=== PATIENT | male | born 1935 | race African-American/Black ===

== ENCOUNTER 2016-11-16 05:48 | Emergency (ER) | payer OTHER ==
[~2016-11-16] VITALS: Ht 185.4 cm; Wt 74.8 kg
[2016-11-16] MEDS ORDERED: CIPROFLOXACIN500 M2 ORAL (05:59)
--- NOTE | 2016-11-16 05:59 | Emergency Room Report ---
History of Present Illness General Chief Complaint: General Complaint Source: Patient, EMS Present Illness HPI Is an 81-year-old male with a history of BPH. He has a chronic Dennison in for last 2 months. He had it changed 2 weeks ago because of blockage. He presents with chief complaint of Dennison blockage started around midnight. Very painful. Similar symptom in the past. No fever or chills. no nausea no vomiting. No other injury. Allergies: Coded Allergies: PENICILLINS (Verified Allergy, Unknown, 11/16/16) Patient History Past Medical History: see triage record, old chart reviewed Past Surgical History: other Pertinent Family History: none Social History: Denies: smoking Immunizations: other Reviewed Nursing Documentation: PMH: Agreed, PSxH: Agreed Nursing Documentation-PMH Hx Hypertension: Yes Review of Systems Eye: Denies: blurred vision, eye pain ENT: Denies: ear pain, nose congestion, throat swelling Respiratory: Denies: cough, shortness of breath Cardiovascular: Denies: chest pain, palpitations Gastrointestinal: Denies: abdominal pain, diarrhea, nausea, vomiting Genitourinary: Reports: retention Musculoskeletal: Denies: back pain, joint pain Skin: Denies: rash Neurological: Denies: headache, numbness Endocrine: Denies: increased thirst, increased urine Hematologic/Lymphatic: Denies: easy bruising All Other Systems: negative except mentioned in HPI Physical Exam Vital Signs Date Time Temp Pulse Resp B/P Pulse Ox O2 Delivery O2 Flow Rate FiO2 11/16/16 05:50 97.5 82 16 191/93 97 Room Air vitals with hypertension Sp02 EP Interpretation: reviewed, normal General Appearance: well appearing, no apparent distress, alert Head: normocephalic, atraumatic Eyes: bilateral eye EOMI, bilateral eye PERRL ENT: hearing grossly normal, normal pharynx Neck: full range of motion, supple, no meningismus Respiratory: chest non-tender, lungs clear, normal breath sounds Cardiovascular #1: regular rate, rhythm, no murmur Gastrointestinal: normal bowel sounds, non tender, no mass, no organomegaly, no bruit, non-distended, other - Distended bladder Genitourinary: other - 16 [place]ic Dennison with no urine output Musculoskeletal: back normal, gait/station normal, normal range of motion Neurologic: alert, oriented x3, responsive Psychiatric: mood/affect normal Skin: warm/dry Medical Decision Making Diagnostic Impression: Primary Impression: Acute urinary retention ER Course Present with urinary retention. New Dennison placed with good urine output. Patient felt better. Blood pressure improved. We'll discharge home. Last Vital Signs Date Time Temp Pulse Resp B/P Pulse Ox O2 Delivery O2 Flow Rate FiO2 11/16/16 05:50 97.5 82 16 191/93 97 Room Air Status: improved Disposition: HOME, SELF-CARE Condition: Stable Scripts Ciprofloxacin Hcl* (CIPROFLOXACIN HCL*) 500 Mg Tablet 500 MG ORAL Q12H, #14 TAB 0 Refills Prov: SABINA FAJARDO M.D. 11/16/16 Additional Instructions: Followup with your doctor as scheduled to return for fever or chills or any concern SABINA FAJARDO M.D. Nov 16, 2016 05:59
[2016-11-16 06:32] VITALS: BP 135/80
== END 2016-11-16 06:55 | disposition home or self-care (01) ==
LOC: EDBD 05:48 → EDUNIT# 05:48 → EMR 06:00
DX: T83.091A Other mechanical complication of indwelling urethral catheter, initial encounter (principal); Y84.6 Urinary catheterization as the cause of abnormal reaction of the patient, or of later complication, without mention of misadventure at the time of the procedure; Y92.89 Other specified places as the place of occurrence of the external cause; N40.1 Benign prostatic hyperplasia with lower urinary tract symptoms; R33.8 Other retention of urine; Z88.0 Allergy status to penicillin; I10 Essential (primary) hypertension
CPT/HCPCS: 51702

== ENCOUNTER 2017-05-27 04:40 | Emergency (ER) | payer OTHER ==
[~2017-05-27] VITALS: Ht 188 cm; Wt 79.4 kg
[~2017-05-27 04:40] MED LIST: CIPROFLOXACIN500 M2 ORAL
[2017-05-27 04:45] VITALS: BP 137/87
--- NOTE | 2017-05-27 05:00 | Emergency Room Report ---
History of Present Illness General Chief Complaint: Male Urogenital Problems Source: Patient Present Illness [facility] This is an 82-year-old male with history of BPH and urinary retention. He has a chronic Dennison and orbital year now. He presents with urinary retention since midnight. Painful. Similar symptom in the past. [facility] No nausea no vomiting. Pain is 10 out of 10. Denies any other complaint. Allergies: Coded Allergies: PENICILLINS (Verified Allergy, Unknown, 11/16/16) Patient History Past Medical History: see triage record, old chart reviewed Past Surgical History: other Pertinent Family History: none Social History: Denies: smoking Immunizations: other Reviewed Nursing Documentation: PMH: Agreed, PSxH: Agreed Nursing Documentation-PMH Past Medical History: No History, Except For Hx Hypertension: Yes Review of Systems Eye: Denies: eye pain, blurred vision ENT: Denies: ear pain, nose congestion, throat swelling Respiratory: Denies: cough, shortness of breath Cardiovascular: Denies: chest pain, palpitations Gastrointestinal: Denies: abdominal pain, diarrhea, nausea, vomiting Genitourinary: Reports: retention Musculoskeletal: Denies: back pain, joint pain Skin: Denies: rash Neurological: Denies: headache, numbness Endocrine: Denies: increased thirst, increased urine Hematologic/Lymphatic: Denies: easy bruising All Other Systems: negative except mentioned in HPI Physical Exam Vital Signs Date Time Temp Pulse Resp B/P (MAP) Pulse Ox O2 Delivery O2 Flow Rate FiO2 05/27/17 04:32 97.0 100 18 137/87 98 vital signs unremarkable Sp02 EP Interpretation: reviewed, normal General Appearance: well appearing, no apparent distress, alert Head: normocephalic, atraumatic Eyes: bilateral eye PERRL, bilateral eye EOMI ENT: hearing grossly normal, normal pharynx Neck: full range of motion, supple, no meningismus Respiratory: chest non-tender, lungs clear, normal breath sounds Cardiovascular #1: regular rate, rhythm, no murmur Gastrointestinal: normal bowel sounds, non tender, no mass, no organomegaly, no bruit, non-distended, tenderness - Distended bladder Musculoskeletal: back normal, gait/station normal, normal range of motion Psychiatric: mood/affect normal Skin: warm/dry Procedures Additional Procedure Procedure Narrative Procedure: Dennison insertion Indication: Acute urinary retention Description: Under sterile condition I placed a 20 Sinhala Dennison. There was large amount of clots and debris. About 700 mL urine output came out. Patient felt better. No complication. Medical Decision Making Diagnostic Impression: Primary Impression: Acute urinary retention ER Course Patient with acute urinary retention. Better now. We'll discharge home. Last Vital Signs Date Time Temp Pulse Resp B/P (MAP) Pulse Ox O2 Delivery O2 Flow Rate FiO2 05/27/17 04:32 97.0 100 18 137/87 98 Status: improved Disposition: HOME, SELF-CARE Additional Instructions: [facility] Return for fever chills, or any concern SABINA FAJARDO M.D. May 27, 2017 05:00
[2017-05-27 05:20] VITALS: BP 137/87
== END 2017-05-27 05:20 | disposition home or self-care (01) ==
LOC: EDBD 04:40 → EMR 04:45
DX: N40.1 Benign prostatic hyperplasia with lower urinary tract symptoms (principal); R33.8 Other retention of urine; I10 Essential (primary) hypertension; Z88.0 Allergy status to penicillin
CPT/HCPCS: 51702; 99283

== ENCOUNTER 2017-08-04 03:44 | Emergency (ER) | payer OTHER ==
[~2017-08-04] VITALS: Ht 185.4 cm; Wt 77.1 kg
[2017-08-04 03:49] VITALS: BP 197/68
--- NOTE | 2017-08-04 04:36 | Emergency Room Report ---
History of Present Illness General Chief Complaint: Male Urogenital Problems Source: Patient, EMS Present Illness HPI Patient presents with complaints that he feels his Rossi catheter is clogged Patient has had several visits with similar complaints he has had a long- standing Rossi catheter Over the past 6 months Patient reports that he does have a urologist at the [facility] that he does see closely he reports that he has prostate problems and that is why he has a Rossi catheter He feels increased pressure in the bladder area Denies any fevers or chills denies any vomiting Allergies: Coded Allergies: PENICILLINS (Verified Allergy, Unknown, 11/16/16) Patient History Past Medical History: see triage record Pertinent Family History: none Reviewed Nursing Documentation: PMH: Agreed, PSxH: Agreed Nursing Documentation-PMH Hx Hypertension: Yes Hx Gastrointestinal Problems: Yes - BPH Review of Systems All Other Systems: negative except mentioned in HPI Physical Exam Vital Signs Date Time Temp Pulse Resp B/P (MAP) Pulse Ox O2 Delivery O2 Flow Rate FiO2 08/04/17 03:41 97.8 91 18 197/68 96 Room Air 97.9 Sp02 EP Interpretation: reviewed, normal - Appears mildly disheveled General Appearance: well appearing, no apparent distress Head: normocephalic, atraumatic Eyes: bilateral eye PERRL, bilateral eye EOMI ENT: no angioedema, normal voice Neck: full range of motion, supple Respiratory: lungs clear Cardiovascular #1: no edema Gastrointestinal: non tender, soft Genitourinary: no CVA tenderness, other - Rossi catheter in place approximately 50 mL in the Rossi bag Musculoskeletal: back normal Neurologic: alert, oriented x3 Skin: normal color, no rash Lymphatic: no adenopathy Medical Decision Making Diagnostic Impression: Primary Impression: rossi catheter malfunction ER Course Given the patient's presentation a complaint Rossi catheter was placed We did have 500 cc his urine output and the patient does feel significantly better Patient's encouraged highly to follow up with his urologist next one to 2 days Last Vital Signs Date Time Temp Pulse Resp B/P (MAP) Pulse Ox O2 Delivery O2 Flow Rate FiO2 08/04/17 03:49 97.9 91 18 197/68 96 Room Air 97.9 Status: improved Disposition: HOME, SELF-CARE Condition: Improved Referrals: SATNAM MCDANIEL,REFERRING (PCP) Patient Instructions: Rossi Catheter Care, Adult, [id number] Additional Instructions: [facility] one [facility] 2 days JANA LOVE D.O. Aug 04, 2017 04:36
[2017-08-04 04:45] VITALS: BP 197/68
== END 2017-08-04 04:45 | disposition home or self-care (01) ==
LOC: EDBD 03:44 → EMR 04:09
DX: T83.098A Other mechanical complication of other urinary catheter, initial encounter (principal); Z88.0 Allergy status to penicillin; I10 Essential (primary) hypertension; N40.0 Benign prostatic hyperplasia without lower urinary tract symptoms; Y84.6 Urinary catheterization as the cause of abnormal reaction of the patient, or of later complication, without mention of misadventure at the time of the procedure; Y92.9 Unspecified place or not applicable
CPT/HCPCS: 99282

== ENCOUNTER 2019-08-23 21:01 | Emergency (ER) | payer OTHER ==
[~2019-08-23] VITALS: Ht 185.4 cm; Wt 73.0 kg
[2019-08-23 21:10] VITALS: BP 148/89
--- NOTE | 2019-08-23 21:10 | NUR ---
ED Nurse Note: Pt brought into ED from home by KEYANA ROTHMAN for c/o rossi cath problem. Pt states the balloon in catheter broke and rossi came out. Pt is aaox4, no respiratory or cardiac distress noted. Pt has had a rossi inserted for over a year and regularly visits [facility] for check ups/ rossi changes per pt.
--- NOTE | 2019-08-23 21:10 | NUR ---
ED Nurse Note: Pt also reports penile pain s/p removal of cathether prior to arrival.
--- NOTE | 2019-08-23 21:22 | Emergency Room Report ---
History of Present Illness General Chief Complaint: Male Urogenital Problems Source: Patient, EMS Present Illness HPI Patient has a chronic indwelling Dennison. The balloon popped and the Dennison came out. He denies fever chills. He denies nausea, vomiting or diarrhea. He has a slight amount of dysuria. Denies change in his bowel habits. Was in assisted living and now at home for 1 week. Allergies: Coded Allergies: PENICILLINS (Verified Allergy, Unknown, 11/16/16) COVID-19 Screening Contact w/high risk pt: No Recent Travel to affected area: No Experienced COVID-19 symptoms?: No Patient History Past Medical History: see triage record Social History: Reports: smoking Social History Narrative at home after assisted living Reviewed Nursing Documentation: PMH: Agreed; PSxH: Agreed Nursing Documentation-PMH Hx Hypertension: Yes Hx Gastrointestinal Problems: Yes - BPH Review of Systems Constitutional: Reports: see HPI Cardiovascular: Denies: chest pain Gastrointestinal: Denies: abdominal pain Genitourinary: Reports: see HPI Musculoskeletal: Denies: joint pain Skin: Denies: rash Physical Exam Vital Signs Date Time Temp Pulse Resp B/P (MAP) Pulse Ox O2 Delivery O2 Flow Rate FiO2 08/23/19 21:04 97.9 90 19 148/89 (108) 98 Room Air Sp02 EP Interpretation: reviewed, normal General Appearance: no apparent distress, alert, GCS 15, non-toxic, thin, Chronically Ill Head: normocephalic Eyes: left eye other - Slight proptosis; bilateral eye PERRL, bilateral eye EOMI ENT: moist mucus membranes Neck: full range of motion Respiratory: lungs clear, normal breath sounds Cardiovascular #1: regular rate, rhythm Cardiovascular #2: 2+ radial (L) Gastrointestinal: normal inspection, non tender, soft Genitourinary: no CVA tenderness, other - Uncircumcised without blood at the meatus Musculoskeletal: gait/station normal Neurologic: alert, oriented, motor weakness - Minimal left, other Psychiatric: mood/affect normal Skin: normal color, no rash Medical Decision Making Diagnostic Impression: Primary Impression: Encounter for Dennison catheter replacement Additional Impression: UTI (urinary tract infection) Qualified Codes: T83.511A - Infection and inflammatory reaction due to indwelling urethral catheter, initial encounter; N39.0 - Urinary tract infection , site not specified ER Course Patient presents with Dennison coming out with ruptured balloon. A Dennison will be replaced. Urinalysis is sent. The diagnosis is clinical. Patient does not have any appearance of toxicity or dehydration. TNTC WBCs. Macrobid ordered. Discussed findings with patient. Patient stable for outpatient observation and treatment. Laboratory Tests Test 08/23/19 21:40 Urine Color Pale yellow Urine Appearance Cloudy Urine pH 8 (4.5-8.0) Urine Specific [place] 1.015 (1.005-1.035) Urine Protein 3+ (NEGATIVE) H Urine Glucose (UA) 1+ (NEGATIVE) H Urine Ketones Negative (NEGATIVE) Urine Blood 5+ (NEGATIVE) H Urine Nitrite Negative (NEGATIVE) Urine Bilirubin Negative (NEGATIVE) Urine Urobilinogen Normal MG/DL (0.0-1.0) Urine Leukocyte Esterase 3+ (NEGATIVE) H Urine RBC Tntc /HPF (0 - 0) H Urine WBC Tntc /HPF (0 - 0) H Urine Squamous Epithelial Cells Moderate /LPF (NONE/OCC) H Urine Bacteria Many /HPF (NONE) H Last Vital Signs Date Time Temp Pulse Resp B/P (MAP) Pulse Ox O2 Delivery O2 Flow Rate FiO2 08/24/19 00:10 97.9 78 16 141/99 99 Room Air Status: improved Reevaluation Impression Apparently patient left without his prescription. Disposition: HOME, SELF-CARE Condition: Improved Scripts Nitrofurantoin Monohyd/M-Cryst* (MACROBID 100 MG*) 100 Mg Capsule 100 MG ORAL EVERY 12 HOURS, #14 CAP Prov: Aldair Stark MD 08/23/19 Aldair Stark MD Aug 23, 2019 21:22
--- NOTE | 2019-08-23 21:35 | NUR ---
ED Nurse Note: Previous rossi was pulled out. New rossi inserted at this time and leg bag attached. No complications noted. Urine sample sent to lab.
[2019-08-23 21:53] LABS: APPEARANCE,URINE CLOUDY; BILIRUBIN, URINE NEGATIVE (NEGATIVE); COLOR,URINE PALE YELLOW; GLUCOSE, URINE (UA) 1+ (NEGATIVE); KETONES,URINE NEGATIVE (NEGATIVE); LEUKOCYTE ESTERASE ,URINE 3+ (NEGATIVE); NITRITE,URINE NEGATIVE (NEGATIVE); PH,URINE 8 (4.5-8.0); PROTEIN,URINE 3+ (NEGATIVE); UROBILINOGEN,URINE NORMAL MG/DL (0.0-1.0)
--- NOTE | 2019-08-23 22:30 | NUR ---
ED Nurse Note: Pt is resting comfortably in bed. No complaints or acute distress noted at this time. Will continue to monitor pt.
[2019-08-23] MEDS ORDERED: NITROFURANTOIN100 M2 ORAL (22:36)
[2019-08-24 00:10] VITALS: BP 141/99
--- NOTE | 2019-08-24 00:10 | NUR ---
ER DISCHARGE NOTE: Patient is cleared to be discharged per ERMD, pt is aox4, on room air, with stable vital signs. pt was given dc and prescription instructions, pt was able to verbalize understanding, pt id band removed. pt is able to ambulate with steady gait to taxi. pt took all belongings.
[2019-08-26] MEDS ORDERED: CIPROFLOXACIN500 M2 ORAL (07:50)
== END 2019-08-24 00:10 | disposition home or self-care (01) ==
LOC: EDBD 21:01 → EMR 22:06
DX: T83.511A Infection and inflammatory reaction due to indwelling urethral catheter, initial encounter (principal); X58.XXXA Exposure to other specified factors, initial encounter; Y92.9 Unspecified place or not applicable; Z88.0 Allergy status to penicillin; I10 Essential (primary) hypertension; F17.200 Nicotine dependence, unspecified, uncomplicated
CPT/HCPCS: 51702; 81003; 87086; 87181; 99284

== ENCOUNTER 2019-10-24 01:10 | Emergency (ER) | payer OTHER ==
[~2019-10-24] VITALS: Ht 188 cm; Wt 81.6 kg
[~2019-10-24 01:10] MED LIST changes: +NITROFURANTOIN100 M2 ORAL
--- NOTE | 2019-10-24 01:15 | NUR ---
ED Nurse Note: Pt brought in by [id number] from home c/o pain from hi rossi as well as "its stopped up" pt wears a rossi constantly, no fever, VSS. Pt is A&Ox4.
[2019-10-24 01:17] VITALS: BP 124/55
--- NOTE | 2019-10-24 01:24 | Emergency Room Report ---
History of Present Illness General Chief Complaint: Male Urogenital Problems Source: Patient Present Illness HPI Is an 84-year-old male with a history of BPH and urinary retention. He has a chronic Dennison. He presents with chief complaint of urinary retention. He said his Dennison stopped working around 9 PM. Now is painful and distended. This occur frequently to him. Last Dennison change was 3 weeks ago. No fever chills but no nausea no vomiting. Nothing made it better. Nothing made it worse. 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: No Patient History Past Medical History: see triage record, old chart reviewed, HTN Past Surgical History: other Pertinent Family History: none Social History: Denies: smoking Immunizations: other Reviewed Nursing Documentation: PMH: Agreed; PSxH: Agreed Nursing Documentation-PMH Past Medical History: No History, Except For Hx Hypertension: Yes Hx Gastrointestinal Problems: Yes - BPH Review of Systems Eye: Denies: eye pain, blurred vision ENT: Denies: ear pain, nose congestion, throat swelling Respiratory: Denies: cough, shortness of breath Cardiovascular: Denies: chest pain, palpitations Gastrointestinal: Denies: abdominal pain, diarrhea, nausea, vomiting Genitourinary: Reports: retention Musculoskeletal: Denies: back pain, joint pain Skin: Denies: rash Neurological: Denies: headache, numbness Endocrine: Denies: increased thirst, increased urine Hematologic/Lymphatic: Denies: easy bruising All Other Systems: negative except mentioned in HPI Physical Exam Vital Signs Date Time Temp Pulse Resp B/P (MAP) Pulse Ox O2 Delivery O2 Flow Rate FiO2 10/24/19 01:13 97.3 114 18 124/55 (78) 97 Room Air Vitals with tachycardia Sp02 EP Interpretation: reviewed, normal General Appearance: well appearing, no apparent distress, alert Head: normocephalic, atraumatic Eyes: bilateral eye PERRL, bilateral eye EOMI ENT: hearing grossly normal, normal pharynx Neck: full range of motion, supple, no meningismus Respiratory: chest non-tender, lungs clear, normal breath sounds Cardiovascular #1: regular rate, rhythm, no murmur Gastrointestinal: normal bowel sounds, non tender, no mass, no organomegaly, no bruit, non-distended, other - Distended bladder Musculoskeletal: back normal, normal range of motion, gait/station normal Psychiatric: mood/affect normal Medical Decision Making Diagnostic Impression: Primary Impression: Malfunction of Dennison catheter Qualified Codes: T83.011A - Breakdown (mechanical) of indwelling urethral catheter, initial encounter ER Course Patient presents with urinary retention secondary to clogged Dennison catheter. A new Dennison placed. Will discharge home. Last Vital Signs Date Time Temp Pulse Resp B/P (MAP) Pulse Ox O2 Delivery O2 Flow Rate FiO2 10/24/19 01:17 97.3 79 18 124/55 97 Room Air Status: improved Disposition: HOME, SELF-CARE Condition: Stable Additional Instructions: Follow-up with your urologist as scheduled. Return if symptoms worsen. Darrel Hernández MD October 24, 2019 01:24
--- NOTE | 2019-10-24 01:34 | NUR ---
ED Nurse Note: 20F coude placed without complication, pt tolerated well
--- NOTE | 2019-10-24 02:38 | NUR ---
ER DISCHARGE NOTE: Patient is cleared to be discharged per ERMD, pt is aox4, on room air, with stable vital signs. pt was given dc and prescription instructions, pt was able to verbalize understanding, pt id band removed. pt is able to ambulate with steady gait. pt took all belongings. Patient awaiting taxi pick-up in the waiting room lobby.
== END 2019-10-24 02:39 | disposition home or self-care (01) ==
LOC: EDBD 01:10 → EMR 01:27
DX: T83.011A Breakdown (mechanical) of indwelling urethral catheter, initial encounter (principal); I10 Essential (primary) hypertension; Z88.0 Allergy status to penicillin; X58.XXXA Exposure to other specified factors, initial encounter; Y92.9 Unspecified place or not applicable
CPT/HCPCS: 51702; 99284

== ENCOUNTER 2020-02-15 15:15 | Emergency (ER) | payer OTHER ==
[~2020-02-15] VITALS: Ht 185.4 cm; Wt 69.9 kg
[2020-02-15 15:15] VITALS: BP 142/74
--- NOTE | 2020-02-15 15:27 | Emergency Room Report ---
History of Present Illness General Chief Complaint: Male Urogenital Problems Source: Patient, EMS Present Illness HPI Patient is an 85-year-old male past medical history of indwelling Dennison catheter who presents to the ER stating that his Dennison catheter has not been draining for the second half of the day. He complains of suprapubic pain. He states that this is commonly happened. Patient has been seen here previously numerous times for the same complaint. He denies any fever or chills. He denies any chest pain or shortness of breath. Patient was brought in by EMS from home. Patient denies any bloody or cloudy urine. He denies any nausea or vomiting Allergies: Coded Allergies: PENICILLINS (Verified Allergy, Unknown, 11/16/16) COVID-19 Screening Contact w/high risk pt: No Recent Travel to affected area: No Experienced COVID-19 symptoms?: No COVID-19 Testing performed ULTRASONIC SOLDERER: No Patient History Reviewed Nursing Documentation: PMH: Agreed; PSxH: Agreed Nursing Documentation-PMH Past Medical History: No History, Except For Hx Cardiac Problems: Yes - CVA Hx Hypertension: Yes Hx Gastrointestinal Problems: Yes - BPH Review of Systems All Other Systems: negative except mentioned in HPI Physical Exam Vital Signs Date Time Temp Pulse Resp B/P (MAP) Pulse Ox O2 Delivery O2 Flow Rate FiO2 02/15/20 15:10 99.3 100 18 148/62 (90) 96 Room Air Sp02 EP Interpretation: reviewed, normal General Appearance: GCS 15, moderate distress, other - Poorly groomed Head: normocephalic, atraumatic Eyes: bilateral eye normal inspection, bilateral eye PERRL ENT: hearing grossly normal, normal pharynx, no angioedema, normal voice Neck: full range of motion, supple/symm/no masses Respiratory: chest non-tender, lungs clear, normal breath sounds, speaking full sentences Cardiovascular #1: regular rate, rhythm, no edema Gastrointestinal: other - Suprapubic discomfort and fullness with no guarding or rebound Rectal: deferred Musculoskeletal: other - Dennison catheter in place Neurologic: inventory specialist manager III-XII nml as tested, oriented x3 Psychiatric: no suicidal/homicidal ideation Skin: no rash Lymphatic: no adenopathy Medical Decision Making Diagnostic Impression: Primary Impression: Dennison catheter problem ER Course Dennison catheter replaced without any difficulty. Urine culture sent. Patient has no fever and no symptoms that would lead me to believe that he has a UTI. After discussing risks and benefits of further diagnostics, treatment plans, as well as indications for and risks of admission, the patient is agreeable to being discharged home. I have explained that their evaluation and treatment in the emergency department today is an important step towards them achieving better health but that their evaluation today is not intended to replace further evaluation and treatment by a physician in their local clinic. I have explained that while the current findings suggest no immediate life threatening emergency they will require further evaluation and treatment by a physician of their [facility] in their area. They understand that it will be necessary for them to review the final reports of their ED visit with their clinic physician. We have reviewed indications for return to the Emergency Department. I have explained that additional time may need to pass and/or additional testing as an outpatient may be necessary before a definitive diagnosis can be made. They tell me they are willing to follow up as instructed within the timeframe I recommend. They appear to understand what we discussed. Additionally they understand that if they are unable to be seen by an outpatient physician they are welcome, and in fact should, return to the Emergency Department for a repeat evaluation. The patient is stable at time of discharge. Last Vital Signs Date Time Temp Pulse Resp B/P (MAP) Pulse Ox O2 Delivery O2 Flow Rate FiO2 02/15/20 15:10 99.3 100 18 148/62 (90) 96 Room Air Disposition: HOME, SELF-CARE Condition: Stable Referrals: [facility] Emmy Vazquez [facility] Patient Instructions: Dennison Catheter Care, Adult, [id number] Additional Instructions: The patient was provided with discharge instructions, notified to follow-up with a primary care doctor and or specialist in the next 24-48 hours, and to return to the ED if they have worsening of their symptoms. Please note that this report is being documented using [employer] technology. This can lead to erroneous entry secondary to incorrect interpretation by the Project Manager instrument. Justine Zelaya M.D. Feb 15, 2020 15:27
[2020-02-15] MEDS ORDERED: Lidocaine HCl 2% Jelly 6ml Tube TOPIC ONE (15:45)
[2020-02-15 17:15] VITALS: BP 138/84
[2020-02-15 20:35] VITALS: BP 128/81
== END 2020-02-15 20:35 | disposition home or self-care (01) ==
LOC: EDBD 15:15 → EMR 15:24
DX: T83.098A Other mechanical complication of other urinary catheter, initial encounter (principal); Z88.0 Allergy status to penicillin; I10 Essential (primary) hypertension; Z86.73 Personal history of transient ischemic attack (TIA), and cerebral infarction without residual deficits; X58.XXXA Exposure to other specified factors, initial encounter; Y92.9 Unspecified place or not applicable
CPT/HCPCS: 51702; 87086; 99284

== ENCOUNTER 2020-03-29 17:26 | Inpatient (IN) | payer BC, MEDICARE, OTHER ==
[~2020-03-29] VITALS: Ht 180.3 cm; Wt 73.0 kg
[2020-03-29 17:28] VITALS: BP 142/60
[2020-03-29] MEDS ORDERED: Vancomycin 1 GM in NS 275 ML IVPB ONE (17:30)
[2020-03-29 18:23] LABS: HEMATOCRIT 45.4 % (42.0-52.0); HEMOGLOBIN 14.8 G/DL (14.2-18.0); MEAN CORPUSCULAR VOLUME 99 FL (80-99); PLATELET COUNT 119 K/UL (150-450); RED CELL DISTRIBUTION WIDTH 13.1 % (11.6-14.8)
[2020-03-29 18:25] LABS: INR 1.1 (0.9-1.1)
[2020-03-29 18:26] LABS: CALCIUM 9.2 MG/DL (8.5-10.1); CREATININE 6.3 MG/DL (0.55-1.30); POTASSIUM 5.6 MMOL/L (3.5-5.1)
[2020-03-29 18:42] LABS: ALBUMIN/GLOBULIN RATIO 0.8 (1.0-2.7); BILIRUBIN,TOTAL 0.4 MG/DL (0.2-1.0); PHOSPHORUS 5.2 MG/DL (2.5-4.9)
[2020-03-29 18:51] LABS: APPEARANCE,URINE VERY CLOUDY; BILIRUBIN, URINE NEGATIVE (NEGATIVE); COLOR,URINE AMBER; GLUCOSE, URINE (UA) NEGATIVE (NEGATIVE); KETONES,URINE 1+ (NEGATIVE); LEUKOCYTE ESTERASE ,URINE 3+ (NEGATIVE); NITRITE,URINE NEGATIVE (NEGATIVE); PH,URINE 7 (4.5-8.0); PROTEIN,URINE 4+ (NEGATIVE); UROBILINOGEN,URINE NORMAL MG/DL (0.0-1.0)
--- NOTE | 2020-03-29 19:33 | Diagnostic Imaging Report ---
EXAM: US Abdomen Complete CLINICAL HISTORY: RENAL-A TECHNIQUE: Real-time ultrasound of the abdomen with image documentation. COMPARISON: No previous study. FINDINGS: Liver: The liver measures 14.8 cm. No intrahepatic bile duct dilation. Gallbladder: Gallbladder is unremarkable. No gallstones. Common bile duct: Common bile duct measures 0.65 cm and is mildly prominent. No stones. Pancreas: Unremarkable as visualized. Kidneys: Right kidney measures 12.5 x 5.7 x 5.5 cm with mild hydronephrosis. Patent main portal vein. Left kidney measures 10.5 x 5. 1 x 4.9 centers. Increased echogenicity of the kidneys suggestive of medical renal disease. 0.4 cm probable nonobstructing right renal calculus. Spleen: The spleen is not visualized due to bowel gas. Aorta: Abdominal aorta is normal in caliber. No aneurysm. Inferior vena cava: Unremarkable. IMPRESSION: 1. Limited evaluation due to bowel gas. 2. Increased echogenicity of the kidney suggestive of medical renal disease. 3. Nonobstructing right renal calculus. 4. No gallstones detected. The gallbladder is unremarkable per 5. The common bile duct 6. Measures 0.65 cm and is mildly dilated. 7. Choledocholithiasis cannot be excluded. MRCP study will provide additional information as deemed necessary. 8. Mild hydronephrosis of the right kidney of uncertain etiology. CT imaging of the abdomen and pelvis should be considered. 9. Spleen is not visualized due to body habitus.
[2020-03-29 21:24] VITALS: BP_SYST 131
[2020-03-29 22:00] VITALS: BP 126/57
--- NOTE | 2020-03-29 22:15 | History & Physical ---
History and Physical History & Physicial A& O X 3 On BiPAP Fernando Sierra MD Mar 29, 2020 22:15
[2020-03-29] MEDS ORDERED: Albuterol/Ipratropium 3ml neb HHN PRN (22:30)
[2020-03-30] VITALS: BP 118/64
[2020-03-30] MEDS ORDERED: Cefepime HCl 2 GM in D5W 110 ML IV ONE ×2
[2020-03-30] MEDS ORDERED: Vancomycin 1 GM in D5W 275 ML IV SCH (00:30)
[2020-03-30 04:00] VITALS: BP 118/87
[2020-03-30 04:45] LABS: HEMOGLOBIN 12.8 G/DL (14.2-18.0); MEAN CORPUSCULAR VOLUME 94 FL (80-99); PLATELET COUNT 86 K/UL (150-450); RED BLOOD COUNT 3.95 M/UL (4.70-6.10); RED CELL DISTRIBUTION WIDTH 13.6 % (11.6-14.8); WHITE BLOOD COUNT 20.4 K/UL (4.8-10.8)
[2020-03-30 04:56] LABS: ALANINE AMINOTRANSFERASE 15 U/L (12-78); ALBUMIN 2.4 G/DL (3.4-5.0); ALBUMIN/GLOBULIN RATIO 0.7 (1.0-2.7); ALKALINE PHOSPHATASE 83 U/L (46-116); ASPARTATE AMINO TRANSFERASE 37 U/L (15-37); BILIRUBIN,TOTAL 0.5 MG/DL (0.2-1.0); BLOOD UREA NITROGEN 73 mg/dL (7-18); CALCIUM 8.7 MG/DL (8.5-10.1); CARBON DIOXIDE 24 MMOL/L (21-32); CHLORIDE 101 MMOL/L (98-107); CREATININE 5.1 MG/DL (0.55-1.30); POTASSIUM 5.4 MMOL/L (3.5-5.1); SODIUM 135 MMOL/L (136-145)
[2020-03-30 08:00] VITALS: BP 134/77
[2020-03-30] MEDS: Heparin 5000 units/ml inj SUBQ SCH ×2 (08:57→20:12)
--- NOTE | 2020-03-30 10:07 | Diagnostic Imaging Report ---
EXAM: ULTRASOUND US Renal Comp CLINICAL HISTORY: Abdominal pain. COMPARISON: None TECHNIQUE: Ultrasound examination of the kidneys includes grayscale images, and color and spectral doppler analysis. FINDINGS: The right kidney measures 11.7 x 5.6 x 5.9 cm and the left kidney measures 10.2 x 5.8 x 4.7 cm. Cortical thickness and echogenicity are within normal limits. On the right side, there is mild right hydronephrosis noted. . Urinary bladder appears fairly distended. There is a layering calcified gallstone along with some debris. A Cuevas catheter is also noted in the bladder. IMPRESSION: MILD RIGHT HYDRONEPHROSIS. THERE IS A CUEVAS CATHETER IN THE BLADDER BUT THE BLADDER STILL APPEARS FAIRLY DISTENDED. PLEASE CHECK FUNCTION OF CATHETER. LAYERING STONE AND SOME DEBRIS NOTED IN THE URINARY BLADDER. PATIENT'S NURSE, FROYLAN WAS INFORMED OF THE FINDINGS REGARDING THE DISTENDED URINARY BLADDER WITH CUEVAS IN PLACE TO CHECK FOR FUNCTION OF CUEVAS.
--- NOTE | 2020-03-30 11:10 | Consultation ---
History of Present Illness General Date patient seen: Mar 30, 2020 Chief Complaint: Generalized Weakness Present Illness HPI 85 year old male with hx of recent CVA, 2 month ago, with chronic urinary catheter, presented to ER by paramedics with CC of weakness, fatigue, dyspnea. Pt was hypoxemic in ER and was put on BIPAP. He was found to be in renal failure. He got a dose of Lasix in ER and transferred to [facility]. He was weaned off bipap this morning. He is currently on face mask with 6 liters of oxygen. His blood cultures came back positive for GNR. Pt is admitted to [facility] for further management. Allergies: Coded Allergies: PENICILLINS (Verified Allergy, Unknown, 11/16/16) Medication History Unable to Obtain Active Prescriptions or Reported Meds Patient History Healthcare decision maker Resuscitation status Advanced Directive on File Past Medical/Surgical History Past Medical/Surgical History: (1) COPD (chronic obstructive pulmonary disease) (2) History of CVA (cerebrovascular accident) Review of Systems Constitutional: Reports: no symptoms Eye: Reports: no symptoms ENT: Reports: no symptoms All Other Systems: negative except mentioned in HPI Physical Exam General Appearance: cachetic, thin Lines, tubes and drains: peripheral HEENT: normocephalic, atraumatic Neck: non-tender, normal alignment, supple Respiratory/Chest: chest wall non-tender, lungs clear, normal breath sounds Breasts: no masses Cardiovascular/Chest: normal peripheral pulses, normal rate Abdomen: normal bowel sounds, non tender, soft Genitourinary/Rectal: normal genital exam Extremities: normal range of motion, normal inspection, no calf tenderness Skin Exam: normal pigmentation Last 24 Hour Vital Signs Date Time Temp Pulse Resp B/P (MAP) Pulse Ox O2 Delivery O2 Flow Rate FiO2 03/30/20 10:20 102 98 03/30/20 09:00 30 03/30/20 08:50 99 32 100 30 03/30/20 08:00 Bi-pap 03/30/20 08:00 50 03/30/20 08:00 97.0 105 21 134/77 (96) 100 03/30/20 08:00 99 03/30/20 07:00 101 25 100 50 03/30/20 05:12 95 24 100 70 03/30/20 04:00 97.9 99 24 118/87 (97) 100 03/30/20 04:00 100 03/30/20 04:00 Bi-pap 03/30/20 03:31 101 03/30/20 02:57 92 25 100 80 03/30/20 01:09 104 38 100 100 03/30/20 00:00 98.1 102 26 118/64 (82) 100 03/30/20 00:00 Bi-pap 03/30/20 00:00 100 03/29/20 23:56 106 03/29/20 23:04 102 03/29/20 22:34 101 30 98 Bi-Pap 100 03/29/20 22:31 101 30 98 Bi-Pap 100 100 03/29/20 22:12 Bi-Pap 03/29/20 22:00 100 03/29/20 22:00 98.2 92 26 126/57 (80) 100 03/29/20 22:00 Bi-pap 03/29/20 21:40 103 34 6.0 100 03/29/20 21:38 97.5 96 26 131/60 100 Mechanical Ventilator 2.0 100 03/29/20 21:24 97.5 96 26 131/ 100 Mechanical Ventilator 100 03/29/20 17:28 98.0 108 38 142/60 98 Nasal Cannula 2.0 03/29/20 17:28 108 38 Nasal Cannula 2.0 03/29/20 17:24 98.1 108 38 142/60 (87) 98 Nasal Cannula 2.0 Intake and Output 03/29/20 03/30/20 19:00 07:00 Intake Total 220 ml Output Total 1900 ml Balance -1680 ml Intake IV Total 220 ml Output Urine Total 1900 ml Laboratory Tests Test 03/29/20 17:37 03/29/20 17:45 03/29/20 18:35 03/29/20 19:50 Arterial Blood pH Pending Arterial Blood Partial Pressure CO2 Pending Arterial Blood Partial Pressure O2 Pending Arterial Blood HCO3 Pending Arterial Blood Oxygen Saturation Pending Arterial Blood Base Excess Pending Ramakrishna Test Pending White Blood Count 18.0 K/UL (4.8-10.8) H Red Blood Count 4.60 M/UL (4.70-6.10) L Hemoglobin 14.8 G/DL (14.2-18.0) Hematocrit 45.4 % (42.0-52.0) Mean Corpuscular Volume 99 FL (80-99) Mean Corpuscular Hemoglobin 32.2 PG (27.0-31.0) H Mean Corpuscular Hemoglobin Concent 32.7 G/DL (32.0-36.0) Red Cell Distribution Width 13.1 % (11.6-14.8) Platelet Count 119 K/UL (150-450) L Mean Platelet Volume 8.1 FL (6.5-10.1) Neutrophils (%) (Auto) % (45.0-75.0) Lymphocytes (%) (Auto) % (20.0-45.0) Monocytes (%) (Auto) % (1.0-10.0) Eosinophils (%) (Auto) % (0.0-3.0) Basophils (%) (Auto) % (0.0-2.0) Differential Total Cells Counted 100 Neutrophils % (Manual) 71 % (45-75) Lymphocytes % (Manual) 6 % (20-45) L Monocytes % (Manual) 4 % (1-10) Eosinophils % (Manual) 0 % (0-3) Basophils % (Manual) 0 % (0-2) Metamyelocytes % 1 % (0-0) H Myelocytes % 1 % (0-0) H Band Neutrophils 17 % (0-8) H Platelet Estimate Decreased L Platelet Morphology Normal Anisocytosis 1+ Macrocytosis 1+ Prothrombin Time 11.6 SEC (9.30-11.50) H Prothromb Time International Ratio 1.1 (0.9-1.1) Activated Partial Thromboplast Time 36 SEC (23-33) H D-Dimer 12.42 mg/L FEU (0.00-0.49) H Sodium Level 134 MMOL/L (136-145) L Potassium Level 5.6 MMOL/L (3.5-5.1) H Chloride Level 99 MMOL/L (98-107) Carbon Dioxide Level 25 MMOL/L (21-32) Anion Gap 10 mmol/L (5-15) Blood Urea Nitrogen 65 mg/dL (7-18) H Creatinine 6.3 MG/DL (0.55-1.30) H Estimat Glomerular Filtration Rate 10.3 mL/min (>60) Glucose Level 161 MG/DL (74-106) H Lactic Acid Level 2.90 mmol/L (0.4-2.0) H 1.90 mmol/L (0.66-2.22) Uric Acid 4.8 MG/DL (2.6-7.2) Calcium Level 9.2 MG/DL (8.5-10.1) Phosphorus Level 5.2 MG/DL (2.5-4.9) H Magnesium Level 1.8 MG/DL (1.8-2.4) Ferritin 240 NG/ML (8-388) Total Bilirubin 0.4 MG/DL (0.2-1.0) Aspartate Amino Transf (AST/SGOT) 42 U/L (15-37) H Alanine Aminotransferase (ALT/SGPT) 15 U/L (12-78) Alkaline Phosphatase 90 U/L (46-116) Lactate Dehydrogenase 301 U/L (81-234) H Total Creatine Kinase 343 U/L (26-308) H Creatine Kinase MB 5.0 NG/ML (0.0-3.6) H Creatine Kinase MB Relative Index 1.4 Troponin I 0.047 ng/mL (0.000-0.056) C-Reactive Protein, Quantitative 50.4 mg/dL (0.00-0.90) H Pro-B-Type Natriuretic Peptide 62296 pg/mL (0-125) H Total Protein 6.9 G/DL (6.4-8.2) Albumin 3.0 G/DL (3.4-5.0) L Globulin 3.9 g/dL Albumin/Globulin Ratio 0.8 (1.0-2.7) L Lipase 92 U/L (73-393) Urine Color Janet Urine Appearance Very cloudy Urine pH 7 (4.5-8.0) Urine Specific Pe Ell 1.015 (1.005-1.035) Urine Protein 4+ (NEGATIVE) H Urine Glucose (UA) Negative (NEGATIVE) Urine Ketones 1+ (NEGATIVE) H Urine Blood 5+ (NEGATIVE) H Urine Nitrite Negative (NEGATIVE) Urine Bilirubin Negative (NEGATIVE) Urine Ictotest Negative (NEGATIVE) Urine Urobilinogen Normal MG/DL (0.0-1.0) Urine Leukocyte Esterase 3+ (NEGATIVE) H Urine RBC Tntc /HPF (0 - 0) H Urine WBC 60-80 /HPF (0 - 0) H Urine Squamous Epithelial Cells Moderate /LPF (NONE/OCC) H Urine Bacteria Many /HPF (NONE) H Urine Eosinophils None seen (NONE SEEN) Urine Osmolality 308 mOsm/kg (429-449) L Urine Random Creatinine Pending Urine Random Microalbumin Pending Urine Random Sodium 93 mmol/L (20-110) Urine Microalbumin/Creatinine Ratio Pending Test 03/29/20 20:23 03/30/20 03:50 Arterial Blood pH 7.394 (7.350-7.450) Arterial Blood Partial Pressure CO2 37.7 mmHg (35.0-45.0) Arterial Blood Partial Pressure O2 73.2 mmHg (75.0-100.0) L Arterial Blood HCO3 22.5 mmol/L (22.0-26.0) Arterial Blood Oxygen Saturation 94.0 % (95-100) L Arterial Blood Base Excess -2 (-2-2) Ramakrishna Test Positive White Blood Count 20.4 K/UL (4.8-10.8) H Red Blood Count 3.95 M/UL (4.70-6.10) L Hemoglobin 12.8 G/DL (14.2-18.0) L Hematocrit 37.0 % (42.0-52.0) L Mean Corpuscular Volume 94 FL (80-99) Mean Corpuscular Hemoglobin 32.5 PG (27.0-31.0) H Mean Corpuscular Hemoglobin Concent 34.7 G/DL (32.0-36.0) Red Cell Distribution Width 13.6 % (11.6-14.8) Platelet Count 86 K/UL (150-450) L Mean Platelet Volume 8.2 FL (6.5-10.1) Neutrophils (%) (Auto) % (45.0-75.0) Lymphocytes (%) (Auto) % (20.0-45.0) Monocytes (%) (Auto) % (1.0-10.0) Eosinophils (%) (Auto) % (0.0-3.0) Basophils (%) (Auto) % (0.0-2.0) Differential Total Cells Counted 100 Neutrophils % (Manual) 84 % (45-75) H Lymphocytes % (Manual) 3 % (20-45) L Monocytes % (Manual) 1 % (1-10) Eosinophils % (Manual) 0 % (0-3) Basophils % (Manual) 0 % (0-2) Metamyelocytes % 1 % (0-0) H Band Neutrophils 11 % (0-8) H Platelet Estimate Decreased L Platelet Morphology Normal Red Blood Cell Morphology Normal Sodium Level 135 MMOL/L (136-145) L Potassium Level 5.4 MMOL/L (3.5-5.1) H Chloride Level 101 MMOL/L (98-107) Carbon Dioxide Level 24 MMOL/L (21-32) Blood Urea Nitrogen 73 mg/dL (7-18) H Creatinine 5.1 MG/DL (0.55-1.30) H Estimat Glomerular Filtration Rate 13.1 mL/min (>60) Glucose Level 136 MG/DL (74-106) H Calcium Level 8.7 MG/DL (8.5-10.1) Total Bilirubin 0.5 MG/DL (0.2-1.0) Aspartate Amino Transf (AST/SGOT) 37 U/L (15-37) Alanine Aminotransferase (ALT/SGPT) 15 U/L (12-78) Alkaline Phosphatase 83 U/L (46-116) Total Protein 6.0 G/DL (6.4-8.2) L Albumin 2.4 G/DL (3.4-5.0) L Globulin 3.6 g/dL Albumin/Globulin Ratio 0.7 (1.0-2.7) L Microbiology Date/Time Source Procedure Growth Status 03/29/20 18:35 Nasal Nares - Final Complete 03/29/20 18:35 Nasal Nares - Final Complete 03/29/20 18:00 Nasopharynx SARS-CoV-2 RdRp Gene Assay - Final Complete 03/29/20 17:45 Blood Blood Culture - Preliminary Resulted 03/29/20 17:45 Blood Blood Culture - Preliminary Resulted Height (Feet): 5 Height (Inches): 11.00 Weight (Pounds): 151 Medications Current Medications Medications (Trade) Dose Ordered Sig/Ja Route PRN Reason Start Time Stop Time Status Last Admin Dose Admin Acetaminophen (Tylenol) 650 mg Q4H PRN ORAL fever 03/29/20 22:30 04/28/20 22:29 Albuterol/ Ipratropium (Albuterol/ Ipratropium) 3 ml EVERY 4 HOURS PRN HHN Shortness of Breath 03/29/20 22:30 04/03/20 22:29 Cefepime HCl 1 gm/ Dextrose 55 ml @ 110 mls/hr Q24H IVPB 03/31/20 00:00 04/07/20 00:00 Heparin Sodium (Porcine) (Heparin 5000 units/ml) 5,000 units EVERY 12 HOURS SUBQ 03/30/20 09:00 05/14/20 08:59 03/30/20 08:57 Ondansetron HCl (Zofran) 4 mg Q6H PRN IVP Nausea & Vomiting 03/29/20 22:30 04/28/20 22:29 Polyethylene Glycol (Miralax) 17 gm DAILYPRN PRN ORAL Constipation 03/29/20 22:30 04/28/20 22:29 Sodium Chloride 1,000 ml @ 150 mls/hr Q6H40M IV 03/30/20 11:00 04/29/20 10:59 UNV Temazepam (Restoril) 15 mg HSPRN PRN ORAL Insomnia 03/29/20 22:30 04/05/20 22:29 Vancomycin HCl (Vanco pharmacy to dose) 1 ea DAILY PRN MISC Per rx protocol 03/30/20 06:15 04/29/20 06:14 Assessment/Plan Problem List: (1) Gram-negative bacteremia ICD Codes: R78.81 - Bacteremia SNOMED: 443821383633 (2) Acute on chronic respiratory failure ICD Codes: J96.20 - Acute and chronic respiratory failure, unspecified whether with hypoxia or hypercapnia SNOMED: 36422742 (3) Hyperkalemia ICD Codes: E87.5 - Hyperkalemia SNOMED: 58236825 (4) COPD (chronic obstructive pulmonary disease) ICD Codes: J44.9 - Chronic obstructive pulmonary disease, unspecified SNOMED: 98732034 (5) Episode of generalized weakness ICD Codes: R53.1 - Weakness SNOMED: 09459370 (6) History of CVA (cerebrovascular accident) ICD Codes: Z86.73 - Personal history of transient ischemic attack (TIA), and cerebral infarction without residual deficits SNOMED: 575150211 Assessment/Plan: iv fluids iv abx check electrolytes swallow study b/o of recent CVA continue Dennison catheter, with frequent flushes. renal US echo since pt was very hypoxemic on presentation with any remarkable finding on CXR, will get V/Q scan to rule out PE. Elisabet Mendez MD Mar 30, 2020 11:10
--- NOTE | 2020-03-30 11:13 | Consultation ---
Consult Note Consult Note Asked to evaluate the patient at her request of Dr. Sierra for renal failure Patient seen and examined. Discussed with MARCELLO Concepcion. Patient is an 85-year-old male past medical history of indwelling Dennison catheter who presents to the ER stating that his Dennison catheter has not been draining for the second half of the day. He complains of suprapubic pain. He states that this is commonly happened. Patient has been seen here previously numerous times for the same complaint. He denies any fever or chills. He denies any chest pain or shortness of breath. Patient was brought in by EMS from home. Patient denies any bloody or cloudy urine. He denies any nausea or vomiting Allergies: PENICILLINS (Verified Allergy, Unknown, 11/16/16) COVID-19 Screening Contact w/high risk pt: No Recent Travel to affected area: No Experienced COVID-19 symptoms?: No COVID-19 Testing performed HEALTH SERVICE WORKER: No Past Medical History: No History, Except For Hx Cardiac Problems: Yes - CVA Hx Hypertension: Yes Hx Gastrointestinal Problems: Yes - BPH PHYSICAL EXAMINATION: VITAL SIGNS: On admission, temperature was 98.1, pulse of 108, respirations 38, blood pressure 142/60. GENERAL: The patient is awake, responsive, on the BiPAP, very cachectic and chronically ill-appearing. HEAD AND NECK: Pupils are equal and reactive to light. Extraocular movements intact. BiPAP mask is on. NECK: Supple. No JVD. LUNGS: Good air entry. No wheezing or rales. Decreased air entry at bases. HEART: S1, S2. Regular rhythm. No murmur or gallops. ABDOMEN: Soft, nondistended, nontender. Positive bowel sounds. EXTREMITY: No cyanosis, clubbing, or edema. NEUROLOGIC: nail puller II through XII grossly intact. The patient is moving all the extremities spontaneously. Gait was not assessed due to the patient's status. GENITOURINARY: The patient has a Dennison catheter. LABORATORY DATA: On admission from the emergency department, WBC of 18, hemoglobin of 14, hematocrit of 45, platelets are 119. Sodium 134, potassium 5.6, chloride 99, bicarbonate 25, BUN 65, creatinine 6.3, GFR is 10.3, glucose is 161, phosphorus is 5.2, calcium is 9.2, magnesium is 1.8. Lactic dehydrogenase is 301. Total CK is 343. First troponin 0.047. ProBNP of 10,637. Lipase is 92. PT of 11, INR of 1.1, PTT of 39. D-dimer is 12.42. Urinalysis is laurie color, +4 protein, +5 blood, +3 leukocytes, tainted rbc, and 60-80 wbc's, moderate bacteria. Urine eosinophils not seen. ABG, pH of 7.39, pCO2 of 37, pO2 of 73, saturating 94%. The patient's abdominal x-ray, limited evaluation due to the bowel gas, increased echogenicity of the kidneys suggestive of medical renal disease, nonobstructive right renal calculi. No gallstones detected. Gallbladder is unremarkable. The common bile duct measures 0.65. Choledocholithiasis cannot be excluded. Mild hydronephrosis of the right kidney. The spleen is not visualized due to the bowel habit. The patient had a V/Q scan, low probability. Duplex of the lower extremity, no evidence of acute DVT or right or left lower extremity. . Assessment/Plan Renal failure, most likely acute on chronic Right hydronephrosis Urinary outlet obstruction despite a Dennison catheter since the bladder still distended on ultrasound Respiratory distress, patient on nonrebreather mask. No chest x-ray available. CHF versus pneumonia. Sepsis, UTI Sugg: Change diet to renal Kayexalate Kidney ultrasound 2D echocardiogram Monitor renal parameters Antibiotics Avoid nephrotoxic's Mich Morgan MD Mar 30, 2020 11:13
[2020-03-30] MEDS ORDERED: Sodium Polystyrene Sulfonate 15gm Powder ORAL ONE (11:15)
[2020-03-30] MEDS ORDERED: Sodium Polystyrene Sulfonate 15gm Powder ORAL SCH ×2 (11:30→16:15)
[2020-03-30 12:00] VITALS: BP 129/63
--- NOTE | 2020-03-30 13:53 | Consultation ---
History of Present Illness General Date patient seen: Mar 30, 2020 Chief Complaint: Generalized Weakness Present Illness HPI 85 y/o M with hx of recent CVA (2 months ago), BPH w/ chronic rossi presented to ED on 03/29/20 with suprapubic pain, weakness, fatigue, dyspnea. Upon admission, was found to have BENNETT, R hydronephrosis, hypoxic and placed on Bipap. He is now bacteremic with GNR. Denied f/c, CP, SOB, hematuria, n/v Allergies: Coded Allergies: PENICILLINS (Verified Allergy, Unknown, 11/16/16) Medication History Unable to Obtain Active Prescriptions or Reported Meds Patient History Healthcare decision maker Resuscitation status Advanced Directive on File Patient History Narrative Pmhx: as above Shx: reviewed Fhx: non contributory Review of Systems All Other Systems: negative except mentioned in HPI Physical Exam Physical Exam Narrative General Appearance: cachetic, thin HEENT: normocephalic, atraumatic Neck: non-tender, normal alignment, supple Respiratory/Chest: chest wall non-tender, lungs clear, normal breath sounds Cardiovascular/Chest: normal peripheral pulses, normal rate Abdomen: normal bowel sounds, non tender, soft Extremities: normal range of motion, normal inspection, no calf tenderness Skin Exam: normal pigmentation Last 24 Hour Vital Signs Date Time Temp Pulse Resp B/P (MAP) Pulse Ox O2 Delivery O2 Flow Rate FiO2 03/30/20 12:00 Bi-pap 03/30/20 10:20 102 98 03/30/20 09:00 30 03/30/20 08:50 99 32 100 30 03/30/20 08:00 Bi-pap 03/30/20 08:00 50 03/30/20 08:00 97.0 105 21 134/77 (96) 100 03/30/20 08:00 99 03/30/20 07:00 101 25 100 50 03/30/20 05:12 95 24 100 70 03/30/20 04:00 97.9 99 24 118/87 (97) 100 03/30/20 04:00 100 03/30/20 04:00 Bi-pap 03/30/20 03:31 101 03/30/20 02:57 92 25 100 80 03/30/20 01:09 104 38 100 100 03/30/20 00:00 98.1 102 26 118/64 (82) 100 03/30/20 00:00 Bi-pap 03/30/20 00:00 100 03/29/20 23:56 106 03/29/20 23:04 102 03/29/20 22:34 101 30 98 Bi-Pap 100 03/29/20 22:31 101 30 98 Bi-Pap 100 100 03/29/20 22:12 Bi-Pap 03/29/20 22:00 100 03/29/20 22:00 98.2 92 26 126/57 (80) 100 03/29/20 22:00 Bi-pap 03/29/20 21:40 103 34 6.0 100 03/29/20 21:38 97.5 96 26 131/60 100 Mechanical Ventilator 2.0 100 03/29/20 21:24 97.5 96 26 131/ 100 Mechanical Ventilator 100 03/29/20 17:28 98.0 108 38 142/60 98 Nasal Cannula 2.0 03/29/20 17:28 108 38 Nasal Cannula 2.0 03/29/20 17:24 98.1 108 38 142/60 (87) 98 Nasal Cannula 2.0 Intake and Output 03/29/20 03/30/20 19:00 07:00 Intake Total 220 ml Output Total 1900 ml Balance -1680 ml Intake IV Total 220 ml Output Urine Total 1900 ml Laboratory Tests Test 03/29/20 17:37 03/29/20 17:45 03/29/20 18:35 03/29/20 19:50 Arterial Blood pH Pending Arterial Blood Partial Pressure CO2 Pending Arterial Blood Partial Pressure O2 Pending Arterial Blood HCO3 Pending Arterial Blood Oxygen Saturation Pending Arterial Blood Base Excess Pending Ramakrishna Test Pending White Blood Count 18.0 K/UL (4.8-10.8) H Red Blood Count 4.60 M/UL (4.70-6.10) L Hemoglobin 14.8 G/DL (14.2-18.0) Hematocrit 45.4 % (42.0-52.0) Mean Corpuscular Volume 99 FL (80-99) Mean Corpuscular Hemoglobin 32.2 PG (27.0-31.0) H Mean Corpuscular Hemoglobin Concent 32.7 G/DL (32.0-36.0) Red Cell Distribution Width 13.1 % (11.6-14.8) Platelet Count 119 K/UL (150-450) L Mean Platelet Volume 8.1 FL (6.5-10.1) Neutrophils (%) (Auto) % (45.0-75.0) Lymphocytes (%) (Auto) % (20.0-45.0) Monocytes (%) (Auto) % (1.0-10.0) Eosinophils (%) (Auto) % (0.0-3.0) Basophils (%) (Auto) % (0.0-2.0) Differential Total Cells Counted 100 Neutrophils % (Manual) 71 % (45-75) Lymphocytes % (Manual) 6 % (20-45) L Monocytes % (Manual) 4 % (1-10) Eosinophils % (Manual) 0 % (0-3) Basophils % (Manual) 0 % (0-2) Metamyelocytes % 1 % (0-0) H Myelocytes % 1 % (0-0) H Band Neutrophils 17 % (0-8) H Platelet Estimate Decreased L Platelet Morphology Normal Anisocytosis 1+ Macrocytosis 1+ Prothrombin Time 11.6 SEC (9.30-11.50) H Prothromb Time International Ratio 1.1 (0.9-1.1) Activated Partial Thromboplast Time 36 SEC (23-33) H D-Dimer 12.42 mg/L FEU (0.00-0.49) H Sodium Level 134 MMOL/L (136-145) L Potassium Level 5.6 MMOL/L (3.5-5.1) H Chloride Level 99 MMOL/L (98-107) Carbon Dioxide Level 25 MMOL/L (21-32) Anion Gap 10 mmol/L (5-15) Blood Urea Nitrogen 65 mg/dL (7-18) H Creatinine 6.3 MG/DL (0.55-1.30) H Estimat Glomerular Filtration Rate 10.3 mL/min (>60) Glucose Level 161 MG/DL (74-106) H Lactic Acid Level 2.90 mmol/L (0.4-2.0) H 1.90 mmol/L (0.66-2.22) Uric Acid 4.8 MG/DL (2.6-7.2) Calcium Level 9.2 MG/DL (8.5-10.1) Phosphorus Level 5.2 MG/DL (2.5-4.9) H Magnesium Level 1.8 MG/DL (1.8-2.4) Ferritin 240 NG/ML (8-388) Total Bilirubin 0.4 MG/DL (0.2-1.0) Aspartate Amino Transf (AST/SGOT) 42 U/L (15-37) H Alanine Aminotransferase (ALT/SGPT) 15 U/L (12-78) Alkaline Phosphatase 90 U/L (46-116) Lactate Dehydrogenase 301 U/L (81-234) H Total Creatine Kinase 343 U/L (26-308) H Creatine Kinase MB 5.0 NG/ML (0.0-3.6) H Creatine Kinase MB Relative Index 1.4 Troponin I 0.047 ng/mL (0.000-0.056) C-Reactive Protein, Quantitative 50.4 mg/dL (0.00-0.90) H Pro-B-Type Natriuretic Peptide 28334 pg/mL (0-125) H Total Protein 6.9 G/DL (6.4-8.2) Albumin 3.0 G/DL (3.4-5.0) L Globulin 3.9 g/dL Albumin/Globulin Ratio 0.8 (1.0-2.7) L Lipase 92 U/L (73-393) Urine Color Janet Urine Appearance Very cloudy Urine pH 7 (4.5-8.0) Urine Specific [place] 1.015 (1.005-1.035) Urine Protein 4+ (NEGATIVE) H Urine Glucose (UA) Negative (NEGATIVE) Urine Ketones 1+ (NEGATIVE) H Urine Blood 5+ (NEGATIVE) H Urine Nitrite Negative (NEGATIVE) Urine Bilirubin Negative (NEGATIVE) Urine Ictotest Negative (NEGATIVE) Urine Urobilinogen Normal MG/DL (0.0-1.0) Urine Leukocyte Esterase 3+ (NEGATIVE) H Urine RBC Tntc /HPF (0 - 0) H Urine WBC 60-80 /HPF (0 - 0) H Urine Squamous Epithelial Cells Moderate /LPF (NONE/OCC) H Urine Bacteria Many /HPF (NONE) H Urine Eosinophils None seen (NONE SEEN) Urine Osmolality 308 mOsm/kg (429-449) L Urine Random Creatinine Pending Urine Random Microalbumin Pending Urine Random Sodium 93 mmol/L (20-110) Urine Microalbumin/Creatinine Ratio Pending Test 03/29/20 20:23 03/30/20 03:50 Arterial Blood pH 7.394 (7.350-7.450) Arterial Blood Partial Pressure CO2 37.7 mmHg (35.0-45.0) Arterial Blood Partial Pressure O2 73.2 mmHg (75.0-100.0) L Arterial Blood HCO3 22.5 mmol/L (22.0-26.0) Arterial Blood Oxygen Saturation 94.0 % (95-100) L Arterial Blood Base Excess -2 (-2-2) Ramakrishna Test Positive White Blood Count 20.4 K/UL (4.8-10.8) H Red Blood Count 3.95 M/UL (4.70-6.10) L Hemoglobin 12.8 G/DL (14.2-18.0) L Hematocrit 37.0 % (42.0-52.0) L Mean Corpuscular Volume 94 FL (80-99) Mean Corpuscular Hemoglobin 32.5 PG (27.0-31.0) H Mean Corpuscular Hemoglobin Concent 34.7 G/DL (32.0-36.0) Red Cell Distribution Width 13.6 % (11.6-14.8) Platelet Count 86 K/UL (150-450) L Mean Platelet Volume 8.2 FL (6.5-10.1) Neutrophils (%) (Auto) % (45.0-75.0) Lymphocytes (%) (Auto) % (20.0-45.0) Monocytes (%) (Auto) % (1.0-10.0) Eosinophils (%) (Auto) % (0.0-3.0) Basophils (%) (Auto) % (0.0-2.0) Differential Total Cells Counted 100 Neutrophils % (Manual) 84 % (45-75) H Lymphocytes % (Manual) 3 % (20-45) L Monocytes % (Manual) 1 % (1-10) Eosinophils % (Manual) 0 % (0-3) Basophils % (Manual) 0 % (0-2) Metamyelocytes % 1 % (0-0) H Band Neutrophils 11 % (0-8) H Platelet Estimate Decreased L Platelet Morphology Normal Red Blood Cell Morphology Normal Sodium Level 135 MMOL/L (136-145) L Potassium Level 5.4 MMOL/L (3.5-5.1) H Chloride Level 101 MMOL/L (98-107) Carbon Dioxide Level 24 MMOL/L (21-32) Blood Urea Nitrogen 73 mg/dL (7-18) H Creatinine 5.1 MG/DL (0.55-1.30) H Estimat Glomerular Filtration Rate 13.1 mL/min (>60) Glucose Level 136 MG/DL (74-106) H Calcium Level 8.7 MG/DL (8.5-10.1) Total Bilirubin 0.5 MG/DL (0.2-1.0) Aspartate Amino Transf (AST/SGOT) 37 U/L (15-37) Alanine Aminotransferase (ALT/SGPT) 15 U/L (12-78) Alkaline Phosphatase 83 U/L (46-116) Total Protein 6.0 G/DL (6.4-8.2) L Albumin 2.4 G/DL (3.4-5.0) L Globulin 3.6 g/dL Albumin/Globulin Ratio 0.7 (1.0-2.7) L Microbiology Date/Time Source Procedure Growth Status 03/30/20 11:20 Nasopharynx SARS-CoV-2 RdRp Gene Assay - Final Complete 03/29/20 18:35 Nasal Nares - Final Complete 03/29/20 18:35 Nasal Nares - Final Complete 03/29/20 18:00 Nasopharynx SARS-CoV-2 RdRp Gene Assay - Final Complete 03/29/20 17:45 Blood Blood Culture - Preliminary Resulted 03/29/20 17:45 Blood Blood Culture - Preliminary Resulted Height (Feet): 5 Height (Inches): 11.00 Weight (Pounds): 151 Medications Current Medications Medications (Trade) Dose Ordered Sig/Ja Route PRN Reason Start Time Stop Time Status Last Admin Dose Admin Acetaminophen (Tylenol) 650 mg Q4H PRN ORAL fever 03/29/20 22:30 04/28/20 22:29 Albuterol/ Ipratropium (Albuterol/ Ipratropium) 3 ml EVERY 4 HOURS PRN HHN Shortness of Breath 03/29/20 22:30 04/03/20 22:29 Cefepime HCl 1 gm/ Dextrose 55 ml @ 110 mls/hr Q24H IVPB 03/31/20 00:00 04/07/20 00:00 Heparin Sodium (Porcine) (Heparin 5000 units/ml) 5,000 units EVERY 12 HOURS SUBQ 03/30/20 09:00 05/14/20 08:59 03/30/20 08:57 Ondansetron HCl (Zofran) 4 mg Q6H PRN IVP Nausea & Vomiting 03/29/20 22:30 04/28/20 22:29 Polyethylene Glycol (Miralax) 17 gm DAILYPRN PRN ORAL Constipation 03/29/20 22:30 04/28/20 22:29 Sodium Chloride 1,000 ml @ 150 mls/hr Q6H40M IV 03/30/20 11:30 04/29/20 11:29 03/30/20 11:50 Tamsulosin HCl (Flomax) 0.4 mg BEDTIME ORAL 03/30/20 21:00 04/29/20 20:59 Temazepam (Restoril) 15 mg HSPRN PRN ORAL Insomnia 03/29/20 22:30 04/05/20 22:29 Vancomycin HCl ([facility] pharmacy to dose) 1 ea DAILY PRN MISC Per rx protocol 03/30/20 06:15 04/29/20 06:14 Assessment/Plan Assessment/Plan: Abx: IV Vancomycin 03/29- Cefepime 03/30- Levaquin x 1 03/29 Assessment: Sepsis UTI c/w Gram neg bacteremia -03/30 Renal US: MILD RIGHT HYDRONEPHROSIS. THERE IS A ROSSI CATHETER IN THE BLADDER BUT THE BLADDER STILL APPEARS FAIRLY DISTENDED. PLEASE CHECK FUNCTION OF CATHETER. LAYERING STONE AND SOME DEBRIS NOTED IN THE URINARY BLADDER. -03/29 u/a wbc 60-80, nit neg, leuk +3; ucx p Bcx 4/4 GNR ABd US: Limited evaluation due to bowel gas. Increased echogenicity of the kidney suggestive of medical renal disease. Nonobstructing right renal calculus. No gallstones detected. The gallbladder is unremarkable. The common bile duct Measures 0.65 cm and is mildly dilated. Choledocholithiasis cannot be excluded. MRCP study will provide additional information as deemed necessary. Mild hydronephrosis of the right kidney of uncertain etiology. CT imaging of the abdomen and pelvis should be considered. Spleen is not visualized due to body habitus. Afebrile Leukocytosis, worsening Thrombocytopenia, worsening Acute hypoxic resp failure- on bipap R/o probable PNA -03/30 CXR: Nonspecific interstitial opacities are seen throughout both lungs bilaterally, probably unchanged allowing for differences in exposure technique and degree of rotation. -VQ scan: Findings are low probability for pulmonary embolus - rapid COVID neg x2 -influenza sc eng -CXR p BENNETT, improving- likely underlying CKD recent CVA (2 months ago) BPH w/ chronic rossi Plan: -Continue empiric Cefepime #1 and IV Vancomycin #2 -f/u cx -Monitor CBC/CMP, temperatures -f/u CXR Thank you for this consultation. Will continue to follow along with you. Discussed with MARCELLO. Karen Whiteside M.D. Mar 30, 2020 13:53
[2020-03-30 16:00] VITALS: BP 141/79
[2020-03-30 16:00] LABS: BLOOD UREA NITROGEN 80 mg/dL (7-18); CALCIUM 9.2 MG/DL (8.5-10.1); CARBON DIOXIDE 24 MMOL/L (21-32); CHLORIDE 103 MMOL/L (98-107); CREATININE 4.3 MG/DL (0.55-1.30); POTASSIUM 5.1 MMOL/L (3.5-5.1); SODIUM 138 MMOL/L (136-145)
--- NOTE | 2020-03-30 16:09 | Diagnostic Imaging Report ---
Indication: Cough Technique: One view of the chest Comparison: 03/29/2020 Findings: Nonspecific interstitial opacities are seen throughout both lungs bilaterally, probably unchanged allowing for differences in exposure technique and degree of rotation. Marked elevation left hemidiaphragm persists. There may be a small right pleural effusion. Impression: Unchanged, over one day, findings as above.
--- NOTE | 2020-03-30 16:15 | Diagnostic Imaging Report ---
Indications: Shortness of breath, elevated d-dimer Technique: IV administration 5 mCi 99m technetium macroaggregated albumin. Images obtained over the lungs in multiple projections. Previously, patient inhaled 40 mCi aerosolized 99M technetium DTPA. Images obtained over the lungs in multiple projections Comparison: Reference made to chest radiograph taken one hour prior Findings: Suboptimal quality aerosol images. Perfusion is somewhat heterogeneous, but no definite segmental or subsegmental perfusion defects or evidence of aerosol perfusion mismatch Impression: Findings are low probability for pulmonary embolus
[2020-03-30] MEDS ORDERED: ACETAMINOPHEN325 M1 ORAL (17:41)
[2020-03-30] MEDS ORDERED: ALFUZOSIN HCL10 MG PO (17:41)
[2020-03-30] MEDS ORDERED: ZETIA10 MG ORAL (17:41)
[2020-03-30] MEDS ORDERED: ASPIRIN81 MG ORAL (17:41)
[2020-03-30] MEDS ORDERED: LD2JL30 TOPIC (17:41)
[2020-03-30] MEDS ORDERED: MAGNESIUM OXID400 M1 ORAL (17:41)
[2020-03-30] MEDS ORDERED: ATORVASTATIN CA40 MG ORAL (17:41)
--- NOTE | 2020-03-30 17:44 | Diagnostic Imaging Report ---
History: DVT Exam: US VENOUS BILATERAL LOWER EXTREMITIES Comparison: FINDINGS/IMPRESSION: No evidence of DVT within the right or left lower extremity.
[2020-03-30] MEDS ORDERED: RIBOFLAVIN100 MG PO (17:45)
[2020-03-30] MEDS ORDERED: MIRTAZAPINE15 M3 ORAL (17:45)
--- NOTE | 2020-03-30 18:49 | Internal Med Progress Note ---
Subjective Physician Name Fernando Sierra Attending Physician Fernando Sierra MD Current Medications Medications (Trade) Dose Ordered Sig/Ja Route PRN Reason Start Time Stop Time Status Last Admin Dose Admin Acetaminophen (Tylenol) 650 mg Q4H PRN ORAL fever 03/29/20 22:30 04/28/20 22:29 Albuterol/ Ipratropium (Albuterol/ Ipratropium) 3 ml EVERY 4 HOURS PRN HHN Shortness of Breath 03/29/20 22:30 04/03/20 22:29 Cefepime HCl 1 gm/ Dextrose 55 ml @ 110 mls/hr Q24H IVPB 03/31/20 00:00 04/07/20 00:00 Heparin Sodium (Porcine) (Heparin 5000 units/ml) 5,000 units EVERY 12 HOURS SUBQ 03/30/20 09:00 05/14/20 08:59 03/30/20 08:57 Ondansetron HCl (Zofran) 4 mg Q6H PRN IVP Nausea & Vomiting 03/29/20 22:30 04/28/20 22:29 Polyethylene Glycol (Miralax) 17 gm DAILYPRN PRN ORAL Constipation 03/29/20 22:30 04/28/20 22:29 Sodium Chloride 1,000 ml @ 150 mls/hr Q6H40M IV 03/30/20 11:30 04/29/20 11:29 03/30/20 17:18 Tamsulosin HCl (Flomax) 0.4 mg BEDTIME ORAL 03/30/20 21:00 04/29/20 20:59 Temazepam (Restoril) 15 mg HSPRN PRN ORAL Insomnia 03/29/20 22:30 04/05/20 22:29 Vancomycin HCl ([facility] pharmacy to dose) 1 ea DAILY PRN MISC Per rx protocol 03/30/20 06:15 04/29/20 06:14 Allergies: Coded Allergies: PENICILLINS (Verified Allergy, Unknown, 11/16/16) Subjective awake, alert, responsive, Off BiPAP, On Venti mask , WBC: 20.4, potassium: 5.1, renal function is improving. Objective Last Vital Signs Date Time Temp Pulse Resp B/P (MAP) Pulse Ox O2 Delivery O2 Flow Rate FiO2 03/30/20 16:00 98.1 102 25 141/79 (99) 99 03/30/20 16:00 Bi-pap 03/30/20 16:00 2.0 28 Laboratory Tests Test 03/29/20 19:50 03/29/20 20:23 03/30/20 03:50 03/30/20 15:35 Lactic Acid Level 1.90 mmol/L (0.66-2.22) Arterial Blood pH 7.394 (7.350-7.450) Arterial Blood Partial Pressure CO2 37.7 mmHg (35.0-45.0) Arterial Blood Partial Pressure O2 73.2 mmHg (75.0-100.0) L Arterial Blood HCO3 22.5 mmol/L (22.0-26.0) Arterial Blood Oxygen Saturation 94.0 % (95-100) L Arterial Blood Base Excess -2 (-2-2) Ramakrishna Test Positive White Blood Count 20.4 K/UL (4.8-10.8) H Red Blood Count 3.95 M/UL (4.70-6.10) L Hemoglobin 12.8 G/DL (14.2-18.0) L Hematocrit 37.0 % (42.0-52.0) L Mean Corpuscular Volume 94 FL (80-99) Mean Corpuscular Hemoglobin 32.5 PG (27.0-31.0) H Mean Corpuscular Hemoglobin Concent 34.7 G/DL (32.0-36.0) Red Cell Distribution Width 13.6 % (11.6-14.8) Platelet Count 86 K/UL (150-450) L Mean Platelet Volume 8.2 FL (6.5-10.1) Neutrophils (%) (Auto) % (45.0-75.0) Lymphocytes (%) (Auto) % (20.0-45.0) Monocytes (%) (Auto) % (1.0-10.0) Eosinophils (%) (Auto) % (0.0-3.0) Basophils (%) (Auto) % (0.0-2.0) Differential Total Cells Counted 100 Neutrophils % (Manual) 84 % (45-75) H Lymphocytes % (Manual) 3 % (20-45) L Monocytes % (Manual) 1 % (1-10) Eosinophils % (Manual) 0 % (0-3) Basophils % (Manual) 0 % (0-2) Metamyelocytes % 1 % (0-0) H Band Neutrophils 11 % (0-8) H Platelet Estimate Decreased L Platelet Morphology Normal Red Blood Cell Morphology Normal Sodium Level 135 MMOL/L (136-145) L 138 MMOL/L (136-145) Potassium Level 5.4 MMOL/L (3.5-5.1) H 5.1 MMOL/L (3.5-5.1) Chloride Level 101 MMOL/L (98-107) 103 MMOL/L (98-107) Carbon Dioxide Level 24 MMOL/L (21-32) 24 MMOL/L (21-32) Blood Urea Nitrogen 73 mg/dL (7-18) H 80 mg/dL (7-18) H Creatinine 5.1 MG/DL (0.55-1.30) H 4.3 MG/DL (0.55-1.30) H Estimat Glomerular Filtration Rate 13.1 mL/min (>60) 15.9 mL/min (>60) Glucose Level 136 MG/DL (74-106) H 96 MG/DL (74-106) Calcium Level 8.7 MG/DL (8.5-10.1) 9.2 MG/DL (8.5-10.1) Total Bilirubin 0.5 MG/DL (0.2-1.0) Aspartate Amino Transf (AST/SGOT) 37 U/L (15-37) Alanine Aminotransferase (ALT/SGPT) 15 U/L (12-78) Alkaline Phosphatase 83 U/L (46-116) Total Protein 6.0 G/DL (6.4-8.2) L Albumin 2.4 G/DL (3.4-5.0) L Globulin 3.6 g/dL Albumin/Globulin Ratio 0.7 (1.0-2.7) L Microbiology Date/Time Source Procedure Growth Status 03/30/20 11:20 Nasopharynx SARS-CoV-2 RdRp Gene Assay - Final Complete 03/29/20 18:35 Nasal Nares - Final Complete 03/29/20 18:35 Nasal Nares - Final Complete 03/29/20 18:00 Nasopharynx SARS-CoV-2 RdRp Gene Assay - Final Complete 03/29/20 17:45 Blood Blood Culture - Preliminary Resulted 03/29/20 17:45 Blood Blood Culture - Preliminary Resulted Intake and Output 03/29/20 03/30/20 19:00 07:00 Intake Total 220 ml Output Total 1900 ml Balance -1680 ml Intake IV Total 220 ml Output Urine Total 1900 ml Objective General: No acute distress, awake and alert, chronic ill appearing. HEENT: NCAT, sclera anicteric, PERRL, EOMI.on Vent mask. Neck: Supple, no significant jugular venous distention, Lungs: Fair inspiratory effort, decreased air at the bases, no Wheeze or Rales. Heart: Regular rate and rhythm, normal S1/S2, no murmurs/gallops Abdomen: soft, nontender, nondistended. Normoactive bowel sounds. : Dennison cath. Extremities: No Cyanosis , clubbing or edema. Neuro: A&O x 3, Able to move all extremities Skin: warm, no rash, dry skin. Assessment/Plan Assessment/Plan acute kidney injury and chronic renal insufficiency Acute hypoxemic respiratory failure Gram-negative sergei bacteremia Hyperkalemia Sepsis due to the urinary tract infection COPD CVA Severe protein calorie malnutrition. Plan: Antibiotics: Vancomycin and cefepime IV DVT prophylaxis: Heparin subcu CODE STATUS: Full code. Follow-up with nephrology, pulmonary, infection disease recommendations Follow up with the laboratory as well as cultures in the morning. Fernando Sierra MD Mar 30, 2020 18:49
[2020-03-30 19:43] VITALS: BP 131/75
[2020-03-30] MEDS: Tamsulosin 0.4mg cap ORAL SCH (20:10)
--- NOTE | 2020-03-30 21:45 | History and Physical Report ---
DATE OF ADMISSION: 03/29/2020 CHIEF COMPLAINT: Shortness of breath and weakness. HISTORY OF PRESENT ILLNESS: This is an 85-year-old gentleman with past medical history significant for CVA recently diagnosed 2 months ago with chronic urinary retention, with indwelling Dennison catheter, who presented to the emergency department complaining about weakness fatigue, shortness of breath. The patient was noted to be hypoxemic in the emergency department and subsequently was started on BiPAP and was found to be in acute renal failure, and the patient got a dose of Lasix in the ER and shortly after initial evaluation in the emergency department, the patient was admitted to [facility] with sepsis secondary to urinary tract infection as well as acute hypoxemic respiratory failure. PAST MEDICAL HISTORY/PAST SURGICAL HISTORY: As above, history of CVA 2 months ago, urinary retention, with chronic Dennison catheter. The patient has a history of COPD. MEDICATIONS AT HOME: Please refer to medication reconciliation. ALLERGIES: Penicillin. SOCIAL HISTORY: No smoking, alcohol, or drugs at this time. FAMILY HISTORY: Noncontributory. REVIEW OF SYSTEMS: Very limited secondary to the patient's status. The patient is already on BiPAP. He is a poor historian. Most of the history is taken from the ER chart, however, no nausea vomiting. No diarrhea was reported. No fall or head trauma. PHYSICAL EXAMINATION: VITAL SIGNS: On admission, temperature was 98.1, pulse of 108, respirations 38, blood pressure 142/60. GENERAL: The patient is awake, responsive, on the BiPAP, very cachectic and chronically ill-appearing. HEAD AND NECK: Pupils are equal and reactive to light. Extraocular movements intact. BiPAP mask is on. NECK: Supple. No JVD. LUNGS: Good air entry. No wheezing or rales. Decreased air entry at bases. HEART: S1, S2. Regular rhythm. No murmur or gallops. ABDOMEN: Soft, nondistended, nontender. Positive bowel sounds. EXTREMITY: No cyanosis, clubbing, or edema. NEUROLOGIC: kaiawhina II through XII grossly intact. The patient is moving all the extremities spontaneously. Gait was not assessed due to the patient's status. GENITOURINARY: The patient has a Dennison catheter. LABORATORY DATA: On admission from the emergency department, WBC of 18, hemoglobin of 14, hematocrit of 45, platelets are 119. Sodium 134, potassium 5.6, chloride 99, bicarbonate 25, BUN 65, creatinine 6.3, GFR is 10.3, glucose is 161, phosphorus is 5.2, calcium is 9.2, magnesium is 1.8. Lactic dehydrogenase is 301. Total CK is 343. First troponin 0.047. ProBNP of 10,637. Lipase is 92. PT of 11, INR of 1.1, PTT of 39. D-dimer is 12.42. Urinalysis is laurie color, +4 protein, +5 blood, +3 leukocytes, tainted rbc, and 60-80 wbc's, moderate bacteria. Urine eosinophils not seen. ABG, pH of 7.39, pCO2 of 37, pO2 of 73, saturating 94%. The patient's abdominal x-ray, limited evaluation due to the bowel gas, increased echogenicity of the kidneys suggestive of medical renal disease, nonobstructive right renal calculi. No gallstones detected. Gallbladder is unremarkable. The common bile duct measures 0.65. Choledocholithiasis cannot be excluded. Mild hydronephrosis of the right kidney. The spleen is not visualized due to the bowel habit. The patient had a V/Q scan, low probability. Duplex of the lower extremity, no evidence of acute DVT or right or left lower extremity. ASSESSMENT: 1. Sepsis secondary to urinary tract infection. 2. Acute hypoxemic respiratory failure. 3. Thrombocytopenia. 4. Hyperkalemia. 5. Acute kidney injury on chronic renal insufficiency. 6. Possible bacteremia. 7. COPD. 8. Prior history of CVA. 9. Chronic indwelling Dennison catheter. 10. Mild hydronephrosis. 11. Dehydration. PLAN: Admit the patient to step-down. We will follow up with the laboratory. Follow up with Dr. Mendez, Pulmonary Critical Care, Dr. Whiteside from Infectious Disease, and Dr. Morgan from Nephrology. Monitor cultures. Start the patient on broad-spectrum antibiotics with vancomycin and cefepime. DVT prophylaxis is heparin subcu. Code status is full code. Fernando Sierra M.D. DR: APARNA JOB#: [id number] CC:
--- NOTE | 2020-03-30 21:52 | Diagnostic Imaging Report ---
. Indication: Shortness of breath Technique: One view of the chest Comparison: none Findings: Left hemidiaphragm is elevated. Mild interstitial prominence is seen in the right lung. The heart size is normal. Impression: Nonspecific right lung interstitial prominence. No definite acute process
[2020-03-30] MEDS: Cefepime 1gm in D5W 55ml IVPB SCH (23:20)
[2020-03-31] VITALS: BP 131/71
[2020-03-31 04:00] VITALS: BP 144/78
[2020-03-31] MEDS ORDERED: NS Irrig 1000ml ONE (06:58)
[2020-03-31] MEDS ORDERED: NS 275ml ONE (06:58)
[2020-03-31] MEDS ORDERED: Tubing IV Secondary IV ONE (06:58)
[2020-03-31 07:32] LABS: HEMATOCRIT 35.8 % (42.0-52.0); HEMOGLOBIN 11.8 G/DL (14.2-18.0); MEAN CORPUSCULAR VOLUME 97 FL (80-99); PLATELET COUNT 98 K/UL (150-450); RED BLOOD COUNT 3.67 M/UL (4.70-6.10); RED CELL DISTRIBUTION WIDTH 13.3 % (11.6-14.8); WHITE BLOOD COUNT 18.4 K/UL (4.8-10.8)
[2020-03-31 08:00] VITALS: BP 114/72
[2020-03-31 08:00] LABS: ALBUMIN 1.9 G/DL (3.4-5.0); ALBUMIN/GLOBULIN RATIO 0.5 (1.0-2.7); BILIRUBIN,TOTAL 0.6 MG/DL (0.2-1.0); CALCIUM 7.8 MG/DL (8.5-10.1); POTASSIUM 3.1 MMOL/L (3.5-5.1)
[2020-03-31 08:15] LABS: IRON 7 ug/dL (50-175); TOTAL IRON BINDING CAPACITY 52 ug/dL (250-450)
[2020-03-31 08:17] LABS: % IRON SATURATION 13 % (15-50)
[2020-03-31 08:21] LABS: PHOSPHORUS 3.9 MG/DL (2.5-4.9)
[2020-03-31] MEDS: Heparin 5000 units/ml inj SUBQ SCH ×2 (08:41→21:00)
--- NOTE | 2020-03-31 09:03 | Pulmonology Progress Note ---
Subjective ROS Limited/Unobtainable: Yes Constitutional: Reports: no symptoms HEENT: Repors: no symptoms Allergies: Coded Allergies: PENICILLINS (Verified Allergy, Unknown, 11/16/16) Objective Last 24 Hour Vital Signs Date Time Temp Pulse Resp B/P (MAP) Pulse Ox O2 Delivery O2 Flow Rate FiO2 03/31/20 08:00 91 03/31/20 04:00 2.0 03/31/20 04:00 98.1 95 24 144/78 (100) 99 03/31/20 04:00 Nasal Cannula 2.0 03/31/20 03:45 97 03/31/20 00:00 2.0 03/31/20 00:00 Nasal Cannula 2.0 03/31/20 00:00 99 03/31/20 00:00 97.9 92 24 131/71 (91) 98 03/30/20 20:00 2.0 03/30/20 20:00 Nasal Cannula 2.0 03/30/20 19:43 98.0 101 24 131/75 (93) 98 03/30/20 19:36 96 03/30/20 16:00 98.1 102 25 141/79 (99) 99 03/30/20 16:00 Bi-pap 03/30/20 16:00 106 03/30/20 16:00 2.0 28 03/30/20 12:00 98.7 103 25 129/63 (85) 95 03/30/20 12:00 Bi-pap 03/30/20 11:34 106 03/30/20 10:20 102 98 Intake and Output 03/30/20 03/31/20 19:00 07:00 Intake Total 950 ml 1724 ml Output Total 1400 ml 1900 ml Balance -450 ml -176 ml Intake Oral 500 ml IV Total 450 ml 1724 ml Output Urine Total 1400 ml 1900 ml # Bowel Movements 3 General Appearance: cachetic HEENT: normocephalic, atraumatic Respiratory: chest wall non-tender, lungs clear Cardiovascular: normal peripheral pulses, normal rate Abdomen: normal bowel sounds, soft, non tender Genitourinary: normal external genitalia Extremities: no cyanosis Neurologic: seconds inspector II-XII grossly normal Microbiology Date/Time Source Procedure Growth Status 03/30/20 15:35 Blood Blood Culture - Preliminary Resulted 03/30/20 15:20 Blood Blood Culture - Preliminary Resulted 03/30/20 11:20 Nasopharynx SARS-CoV-2 RdRp Gene Assay - Final Complete 03/30/20 00:00 Indwelling Cath Urine Culture - Preliminary Gram Negative Jacobo Resulted 03/29/20 18:35 Nasal Nares - Final Complete 03/29/20 18:35 Nasal Nares - Final Complete 03/29/20 18:00 Nasopharynx SARS-CoV-2 RdRp Gene Assay - Final Complete 03/29/20 17:45 Blood Blood Culture - Preliminary Gram Negative Jacobo Resulted 03/29/20 17:45 Blood Blood Culture - Preliminary Gram Negative Jacobo Resulted Laboratory Tests 03/30/20 15:35: Sodium Level 138, Potassium Level 5.1, Chloride Level 103, Carbon Dioxide Level 24, Blood Urea Nitrogen 80H, Creatinine 4.3H, Estimat Glomerular Filtration Rate 15.9, Glucose Level 96, Calcium Level 9.2 03/31/20 07:00: Sodium Level 141, Potassium Level 3.1L, Chloride Level 106, Carbon Dioxide Level 25, Blood Urea Nitrogen 70H, Creatinine 3.0H, Estimat Glomerular Filtration Rate 24.1, Glucose Level 104, Calcium Level 7.8L, White Blood Count 18.4H, Red Blood Count 3.67L, Hemoglobin 11.8L, Hematocrit 35.8L, Mean Corpuscular Volume 97, Mean Corpuscular Hemoglobin 32.2H, Mean Corpuscular Hemoglobin Concent 33.0, Red Cell Distribution Width 13.3, Platelet Count 98L, Mean Platelet Volume 11.7H, Neutrophils (%) (Auto) , Lymphocytes (%) (Auto) , Monocytes (%) (Auto) , Eosinophils (%) (Auto) , Basophils (%) (Auto) , Differential Total Cells Counted 100, Neutrophils % (Manual) 90H, Lymphocytes % (Manual) 5L, Monocytes % (Manual) 1, Eosinophils % (Manual) 0, Basophils % (Manual) 0, Band Neutrophils 4, Platelet Estimate DecreasedL, Platelet Morphology Normal, Macrocytosis 1+, Erythrocyte Sedimentation Rate 101H, Anion Gap 10, Hemoglobin A1c 6.4H, Uric Acid 7.3H, Phosphorus Level 3.9, Magnesium Level 1.9, Iron Level 7L, Total Iron Binding Capacity 52L, Percent Iron Saturation 13L, Unsaturated Iron Binding 45L, Ferritin 256, Total Bilirubin 0.6, Gamma Glutamyl Transpeptidase 16, Aspartate Amino Transf (AST/SGOT) 45H, Alanine Aminotransferase (ALT/SGPT) 31, Alkaline Phosphatase 103, Lactate Dehydrogenase 236H, C-Reactive Protein, Quantitative 36.6H, Pro-B-Type Natriuretic Peptide 1312H, Total Protein 5.6L, Albumin 1.9L, Globulin 3.7, Albumin/Globulin Ratio 0.5L, Vitamin B12 Level 964, Folate 8.4L, Thyroid Stimulating Hormone (TSH) 1.060, Random Vancomycin Level 5.3 Current Medications Medications (Trade) Dose Ordered Sig/Ja Route PRN Reason Start Time Stop Time Status Last Admin Dose Admin Acetaminophen (Tylenol) 650 mg Q4H PRN ORAL fever 03/29/20 22:30 04/28/20 22:29 Albuterol/ Ipratropium (Albuterol/ Ipratropium) 3 ml EVERY 4 HOURS PRN HHN Shortness of Breath 03/29/20 22:30 04/03/20 22:29 Cefepime HCl 1 gm/ Dextrose 55 ml @ 110 mls/hr Q24H IVPB 03/31/20 00:00 04/07/20 00:00 03/30/20 23:20 Folic Acid (Folate) 3 mg DAILY ORAL 03/31/20 09:00 04/30/20 08:59 Heparin Sodium (Porcine) (Heparin 5000 units/ml) 5,000 units EVERY 12 HOURS SUBQ 03/30/20 09:00 05/14/20 08:59 03/30/20 20:12 Ondansetron HCl (Zofran) 4 mg Q6H PRN IVP Nausea & Vomiting 03/29/20 22:30 04/28/20 22:29 Polyethylene Glycol (Miralax) 17 gm DAILYPRN PRN ORAL Constipation 03/29/20 22:30 04/28/20 22:29 Potassium Chloride (K-Dur) 40 meq ONCE ORAL 03/31/20 09:00 03/31/20 10:00 Sodium Chloride 1,000 ml @ 150 mls/hr Q6H40M IV 03/30/20 11:30 04/29/20 11:29 03/31/20 05:49 Tamsulosin HCl (Flomax) 0.4 mg BEDTIME ORAL 03/30/20 21:00 04/29/20 20:59 03/30/20 20:10 Temazepam (Restoril) 15 mg HSPRN PRN ORAL Insomnia 03/29/20 22:30 04/05/20 22:29 Vancomycin HCl 250 ml @ 166.667 mls/hr ONCE ONCE IVPB 03/31/20 09:30 03/31/20 10:59 Vancomycin HCl (Vanco pharmacy to dose) 1 ea DAILY PRN MISC Per rx protocol 03/30/20 06:15 04/29/20 06:14 Assessment/Plan Problems: (1) Gram-negative bacteremia (2) Acute on chronic respiratory failure (3) Hyperkalemia (4) COPD (chronic obstructive pulmonary disease) (5) Episode of generalized weakness (6) History of CVA (cerebrovascular accident) Assessment/Plan BC are positive for GNB iv fluids iv abx, On cefepime and vancomycin check electrolytes swallow study b/o of recent CVA continue Dennison catheter, with frequent flushes. renal US reviewed, EF 55% echo Elisabet Mendez MD Mar 31, 2020 09:03
[2020-03-31] MEDS ORDERED: Vancomycin 1.25gm/250ml Premix IVPB ONE (09:30)
--- NOTE | 2020-03-31 09:32 | Infectious Diseases Prog Note ---
Assessment/Plan Abx: IV Vancomycin 03/29- Cefepime 03/30- Levaquin x 1 03/29 Assessment: Sepsis UTI c/w Gram neg bacteremia -03/30 Renal US: MILD RIGHT HYDRONEPHROSIS. THERE IS A ROSSI CATHETER IN THE BLADDER BUT THE BLADDER STILL APPEARS FAIRLY DISTENDED. PLEASE CHECK FUNCTION OF CATHETER. LAYERING STONE AND SOME DEBRIS NOTED IN THE URINARY BLADDER. -03/29 u/a wbc 60-80, nit neg, leuk +3; ucx p Bcx 4/4 GNR ABd US: Limited evaluation due to bowel gas. Increased echogenicity of the kidney suggestive of medical renal disease. Nonobstructing right renal calculus. No gallstones detected. The gallbladder is unremarkable. The common bile duct Measures 0.65 cm and is mildly dilated. Choledocholithiasis cannot be excluded. MRCP study will provide additional information as deemed necessary. Mild hydronephrosis of the right kidney of uncertain etiology. CT imaging of the abdomen and pelvis should be considered. Spleen is not visualized due to body habitus. Afebrile Leukocytosis, worsening Thrombocytopenia, worsening Acute hypoxic resp failure- on bipap R/o probable PNA -03/30 CXR: Nonspecific interstitial opacities are seen throughout both lungs bilaterally, probably unchanged allowing for differences in exposure technique and degree of rotation. -VQ scan: Findings are low probability for pulmonary embolus - rapid COVID neg x2 -influenza sc eng -CXR p BENNETT, improving- likely underlying CKD recent CVA (2 months ago) BPH w/ chronic rossi Plan: -Continue empiric Cefepime #2 and IV Vancomycin #3 - pending Cx -f/u cx -Monitor CBC/CMP, temperatures -f/u CXR Thank you for this consultation. Will continue to follow along with you. Discussed with RN. Subjective Allergies: Coded Allergies: PENICILLINS (Verified Allergy, Unknown, 11/16/16) Afebrile Satting well on 3L NC Blood and Urine Cx growing GNR WBCs decreased today Objective Last 24 Hour Vital Signs Date Time Temp Pulse Resp B/P (MAP) Pulse Ox O2 Delivery O2 Flow Rate FiO2 03/31/20 09:07 98 Nasal Cannula 3.0 32 03/31/20 08:00 96.4 83 17 114/72 (86) 99 03/31/20 08:00 91 03/31/20 08:00 2.0 03/31/20 04:00 2.0 03/31/20 04:00 98.1 95 24 144/78 (100) 99 03/31/20 04:00 Nasal Cannula 2.0 03/31/20 03:45 97 03/31/20 00:00 2.0 03/31/20 00:00 Nasal Cannula 2.0 03/31/20 00:00 99 03/31/20 00:00 97.9 92 24 131/71 (91) 98 03/30/20 20:00 2.0 03/30/20 20:00 Nasal Cannula 2.0 03/30/20 19:43 98.0 101 24 131/75 (93) 98 03/30/20 19:36 96 03/30/20 16:00 98.1 102 25 141/79 (99) 99 03/30/20 16:00 Bi-pap 03/30/20 16:00 106 03/30/20 16:00 2.0 28 03/30/20 12:00 98.7 103 25 129/63 (85) 95 03/30/20 12:00 Bi-pap 03/30/20 11:34 106 03/30/20 10:20 102 98 Height (Feet): 5 Height (Inches): 11.00 Weight (Pounds): 151 General Appearance: cachetic, thin Male HEENT: NCAT, MMM, EOMI Respiratory/Chest: CTAB, No W Cardiovascular/Chest: RRR, S1, S2 Abdomen: normal bowel sounds, non tender, soft Microbiology Date/Time Source Procedure Growth Status 03/30/20 15:35 Blood Blood Culture - Preliminary Resulted 03/30/20 15:20 Blood Blood Culture - Preliminary Resulted 03/30/20 11:20 Nasopharynx SARS-CoV-2 RdRp Gene Assay - Final Complete 03/30/20 00:00 Indwelling Cath Urine Culture - Preliminary Gram Negative Jacobo Resulted 03/29/20 18:35 Nasal Nares - Final Complete 03/29/20 18:35 Nasal Nares - Final Complete 03/29/20 18:00 Nasopharynx SARS-CoV-2 RdRp Gene Assay - Final Complete 03/29/20 17:45 Blood Blood Culture - Preliminary Gram Negative Jacobo Resulted 03/29/20 17:45 Blood Blood Culture - Preliminary Gram Negative Jacobo Resulted Laboratory Tests Test 03/30/20 15:35 03/31/20 07:00 Sodium Level 138 MMOL/L (136-145) 141 MMOL/L (136-145) Potassium Level 5.1 MMOL/L (3.5-5.1) 3.1 MMOL/L (3.5-5.1) L Chloride Level 103 MMOL/L (98-107) 106 MMOL/L (98-107) Carbon Dioxide Level 24 MMOL/L (21-32) 25 MMOL/L (21-32) Blood Urea Nitrogen 80 mg/dL (7-18) H 70 mg/dL (7-18) H Creatinine 4.3 MG/DL (0.55-1.30) H 3.0 MG/DL (0.55-1.30) H Estimat Glomerular Filtration Rate 15.9 mL/min (>60) 24.1 mL/min (>60) Glucose Level 96 MG/DL (74-106) 104 MG/DL (74-106) Calcium Level 9.2 MG/DL (8.5-10.1) 7.8 MG/DL (8.5-10.1) L White Blood Count 18.4 K/UL (4.8-10.8) H Red Blood Count 3.67 M/UL (4.70-6.10) L Hemoglobin 11.8 G/DL (14.2-18.0) L Hematocrit 35.8 % (42.0-52.0) L Mean Corpuscular Volume 97 FL (80-99) Mean Corpuscular Hemoglobin 32.2 PG (27.0-31.0) H Mean Corpuscular Hemoglobin Concent 33.0 G/DL (32.0-36.0) Red Cell Distribution Width 13.3 % (11.6-14.8) Platelet Count 98 K/UL (150-450) L Mean Platelet Volume 11.7 FL (6.5-10.1) H Neutrophils (%) (Auto) % (45.0-75.0) Lymphocytes (%) (Auto) % (20.0-45.0) Monocytes (%) (Auto) % (1.0-10.0) Eosinophils (%) (Auto) % (0.0-3.0) Basophils (%) (Auto) % (0.0-2.0) Differential Total Cells Counted 100 Neutrophils % (Manual) 90 % (45-75) H Lymphocytes % (Manual) 5 % (20-45) L Monocytes % (Manual) 1 % (1-10) Eosinophils % (Manual) 0 % (0-3) Basophils % (Manual) 0 % (0-2) Band Neutrophils 4 % (0-8) Platelet Estimate Decreased L Platelet Morphology Normal Macrocytosis 1+ Erythrocyte Sedimentation Rate 101 MM/HR (0-20) H Anion Gap 10 mmol/L (5-15) Hemoglobin A1c 6.4 % (4.3-6.0) H Uric Acid 7.3 MG/DL (2.6-7.2) H Phosphorus Level 3.9 MG/DL (2.5-4.9) Magnesium Level 1.9 MG/DL (1.8-2.4) Iron Level 7 ug/dL (50-175) L Total Iron Binding Capacity 52 ug/dL (250-450) L Percent Iron Saturation 13 % (15-50) L Unsaturated Iron Binding 45 ug/dL (112-346) L Ferritin 256 NG/ML (8-388) Total Bilirubin 0.6 MG/DL (0.2-1.0) Gamma Glutamyl Transpeptidase 16 U/L (5-85) Aspartate Amino Transf (AST/SGOT) 45 U/L (15-37) H Alanine Aminotransferase (ALT/SGPT) 31 U/L (12-78) Alkaline Phosphatase 103 U/L (46-116) Lactate Dehydrogenase 236 U/L (81-234) H C-Reactive Protein, Quantitative 36.6 mg/dL (0.00-0.90) H Pro-B-Type Natriuretic Peptide 1312 pg/mL (0-125) H Total Protein 5.6 G/DL (6.4-8.2) L Albumin 1.9 G/DL (3.4-5.0) L Globulin 3.7 g/dL Albumin/Globulin Ratio 0.5 (1.0-2.7) L Vitamin B12 Level 964 PG/ML (193-986) Folate 8.4 NG/ML (8.6-58.9) L Thyroid Stimulating Hormone (TSH) 1.060 uiU/mL (0.358-3.740) Random Vancomycin Level 5.3 ug/mL Current Medications Medications (Trade) Dose Ordered Sig/Aj Route PRN Reason Start Time Stop Time Status Last Admin Dose Admin Acetaminophen (Tylenol) 650 mg Q4H PRN ORAL fever 03/29/20 22:30 04/28/20 22:29 Albuterol/ Ipratropium (Albuterol/ Ipratropium) 3 ml EVERY 4 HOURS PRN HHN Shortness of Breath 03/29/20 22:30 04/03/20 22:29 Cefepime HCl 1 gm/ Dextrose 55 ml @ 110 mls/hr Q24H IVPB 03/31/20 00:00 04/07/20 00:00 03/30/20 23:20 Folic Acid (Folate) 3 mg DAILY ORAL 03/31/20 09:00 04/30/20 08:59 Heparin Sodium (Porcine) (Heparin 5000 units/ml) 5,000 units EVERY 12 HOURS SUBQ 03/30/20 09:00 05/14/20 08:59 03/30/20 20:12 Iron Sucrose 200 mg/Sodium Chloride 120 ml @ 240 mls/hr ONCE ONCE IVPB 03/31/20 11:00 03/31/20 11:29 Ondansetron HCl (Zofran) 4 mg Q6H PRN IVP Nausea & Vomiting 03/29/20 22:30 04/28/20 22:29 Polyethylene Glycol (Miralax) 17 gm DAILYPRN PRN ORAL Constipation 03/29/20 22:30 04/28/20 22:29 Potassium Chloride (K-Dur) 40 meq ONCE ORAL 03/31/20 09:00 03/31/20 10:00 Sodium Chloride 1,000 ml @ 150 mls/hr Q6H40M IV 03/30/20 11:30 04/29/20 11:29 03/31/20 05:49 Tamsulosin HCl (Flomax) 0.4 mg BEDTIME ORAL 03/30/20 21:00 04/29/20 20:59 03/30/20 20:10 Temazepam (Restoril) 15 mg HSPRN PRN ORAL Insomnia 03/29/20 22:30 04/05/20 22:29 Vancomycin HCl 250 ml @ 166.667 mls/hr ONCE ONCE IVPB 03/31/20 09:30 03/31/20 10:59 Vancomycin HCl (Vanco pharmacy to dose) 1 ea DAILY PRN MISC Per rx protocol 03/30/20 06:15 04/29/20 06:14 Aldair Levy MD Mar 31, 2020 09:32
[2020-03-31] MEDS ORDERED: Iron Sucrose 200 MG in NS 110 ML IVPB ONE (11:00)
[2020-03-31 12:00] VITALS: BP 162/79
[2020-03-31 16:00] VITALS: BP 161/78
--- NOTE | 2020-03-31 16:18 | Diagnostic Imaging Report ---
EXAM: XR Chest, 1 View CLINICAL HISTORY: DYSPNEA TECHNIQUE: Frontal view of the chest. COMPARISON: Chest radiograph on 03/30/2020 FINDINGS: Hardware: None. Lungs/pleura: Bibasilar opacities may represent atelectasis. Prominent lung markings may represent chronic interstitial lung changes versus pulmonary vasculature congestion. Infectious/inflammatory process is not excluded. No pleural effusion or pneumothorax. Stable elevation of the left hemidiaphragm. Heart/mediastinum: Normal. No cardiomegaly. Soft tissues: Unremarkable. Bones: No acute fracture. Upper abdomen: Normal. IMPRESSION: Bibasilar opacities may represent atelectasis. Prominent lung markings may represent chronic interstitial lung changes versus pulmonary vasculature congestion. Infectious/inflammatory process is not excluded.
--- NOTE | 2020-03-31 16:51 | Internal Med Progress Note ---
Subjective Date of Service: Mar 31, 2020 Physician Name David Jonas Attending Physician Fernando Sierra MD Current Medications Medications (Trade) Dose Ordered Sig/Ja Route PRN Reason Start Time Stop Time Status Last Admin Dose Admin Acetaminophen (Tylenol) 650 mg Q4H PRN ORAL fever 03/29/20 22:30 04/28/20 22:29 Albuterol/ Ipratropium (Albuterol/ Ipratropium) 3 ml EVERY 4 HOURS PRN HHN Shortness of Breath 03/29/20 22:30 04/03/20 22:29 Cefepime HCl 1 gm/ Dextrose 55 ml @ 110 mls/hr Q24H IVPB 03/31/20 00:00 04/07/20 00:00 03/30/20 23:20 Folic Acid (Folate) 3 mg DAILY ORAL 03/31/20 09:00 04/30/20 08:59 03/31/20 09:56 Heparin Sodium (Porcine) (Heparin 5000 units/ml) 5,000 units EVERY 12 HOURS SUBQ 03/30/20 09:00 05/14/20 08:59 03/30/20 20:12 Ondansetron HCl (Zofran) 4 mg Q6H PRN IVP Nausea & Vomiting 03/29/20 22:30 04/28/20 22:29 Polyethylene Glycol (Miralax) 17 gm DAILYPRN PRN ORAL Constipation 03/29/20 22:30 04/28/20 22:29 Sodium Chloride 1,000 ml @ 150 mls/hr Q6H40M IV 03/30/20 11:30 04/29/20 11:29 03/31/20 14:17 Tamsulosin HCl (Flomax) 0.4 mg BEDTIME ORAL 03/30/20 21:00 04/29/20 20:59 03/30/20 20:10 Temazepam (Restoril) 15 mg HSPRN PRN ORAL Insomnia 03/29/20 22:30 04/05/20 22:29 Vancomycin HCl (Vanco pharmacy to dose) 1 ea DAILY PRN MISC Per rx protocol 03/30/20 06:15 04/29/20 06:14 Allergies: Coded Allergies: PENICILLINS (Verified Allergy, Unknown, 11/16/16) ROS Limited/Unobtainable: Yes Subjective 85 YO M admitted with respiratory failure. Now UTI with renal failure and sepsis. Cover for Int Med-Dr Sierra. Step down unit Objective Last Vital Signs Date Time Temp Pulse Resp B/P (MAP) Pulse Ox O2 Delivery O2 Flow Rate FiO2 03/31/20 12:00 2.0 03/31/20 12:00 Nasal Cannula 03/31/20 12:00 97.7 90 18 162/79 (106) 100 03/31/20 09:07 32 Laboratory Tests Test 03/31/20 07:00 White Blood Count 18.4 K/UL (4.8-10.8) H Red Blood Count 3.67 M/UL (4.70-6.10) L Hemoglobin 11.8 G/DL (14.2-18.0) L Hematocrit 35.8 % (42.0-52.0) L Mean Corpuscular Volume 97 FL (80-99) Mean Corpuscular Hemoglobin 32.2 PG (27.0-31.0) H Mean Corpuscular Hemoglobin Concent 33.0 G/DL (32.0-36.0) Red Cell Distribution Width 13.3 % (11.6-14.8) Platelet Count 98 K/UL (150-450) L Mean Platelet Volume 11.7 FL (6.5-10.1) H Neutrophils (%) (Auto) % (45.0-75.0) Lymphocytes (%) (Auto) % (20.0-45.0) Monocytes (%) (Auto) % (1.0-10.0) Eosinophils (%) (Auto) % (0.0-3.0) Basophils (%) (Auto) % (0.0-2.0) Differential Total Cells Counted 100 Neutrophils % (Manual) 90 % (45-75) H Lymphocytes % (Manual) 5 % (20-45) L Monocytes % (Manual) 1 % (1-10) Eosinophils % (Manual) 0 % (0-3) Basophils % (Manual) 0 % (0-2) Band Neutrophils 4 % (0-8) Platelet Estimate Decreased L Platelet Morphology Normal Macrocytosis 1+ Erythrocyte Sedimentation Rate 101 MM/HR (0-20) H Sodium Level 141 MMOL/L (136-145) Potassium Level 3.1 MMOL/L (3.5-5.1) L Chloride Level 106 MMOL/L (98-107) Carbon Dioxide Level 25 MMOL/L (21-32) Anion Gap 10 mmol/L (5-15) Blood Urea Nitrogen 70 mg/dL (7-18) H Creatinine 3.0 MG/DL (0.55-1.30) H Estimat Glomerular Filtration Rate 24.1 mL/min (>60) Glucose Level 104 MG/DL (74-106) Hemoglobin A1c 6.4 % (4.3-6.0) H Uric Acid 7.3 MG/DL (2.6-7.2) H Calcium Level 7.8 MG/DL (8.5-10.1) L Phosphorus Level 3.9 MG/DL (2.5-4.9) Magnesium Level 1.9 MG/DL (1.8-2.4) Iron Level 7 ug/dL (50-175) L Total Iron Binding Capacity 52 ug/dL (250-450) L Percent Iron Saturation 13 % (15-50) L Unsaturated Iron Binding 45 ug/dL (112-346) L Ferritin 256 NG/ML (8-388) Total Bilirubin 0.6 MG/DL (0.2-1.0) Gamma Glutamyl Transpeptidase 16 U/L (5-85) Aspartate Amino Transf (AST/SGOT) 45 U/L (15-37) H Alanine Aminotransferase (ALT/SGPT) 31 U/L (12-78) Alkaline Phosphatase 103 U/L (46-116) Lactate Dehydrogenase 236 U/L (81-234) H C-Reactive Protein, Quantitative 36.6 mg/dL (0.00-0.90) H Pro-B-Type Natriuretic Peptide 1312 pg/mL (0-125) H Total Protein 5.6 G/DL (6.4-8.2) L Albumin 1.9 G/DL (3.4-5.0) L Globulin 3.7 g/dL Albumin/Globulin Ratio 0.5 (1.0-2.7) L Vitamin B12 Level 964 PG/ML (193-986) Folate 8.4 NG/ML (8.6-58.9) L Thyroid Stimulating Hormone (TSH) 1.060 uiU/mL (0.358-3.740) Random Vancomycin Level 5.3 ug/mL Microbiology Date/Time Source Procedure Growth Status 03/30/20 15:35 Blood Blood Culture - Preliminary Resulted 03/30/20 15:20 Blood Blood Culture - Preliminary Resulted 03/30/20 11:20 Nasopharynx SARS-CoV-2 RdRp Gene Assay - Final Complete 03/30/20 00:00 Indwelling Cath Urine Culture - Preliminary Gram Negative Jacobo Resulted 03/29/20 18:35 Nasal Nares - Final Complete 03/29/20 18:35 Nasal Nares - Final Complete 03/29/20 18:00 Nasopharynx SARS-CoV-2 RdRp Gene Assay - Final Complete 03/29/20 17:45 Blood Blood Culture - Preliminary Gram Negative Jacobo Resulted 03/29/20 17:45 Blood Blood Culture - Preliminary Gram Negative Jacobo Resulted Intake and Output 03/30/20 03/31/20 19:00 07:00 Intake Total 950 ml 1724 ml Output Total 1400 ml 1900 ml Balance -450 ml -176 ml Intake Oral 500 ml IV Total 450 ml 1724 ml Output Urine Total 1400 ml 1900 ml # Bowel Movements 3 Objective Objective General: No acute distress, awake and alert, chronic ill appearing. HEENT: NCAT, sclera anicteric, PERRL, EOMI.on Vent mask. Neck: Supple, no significant jugular venous distention, Lungs: Fair inspiratory effort, decreased air at the bases, no Wheeze or Rales. Heart: Regular rate and rhythm, normal S1/S2, no murmurs/gallops Abdomen: soft, nontender, nondistended. Normoactive bowel sounds. : Dennison cath. Extremities: No Cyanosis , clubbing or edema. Neuro: A&O x 3, Able to move all extremities Skin: warm, no rash, dry skin. Assessment/Plan Assessment/Plan Assessment/Plan Assessment/Plan Assessment/Plan UTI=gram neg jacobo Sepsis=gram neg jacobo acute kidney injury and chronic renal insufficiency Acute hypoxemic respiratory failure Gram-negative jacobo bacteremia Hyperkalemia Sepsis due to the urinary tract infection COPD CVA Severe protein calorie malnutrition. Plan: Antibiotics: Vancomycin and cefepime IV DVT prophylaxis: Heparin subcu CODE STATUS: Full code. Follow-up with nephrology, pulmonary, infection disease recommendations ID=Dr Levy Pulmonary=David Wills MD Mar 31, 2020 16:51
--- NOTE | 2020-03-31 18:01 | Consultation ---
Consult Note Consult Note Cardiology for Dr. Clay Full consult dictated #[id number] Skylar Archer MD Mar 31, 2020 18:01
[2020-03-31] MEDS ORDERED: MIRTAZAPINE30 MG ORAL (18:28)
[2020-03-31] MEDS ORDERED: ATORVASTATIN CA80 MG ORAL (18:28)
--- NOTE | 2020-03-31 19:00 | Consultation ---
DATE OF CONSULTATION: 03/31/2020 CARDIOLOGY CONSULTATION CONSULTING PHYSICIAN: Skylar Archer MD. This consult is being done as a coverage for Dr. Clay. REASON FOR CONSULT: Shortness of breath and chest pain. HISTORY OF PRESENT ILLNESS: The patient is an 85-year-old man with a recent CVA with residual left-sided weakness, urinary retention with chronic indwelling Dennison, and chronic obstructive pulmonary disease. He presented to the emergency room on 03/29/2020 with shortness of breath and weakness. He has been diagnosed with urosepsis with urine culture and two blood cultures positive for gram-negative rods. He is being treated as per Infectious Disease for urosepsis. Cardiology evaluation was requested for evaluation and treatment of his shortness of breath. He is a fair historian. He reports intermittent episodes of substernal chest discomfort which has no specific precipitant and no alleviating factors. He denies orthopnea or peripheral edema. He has no history of myocardial infarction and troponin level on admission was mildly elevated. MEDICATIONS: Currently folic acid 3 mg daily, cefepime 1 g IV q.24 hours, Flomax 0.4 mg nightly, subcutaneous heparin 5000 units q.12 hours, vancomycin per pharmacy, Zofran as needed, Restoril as needed, albuterol and ipratropium inhaler every four hours as needed. ALLERGIES: Penicillin. PAST MEDICAL HISTORY: As noted above, history of chronic obstructive pulmonary disease, recent CVA, and urinary retention. SOCIAL HISTORY: No current tobacco, alcohol, or drug use. PHYSICAL EXAMINATION: VITAL SIGNS: Blood pressure is 162/79, pulse 90 and regular, respirations 18, and afebrile. Oxygen saturation 99% to 100% on two liters nasal cannula oxygen. HEENT: Normocephalic and atraumatic. Pupils are equal, round, and reactive to light. Sclerae are anicteric. Oral mucosa is moist. NECK: Supple. There is no jugular venous distention. Carotid pulses are 2+ without bruits. LUNGS: Few crackles at the right base. Good air movement. HEART: Regular, S1, S2 with no murmur or S3. ABDOMEN: Soft with mild suprapubic tenderness with no guarding or rebound. EXTREMITIES: No cyanosis, clubbing, or edema. NEUROLOGIC: A 4/5 motor of the left upper and lower extremity versus right. LABORATORY AND DIAGNOSTIC DATA: Chest x-ray shows chronic interstitial changes and compressive changes at the right base, possible atelectasis versus small effusion. Troponin 0.047. Sodium 135, potassium 5.4, chloride 101, BUN 73, creatinine 5.1, glucose 136. Hemoglobin 11.8, white blood count 18,400, platelets 98,000. EKG shows sinus tachycardia at 100 beats per minute, voltage criteria for left ventricular hypertrophy, and T-wave inversion in leads 1 and L, consistent with repolarization change. Echo was reportedly a technically difficult study, but showed an EF of 55%. No left ventricular hypertrophy and mitral velocities consistent with diastolic dysfunction. PA pressure was estimated at , mild diastolic dysfunction. Right ventricular systolic pressure of 32 mmHg. ASSESSMENT AND RECOMMENDATIONS: The patient is an 85-year-old man with chronic medical issues as outlined above, who was admitted with urinary tract infection/urosepsis. He has dyspnea, which does not appear to be due to congestive heart failure. It may be due to sepsis versus chronic obstructive pulmonary disease. He is noted to have an elevated BNP, however, this may be due to renal insufficiency, as his creatinine is currently 5.1. I would favor intravenous hydration as he appears with prerenal azotemia. Baseline renal function is not known. We would continue antibiotics and supportive care as per primary team for his infection. With regard to his reports of chest pain, we would defer evaluation pending resolution of his urinary infection. Skylar Archer M.D. DR: TARUN JOB#: [id number] CC:
--- NOTE | 2020-03-31 19:43 | Nephrology Progress Note ---
Assessment/Plan Problem List: (1) BENNETT (acute kidney injury) (2) Renal failure (ARF), acute on chronic (3) Dennison catheter problem (4) Acute on chronic respiratory failure (5) Hyperkalemia Assessment Renal failure, most likely acute on chronic Right hydronephrosis Urinary outlet obstruction despite a Dennison catheter since the bladder still distended on ultrasound Respiratory distress, patient on nonrebreather mask. No chest x-ray available. CHF versus pneumonia. Sepsis, UTI Plan Change diet to renal Kayexalate as needed Potassium and magnesium and phosphorus supplement as needed Kidney ultrasound MILD RIGHT HYDRONEPHROSIS. 2D echocardiogram ejection fraction 55% Monitor renal parameters Antibiotics Avoid nephrotoxic's Subjective ROS Limited/Unobtainable: No Constitutional: Reports: malaise Objective Objective Last 24 Hour Vital Signs Date Time Temp Pulse Resp B/P (MAP) Pulse Ox O2 Delivery O2 Flow Rate FiO2 03/31/20 16:00 97.7 91 21 161/78 (105) 97 03/31/20 16:00 2.0 03/31/20 16:00 Nasal Cannula 2.0 03/31/20 15:27 94 03/31/20 12:00 2.0 03/31/20 12:00 Nasal Cannula 2.0 03/31/20 12:00 97.7 90 18 162/79 (106) 100 03/31/20 11:56 89 03/31/20 09:07 98 Nasal Cannula 3.0 32 03/31/20 08:00 96.4 83 17 114/72 (86) 99 03/31/20 08:00 91 03/31/20 08:00 2.0 03/31/20 08:00 Nasal Cannula 2.0 03/31/20 04:00 2.0 03/31/20 04:00 98.1 95 24 144/78 (100) 99 03/31/20 04:00 Nasal Cannula 2.0 03/31/20 03:45 97 03/31/20 00:00 2.0 03/31/20 00:00 Nasal Cannula 2.0 03/31/20 00:00 99 03/31/20 00:00 97.9 92 24 131/71 (91) 98 03/30/20 20:00 2.0 03/30/20 20:00 Nasal Cannula 2.0 03/30/20 19:43 98.0 101 24 131/75 (93) 98 Intake and Output 03/30/20 03/31/20 19:00 07:00 Intake Total 950 ml 1724 ml Output Total 1400 ml 1900 ml Balance -450 ml -176 ml Intake Oral 500 ml IV Total 450 ml 1724 ml Output Urine Total 1400 ml 1900 ml # Bowel Movements 3 Current Medications Medications (Trade) Dose Ordered Sig/Ja Route PRN Reason Start Time Stop Time Status Last Admin Dose Admin Acetaminophen (Tylenol) 650 mg Q4H PRN ORAL fever 03/29/20 22:30 04/28/20 22:29 Albuterol/ Ipratropium (Albuterol/ Ipratropium) 3 ml EVERY 4 HOURS PRN HHN Shortness of Breath 03/29/20 22:30 04/03/20 22:29 Cefepime HCl 1 gm/ Dextrose 55 ml @ 110 mls/hr Q24H IVPB 03/31/20 00:00 04/07/20 00:00 03/30/20 23:20 Folic Acid (Folate) 3 mg DAILY ORAL 03/31/20 09:00 04/30/20 08:59 03/31/20 09:56 Heparin Sodium (Porcine) (Heparin 5000 units/ml) 5,000 units EVERY 12 HOURS SUBQ 03/30/20 09:00 05/14/20 08:59 03/30/20 20:12 Ondansetron HCl (Zofran) 4 mg Q6H PRN IVP Nausea & Vomiting 03/29/20 22:30 04/28/20 22:29 Polyethylene Glycol (Miralax) 17 gm DAILYPRN PRN ORAL Constipation 03/29/20 22:30 04/28/20 22:29 Sodium Chloride 1,000 ml @ 150 mls/hr Q6H40M IV 03/30/20 11:30 04/29/20 11:29 03/31/20 14:17 Tamsulosin HCl (Flomax) 0.4 mg BEDTIME ORAL 03/30/20 21:00 04/29/20 20:59 03/30/20 20:10 Temazepam (Restoril) 15 mg HSPRN PRN ORAL Insomnia 03/29/20 22:30 04/05/20 22:29 Vancomycin HCl (Vanco pharmacy to dose) 1 ea DAILY PRN MISC Per rx protocol 03/30/20 06:15 04/29/20 06:14 Laboratory Tests 03/31/20 07:00: White Blood Count 18.4H, Red Blood Count 3.67L, Hemoglobin 11.8L, Hematocrit 35.8L, Mean Corpuscular Volume 97, Mean Corpuscular Hemoglobin 32.2H, Mean Corpuscular Hemoglobin Concent 33.0, Red Cell Distribution Width 13.3, Platelet Count 98L, Mean Platelet Volume 11.7H, Neutrophils (%) (Auto) , Lymphocytes (%) (Auto) , Monocytes (%) (Auto) , Eosinophils (%) (Auto) , Basophils (%) (Auto) , Differential Total Cells Counted 100, Neutrophils % (Manual) 90H, Lymphocytes % (Manual) 5L, Monocytes % (Manual) 1, Eosinophils % (Manual) 0, Basophils % (Manual) 0, Band Neutrophils 4, Platelet Estimate DecreasedL, Platelet Morphology Normal, Macrocytosis 1+, Erythrocyte Sedimentation Rate 101H, Sodium Level 141, Potassium Level 3.1L, Chloride Level 106, Carbon Dioxide Level 25, Anion Gap 10, Blood Urea Nitrogen 70H, Creatinine 3.0H, Estimat Glomerular Filtration Rate 24.1, Glucose Level 104, Hemoglobin A1c 6.4H, Uric Acid 7.3H, Calcium Level 7.8L, Phosphorus Level 3.9, Magnesium Level 1.9, Iron Level 7L, Total Iron Binding Capacity 52L, Percent Iron Saturation 13L, Unsaturated Iron Binding 45L, Ferritin 256, Total Bilirubin 0.6, Gamma Glutamyl Transpeptidase 16, Aspartate Amino Transf (AST/SGOT) 45H, Alanine Aminotransferase (ALT/SGPT) 31, Alkaline Phosphatase 103, Lactate Dehydrogenase 236H, C-Reactive Protein, Quantitative 36.6H, Pro-B-Type Natriuretic Peptide 1312H, Total Protein 5.6L, Albumin 1.9L, Globulin 3.7, Albumin/Globulin Ratio 0.5L, Vitamin B12 Level 964, Folate 8.4L, Thyroid Stimulating Hormone (TSH) 1.060, Random Vancomycin Level 5.3 Height (Feet): 5 Height (Inches): 11.00 Weight (Pounds): 151 General Appearance: no apparent distress Mich Morgan MD Mar 31, 2020 19:43
[2020-03-31 20:00] VITALS: BP 167/81
[2020-03-31] MEDS: Tamsulosin 0.4mg cap ORAL SCH (21:12)
[2020-04-01] VITALS: BP 172/91
[2020-04-01] MEDS: Cefepime 1gm in D5W 55ml IVPB SCH ×2 (00:21→23:02)
[2020-04-01] MEDS: Miralax 17gm pkt ORAL PRN (00:58)
[2020-04-01 03:29] VITALS: BP 174/90
[2020-04-01 06:01] LABS: HEMATOCRIT 34.4 % (42.0-52.0); HEMOGLOBIN 11.2 G/DL (14.2-18.0); MEAN CORPUSCULAR VOLUME 98 FL (80-99); PLATELET COUNT 95 K/UL (150-450); RED BLOOD COUNT 3.52 M/UL (4.70-6.10); RED CELL DISTRIBUTION WIDTH 13.6 % (11.6-14.8); WHITE BLOOD COUNT 11.2 K/UL (4.8-10.8)
[2020-04-01 06:55] LABS: ALBUMIN 1.8 G/DL (3.4-5.0); ALBUMIN/GLOBULIN RATIO 0.4 (1.0-2.7); BILIRUBIN,TOTAL 0.7 MG/DL (0.2-1.0); CALCIUM 7.6 MG/DL (8.5-10.1); PHOSPHORUS 2.4 MG/DL (2.5-4.9); POTASSIUM 3.1 MMOL/L (3.5-5.1)
[2020-04-01 08:00] VITALS: BP 159/74
[2020-04-01] MEDS: Heparin 5000 units/ml inj SUBQ SCH ×2 (08:26→20:25)
--- NOTE | 2020-04-01 09:45 | Pulmonology Progress Note ---
Subjective ROS Limited/Unobtainable: No Constitutional: Reports: no symptoms HEENT: Repors: no symptoms Allergies: Coded Allergies: PENICILLINS (Verified Allergy, Unknown, 11/16/16) Objective Last 24 Hour Vital Signs Date Time Temp Pulse Resp B/P (MAP) Pulse Ox O2 Delivery O2 Flow Rate FiO2 04/01/20 08:26 83 159/74 04/01/20 07:10 100 Nasal Cannula 3.0 32 04/01/20 04:00 2.0 04/01/20 04:00 Nasal Cannula 2.0 04/01/20 03:34 91 04/01/20 03:29 98.1 88 18 174/90 (118) 96 04/01/20 00:00 Nasal Cannula 2.0 04/01/20 00:00 2.0 04/01/20 00:00 97.9 93 20 172/91 (118) 96 03/31/20 23:40 88 03/31/20 20:00 95 Nasal Cannula 3.0 32 03/31/20 20:00 91 20 95 Nasal Cannula 3.0 32 03/31/20 20:00 97.8 91 18 167/81 (109) 96 03/31/20 20:00 Nasal Cannula 2.0 03/31/20 20:00 2.0 03/31/20 19:30 94 03/31/20 16:00 97.7 91 21 161/78 (105) 97 03/31/20 16:00 2.0 03/31/20 16:00 Nasal Cannula 2.0 03/31/20 15:27 94 03/31/20 12:00 2.0 03/31/20 12:00 Nasal Cannula 2.0 03/31/20 12:00 97.7 90 18 162/79 (106) 100 03/31/20 11:56 89 Intake and Output 03/31/20 04/01/20 19:00 07:00 Intake Total 1520 ml 2580 ml Output Total 1100 ml 1200 ml Balance 420 ml 1380 ml Intake Oral 620 ml 590 ml IV Total 900 ml 1990 ml Output Urine Total 1100 ml 1200 ml # Bowel Movements 2 2 General Appearance: cachetic HEENT: normocephalic, atraumatic Respiratory: chest wall non-tender, lungs clear Cardiovascular: normal peripheral pulses, normal rate Abdomen: normal bowel sounds, soft, non tender Genitourinary: normal external genitalia Extremities: no cyanosis 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 hand II-XII grossly normal Microbiology Date/Time Source Procedure Growth Status 03/30/20 15:35 Blood Blood Culture - Preliminary Gram Negative Jacobo Resulted 03/30/20 15:20 Blood Blood Culture - Preliminary Gram Negative Jacobo Resulted 03/30/20 11:20 Nasopharynx SARS-CoV-2 RdRp Gene Assay - Final Complete 03/30/20 00:00 Indwelling Cath Urine Culture - Final Enterobacter Cloacae Complex Complete 03/29/20 18:35 Nasal Nares - Final Complete 03/29/20 18:35 Nasal Nares - Final Complete 03/29/20 18:00 Nasopharynx SARS-CoV-2 RdRp Gene Assay - Final Complete 03/29/20 17:45 Blood Blood Culture - Final Enterobacter Cloacae Complex Complete 03/29/20 17:45 Blood Blood Culture - Final Enterobacter Cloacae Complex Complete Laboratory Tests 04/01/20 05:00: White Blood Count 11.2H, Red Blood Count 3.52L, Hemoglobin 11.2L, Hematocrit 34.4L, Mean Corpuscular Volume 98, Mean Corpuscular Hemoglobin 31.9H, Mean Corpuscular Hemoglobin Concent 32.6, Red Cell Distribution Width 13.6, Platelet Count 95L, Mean Platelet Volume 7.9, Neutrophils (%) (Auto) , Lymphocytes (%) (Auto) , Monocytes (%) (Auto) , Eosinophils (%) (Auto) , Basophils (%) (Auto) , Neutrophils % (Manual) [Pending], Lymphocytes % (Manual) [Pending], Platelet Estimate [Pending], Platelet Morphology [Pending], Erythrocyte Sedimentation Rate 105H, Sodium Level 148H, Potassium Level 3.1L, Chloride Level 114H, Carbon Dioxide Level 23, Anion Gap 11, Blood Urea Nitrogen 48H, Creatinine 2.0H, Estimat Glomerular Filtration Rate 38.5, Glucose Level 141H, Calcium Level 7.6L, Phosphorus Level 2.4L, Magnesium Level 1.8, Total Bilirubin 0.7, Aspartate Amino Transf (AST/SGOT) 51H, Alanine Aminotransferase (ALT/SGPT) 57, Alkaline Phosphatase 102, C-Reactive Protein, Quantitative 26.3H, Total Protein 5.9L, Albumin 1.8L, Globulin 4.1, Albumin/Globulin Ratio 0.4L Current Medications Medications (Trade) Dose Ordered Sig/Ja Route PRN Reason Start Time Stop Time Status Last Admin Dose Admin Acetaminophen (Tylenol) 650 mg Q4H PRN ORAL fever 03/29/20 22:30 04/28/20 22:29 04/01/20 05:48 Albuterol/ Ipratropium (Albuterol/ Ipratropium) 3 ml EVERY 4 HOURS PRN HHN Shortness of Breath 03/29/20 22:30 04/03/20 22:29 Amlodipine Besylate (Norvasc) 5 mg BID@0900,2100 ORAL 04/01/20 09:00 05/01/20 08:59 04/01/20 08:26 Cefepime HCl 1 gm/ Dextrose 55 ml @ 110 mls/hr Q24H IVPB 03/31/20 00:00 04/07/20 00:00 04/01/20 00:21 Clonidine HCl (Catapres Tab) 0.1 mg Q2H PRN ORAL For High Blood Pressure 04/01/20 06:45 06/30/20 06:44 Folic Acid (Folate) 3 mg DAILY ORAL 03/31/20 09:00 04/30/20 08:59 04/01/20 08:24 Heparin Sodium (Porcine) (Heparin 5000 units/ml) 5,000 units EVERY 12 HOURS SUBQ 03/30/20 09:00 05/14/20 08:59 03/30/20 20:12 Ondansetron HCl (Zofran) 4 mg Q6H PRN IVP Nausea & Vomiting 03/29/20 22:30 04/28/20 22:29 Polyethylene Glycol (Miralax) 17 gm DAILYPRN PRN ORAL Constipation 03/29/20 22:30 04/28/20 22:29 04/01/20 00:58 Potassium Phosphate 250 ml @ 62.5 mls/hr Q4H IVPB 04/01/20 10:00 04/01/20 17:59 Sodium Chloride 1,000 ml @ 75 mls/hr [id number] IV 04/01/20 09:00 05/01/20 08:59 Tamsulosin HCl (Flomax) 0.4 mg BEDTIME ORAL 03/30/20 21:00 04/29/20 20:59 03/31/20 21:12 Temazepam (Restoril) 15 mg HSPRN PRN ORAL Insomnia 03/29/20 22:30 04/05/20 22:29 Vancomycin HCl (Vanco pharmacy to dose) 1 ea DAILY PRN MISC Per rx protocol 03/30/20 06:15 04/29/20 06:14 Assessment/Plan Problems: (1) Gram-negative bacteremia (2) Acute on chronic respiratory failure (3) Hyperkalemia (4) COPD (chronic obstructive pulmonary disease) (5) Episode of generalized weakness (6) History of CVA (cerebrovascular accident) Assessment/Plan BC are positive for GNB, Enterobacter iv fluids iv abx, On cefepime and vancomycin check electrolytes, Phos supplement swallow study b/o of recent CVA: 1. Pureed diet and thin liquid 2. Advance to soft solid diet as tolerate continue Dennison catheter, with frequent flushes. renal US reviewed, EF 55% cardio consult appreciated Elisabet Mendez MD Apr 01, 2020 09:45
[2020-04-01] MEDS: Potassium Phosphate 15mm/250ml 250 ML IVPB SCH ×2 (10:48→14:50)
[2020-04-01 12:00] VITALS: BP 118/67
--- NOTE | 2020-04-01 12:42 | Nephrology Progress Note ---
Assessment/Plan Problem List: (1) BENNETT (acute kidney injury) (2) Renal failure (ARF), acute on chronic (3) Dennison catheter problem (4) Acute on chronic respiratory failure (5) Hyperkalemia Assessment Renal failure, most likely acute on chronic Right hydronephrosis Urinary outlet obstruction despite a Dennison catheter since the bladder still distended on ultrasound Respiratory distress, patient on nonrebreather mask. No chest x-ray available. CHF versus pneumonia. Sepsis, UTI Plan April 01: Renal parameters improving. Abnormal electrolytes addressed. Con tinue to monitor renal parameters. Continue per consultants. Previously: Change diet to renal Kayexalate as needed Potassium and magnesium and phosphorus supplement as needed Kidney ultrasound MILD RIGHT HYDRONEPHROSIS. 2D echocardiogram ejection fraction 55% Monitor renal parameters Antibiotics Avoid nephrotoxic's Subjective ROS Limited/Unobtainable: No Constitutional: Reports: malaise, weakness Objective Objective Last 24 Hour Vital Signs Date Time Temp Pulse Resp B/P (MAP) Pulse Ox O2 Delivery O2 Flow Rate FiO2 04/01/20 08:26 83 159/74 04/01/20 07:10 100 Nasal Cannula 3.0 32 04/01/20 04:00 2.0 04/01/20 04:00 Nasal Cannula 2.0 04/01/20 03:34 91 04/01/20 03:29 98.1 88 18 174/90 (118) 96 04/01/20 00:00 Nasal Cannula 2.0 04/01/20 00:00 2.0 04/01/20 00:00 97.9 93 20 172/91 (118) 96 03/31/20 23:40 88 03/31/20 20:00 95 Nasal Cannula 3.0 32 03/31/20 20:00 91 20 95 Nasal Cannula 3.0 32 03/31/20 20:00 97.8 91 18 167/81 (109) 96 03/31/20 20:00 Nasal Cannula 2.0 03/31/20 20:00 2.0 03/31/20 19:30 94 03/31/20 16:00 97.7 91 21 161/78 (105) 97 03/31/20 16:00 2.0 03/31/20 16:00 Nasal Cannula 2.0 03/31/20 15:27 94 Intake and Output 03/31/20 04/01/20 19:00 07:00 Intake Total 1520 ml 2580 ml Output Total 1100 ml 1200 ml Balance 420 ml 1380 ml Intake Oral 620 ml 590 ml IV Total 900 ml 1990 ml Output Urine Total 1100 ml 1200 ml # Bowel Movements 2 2 Current Medications Medications (Trade) Dose Ordered Sig/Ja Route PRN Reason Start Time Stop Time Status Last Admin Dose Admin Acetaminophen (Tylenol) 650 mg Q4H PRN ORAL fever 03/29/20 22:30 04/28/20 22:29 04/01/20 05:48 Albuterol/ Ipratropium (Albuterol/ Ipratropium) 3 ml EVERY 4 HOURS PRN HHN Shortness of Breath 03/29/20 22:30 04/03/20 22:29 Amlodipine Besylate (Norvasc) 5 mg BID@0900,2100 ORAL 04/01/20 09:00 05/01/20 08:59 04/01/20 08:26 Cefepime HCl 1 gm/ Dextrose 55 ml @ 110 mls/hr Q24H IVPB 03/31/20 00:00 04/07/20 00:00 04/01/20 00:21 Clonidine HCl (Catapres Tab) 0.1 mg Q2H PRN ORAL For High Blood Pressure 04/01/20 06:45 06/30/20 06:44 Folic Acid (Folate) 3 mg DAILY ORAL 03/31/20 09:00 04/30/20 08:59 04/01/20 08:24 Heparin Sodium (Porcine) (Heparin 5000 units/ml) 5,000 units EVERY 12 HOURS SUBQ 03/30/20 09:00 05/14/20 08:59 03/30/20 20:12 Ondansetron HCl (Zofran) 4 mg Q6H PRN IVP Nausea & Vomiting 03/29/20 22:30 04/28/20 22:29 Polyethylene Glycol (Miralax) 17 gm DAILYPRN PRN ORAL Constipation 03/29/20 22:30 04/28/20 22:29 04/01/20 00:58 Potassium Phosphate 250 ml @ 62.5 mls/hr Q4H IVPB 04/01/20 10:00 04/01/20 17:59 04/01/20 10:48 Sodium Chloride 1,000 ml @ 75 mls/hr [id number] IV 04/01/20 09:00 05/01/20 08:59 04/01/20 10:48 Tamsulosin HCl (Flomax) 0.4 mg BEDTIME ORAL 03/30/20 21:00 04/29/20 20:59 03/31/20 21:12 Temazepam (Restoril) 15 mg HSPRN PRN ORAL Insomnia 03/29/20 22:30 04/05/20 22:29 Vancomycin HCl (Vanco pharmacy to dose) 1 ea DAILY PRN MISC Per rx protocol 03/30/20 06:15 04/29/20 06:14 Laboratory Tests 04/01/20 05:00: White Blood Count 11.2H, Red Blood Count 3.52L, Hemoglobin 11.2L, Hematocrit 34.4L, Mean Corpuscular Volume 98, Mean Corpuscular Hemoglobin 31.9H, Mean Corpuscular Hemoglobin Concent 32.6, Red Cell Distribution Width 13.6, Platelet Count 95L, Mean Platelet Volume 7.9, Neutrophils (%) (Auto) , Lymphocytes (%) (Auto) , Monocytes (%) (Auto) , Eosinophils (%) (Auto) , Basophils (%) (Auto) , Differential Total Cells Counted 100, Neutrophils % (Manual) 81H, Lymphocytes % (Manual) 8L, Monocytes % (Manual) 6, Eosinophils % (Manual) 1, Basophils % (Manual) 0, Band Neutrophils 4, Platelet Estimate DecreasedL, Platelet Morphology Normal, Macrocytosis 1+, Erythrocyte Sedimentation Rate 105H, Sodium Level 148H, Potassium Level 3.1L, Chloride Level 114H, Carbon Dioxide Level 23, Anion Gap 11, Blood Urea Nitrogen 48H, Creatinine 2.0H, Estimat Glomerular Filtration Rate 38.5, Glucose Level 141H, Calcium Level 7.6L, Phosphorus Level 2.4L, Magnesium Level 1.8, Total Bilirubin 0.7, Aspartate Amino Transf (AST/SGOT) 51H, Alanine Aminotransferase (ALT/SGPT) 57, Alkaline Phosphatase 102, C-Reactive Protein, Quantitative 26.3H, Total Protein 5.9L, Albumin 1.8L, Globulin 4.1, Albumin/Globulin Ratio 0.4L Height (Feet): 5 Height (Inches): 11.00 Weight (Pounds): 151 General Appearance: no apparent distress Cardiovascular: tachycardia Respiratory/Chest: decreased breath sounds Abdomen: distended Fouladian,Mich MD Apr 01, 2020 12:42
--- NOTE | 2020-04-01 14:37 | Internal Med Progress Note ---
Subjective Date of Service: Apr 01, 2020 Physician Name David Jonas Attending Physician Fernando Sierra MD Current Medications Medications (Trade) Dose Ordered Sig/Ja Route PRN Reason Start Time Stop Time Status Last Admin Dose Admin Acetaminophen (Tylenol) 650 mg Q4H PRN ORAL fever 03/29/20 22:30 04/28/20 22:29 04/01/20 05:48 Albuterol/ Ipratropium (Albuterol/ Ipratropium) 3 ml EVERY 4 HOURS PRN HHN Shortness of Breath 03/29/20 22:30 04/03/20 22:29 Amlodipine Besylate (Norvasc) 5 mg BID@0900,2100 ORAL 04/01/20 09:00 05/01/20 08:59 04/01/20 08:26 Cefepime HCl 1 gm/ Dextrose 55 ml @ 110 mls/hr Q24H IVPB 03/31/20 00:00 04/07/20 00:00 04/01/20 00:21 Clonidine HCl (Catapres Tab) 0.1 mg Q2H PRN ORAL For High Blood Pressure 04/01/20 06:45 06/30/20 06:44 Folic Acid (Folate) 3 mg DAILY ORAL 03/31/20 09:00 04/30/20 08:59 04/01/20 08:24 Heparin Sodium (Porcine) (Heparin 5000 units/ml) 5,000 units EVERY 12 HOURS SUBQ 03/30/20 09:00 05/14/20 08:59 03/30/20 20:12 Ondansetron HCl (Zofran) 4 mg Q6H PRN IVP Nausea & Vomiting 03/29/20 22:30 04/28/20 22:29 Polyethylene Glycol (Miralax) 17 gm DAILYPRN PRN ORAL Constipation 03/29/20 22:30 04/28/20 22:29 04/01/20 00:58 Potassium Phosphate 250 ml @ 62.5 mls/hr Q4H IVPB 04/01/20 10:00 04/01/20 17:59 04/01/20 10:48 Sodium Chloride 1,000 ml @ 75 mls/hr [id number] IV 04/01/20 09:00 05/01/20 08:59 04/01/20 10:48 Tamsulosin HCl (Flomax) 0.4 mg BEDTIME ORAL 03/30/20 21:00 04/29/20 20:59 03/31/20 21:12 Temazepam (Restoril) 15 mg HSPRN PRN ORAL Insomnia 03/29/20 22:30 04/05/20 22:29 Vancomycin HCl (Vanco pharmacy to dose) 1 ea DAILY PRN MISC Per rx protocol 03/30/20 06:15 04/29/20 06:14 Allergies: Coded Allergies: PENICILLINS (Verified Allergy, Unknown, 11/16/16) ROS Limited/Unobtainable: No Constitutional: Reports: no symptoms HEENT: Reports: no symptoms Cardiovascular: Reports: no symptoms Respiratory: Reports: no symptoms Gastrointestinal/Abdominal: Reports: no symptoms Genitourinary: Reports: no symptoms Neurologic/Psychiatric: Reports: no symptoms Subjective 85 YO M admitted with respiratory failure. Now UTI with renal failure and sepsis. Cover for Int Med-Dr Sierra. Step down unit Objective Last Vital Signs Date Time Temp Pulse Resp B/P (MAP) Pulse Ox O2 Delivery O2 Flow Rate FiO2 04/01/20 12:00 2.0 04/01/20 12:00 98.1 83 20 118/67 (84) 94 04/01/20 08:00 Nasal Cannula 04/01/20 07:10 32 Laboratory Tests Test 04/01/20 05:00 White Blood Count 11.2 K/UL (4.8-10.8) H Red Blood Count 3.52 M/UL (4.70-6.10) L Hemoglobin 11.2 G/DL (14.2-18.0) L Hematocrit 34.4 % (42.0-52.0) L Mean Corpuscular Volume 98 FL (80-99) Mean Corpuscular Hemoglobin 31.9 PG (27.0-31.0) H Mean Corpuscular Hemoglobin Concent 32.6 G/DL (32.0-36.0) Red Cell Distribution Width 13.6 % (11.6-14.8) Platelet Count 95 K/UL (150-450) L Mean Platelet Volume 7.9 FL (6.5-10.1) Neutrophils (%) (Auto) % (45.0-75.0) Lymphocytes (%) (Auto) % (20.0-45.0) Monocytes (%) (Auto) % (1.0-10.0) Eosinophils (%) (Auto) % (0.0-3.0) Basophils (%) (Auto) % (0.0-2.0) Differential Total Cells Counted 100 Neutrophils % (Manual) 81 % (45-75) H Lymphocytes % (Manual) 8 % (20-45) L Monocytes % (Manual) 6 % (1-10) Eosinophils % (Manual) 1 % (0-3) Basophils % (Manual) 0 % (0-2) Band Neutrophils 4 % (0-8) Platelet Estimate Decreased L Platelet Morphology Normal Macrocytosis 1+ Erythrocyte Sedimentation Rate 105 MM/HR (0-20) H Sodium Level 148 MMOL/L (136-145) H Potassium Level 3.1 MMOL/L (3.5-5.1) L Chloride Level 114 MMOL/L (98-107) H Carbon Dioxide Level 23 MMOL/L (21-32) Anion Gap 11 mmol/L (5-15) Blood Urea Nitrogen 48 mg/dL (7-18) H Creatinine 2.0 MG/DL (0.55-1.30) H Estimat Glomerular Filtration Rate 38.5 mL/min (>60) Glucose Level 141 MG/DL (74-106) H Calcium Level 7.6 MG/DL (8.5-10.1) L Phosphorus Level 2.4 MG/DL (2.5-4.9) L Magnesium Level 1.8 MG/DL (1.8-2.4) Total Bilirubin 0.7 MG/DL (0.2-1.0) Aspartate Amino Transf (AST/SGOT) 51 U/L (15-37) H Alanine Aminotransferase (ALT/SGPT) 57 U/L (12-78) Alkaline Phosphatase 102 U/L (46-116) C-Reactive Protein, Quantitative 26.3 mg/dL (0.00-0.90) H Total Protein 5.9 G/DL (6.4-8.2) L Albumin 1.8 G/DL (3.4-5.0) L Globulin 4.1 g/dL Albumin/Globulin Ratio 0.4 (1.0-2.7) L Microbiology Date/Time Source Procedure Growth Status 03/30/20 15:35 Blood Blood Culture - Preliminary Gram Negative Jacobo Resulted 03/30/20 15:20 Blood Blood Culture - Preliminary Gram Negative Jacobo Resulted 03/30/20 11:20 Nasopharynx SARS-CoV-2 RdRp Gene Assay - Final Complete 03/30/20 00:00 Indwelling Cath Urine Culture - Final Enterobacter Cloacae Complex Complete 03/29/20 18:35 Nasal Nares - Final Complete 03/29/20 18:35 Nasal Nares - Final Complete 03/29/20 18:00 Nasopharynx SARS-CoV-2 RdRp Gene Assay - Final Complete 03/29/20 17:45 Blood Blood Culture - Final Enterobacter Cloacae Complex Complete 03/29/20 17:45 Blood Blood Culture - Final Enterobacter Cloacae Complex Complete Intake and Output 03/31/20 04/01/20 19:00 07:00 Intake Total 1520 ml 2580 ml Output Total 1100 ml 1200 ml Balance 420 ml 1380 ml Intake Oral 620 ml 590 ml IV Total 900 ml 1990 ml Output Urine Total 1100 ml 1200 ml # Bowel Movements 2 2 Objective Objective General: No acute distress, awake and alert, chronic ill appearing. HEENT: NCAT, sclera anicteric, PERRL, EOMI.on Vent mask. Neck: Supple, no significant jugular venous distention, Lungs: Fair inspiratory effort, decreased air at the bases, no Wheeze or Rales. Heart: Regular rate and rhythm, normal S1/S2, no murmurs/gallops Abdomen: soft, nontender, nondistended. Normoactive bowel sounds. : Dennison cath. Extremities: No Cyanosis , clubbing or edema. Neuro: A&O x 3, Able to move all extremities Skin: warm, no rash, dry skin. Assessment/Plan Assessment/Plan Assessment/Plan Assessment/Plan Assessment/Plan UTI=gram neg jacobo Sepsis=gram neg jacobo acute kidney injury and chronic renal insufficiency Acute hypoxemic respiratory failure Gram-negative jacobo bacteremia Hyperkalemia Sepsis due to the urinary tract infection COPD CVA Severe protein calorie malnutrition. Plan: Antibiotics: Vancomycin and cefepime IV DVT prophylaxis: Heparin subcu CODE STATUS: Full code. nephrology=Dr Morgan ID=Dr Levy Pulmonary=David Wills MD Apr 01, 2020 14:37
[2020-04-01 16:00] VITALS: BP 102/66
--- NOTE | 2020-04-01 18:03 | Cardiology Progress Note ---
Assessment/Plan Status: stable, progressing Status Narrative UTI/ urosepsis +enterobacter on urine cx. Bld cx w/ gm neg jacobo (2/)- id and sens pending. Lactic acidosis on adm Hypokalemia - ? due to intracellular shifts Dyspnea - resolved. ? due to sepsis ? copd BENNETT - likely due to volume depletion hx of CVA Assessment/Plan Continue iv hydration w/ close monitoring of lytes, renal function, i/os Supplement k repeat labs in am continue iv antibiotics for enterobacter uti w/ bacteremia per ID Subjective ROS Limited/Unobtainable: No Subjective Cardiology for Dr. Clay Pt c/o lower abd pain. No chest pain or dyspnea Objective Last 24 Hour Vital Signs Date Time Temp Pulse Resp B/P (MAP) Pulse Ox O2 Delivery O2 Flow Rate FiO2 04/01/20 16:00 Nasal Cannula 2.0 04/01/20 16:00 98.1 87 21 102/66 (78) 99 04/01/20 16:00 2.0 04/01/20 15:20 86 04/01/20 12:00 2.0 04/01/20 12:00 98.1 83 20 118/67 (84) 94 04/01/20 12:00 Nasal Cannula 2.0 04/01/20 11:36 83 04/01/20 08:30 2.0 04/01/20 08:26 83 159/74 04/01/20 08:00 97.5 83 18 159/74 (102) 100 04/01/20 08:00 Nasal Cannula 2.0 04/01/20 07:40 82 04/01/20 07:10 100 Nasal Cannula 3.0 32 04/01/20 04:00 2.0 04/01/20 04:00 Nasal Cannula 2.0 04/01/20 03:34 91 04/01/20 03:29 98.1 88 18 174/90 (118) 96 04/01/20 00:00 Nasal Cannula 2.0 04/01/20 00:00 2.0 04/01/20 00:00 97.9 93 20 172/91 (118) 96 03/31/20 23:40 88 03/31/20 20:00 95 Nasal Cannula 3.0 32 03/31/20 20:00 91 20 95 Nasal Cannula 3.0 32 03/31/20 20:00 97.8 91 18 167/81 (109) 96 03/31/20 20:00 Nasal Cannula 2.0 03/31/20 20:00 2.0 03/31/20 19:30 94 General Appearance: WD/WN, alert, mild distress EENT: PERRL/EOMI Neck: supple, no JVD Rhythm: NSR Cardiovascular: normal rate, regular rhythm Respiratory/Chest: lungs clear, other - clear anteriorly Abdomen: soft, no mass, other - suprapubic tenderness Extremities: non-tender, no swelling Intake and Output 03/31/20 04/01/20 19:00 07:00 Intake Total 1520 ml 2580 ml Output Total 1100 ml 1200 ml Balance 420 ml 1380 ml Intake Oral 620 ml 590 ml IV Total 900 ml 1990 ml Output Urine Total 1100 ml 1200 ml # Bowel Movements 2 2 Laboratory Tests Test 04/01/20 05:00 White Blood Count 11.2 K/UL (4.8-10.8) H Red Blood Count 3.52 M/UL (4.70-6.10) L Hemoglobin 11.2 G/DL (14.2-18.0) L Hematocrit 34.4 % (42.0-52.0) L Mean Corpuscular Volume 98 FL (80-99) Mean Corpuscular Hemoglobin 31.9 PG (27.0-31.0) H Mean Corpuscular Hemoglobin Concent 32.6 G/DL (32.0-36.0) Red Cell Distribution Width 13.6 % (11.6-14.8) Platelet Count 95 K/UL (150-450) L Mean Platelet Volume 7.9 FL (6.5-10.1) Neutrophils (%) (Auto) % (45.0-75.0) Lymphocytes (%) (Auto) % (20.0-45.0) Monocytes (%) (Auto) % (1.0-10.0) Eosinophils (%) (Auto) % (0.0-3.0) Basophils (%) (Auto) % (0.0-2.0) Differential Total Cells Counted 100 Neutrophils % (Manual) 81 % (45-75) H Lymphocytes % (Manual) 8 % (20-45) L Monocytes % (Manual) 6 % (1-10) Eosinophils % (Manual) 1 % (0-3) Basophils % (Manual) 0 % (0-2) Band Neutrophils 4 % (0-8) Platelet Estimate Decreased L Platelet Morphology Normal Macrocytosis 1+ Erythrocyte Sedimentation Rate 105 MM/HR (0-20) H Sodium Level 148 MMOL/L (136-145) H Potassium Level 3.1 MMOL/L (3.5-5.1) L Chloride Level 114 MMOL/L (98-107) H Carbon Dioxide Level 23 MMOL/L (21-32) Anion Gap 11 mmol/L (5-15) Blood Urea Nitrogen 48 mg/dL (7-18) H Creatinine 2.0 MG/DL (0.55-1.30) H Estimat Glomerular Filtration Rate 38.5 mL/min (>60) Glucose Level 141 MG/DL (74-106) H Calcium Level 7.6 MG/DL (8.5-10.1) L Phosphorus Level 2.4 MG/DL (2.5-4.9) L Magnesium Level 1.8 MG/DL (1.8-2.4) Total Bilirubin 0.7 MG/DL (0.2-1.0) Aspartate Amino Transf (AST/SGOT) 51 U/L (15-37) H Alanine Aminotransferase (ALT/SGPT) 57 U/L (12-78) Alkaline Phosphatase 102 U/L (46-116) C-Reactive Protein, Quantitative 26.3 mg/dL (0.00-0.90) H Total Protein 5.9 G/DL (6.4-8.2) L Albumin 1.8 G/DL (3.4-5.0) L Globulin 4.1 g/dL Albumin/Globulin Ratio 0.4 (1.0-2.7) L Microbiology Date/Time Source Procedure Growth Status 03/30/20 15:35 Blood Blood Culture - Preliminary Gram Negative Jacobo Resulted 03/30/20 15:20 Blood Blood Culture - Preliminary Gram Negative Jacobo Resulted 03/30/20 11:20 Nasopharynx SARS-CoV-2 RdRp Gene Assay - Final Complete 03/30/20 00:00 Indwelling Cath Urine Culture - Final Enterobacter Cloacae Complex Complete 03/29/20 18:35 Nasal Nares - Final Complete 03/29/20 18:35 Nasal Nares - Final Complete 03/29/20 18:00 Nasopharynx SARS-CoV-2 RdRp Gene Assay - Final Complete Skylar Archer MD Apr 01, 2020 18:03
[2020-04-01 20:00] VITALS: BP 165/71
[2020-04-01] MEDS: Tamsulosin 0.4mg cap ORAL SCH (20:24)
[2020-04-02] VITALS (7 sets, daily range): BP systolic 139–181; BP diastolic 70–94
[2020-04-02 06:22] LABS: BASOPHILS % (AUTO) 0.9 % (0.0-2.0); EOSINOPHILS % (AUTO) 1.5 % (0.0-3.0); HEMATOCRIT 36.3 % (42.0-52.0); HEMOGLOBIN 11.6 G/DL (14.2-18.0); MEAN CORPUSCULAR VOLUME 100 FL (80-99); MONOCYTES % (AUTO) 9.1 % (1.0-10.0); NEUTROPHILS % (AUTO) 77.5 % (45.0-75.0); PLATELET COUNT 112 K/UL (150-450); RED BLOOD COUNT 3.64 M/UL (4.70-6.10); RED CELL DISTRIBUTION WIDTH 13.5 % (11.6-14.8); WHITE BLOOD COUNT 8.6 K/UL (4.8-10.8)
[2020-04-02 06:59] LABS: ALBUMIN 1.9 G/DL (3.4-5.0); ALBUMIN/GLOBULIN RATIO 0.4 (1.0-2.7); BILIRUBIN,TOTAL 0.7 MG/DL (0.2-1.0); CALCIUM 7.7 MG/DL (8.5-10.1); CREATININE 1.9 MG/DL (0.55-1.30); PHOSPHORUS 2.6 MG/DL (2.5-4.9); POTASSIUM 3.2 MMOL/L (3.5-5.1)
[2020-04-02] MEDS: Heparin 5000 units/ml inj SUBQ SCH ×2 (08:05→21:00)
[2020-04-02] MEDS ORDERED: Tubing IV Secondary IV ONE ×3 (09:00→17:37)
--- NOTE | 2020-04-02 10:48 | Pulmonology Progress Note ---
Subjective ROS Limited/Unobtainable: No Constitutional: Reports: no symptoms HEENT: Repors: no symptoms Allergies: Coded Allergies: PENICILLINS (Verified Allergy, Unknown, 11/16/16) Objective Last 24 Hour Vital Signs Date Time Temp Pulse Resp B/P (MAP) Pulse Ox O2 Delivery O2 Flow Rate FiO2 04/02/20 10:08 181/80 04/02/20 10:02 88 181/80 (113) 04/02/20 10:02 93 181/81 (114) 04/02/20 08:12 83 166/94 04/02/20 08:00 Nasal Cannula 2.0 04/02/20 08:00 2.0 04/02/20 08:00 98.1 83 18 166/94 (118) 94 04/02/20 08:00 88 04/02/20 04:45 98.2 04/02/20 04:44 98.2 04/02/20 04:00 Nasal Cannula 2.0 04/02/20 04:00 99.1 91 16 162/77 (105) 100 04/02/20 04:00 2.0 04/02/20 03:55 99 04/02/20 00:42 99.5 04/02/20 00:00 100.0 98 18 168/70 (102) 97 04/02/20 00:00 Nasal Cannula 2.0 04/01/20 23:56 88 04/01/20 20:25 94 165/71 04/01/20 20:00 85 04/01/20 20:00 Nasal Cannula 2.0 04/01/20 20:00 2.0 04/01/20 20:00 98.2 90 20 165/71 (102) 97 04/01/20 18:55 95 Nasal Cannula 2.0 28 04/01/20 18:55 84 20 95 Nasal Cannula 2.0 28 04/01/20 16:00 Nasal Cannula 2.0 04/01/20 16:00 98.1 87 21 102/66 (78) 99 04/01/20 16:00 2.0 04/01/20 15:20 86 04/01/20 12:00 2.0 04/01/20 12:00 98.1 83 20 118/67 (84) 94 04/01/20 12:00 Nasal Cannula 2.0 04/01/20 11:36 83 Intake and Output 04/01/20 04/02/20 19:00 07:00 Intake Total 1237.5 ml 372.5 ml Output Total 2100 ml 1000 ml Balance -862.5 ml -627.5 ml Intake Oral 800 ml 200 ml IV Total 437.5 ml 172.5 ml Output Urine Total 2100 ml 1000 ml # Bowel Movements 3 General Appearance: cachetic HEENT: normocephalic, atraumatic Respiratory: chest wall non-tender, lungs clear Cardiovascular: normal peripheral pulses, normal rate Abdomen: normal bowel sounds, soft, non tender Genitourinary: normal external genitalia Extremities: no cyanosis 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 Microbiology Date/Time Source Procedure Growth Status 03/30/20 15:35 Blood Blood Culture - Preliminary Gram Negative Jacobo Resulted 03/30/20 15:20 Blood Blood Culture - Preliminary Gram Negative Jacobo Resulted 03/30/20 11:20 Nasopharynx SARS-CoV-2 RdRp Gene Assay - Final Complete Laboratory Tests 04/02/20 04:48: White Blood Count 8.6, Red Blood Count 3.64L, Hemoglobin 11.6L, Hematocrit 36.3L , Mean Corpuscular Volume 100H, Mean Corpuscular Hemoglobin 31.9H, Mean Corpuscular Hemoglobin Concent 32.0, Red Cell Distribution Width 13.5, Platelet Count 112L, Mean Platelet Volume 9.0, Neutrophils (%) (Auto) 77.5H, Lymphocytes (%) (Auto) 11.0L, Monocytes (%) (Auto) 9.1, Eosinophils (%) (Auto) 1.5, Basophils (%) (Auto) 0.9, Erythrocyte Sedimentation Rate 104H, Sodium Level 150H , Potassium Level 3.2L, Chloride Level 113H, Carbon Dioxide Level 28, Anion Gap 9, Blood Urea Nitrogen 34H, Creatinine 1.9H, Estimat Glomerular Filtration Rate 40.8, Glucose Level 199H, Calcium Level 7.7L, Phosphorus Level 2.6, Magnesium Level 1.6L, Total Bilirubin 0.7, Aspartate Amino Transf (AST/SGOT) 26, Alanine Aminotransferase (ALT/SGPT) 45, Alkaline Phosphatase 91, C-Reactive Protein, Quantitative 18.4H, Total Protein 6.2L, Albumin 1.9L, Globulin 4.3, Albumin/Globulin Ratio 0.4L Current Medications Medications (Trade) Dose Ordered Sig/Ja Route PRN Reason Start Time Stop Time Status Last Admin Dose Admin Acetaminophen (Tylenol) 650 mg Q4H PRN ORAL fever 03/29/20 22:30 04/28/20 22:29 04/02/20 04:15 Albuterol/ Ipratropium (Albuterol/ Ipratropium) 3 ml EVERY 4 HOURS PRN HHN Shortness of Breath 03/29/20 22:30 04/10/20 22:29 Amlodipine Besylate (Norvasc) 5 mg BID@0900,2100 ORAL 04/01/20 09:00 05/01/20 08:59 04/02/20 08:12 Cefepime HCl 2 gm/ Sodium Chloride 110 ml @ 220 mls/hr Q24H IV 04/03/20 00:00 04/10/20 00:00 Clonidine HCl (Catapres Tab) 0.1 mg Q2H PRN ORAL For High Blood Pressure 04/01/20 06:45 06/30/20 06:44 04/02/20 10:08 Dextrose (Dextrose 50%) 25 ml Q30M PRN IV Hypoglycemia 04/02/20 10:45 07/01/20 10:44 UNV Dextrose (Dextrose 50%) 50 ml Q30M PRN IV Hypoglycemia 04/02/20 10:45 07/01/20 10:44 UNV Folic Acid (Folate) 3 mg DAILY ORAL 03/31/20 09:00 04/30/20 08:59 04/02/20 08:12 Heparin Sodium (Porcine) (Heparin 5000 units/ml) 5,000 units EVERY 12 HOURS SUBQ 03/30/20 09:00 05/14/20 08:59 03/30/20 20:12 Insulin Aspart (NovoLOG) BEFORE MEALS AND HS SUBQ 04/02/20 11:30 07/01/20 11:29 UNV Mirtazapine (Remeron) 15 mg BEDTIME ORAL 04/02/20 21:00 07/01/20 20:59 UNV Ondansetron HCl (Zofran) 4 mg Q6H PRN IVP Nausea & Vomiting 03/29/20 22:30 04/28/20 22:29 Polyethylene Glycol (Miralax) 17 gm DAILYPRN PRN ORAL Constipation 03/29/20 22:30 04/28/20 22:29 04/01/20 00:58 Tamsulosin HCl (Flomax) 0.4 mg BEDTIME ORAL 03/30/20 21:00 04/29/20 20:59 04/01/20 20:24 Temazepam (Restoril) 15 mg HSPRN PRN ORAL Insomnia 03/29/20 22:30 04/05/20 22:29 Vancomycin HCl (Vanco pharmacy to dose) 1 ea DAILY PRN MISC Per rx protocol 03/30/20 06:15 04/29/20 06:14 Vancomycin HCl 750 mg/Sodium Chloride 275 ml @ 183.333 mls/hr Q24H IVPB 04/02/20 12:00 04/07/20 11:59 Assessment/Plan Problems: (1) Gram-negative bacteremia (2) Acute on chronic respiratory failure (3) Hyperkalemia (4) COPD (chronic obstructive pulmonary disease) (5) Episode of generalized weakness (6) History of CVA (cerebrovascular accident) Assessment/Plan low grade fever yesterday change diet to diabetic, because of persistent increase in Blood sugar and borderline increase in A1c BC are positive for GNB, Enterobacter iv fluids iv abx, On cefepime and vancomycin check electrolytes, Phos supplement swallow study b/o of recent CVA: 1. Pureed diet and thin liquid 2. Advance to soft solid diet as tolerate continue Dennison catheter, with frequent flushes. renal US reviewed, EF 55% cardio consult appreciated Elisabet Mendez MD Apr 02, 2020 10:48
[2020-04-02] MEDS: NovoLOG Insulin Flexpen SUBQ SCH ×3 (11:30→21:00)
[2020-04-02] MEDS ORDERED: Vancomycin 750mg/NS 275ml IVPB SCH ×2 (12:00)
--- NOTE | 2020-04-02 13:48 | Infectious Diseases Prog Note ---
Assessment/Plan Assessment: Sepsis UTI c/w Gram neg bacteremia -03/30 Renal US: MILD RIGHT HYDRONEPHROSIS. THERE IS A ROSSI CATHETER IN THE BLADDER BUT THE BLADDER STILL APPEARS FAIRLY DISTENDED. PLEASE CHECK FUNCTION OF CATHETER. LAYERING STONE AND SOME DEBRIS NOTED IN THE URINARY BLADDER. -Bcx 3/4 GNR -03/29 u/a wbc 60-80, nit neg, leuk +3; ucx >100k E. cloacae complex (R ancef, bactrim; I macrobid; otherwise S) Bcx 4/4 E. cloacae complex (R ancef, bactrim; otherwise S) ABd US: Limited evaluation due to bowel gas. Increased echogenicity of the kidney suggestive of medical renal disease. Nonobstructing right renal calculus. No gallstones detected. The gallbladder is unremarkable. The common bile duct Measures 0.65 cm and is mildly dilated. Choledocholithiasis cannot be excluded. MRCP study will provide additional information as deemed necessary. Mild hydronephrosis of the right kidney of uncertain etiology. CT imaging of the abdomen and pelvis should be considered. Spleen is not visualized due to body habitus. Low grade fever Leukocytosis, worsened- now resolved Thrombocytopenia, improving Acute hypoxic resp failure- sp bipap> 2l NC Pulmonary edema probable PNA -03/31 CXR: Bibasilar opacities may represent atelectasis. Prominent lung markings may represent chronic interstitial lung changes versus pulmonary vasculature congestion. Infectious/inflammatory process is not excluded. -03/30 CXR: Nonspecific interstitial opacities are seen throughout both lungs bilaterally, probably unchanged allowing for differences in exposure technique and degree of rotation. -VQ scan: Findings are low probability for pulmonary embolus - rapid COVID neg x2 -influenza sc eng BENNETT, improving- likely underlying CKD recent CVA (2 months ago) BPH w/ chronic rossi Plan: -Continue empiric Cefepime # / for UTI and bacteremia -empiric IV Vancomycin #/ -03/29 SP Levaquin x1 -f/u cx -Monitor CBC/CMP, temperatures -Bcx x2 Thank you for this consultation. Will continue to follow along with you. Discussed with RN. Subjective Allergies: Coded Allergies: PENICILLINS (Verified Allergy, Unknown, 11/16/16) Tm 100 leukocytosis resolved Cr improving remains bacteremic Objective Last 24 Hour Vital Signs Date Time Temp Pulse Resp B/P (MAP) Pulse Ox O2 Delivery O2 Flow Rate FiO2 04/02/20 12:00 Nasal Cannula 2.0 04/02/20 12:00 98.1 87 16 139/74 (95) 97 04/02/20 12:00 85 04/02/20 12:00 2.0 04/02/20 10:08 181/80 04/02/20 10:02 88 181/80 (113) 04/02/20 10:02 93 181/81 (114) 04/02/20 08:12 83 166/94 04/02/20 08:00 Nasal Cannula 2.0 04/02/20 08:00 2.0 04/02/20 08:00 98.1 83 18 166/94 (118) 94 04/02/20 08:00 88 04/02/20 04:45 98.2 04/02/20 04:44 98.2 04/02/20 04:00 Nasal Cannula 2.0 04/02/20 04:00 99.1 91 16 162/77 (105) 100 04/02/20 04:00 2.0 04/02/20 03:55 99 04/02/20 00:42 99.5 04/02/20 00:00 100.0 98 18 168/70 (102) 97 04/02/20 00:00 Nasal Cannula 2.0 04/01/20 23:56 88 04/01/20 20:25 94 165/71 04/01/20 20:00 85 04/01/20 20:00 Nasal Cannula 2.0 04/01/20 20:00 2.0 04/01/20 20:00 98.2 90 20 165/71 (102) 97 04/01/20 18:55 95 Nasal Cannula 2.0 28 04/01/20 18:55 84 20 95 Nasal Cannula 2.0 28 04/01/20 16:00 Nasal Cannula 2.0 04/01/20 16:00 98.1 87 21 102/66 (78) 99 04/01/20 16:00 2.0 04/01/20 15:20 86 Height (Feet): 5 Height (Inches): 11.00 Weight (Pounds): 151 General Appearance: cachetic, thin Male HEENT: NCAT, MMM, EOMI Respiratory/Chest: CTAB, No W Cardiovascular/Chest: RRR, S1, S2 Abdomen: normal bowel sounds, non tender, soft Microbiology Date/Time Source Procedure Growth Status 03/30/20 15:35 Blood Blood Culture - Preliminary Gram Negative Jacobo Resulted 03/30/20 15:20 Blood Blood Culture - Preliminary Gram Negative Jacobo Resulted Laboratory Tests Test 04/02/20 04:48 04/02/20 11:42 White Blood Count 8.6 K/UL (4.8-10.8) Red Blood Count 3.64 M/UL (4.70-6.10) L Hemoglobin 11.6 G/DL (14.2-18.0) L Hematocrit 36.3 % (42.0-52.0) L Mean Corpuscular Volume 100 FL (80-99) H Mean Corpuscular Hemoglobin 31.9 PG (27.0-31.0) H Mean Corpuscular Hemoglobin Concent 32.0 G/DL (32.0-36.0) Red Cell Distribution Width 13.5 % (11.6-14.8) Platelet Count 112 K/UL (150-450) L Mean Platelet Volume 9.0 FL (6.5-10.1) Neutrophils (%) (Auto) 77.5 % (45.0-75.0) H Lymphocytes (%) (Auto) 11.0 % (20.0-45.0) L Monocytes (%) (Auto) 9.1 % (1.0-10.0) Eosinophils (%) (Auto) 1.5 % (0.0-3.0) Basophils (%) (Auto) 0.9 % (0.0-2.0) Erythrocyte Sedimentation Rate 104 MM/HR (0-20) H Sodium Level 150 MMOL/L (136-145) H Potassium Level 3.2 MMOL/L (3.5-5.1) L Chloride Level 113 MMOL/L (98-107) H Carbon Dioxide Level 28 MMOL/L (21-32) Anion Gap 9 mmol/L (5-15) Blood Urea Nitrogen 34 mg/dL (7-18) H Creatinine 1.9 MG/DL (0.55-1.30) H Estimat Glomerular Filtration Rate 40.8 mL/min (>60) Glucose Level 199 MG/DL (74-106) H Calcium Level 7.7 MG/DL (8.5-10.1) L Phosphorus Level 2.6 MG/DL (2.5-4.9) Magnesium Level 1.6 MG/DL (1.8-2.4) L Total Bilirubin 0.7 MG/DL (0.2-1.0) Aspartate Amino Transf (AST/SGOT) 26 U/L (15-37) Alanine Aminotransferase (ALT/SGPT) 45 U/L (12-78) Alkaline Phosphatase 91 U/L (46-116) C-Reactive Protein, Quantitative 18.4 mg/dL (0.00-0.90) H Total Protein 6.2 G/DL (6.4-8.2) L Albumin 1.9 G/DL (3.4-5.0) L Globulin 4.3 g/dL Albumin/Globulin Ratio 0.4 (1.0-2.7) L POC Whole Blood Glucose 154 MG/DL (74-106) H Current Medications Medications (Trade) Dose Ordered Sig/Ja Route PRN Reason Start Time Stop Time Status Last Admin Dose Admin Acetaminophen (Tylenol) 650 mg Q4H PRN ORAL fever 03/29/20 22:30 04/28/20 22:29 04/02/20 04:15 Albuterol/ Ipratropium (Albuterol/ Ipratropium) 3 ml EVERY 4 HOURS PRN HHN Shortness of Breath 03/29/20 22:30 04/10/20 22:29 Amlodipine Besylate (Norvasc) 5 mg BID@0900,2100 ORAL 04/01/20 09:00 05/01/20 08:59 04/02/20 08:12 Cefepime HCl 2 gm/ Sodium Chloride 110 ml @ 220 mls/hr Q24H IV 04/03/20 00:00 04/10/20 00:00 Clonidine HCl (Catapres Tab) 0.1 mg Q2H PRN ORAL For High Blood Pressure 04/01/20 06:45 06/30/20 06:44 04/02/20 10:08 Dextrose (Dextrose 50%) 25 ml Q30M PRN IV Hypoglycemia 04/02/20 10:45 07/01/20 10:44 Dextrose (Dextrose 50%) 50 ml Q30M PRN IV Hypoglycemia 04/02/20 10:45 07/01/20 10:44 Folic Acid (Folate) 3 mg DAILY ORAL 03/31/20 09:00 04/30/20 08:59 04/02/20 08:12 Heparin Sodium (Porcine) (Heparin 5000 units/ml) 5,000 units EVERY 12 HOURS SUBQ 03/30/20 09:00 05/14/20 08:59 03/30/20 20:12 Hydralazine HCl (Apresoline) 50 mg Q8HR ORAL 04/02/20 14:00 07/01/20 13:59 Insulin Aspart (NovoLOG) BEFORE MEALS AND HS SUBQ 04/02/20 11:30 07/01/20 11:29 Mirtazapine (Remeron) 15 mg BEDTIME ORAL 04/02/20 21:00 07/01/20 20:59 Ondansetron HCl (Zofran) 4 mg Q6H PRN IVP Nausea & Vomiting 03/29/20 22:30 04/28/20 22:29 Polyethylene Glycol (Miralax) 17 gm DAILYPRN PRN ORAL Constipation 03/29/20 22:30 04/28/20 22:29 04/01/20 00:58 Tamsulosin HCl (Flomax) 0.4 mg BEDTIME ORAL 03/30/20 21:00 04/29/20 20:59 04/01/20 20:24 Temazepam (Restoril) 15 mg HSPRN PRN ORAL Insomnia 03/29/20 22:30 04/05/20 22:29 Vancomycin HCl (Vanco pharmacy to dose) 1 ea DAILY PRN MISC Per rx protocol 03/30/20 06:15 04/29/20 06:14 Vancomycin HCl 750 mg/Sodium Chloride 275 ml @ 183.333 mls/hr Q24H IVPB 04/02/20 12:00 04/07/20 11:59 04/02/20 12:42 Karen Whiteside M.D. Apr 02, 2020 13:48
[2020-04-02] MEDS: HydrALAZINE 50mg tab ORAL SCH ×2 (13:50→21:42)
--- NOTE | 2020-04-02 14:20 | Nephrology Progress Note ---
Assessment/Plan Problem List: (1) BENNETT (acute kidney injury) (2) Renal failure (ARF), acute on chronic (3) Dennison catheter problem (4) Acute on chronic respiratory failure (5) Hyperkalemia Assessment Renal failure, most likely acute on chronic Right hydronephrosis Urinary outlet obstruction despite a Dennison catheter since the bladder still distended on ultrasound Respiratory distress, patient on nonrebreather mask. No chest x-ray available. CHF versus pneumonia. Sepsis, UTI Plan April 02: Renal parameters continue to improve. Creatinine down to 1.9 from 6.3 on admission. Abnormal electrolytes at rest. Continue per consultants. April 01: Renal parameters improving. Abnormal electrolytes addressed. Continue to monitor renal parameters. Continue per consultants. Previously: Change diet to renal Kayexalate as needed Potassium and magnesium and phosphorus supplement as needed Kidney ultrasound MILD RIGHT HYDRONEPHROSIS. 2D echocardiogram ejection fraction 55% Monitor renal parameters Antibiotics Avoid nephrotoxic's Subjective ROS Limited/Unobtainable: No Constitutional: Reports: malaise, weakness Objective Objective Last 24 Hour Vital Signs Date Time Temp Pulse Resp B/P (MAP) Pulse Ox O2 Delivery O2 Flow Rate FiO2 04/02/20 13:50 156/67 04/02/20 12:00 Nasal Cannula 2.0 04/02/20 12:00 98.1 87 16 139/74 (95) 97 04/02/20 12:00 85 04/02/20 12:00 2.0 04/02/20 10:08 181/80 04/02/20 10:02 88 181/80 (113) 04/02/20 10:02 93 181/81 (114) 04/02/20 08:12 83 166/94 04/02/20 08:00 Nasal Cannula 2.0 04/02/20 08:00 2.0 04/02/20 08:00 98.1 83 18 166/94 (118) 94 04/02/20 08:00 88 04/02/20 04:45 98.2 04/02/20 04:44 98.2 04/02/20 04:00 Nasal Cannula 2.0 04/02/20 04:00 99.1 91 16 162/77 (105) 100 04/02/20 04:00 2.0 04/02/20 03:55 99 04/02/20 00:42 99.5 04/02/20 00:00 100.0 98 18 168/70 (102) 97 04/02/20 00:00 Nasal Cannula 2.0 04/01/20 23:56 88 04/01/20 20:25 94 165/71 04/01/20 20:00 85 04/01/20 20:00 Nasal Cannula 2.0 04/01/20 20:00 2.0 04/01/20 20:00 98.2 90 20 165/71 (102) 97 04/01/20 18:55 95 Nasal Cannula 2.0 28 04/01/20 18:55 84 20 95 Nasal Cannula 2.0 28 04/01/20 16:00 Nasal Cannula 2.0 04/01/20 16:00 98.1 87 21 102/66 (78) 99 04/01/20 16:00 2.0 04/01/20 15:20 86 Intake and Output 04/01/20 04/02/20 19:00 07:00 Intake Total 1237.5 ml 372.5 ml Output Total 2100 ml 1000 ml Balance -862.5 ml -627.5 ml Intake Oral 800 ml 200 ml IV Total 437.5 ml 172.5 ml Output Urine Total 2100 ml 1000 ml # Bowel Movements 3 Current Medications Medications (Trade) Dose Ordered Sig/Ja Route PRN Reason Start Time Stop Time Status Last Admin Dose Admin Acetaminophen (Tylenol) 650 mg Q4H PRN ORAL fever 03/29/20 22:30 04/28/20 22:29 04/02/20 04:15 Albuterol/ Ipratropium (Albuterol/ Ipratropium) 3 ml EVERY 4 HOURS PRN HHN Shortness of Breath 03/29/20 22:30 04/10/20 22:29 Amlodipine Besylate (Norvasc) 5 mg BID@0900,2100 ORAL 04/01/20 09:00 05/01/20 08:59 04/02/20 08:12 Cefepime HCl 2 gm/ Sodium Chloride 110 ml @ 220 mls/hr Q24H IV 04/03/20 00:00 04/10/20 00:00 Clonidine HCl (Catapres Tab) 0.1 mg Q2H PRN ORAL For High Blood Pressure 04/01/20 06:45 06/30/20 06:44 04/02/20 10:08 Dextrose (Dextrose 50%) 25 ml Q30M PRN IV Hypoglycemia 04/02/20 10:45 07/01/20 10:44 Dextrose (Dextrose 50%) 50 ml Q30M PRN IV Hypoglycemia 04/02/20 10:45 07/01/20 10:44 Folic Acid (Folate) 3 mg DAILY ORAL 03/31/20 09:00 04/30/20 08:59 04/02/20 08:12 Heparin Sodium (Porcine) (Heparin 5000 units/ml) 5,000 units EVERY 12 HOURS SUBQ 03/30/20 09:00 05/14/20 08:59 03/30/20 20:12 Hydralazine HCl (Apresoline) 50 mg Q8HR ORAL 04/02/20 14:00 07/01/20 13:59 04/02/20 13:50 Insulin Aspart (NovoLOG) BEFORE MEALS AND HS SUBQ 04/02/20 11:30 07/01/20 11:29 Mirtazapine (Remeron) 15 mg BEDTIME ORAL 04/02/20 21:00 07/01/20 20:59 Ondansetron HCl (Zofran) 4 mg Q6H PRN IVP Nausea & Vomiting 03/29/20 22:30 04/28/20 22:29 Polyethylene Glycol (Miralax) 17 gm DAILYPRN PRN ORAL Constipation 03/29/20 22:30 04/28/20 22:29 04/01/20 00:58 Tamsulosin HCl (Flomax) 0.4 mg BEDTIME ORAL 03/30/20 21:00 04/29/20 20:59 04/01/20 20:24 Temazepam (Restoril) 15 mg HSPRN PRN ORAL Insomnia 03/29/20 22:30 04/05/20 22:29 Laboratory Tests 04/02/20 04:48: White Blood Count 8.6, Red Blood Count 3.64L, Hemoglobin 11.6L, Hematocrit 36.3L , Mean Corpuscular Volume 100H, Mean Corpuscular Hemoglobin 31.9H, Mean Corpuscular Hemoglobin Concent 32.0, Red Cell Distribution Width 13.5, Platelet Count 112L, Mean Platelet Volume 9.0, Neutrophils (%) (Auto) 77.5H, Lymphocytes (%) (Auto) 11.0L, Monocytes (%) (Auto) 9.1, Eosinophils (%) (Auto) 1.5, Basophils (%) (Auto) 0.9, Erythrocyte Sedimentation Rate 104H, Sodium Level 150H , Potassium Level 3.2L, Chloride Level 113H, Carbon Dioxide Level 28, Anion Gap 9, Blood Urea Nitrogen 34H, Creatinine 1.9H, Estimat Glomerular Filtration Rate 40.8, Glucose Level 199H, Calcium Level 7.7L, Phosphorus Level 2.6, Magnesium Level 1.6L, Total Bilirubin 0.7, Aspartate Amino Transf (AST/SGOT) 26, Alanine Aminotransferase (ALT/SGPT) 45, Alkaline Phosphatase 91, C-Reactive Protein, Quantitative 18.4H, Total Protein 6.2L, Albumin 1.9L, Globulin 4.3, Albumin/Globulin Ratio 0.4L 04/02/20 11:42: POC Whole Blood Glucose 154H Height (Feet): 5 Height (Inches): 11.00 Weight (Pounds): 151 Mich Morgan MD Apr 02, 2020 14:20
[2020-04-02] MEDS ORDERED: 1/2 NS 1000ml IV ONE (17:35)
[2020-04-02] MEDS ORDERED: NS 275ml ONE (17:37)
--- NOTE | 2020-04-02 18:58 | Internal Med Progress Note ---
Subjective Date of Service: Apr 02, 2020 Physician Name David Jonas Attending Physician Fernando Sierra MD Current Medications Medications (Trade) Dose Ordered Sig/Ja Route PRN Reason Start Time Stop Time Status Last Admin Dose Admin Acetaminophen (Tylenol) 650 mg Q4H PRN ORAL fever 03/29/20 22:30 04/28/20 22:29 04/02/20 04:15 Albuterol/ Ipratropium (Albuterol/ Ipratropium) 3 ml EVERY 4 HOURS PRN HHN Shortness of Breath 03/29/20 22:30 04/10/20 22:29 Amlodipine Besylate (Norvasc) 5 mg BID@0900,2100 ORAL 04/01/20 09:00 05/01/20 08:59 04/02/20 08:12 Cefepime HCl 2 gm/ Sodium Chloride 110 ml @ 220 mls/hr Q24H IV 04/03/20 00:00 04/10/20 00:00 Clonidine HCl (Catapres Tab) 0.1 mg Q2H PRN ORAL For High Blood Pressure 04/01/20 06:45 06/30/20 06:44 04/02/20 10:08 Dextrose (Dextrose 50%) 25 ml Q30M PRN IV Hypoglycemia 04/02/20 10:45 07/01/20 10:44 Dextrose (Dextrose 50%) 50 ml Q30M PRN IV Hypoglycemia 04/02/20 10:45 07/01/20 10:44 Folic Acid (Folate) 3 mg DAILY ORAL 03/31/20 09:00 04/30/20 08:59 04/02/20 08:12 Heparin Sodium (Porcine) (Heparin 5000 units/ml) 5,000 units EVERY 12 HOURS SUBQ 03/30/20 09:00 05/14/20 08:59 03/30/20 20:12 Hydralazine HCl (Apresoline) 50 mg Q8HR ORAL 04/02/20 14:00 07/01/20 13:59 04/02/20 13:50 Insulin Aspart (NovoLOG) BEFORE MEALS AND HS SUBQ 04/02/20 11:30 07/01/20 11:29 Mirtazapine (Remeron) 15 mg BEDTIME ORAL 04/02/20 21:00 07/01/20 20:59 Ondansetron HCl (Zofran) 4 mg Q6H PRN IVP Nausea & Vomiting 03/29/20 22:30 04/28/20 22:29 Polyethylene Glycol (Miralax) 17 gm DAILYPRN PRN ORAL Constipation 03/29/20 22:30 04/28/20 22:29 04/01/20 00:58 Tamsulosin HCl (Flomax) 0.4 mg BEDTIME ORAL 03/30/20 21:00 04/29/20 20:59 04/01/20 20:24 Temazepam (Restoril) 15 mg HSPRN PRN ORAL Insomnia 03/29/20 22:30 04/05/20 22:29 Allergies: Coded Allergies: PENICILLINS (Verified Allergy, Unknown, 11/16/16) ROS Limited/Unobtainable: Yes Subjective 85 YO M admitted with respiratory failure. Now UTI with renal failure and sepsis. Cover for Int Med-Dr Sierra. Step down unit Objective Last Vital Signs Date Time Temp Pulse Resp B/P (MAP) Pulse Ox O2 Delivery O2 Flow Rate FiO2 04/02/20 16:00 85 04/02/20 16:00 Nasal Cannula 2.0 04/02/20 15:14 97.9 16 158/70 (99) 98 04/01/20 18:55 28 Laboratory Tests Test 04/02/20 04:48 04/02/20 11:42 04/02/20 16:11 White Blood Count 8.6 K/UL (4.8-10.8) Red Blood Count 3.64 M/UL (4.70-6.10) L Hemoglobin 11.6 G/DL (14.2-18.0) L Hematocrit 36.3 % (42.0-52.0) L Mean Corpuscular Volume 100 FL (80-99) H Mean Corpuscular Hemoglobin 31.9 PG (27.0-31.0) H Mean Corpuscular Hemoglobin Concent 32.0 G/DL (32.0-36.0) Red Cell Distribution Width 13.5 % (11.6-14.8) Platelet Count 112 K/UL (150-450) L Mean Platelet Volume 9.0 FL (6.5-10.1) Neutrophils (%) (Auto) 77.5 % (45.0-75.0) H Lymphocytes (%) (Auto) 11.0 % (20.0-45.0) L Monocytes (%) (Auto) 9.1 % (1.0-10.0) Eosinophils (%) (Auto) 1.5 % (0.0-3.0) Basophils (%) (Auto) 0.9 % (0.0-2.0) Erythrocyte Sedimentation Rate 104 MM/HR (0-20) H Sodium Level 150 MMOL/L (136-145) H Potassium Level 3.2 MMOL/L (3.5-5.1) L Chloride Level 113 MMOL/L (98-107) H Carbon Dioxide Level 28 MMOL/L (21-32) Anion Gap 9 mmol/L (5-15) Blood Urea Nitrogen 34 mg/dL (7-18) H Creatinine 1.9 MG/DL (0.55-1.30) H Estimat Glomerular Filtration Rate 40.8 mL/min (>60) Glucose Level 199 MG/DL (74-106) H Calcium Level 7.7 MG/DL (8.5-10.1) L Phosphorus Level 2.6 MG/DL (2.5-4.9) Magnesium Level 1.6 MG/DL (1.8-2.4) L Total Bilirubin 0.7 MG/DL (0.2-1.0) Aspartate Amino Transf (AST/SGOT) 26 U/L (15-37) Alanine Aminotransferase (ALT/SGPT) 45 U/L (12-78) Alkaline Phosphatase 91 U/L (46-116) C-Reactive Protein, Quantitative 18.4 mg/dL (0.00-0.90) H Total Protein 6.2 G/DL (6.4-8.2) L Albumin 1.9 G/DL (3.4-5.0) L Globulin 4.3 g/dL Albumin/Globulin Ratio 0.4 (1.0-2.7) L POC Whole Blood Glucose 154 MG/DL (74-106) H 188 MG/DL (74-106) H Intake and Output 04/01/20 04/02/20 19:00 07:00 Intake Total 1237.5 ml 372.5 ml Output Total 2100 ml 1000 ml Balance -862.5 ml -627.5 ml Intake Oral 800 ml 200 ml IV Total 437.5 ml 172.5 ml Output Urine Total 2100 ml 1000 ml # Bowel Movements 3 Objective Objective General: No acute distress, awake and alert, chronic ill appearing. HEENT: NCAT, sclera anicteric, PERRL, EOMI.on Vent mask. Neck: Supple, no significant jugular venous distention, Lungs: Fair inspiratory effort, decreased air at the bases, no Wheeze or Rales. Heart: Regular rate and rhythm, normal S1/S2, no murmurs/gallops Abdomen: soft, nontender, nondistended. Normoactive bowel sounds. : Dennison cath. Extremities: No Cyanosis , clubbing or edema. Neuro: A&O x 3, Able to move all extremities Skin: warm, no rash, dry skin. Assessment/Plan Assessment/Plan Assessment/Plan Assessment/Plan Assessment/Plan UTI=Enterobacter cloacae Sepsis=Enterobacter cloacae acute kidney injury and chronic renal insufficiency Acute hypoxemic respiratory failure Gram-negative sergei bacteremia Hyperkalemia Sepsis due to the urinary tract infection COPD CVA Severe protein calorie malnutrition. Plan: Antibiotics: Vancomycin and cefepime IV DVT prophylaxis: Heparin subcu CODE STATUS: Full code. nephrology=Dr Morgan ID=Dr Levy Pulmonary=David Wills MD Apr 02, 2020 18:58
--- NOTE | 2020-04-02 20:02 | Cardiology Progress Note ---
Assessment/Plan Assessment/Plan UTI/ urosepsis bacteremia Hypokalemia - hypernatremia Dyspnea - resolved. BENNETT - hx of CVA sig improvement of cr with hydration need more free water sat 98% on 2 liter now bp on the higher side will increase amlodipine, is on hydralazine as well await echo to review continue abx venous duplex neg v/q low probability Subjective Cardiovascular: Denies: chest pain, lightheadedness, palpitations Respiratory: Denies: shortness of breath Gastrointestinal/Abdominal: Denies: abdominal pain Genitourinary: Denies: burning Objective Last 24 Hour Vital Signs Date Time Temp Pulse Resp B/P (MAP) Pulse Ox O2 Delivery O2 Flow Rate FiO2 04/02/20 16:00 85 04/02/20 16:00 Nasal Cannula 2.0 04/02/20 16:00 2.0 04/02/20 15:14 97.9 84 16 158/70 (99) 98 04/02/20 13:50 156/67 04/02/20 12:00 Nasal Cannula 2.0 04/02/20 12:00 98.1 87 16 139/74 (95) 97 04/02/20 12:00 85 04/02/20 12:00 2.0 04/02/20 10:08 181/80 04/02/20 10:02 88 181/80 (113) 04/02/20 10:02 93 181/81 (114) 04/02/20 08:12 83 166/94 04/02/20 08:00 Nasal Cannula 2.0 04/02/20 08:00 2.0 04/02/20 08:00 98.1 83 18 166/94 (118) 94 04/02/20 08:00 88 04/02/20 04:45 98.2 04/02/20 04:44 98.2 04/02/20 04:00 Nasal Cannula 2.0 04/02/20 04:00 99.1 91 16 162/77 (105) 100 04/02/20 04:00 2.0 04/02/20 03:55 99 04/02/20 00:42 99.5 04/02/20 00:00 100.0 98 18 168/70 (102) 97 04/02/20 00:00 Nasal Cannula 2.0 04/01/20 23:56 88 04/01/20 20:25 94 165/71 04/01/20 20:00 85 04/01/20 20:00 Nasal Cannula 2.0 04/01/20 20:00 2.0 04/01/20 20:00 98.2 90 20 165/ (102) 97 General Appearance: no apparent distress, alert Neck: supple Cardiovascular: normal rate Respiratory/Chest: lungs clear Abdomen: normal bowel sounds, non tender, soft Extremities: no swelling Intake and Output 04/01/20 04/02/20 19:00 07:00 Intake Total 1237.5 ml 372.5 ml Output Total 2100 ml 1000 ml Balance -862.5 ml -627.5 ml Intake Oral 800 ml 200 ml IV Total 437.5 ml 172.5 ml Output Urine Total 2100 ml 1000 ml # Bowel Movements 3 Laboratory Tests Test 04/02/20 04:48 04/02/20 11:42 04/02/20 16:11 White Blood Count 8.6 K/UL (4.8-10.8) Red Blood Count 3.64 M/UL (4.70-6.10) L Hemoglobin 11.6 G/DL (14.2-18.0) L Hematocrit 36.3 % (42.0-52.0) L Mean Corpuscular Volume 100 FL (80-99) H Mean Corpuscular Hemoglobin 31.9 PG (27.0-31.0) H Mean Corpuscular Hemoglobin Concent 32.0 G/DL (32.0-36.0) Red Cell Distribution Width 13.5 % (11.6-14.8) Platelet Count 112 K/UL (150-450) L Mean Platelet Volume 9.0 FL (6.5-10.1) Neutrophils (%) (Auto) 77.5 % (45.0-75.0) H Lymphocytes (%) (Auto) 11.0 % (20.0-45.0) L Monocytes (%) (Auto) 9.1 % (1.0-10.0) Eosinophils (%) (Auto) 1.5 % (0.0-3.0) Basophils (%) (Auto) 0.9 % (0.0-2.0) Erythrocyte Sedimentation Rate 104 MM/HR (0-20) H Sodium Level 150 MMOL/L (136-145) H Potassium Level 3.2 MMOL/L (3.5-5.1) L Chloride Level 113 MMOL/L (98-107) H Carbon Dioxide Level 28 MMOL/L (21-32) Anion Gap 9 mmol/L (5-15) Blood Urea Nitrogen 34 mg/dL (7-18) H Creatinine 1.9 MG/DL (0.55-1.30) H Estimat Glomerular Filtration Rate 40.8 mL/min (>60) Glucose Level 199 MG/DL (74-106) H Calcium Level 7.7 MG/DL (8.5-10.1) L Phosphorus Level 2.6 MG/DL (2.5-4.9) Magnesium Level 1.6 MG/DL (1.8-2.4) L Total Bilirubin 0.7 MG/DL (0.2-1.0) Aspartate Amino Transf (AST/SGOT) 26 U/L (15-37) Alanine Aminotransferase (ALT/SGPT) 45 U/L (12-78) Alkaline Phosphatase 91 U/L (46-116) C-Reactive Protein, Quantitative 18.4 mg/dL (0.00-0.90) H Total Protein 6.2 G/DL (6.4-8.2) L Albumin 1.9 G/DL (3.4-5.0) L Globulin 4.3 g/dL Albumin/Globulin Ratio 0.4 (1.0-2.7) L POC Whole Blood Glucose 154 MG/DL (74-106) H 188 MG/DL (74-106) H Tiago Clay MD Apr 02, 2020 20:02
[2020-04-02] MEDS: Tamsulosin 0.4mg cap ORAL SCH (21:41)
[2020-04-02] MEDS: Cefepime HCl 2 GM in NS 110 ML IV SCH (23:30)
[2020-04-03] VITALS: BP 145/65
[2020-04-03 04:00] VITALS: BP 145/69
[2020-04-03] MEDS: HydrALAZINE 50mg tab ORAL SCH ×3 (05:25→22:04)
[2020-04-03 05:38] LABS: BASOPHILS % (AUTO) 0.7 % (0.0-2.0); EOSINOPHILS % (AUTO) 1.4 % (0.0-3.0); HEMATOCRIT 39.2 % (42.0-52.0); HEMOGLOBIN 12.3 G/DL (14.2-18.0); LYMPHOCYTES % (AUTO) 14.7 % (20.0-45.0); MEAN CORPUSCULAR VOLUME 102 FL (80-99); MONOCYTES % (AUTO) 8.7 % (1.0-10.0); NEUTROPHILS % (AUTO) 74.4 % (45.0-75.0); PLATELET COUNT 142 K/UL (150-450); RED BLOOD COUNT 3.86 M/UL (4.70-6.10); RED CELL DISTRIBUTION WIDTH 13.9 % (11.6-14.8); WHITE BLOOD COUNT 10.8 K/UL (4.8-10.8)
[2020-04-03] MEDS: NovoLOG Insulin Flexpen SUBQ SCH ×4 (05:39→20:17)
[2020-04-03 06:04] LABS: ALBUMIN/GLOBULIN RATIO 0.4 (1.0-2.7); BILIRUBIN,TOTAL 0.6 MG/DL (0.2-1.0); CREATININE 1.5 MG/DL (0.55-1.30); PHOSPHORUS 2.3 MG/DL (2.5-4.9); POTASSIUM 3.4 MMOL/L (3.5-5.1)
[2020-04-03 08:00] VITALS: BP 150/74
[2020-04-03] MEDS: Heparin 5000 units/ml inj SUBQ SCH ×2 (08:28→20:16)
[2020-04-03] MEDS: Potassium Phosphate 15mm/250ml 250 ML IVPB SCH ×2 (09:46→14:23)
--- NOTE | 2020-04-03 11:03 | Pulmonology Progress Note ---
Subjective ROS Limited/Unobtainable: Yes Constitutional: Reports: no symptoms HEENT: Repors: no symptoms Allergies: Coded Allergies: PENICILLINS (Verified Allergy, Unknown, 11/16/16) Objective Last 24 Hour Vital Signs Date Time Temp Pulse Resp B/P (MAP) Pulse Ox O2 Delivery O2 Flow Rate FiO2 04/03/20 08:27 85 162/82 04/03/20 08:00 2.0 04/03/20 08:00 98.0 82 20 150/74 (99) 96 04/03/20 08:00 Nasal Cannula 2.0 04/03/20 07:16 87 04/03/20 05:25 162/82 04/03/20 04:00 97.9 79 20 145/69 (94) 96 04/03/20 04:00 Nasal Cannula 2.0 04/03/20 04:00 85 04/03/20 04:00 2.0 04/03/20 00:00 98.1 85 22 145/65 (91) 95 04/03/20 00:00 92 04/03/20 00:00 2.0 04/03/20 00:00 Nasal Cannula 2.0 04/02/20 21:42 181/90 04/02/20 21:42 84 181/90 04/02/20 20:00 Nasal Cannula 2.0 04/02/20 20:00 2.0 04/02/20 20:00 97.9 88 16 152/81 (104) 97 04/02/20 20:00 92 04/02/20 20:00 94 Nasal Cannula 2.0 28 04/02/20 16:00 85 04/02/20 16:00 Nasal Cannula 2.0 04/02/20 16:00 2.0 04/02/20 15:14 97.9 84 16 158/70 (99) 98 04/02/20 13:50 156/67 04/02/20 12:00 Nasal Cannula 2.0 04/02/20 12:00 98.1 87 16 139/74 (95) 97 04/02/20 12:00 85 04/02/20 12:00 2.0 Intake and Output 04/02/20 04/03/20 19:00 07:00 Intake Total 480 ml 110 ml Output Total 2000 ml 1450 ml Balance -1520 ml -1340 ml Intake Oral 480 ml IV Total 110 ml Output Urine Total 2000 ml 1450 ml General Appearance: cachetic HEENT: normocephalic, atraumatic Respiratory: chest wall non-tender, lungs clear Cardiovascular: normal peripheral pulses, normal rate Abdomen: normal bowel sounds, soft, non tender Genitourinary: normal external genitalia Extremities: no cyanosis Neurologic: salvage engineer II-XII grossly normal Laboratory Tests 04/02/20 11:42: POC Whole Blood Glucose 154H 04/02/20 16:11: POC Whole Blood Glucose 188H 04/02/20 21:46: POC Whole Blood Glucose 163H 04/03/20 04:53: White Blood Count 10.8, Red Blood Count 3.86L, Hemoglobin 12.3L, Hematocrit 39.2L, Mean Corpuscular Volume 102H, Mean Corpuscular Hemoglobin 31.8H, Mean Corpuscular Hemoglobin Concent 31.2L, Red Cell Distribution Width 13.9, Platelet Count 142L, Mean Platelet Volume 9.7, Neutrophils (%) (Auto) 74.4, Lymphocytes (%) (Auto) 14.7L, Monocytes (%) (Auto) 8.7, Eosinophils (%) (Auto) 1.4, Basophils (%) (Auto) 0.7, Erythrocyte Sedimentation Rate 104H, Sodium Level 151H , Potassium Level 3.4L, Chloride Level 114H, Carbon Dioxide Level 30, Anion Gap 7, Blood Urea Nitrogen 25H, Creatinine 1.5H, Estimat Glomerular Filtration Rate 53.7, Glucose Level 163H, Calcium Level 8.0L, Phosphorus Level 2.3L, Magnesium Level 2.2, Total Bilirubin 0.6, Aspartate Amino Transf (AST/SGOT) 19, Alanine Aminotransferase (ALT/SGPT) 33, Alkaline Phosphatase 89, C-Reactive Protein, Quantitative 18.3H, Total Protein 6.6, Albumin 2.0L, Globulin 4.6, Albumin/Globulin Ratio 0.4L 04/03/20 05:22: POC Whole Blood Glucose 152H Current Medications Medications (Trade) Dose Ordered Sig/Ja Route PRN Reason Start Time Stop Time Status Last Admin Dose Admin Acetaminophen (Tylenol) 650 mg Q4H PRN ORAL fever 03/29/20 22:30 04/28/20 22:29 04/02/20 04:15 Albuterol/ Ipratropium (Albuterol/ Ipratropium) 3 ml EVERY 4 HOURS PRN HHN Shortness of Breath 03/29/20 22:30 04/10/20 22:29 Amlodipine Besylate (Norvasc) 5 mg BID@0900,2100 ORAL 04/01/20 09:00 05/01/20 08:59 04/03/20 08:27 Cefepime HCl 2 gm/ Sodium Chloride 110 ml @ 220 mls/hr Q24H IV 04/03/20 00:00 04/10/20 00:00 04/02/20 23:30 Clonidine HCl (Catapres Tab) 0.1 mg Q2H PRN ORAL For High Blood Pressure 04/01/20 06:45 06/30/20 06:44 04/02/20 10:08 Dextrose (Dextrose 50%) 25 ml Q30M PRN IV Hypoglycemia 04/02/20 10:45 07/01/20 10:44 Dextrose (Dextrose 50%) 50 ml Q30M PRN IV Hypoglycemia 04/02/20 10:45 07/01/20 10:44 Folic Acid (Folate) 3 mg DAILY ORAL 03/31/20 09:00 04/30/20 08:59 04/03/20 08:26 Heparin Sodium (Porcine) (Heparin 5000 units/ml) 5,000 units EVERY 12 HOURS SUBQ 03/30/20 09:00 05/14/20 08:59 03/30/20 20:12 Hydralazine HCl (Apresoline) 50 mg Q8HR ORAL 04/02/20 14:00 07/01/20 13:59 04/03/20 05:25 Insulin Aspart (NovoLOG) BEFORE MEALS AND HS SUBQ 04/02/20 11:30 07/01/20 11:29 Mirtazapine (Remeron) 15 mg BEDTIME ORAL 04/02/20 21:00 07/01/20 20:59 04/02/20 21:42 Ondansetron HCl (Zofran) 4 mg Q6H PRN IVP Nausea & Vomiting 03/29/20 22:30 04/28/20 22:29 Polyethylene Glycol (Miralax) 17 gm DAILYPRN PRN ORAL Constipation 03/29/20 22:30 04/28/20 22:29 04/01/20 00:58 Potassium Phosphate 250 ml @ 62.5 mls/hr Q4H IVPB 04/03/20 10:00 04/03/20 17:59 04/03/20 09:46 Tamsulosin HCl (Flomax) 0.4 mg BEDTIME ORAL 03/30/20 21:00 04/29/20 20:59 04/02/20 21:41 Temazepam (Restoril) 15 mg HSPRN PRN ORAL Insomnia 03/29/20 22:30 04/05/20 22:29 Assessment/Plan Problems: (1) Gram-negative bacteremia (2) Acute on chronic respiratory failure (3) Hyperkalemia (4) COPD (chronic obstructive pulmonary disease) (5) Episode of generalized weakness (6) History of CVA (cerebrovascular accident) (7) Uncontrolled hypertension Assessment/Plan BP better after adding Hydralazine, no more clonodine prn given yesterday low grade fever yesterday change diet to diabetic, because of persistent increase in Blood sugar and bor derline increase in A1c BC are positive for GNB, Enterobacter iv fluids iv abx, On cefepime and vancomycin check electrolytes, Phos supplement swallow study b/o of recent CVA: 1. Pureed diet and thin liquid 2. Advance to soft solid diet as tolerate continue Dennison catheter, with frequent flushes. renal US reviewed, EF 55% cardio consult appreciated Elisabet Mendez MD Apr 03, 2020 11:03
[2020-04-03 12:00] VITALS: BP 162/80
--- NOTE | 2020-04-03 12:09 | Infectious Diseases Prog Note ---
Assessment/Plan Assessment: Sepsis UTI c/w Gram neg bacteremia -04/02 bcx p -03/30 Renal US: MILD RIGHT HYDRONEPHROSIS. THERE IS A ROSSI CATHETER IN THE BLADDER BUT THE BLADDER STILL APPEARS FAIRLY DISTENDED. PLEASE CHECK FUNCTION OF CATHETER. LAYERING STONE AND SOME DEBRIS NOTED IN THE URINARY BLADDER. -Bcx 3/ E. cloacae complex -03/29 u/a wbc 60-80, nit neg, leuk +3; ucx >100k E. cloacae complex (R ancef, bactrim; I macrobid; otherwise S) Bcx 09/02 E. cloacae complex (R ancef, bactrim; otherwise S) ABd US: Limited evaluation due to bowel gas. Increased echogenicity of the kidney suggestive of medical renal disease. Nonobstructing right renal calculus. No gallstones detected. The gallbladder is unremarkable. The common bile duct Measures 0.65 cm and is mildly dilated. Choledocholithiasis cannot be excluded. MRCP study will provide additional information as deemed necessary. Mild hydronephrosis of the right kidney of uncertain etiology. CT imaging of the abdomen and pelvis should be considered. Spleen is not visualized due to body habitus. Low grade fever; improving Leukocytosis, worsened- now resolved Thrombocytopenia, improving Acute hypoxic resp failure- sp bipap> 2l NC Pulmonary edema probable PNA -03/31 CXR: Bibasilar opacities may represent atelectasis. Prominent lung markings may represent chronic interstitial lung changes versus pulmonary vas culature congestion. Infectious/inflammatory process is not excluded. -03/30 CXR: Nonspecific interstitial opacities are seen throughout both lungs bilaterally, probably unchanged allowing for differences in exposure technique and degree of rotation. 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 Will continue to follow along with you. Discussed with RN. Subjective Allergies: Coded Allergies: PENICILLINS (Verified Allergy, Unknown, 11/16/16) afebrile in 36hrs no leukocytosis Cr improving repeat Bcx p Objective Last 24 Hour Vital Signs Date Time Temp Pulse Resp B/P (MAP) Pulse Ox O2 Delivery O2 Flow Rate FiO2 04/03/20 08:27 85 162/82 04/03/20 08:00 2.0 04/03/20 08:00 98.0 82 20 150/74 (99) 96 04/03/20 08:00 Nasal Cannula 2.0 04/03/20 07:16 87 04/03/20 05:25 162/82 04/03/20 04:00 97.9 79 20 145/69 (94) 96 04/03/20 04:00 Nasal Cannula 2.0 04/03/20 04:00 85 04/03/20 04:00 2.0 04/03/20 00:00 98.1 85 22 145/65 (91) 95 04/03/20 00:00 92 04/03/20 00:00 2.0 04/03/20 00:00 Nasal Cannula 2.0 04/02/20 21:42 181/90 04/02/20 21:42 84 181/90 04/02/20 20:00 Nasal Cannula 2.0 04/02/20 20:00 2.0 04/02/20 20:00 97.9 88 16 152/81 (104) 97 04/02/20 20:00 92 04/02/20 20:00 94 Nasal Cannula 2.0 28 04/02/20 16:00 85 04/02/20 16:00 Nasal Cannula 2.0 04/02/20 16:00 2.0 04/02/20 15:14 97.9 84 16 158/70 (99) 98 04/02/20 13:50 156/67 04/02/20 12:00 Nasal Cannula 2.0 04/02/20 12:00 98.1 87 16 139/74 (95) 97 04/02/20 12:00 85 04/02/20 12:00 2.0 Height (Feet): 5 Height (Inches): 11.00 Weight (Pounds): 151 General Appearance: cachetic, thin Male HEENT: NCAT, MMM, EOMI Respiratory/Chest: CTAB, No W Cardiovascular/Chest: RRR, S1, S2 Abdomen: normal bowel sounds, non tender, soft Laboratory Tests Test 04/02/20 16:11 04/02/20 21:46 04/03/20 04:53 04/03/20 05:22 POC Whole Blood Glucose 188 MG/DL (74-106) H 163 MG/DL (74-106) H 152 MG/DL (74-106) H White Blood Count 10.8 K/UL (4.8-10.8) Red Blood Count 3.86 M/UL (4.70-6.10) L Hemoglobin 12.3 G/DL (14.2-18.0) L Hematocrit 39.2 % (42.0-52.0) L Mean Corpuscular Volume 102 FL (80-99) H Mean Corpuscular Hemoglobin 31.8 PG (27.0-31.0) H Mean Corpuscular Hemoglobin Concent 31.2 G/DL (32.0-36.0) L Red Cell Distribution Width 13.9 % (11.6-14.8) Platelet Count 142 K/UL (150-450) L Mean Platelet Volume 9.7 FL (6.5-10.1) Neutrophils (%) (Auto) 74.4 % (45.0-75.0) Lymphocytes (%) (Auto) 14.7 % (20.0-45.0) L Monocytes (%) (Auto) 8.7 % (1.0-10.0) Eosinophils (%) (Auto) 1.4 % (0.0-3.0) Basophils (%) (Auto) 0.7 % (0.0-2.0) Erythrocyte Sedimentation Rate 104 MM/HR (0-20) H Sodium Level 151 MMOL/L (136-145) H Potassium Level 3.4 MMOL/L (3.5-5.1) L Chloride Level 114 MMOL/L (98-107) H Carbon Dioxide Level 30 MMOL/L (21-32) Anion Gap 7 mmol/L (5-15) Blood Urea Nitrogen 25 mg/dL (7-18) H Creatinine 1.5 MG/DL (0.55-1.30) H Estimat Glomerular Filtration Rate 53.7 mL/min (>60) Glucose Level 163 MG/DL (74-106) H Calcium Level 8.0 MG/DL (8.5-10.1) L Phosphorus Level 2.3 MG/DL (2.5-4.9) L Magnesium Level 2.2 MG/DL (1.8-2.4) Total Bilirubin 0.6 MG/DL (0.2-1.0) Aspartate Amino Transf (AST/SGOT) 19 U/L (15-37) Alanine Aminotransferase (ALT/SGPT) 33 U/L (12-78) Alkaline Phosphatase 89 U/L (46-116) C-Reactive Protein, Quantitative 18.3 mg/dL (0.00-0.90) H Total Protein 6.6 G/DL (6.4-8.2) Albumin 2.0 G/DL (3.4-5.0) L Globulin 4.6 g/dL Albumin/Globulin Ratio 0.4 (1.0-2.7) L Current Medications Medications (Trade) Dose Ordered Sig/Ja Route PRN Reason Start Time Stop Time Status Last Admin Dose Admin Acetaminophen (Tylenol) 650 mg Q4H PRN ORAL fever 03/29/20 22:30 04/28/20 22:29 04/02/20 04:15 Albuterol/ Ipratropium (Albuterol/ Ipratropium) 3 ml EVERY 4 HOURS PRN HHN Shortness of Breath 03/29/20 22:30 04/10/20 22:29 Amlodipine Besylate (Norvasc) 5 mg BID@0900,2100 ORAL 04/01/20 09:00 05/01/20 08:59 04/03/20 08:27 Cefepime HCl 2 gm/ Sodium Chloride 110 ml @ 220 mls/hr Q24H IV 04/03/20 00:00 04/10/20 00:00 04/02/20 23:30 Clonidine HCl (Catapres Tab) 0.1 mg Q2H PRN ORAL For High Blood Pressure 04/01/20 06:45 06/30/20 06:44 04/02/20 10:08 Dextrose (Dextrose 50%) 25 ml Q30M PRN IV Hypoglycemia 04/02/20 10:45 07/01/20 10:44 Dextrose (Dextrose 50%) 50 ml Q30M PRN IV Hypoglycemia 04/02/20 10:45 07/01/20 10:44 Folic Acid (Folate) 3 mg DAILY ORAL 03/31/20 09:00 04/30/20 08:59 04/03/20 08:26 Heparin Sodium (Porcine) (Heparin 5000 units/ml) 5,000 units EVERY 12 HOURS SUBQ 03/30/20 09:00 05/14/20 08:59 03/30/20 20:12 Hydralazine HCl (Apresoline) 50 mg Q8HR ORAL 04/02/20 14:00 07/01/20 13:59 04/03/20 05:25 Insulin Aspart (NovoLOG) BEFORE MEALS AND HS SUBQ 04/02/20 11:30 07/01/20 11:29 Mirtazapine (Remeron) 15 mg BEDTIME ORAL 04/02/20 21:00 07/01/20 20:59 04/02/20 21:42 Ondansetron HCl (Zofran) 4 mg Q6H PRN IVP Nausea & Vomiting 03/29/20 22:30 04/28/20 22:29 Polyethylene Glycol (Miralax) 17 gm DAILYPRN PRN ORAL Constipation 03/29/20 22:30 04/28/20 22:29 04/01/20 00:58 Potassium Phosphate 250 ml @ 62.5 mls/hr Q4H IVPB 04/03/20 10:00 04/03/20 17:59 04/03/20 09:46 Tamsulosin HCl (Flomax) 0.4 mg BEDTIME ORAL 03/30/20 21:00 04/29/20 20:59 04/02/20 21:41 Temazepam (Restoril) 15 mg HSPRN PRN ORAL Insomnia 03/29/20 22:30 04/05/20 22:29 Karen Whiteside M.D. Apr 03, 2020 12:09
--- NOTE | 2020-04-03 14:01 | Nephrology Progress Note ---
Assessment/Plan Problem List: (1) BENNETT (acute kidney injury) (2) Renal failure (ARF), acute on chronic (3) Dennison catheter problem (4) Acute on chronic respiratory failure (5) Hyperkalemia Assessment Renal failure, most likely acute on chronic Right hydronephrosis Urinary outlet obstruction despite a Dennison catheter since the bladder still distended on ultrasound Respiratory distress, patient on nonrebreather mask. No chest x-ray available. CHF versus pneumonia. Sepsis, UTI Plan April 03: Serum creatinine continues to decline. Abnormal electrolytes addre ssed. Continue per consultants. April 02: Renal parameters continue to improve. Creatinine down to 1.9 from 6.3 on admission. Abnormal electrolytes at rest. Continue per consultants. April 01: Renal parameters improving. Abnormal electrolytes addressed. Continue to monitor renal parameters. Continue per consultants. Previously: Change diet to renal Kayexalate as needed Potassium and magnesium and phosphorus supplement as needed Kidney ultrasound MILD RIGHT HYDRONEPHROSIS. 2D echocardiogram ejection fraction 55% Monitor renal parameters Antibiotics Avoid nephrotoxic's Subjective ROS Limited/Unobtainable: No Constitutional: Reports: malaise Objective Objective Last 24 Hour Vital Signs Date Time Temp Pulse Resp B/P (MAP) Pulse Ox O2 Delivery O2 Flow Rate FiO2 04/03/20 12:00 86 04/03/20 12:00 Nasal Cannula 2.0 04/03/20 12:00 2.0 04/03/20 08:36 96 Nasal Cannula 2.0 28 04/03/20 08:27 85 162/82 04/03/20 08:00 2.0 04/03/20 08:00 98.0 82 20 150/74 (99) 96 04/03/20 08:00 Nasal Cannula 2.0 04/03/20 07:16 87 04/03/20 05:25 162/82 04/03/20 04:00 97.9 79 20 145/69 (94) 96 04/03/20 04:00 Nasal Cannula 2.0 04/03/20 04:00 85 04/03/20 04:00 2.0 04/03/20 00:00 98.1 85 22 145/65 (91) 95 04/03/20 00:00 92 04/03/20 00:00 2.0 04/03/20 00:00 Nasal Cannula 2.0 04/02/20 21:42 181/90 04/02/20 21:42 84 181/90 04/02/20 20:00 Nasal Cannula 2.0 04/02/20 20:00 2.0 04/02/20 20:00 97.9 88 16 152/81 (104) 97 04/02/20 20:00 92 04/02/20 20:00 94 Nasal Cannula 2.0 28 04/02/20 16:00 85 04/02/20 16:00 Nasal Cannula 2.0 04/02/20 16:00 2.0 04/02/20 15:14 97.9 84 16 158/70 (99) 98 Intake and Output 04/02/20 04/03/20 19:00 07:00 Intake Total 480 ml 110 ml Output Total 2000 ml 1450 ml Balance -1520 ml -1340 ml Intake Oral 480 ml IV Total 110 ml Output Urine Total 2000 ml 1450 ml Current Medications Medications (Trade) Dose Ordered Sig/Ja Route PRN Reason Start Time Stop Time Status Last Admin Dose Admin Acetaminophen (Tylenol) 650 mg Q4H PRN ORAL fever 03/29/20 22:30 04/28/20 22:29 04/02/20 04:15 Albuterol/ Ipratropium (Albuterol/ Ipratropium) 3 ml EVERY 4 HOURS PRN HHN Shortness of Breath 03/29/20 22:30 04/10/20 22:29 Amlodipine Besylate (Norvasc) 5 mg BID@0900,2100 ORAL 04/01/20 09:00 05/01/20 08:59 04/03/20 08:27 Cefepime HCl 2 gm/ Sodium Chloride 110 ml @ 220 mls/hr Q24H IV 04/03/20 00:00 04/10/20 00:00 04/02/20 23:30 Clonidine HCl (Catapres Tab) 0.1 mg Q2H PRN ORAL For High Blood Pressure 04/01/20 06:45 06/30/20 06:44 04/02/20 10:08 Dextrose (Dextrose 50%) 25 ml Q30M PRN IV Hypoglycemia 04/02/20 10:45 07/01/20 10:44 Dextrose (Dextrose 50%) 50 ml Q30M PRN IV Hypoglycemia 04/02/20 10:45 07/01/20 10:44 Folic Acid (Folate) 3 mg DAILY ORAL 03/31/20 09:00 04/30/20 08:59 04/03/20 08:26 Heparin Sodium (Porcine) (Heparin 5000 units/ml) 5,000 units EVERY 12 HOURS SUBQ 03/30/20 09:00 05/14/20 08:59 03/30/20 20:12 Hydralazine HCl (Apresoline) 50 mg Q8HR ORAL 04/02/20 14:00 07/01/20 13:59 04/03/20 05:25 Insulin Aspart (NovoLOG) BEFORE MEALS AND HS SUBQ 04/02/20 11:30 07/01/20 11:29 Mirtazapine (Remeron) 15 mg BEDTIME ORAL 04/02/20 21:00 07/01/20 20:59 04/02/20 21:42 Ondansetron HCl (Zofran) 4 mg Q6H PRN IVP Nausea & Vomiting 03/29/20 22:30 04/28/20 22:29 Polyethylene Glycol (Miralax) 17 gm DAILYPRN PRN ORAL Constipation 03/29/20 22:30 04/28/20 22:29 04/01/20 00:58 Potassium Phosphate 250 ml @ 62.5 mls/hr Q4H IVPB 04/03/20 10:00 04/03/20 17:59 04/03/20 09:46 Tamsulosin HCl (Flomax) 0.4 mg BEDTIME ORAL 03/30/20 21:00 04/29/20 20:59 04/02/20 21:41 Temazepam (Restoril) 15 mg HSPRN PRN ORAL Insomnia 03/29/20 22:30 04/05/20 22:29 Laboratory Tests 04/02/20 16:11: POC Whole Blood Glucose 188H 04/02/20 21:46: POC Whole Blood Glucose 163H 04/03/20 04:53: White Blood Count 10.8, Red Blood Count 3.86L, Hemoglobin 12.3L, Hematocrit 39.2L, Mean Corpuscular Volume 102H, Mean Corpuscular Hemoglobin 31.8H, Mean Corpuscular Hemoglobin Concent 31.2L, Red Cell Distribution Width 13.9, Platelet Count 142L, Mean Platelet Volume 9.7, Neutrophils (%) (Auto) 74.4, Lymphocytes (%) (Auto) 14.7L, Monocytes (%) (Auto) 8.7, Eosinophils (%) (Auto) 1.4, Basophils (%) (Auto) 0.7, Erythrocyte Sedimentation Rate 104H, Sodium Level 151H , Potassium Level 3.4L, Chloride Level 114H, Carbon Dioxide Level 30, Anion Gap 7, Blood Urea Nitrogen 25H, Creatinine 1.5H, Estimat Glomerular Filtration Rate 53.7, Glucose Level 163H, Calcium Level 8.0L, Phosphorus Level 2.3L, Magnesium Level 2.2, Total Bilirubin 0.6, Aspartate Amino Transf (AST/SGOT) 19, Alanine Aminotransferase (ALT/SGPT) 33, Alkaline Phosphatase 89, C-Reactive Protein, Quantitative 18.3H, Total Protein 6.6, Albumin 2.0L, Globulin 4.6, Albumin/Globulin Ratio 0.4L 04/03/20 05:22: POC Whole Blood Glucose 152H Height (Feet): 5 Height (Inches): 11.00 Weight (Pounds): 151 General Appearance: no apparent distress, lethargic Cardiovascular: normal rate - Heart rate 80s Respiratory/Chest: decreased breath sounds Abdomen: distended Mich Morgan MD Apr 03, 2020 14:01
[2020-04-03 16:00] VITALS: BP 150/77
--- NOTE | 2020-04-03 16:11 | Cardiology Progress Note ---
Assessment/Plan Assessment/Plan UTI/ urosepsis bacteremia Hypokalemia - hypernatremia Dyspnea - resolved. BENNETT - hx of CVA sig improvement of cr with hydration sat 96% on 2 liter now bp on the higher side will increase amlodipine, is on hydralazine as well will consider acei or arb if ok with dr meier tomorrow depending on cr echo reviewed personally normal lv function ivc normal continue abx venous duplex neg v/q low probability got 500 cc d5w today he looks ok but co sob only on questioning cxr bnp in am Subjective Cardiovascular: Denies: chest pain, lightheadedness, palpitations Respiratory: Reports: shortness of breath Gastrointestinal/Abdominal: Denies: abdominal pain Genitourinary: Denies: no symptoms Objective Last 24 Hour Vital Signs Date Time Temp Pulse Resp B/P (MAP) Pulse Ox O2 Delivery O2 Flow Rate FiO2 04/03/20 15:50 99 04/03/20 14:23 162/82 04/03/20 12:00 86 04/03/20 12:00 Nasal Cannula 2.0 04/03/20 12:00 2.0 04/03/20 12:00 98.2 82 20 162/80 (107) 96 04/03/20 08:36 96 Nasal Cannula 2.0 28 04/03/20 08:27 85 162/82 04/03/20 08:00 2.0 04/03/20 08:00 98.0 82 20 150/74 (99) 96 04/03/20 08:00 Nasal Cannula 2.0 04/03/20 07:16 87 04/03/20 05:25 162/82 04/03/20 04:00 97.9 79 20 145/69 (94) 96 04/03/20 04:00 Nasal Cannula 2.0 04/03/20 04:00 85 04/03/20 04:00 2.0 04/03/20 00:00 98.1 85 22 145/65 (91) 95 04/03/20 00:00 92 04/03/20 00:00 2.0 04/03/20 00:00 Nasal Cannula 2.0 04/02/20 21:42 181/90 04/02/20 21:42 84 181/90 04/02/20 20:00 Nasal Cannula 2.0 04/02/20 20:00 2.0 04/02/20 20:00 97.9 88 16 152/81 (104) 97 04/02/20 20:00 92 04/02/20 20:00 94 Nasal Cannula 2.0 28 General Appearance: no apparent distress, alert Neck: supple Cardiovascular: normal rate Respiratory/Chest: lungs clear Abdomen: normal bowel sounds, non tender, soft Extremities: no swelling Intake and Output 04/02/20 04/03/20 19:00 07:00 Intake Total 480 ml 110 ml Output Total 2000 ml 1450 ml Balance -1520 ml -1340 ml Intake Oral 480 ml IV Total 110 ml Output Urine Total 2000 ml 1450 ml Laboratory Tests Test 04/02/20 16:11 04/02/20 21:46 04/03/20 04:53 04/03/20 05:22 POC Whole Blood Glucose 188 MG/DL (74-106) H 163 MG/DL (74-106) H 152 MG/DL (74-106) H White Blood Count 10.8 K/UL (4.8-10.8) Red Blood Count 3.86 M/UL (4.70-6.10) L Hemoglobin 12.3 G/DL (14.2-18.0) L Hematocrit 39.2 % (42.0-52.0) L Mean Corpuscular Volume 102 FL (80-99) H Mean Corpuscular Hemoglobin 31.8 PG (27.0-31.0) H Mean Corpuscular Hemoglobin Concent 31.2 G/DL (32.0-36.0) L Red Cell Distribution Width 13.9 % (11.6-14.8) Platelet Count 142 K/UL (150-450) L Mean Platelet Volume 9.7 FL (6.5-10.1) Neutrophils (%) (Auto) 74.4 % (45.0-75.0) Lymphocytes (%) (Auto) 14.7 % (20.0-45.0) L Monocytes (%) (Auto) 8.7 % (1.0-10.0) Eosinophils (%) (Auto) 1.4 % (0.0-3.0) Basophils (%) (Auto) 0.7 % (0.0-2.0) Erythrocyte Sedimentation Rate 104 MM/HR (0-20) H Sodium Level 151 MMOL/L (136-145) H Potassium Level 3.4 MMOL/L (3.5-5.1) L Chloride Level 114 MMOL/L (98-107) H Carbon Dioxide Level 30 MMOL/L (21-32) Anion Gap 7 mmol/L (5-15) Blood Urea Nitrogen 25 mg/dL (7-18) H Creatinine 1.5 MG/DL (0.55-1.30) H Estimat Glomerular Filtration Rate 53.7 mL/min (>60) Glucose Level 163 MG/DL (74-106) H Calcium Level 8.0 MG/DL (8.5-10.1) L Phosphorus Level 2.3 MG/DL (2.5-4.9) L Magnesium Level 2.2 MG/DL (1.8-2.4) Total Bilirubin 0.6 MG/DL (0.2-1.0) Aspartate Amino Transf (AST/SGOT) 19 U/L (15-37) Alanine Aminotransferase (ALT/SGPT) 33 U/L (12-78) Alkaline Phosphatase 89 U/L (46-116) C-Reactive Protein, Quantitative 18.3 mg/dL (0.00-0.90) H Total Protein 6.6 G/DL (6.4-8.2) Albumin 2.0 G/DL (3.4-5.0) L Globulin 4.6 g/dL Albumin/Globulin Ratio 0.4 (1.0-2.7) L Tiago Clay MD Apr 03, 2020 16:11
[2020-04-03] MEDS: Miralax 17gm pkt ORAL PRN (17:42)
--- NOTE | 2020-04-03 18:03 | Internal Med Progress Note ---
Subjective Date of Service: Apr 03, 2020 Physician Name David Jonas Attending Physician Fernando Sierra MD Current Medications Medications (Trade) Dose Ordered Sig/Ja Route PRN Reason Start Time Stop Time Status Last Admin Dose Admin Acetaminophen (Tylenol) 650 mg Q4H PRN ORAL fever 03/29/20 22:30 04/28/20 22:29 04/02/20 04:15 Albuterol/ Ipratropium (Albuterol/ Ipratropium) 3 ml EVERY 4 HOURS PRN HHN Shortness of Breath 03/29/20 22:30 04/10/20 22:29 Amlodipine Besylate (Norvasc) 5 mg BID@0900,2100 ORAL 04/01/20 09:00 05/01/20 08:59 04/03/20 08:27 Cefepime HCl 2 gm/ Sodium Chloride 110 ml @ 220 mls/hr Q24H IV 04/03/20 00:00 04/10/20 00:00 04/02/20 23:30 Clonidine HCl (Catapres Tab) 0.1 mg Q2H PRN ORAL For High Blood Pressure 04/01/20 06:45 06/30/20 06:44 04/02/20 10:08 Dextrose (Dextrose 50%) 25 ml Q30M PRN IV Hypoglycemia 04/02/20 10:45 07/01/20 10:44 Dextrose (Dextrose 50%) 50 ml Q30M PRN IV Hypoglycemia 04/02/20 10:45 07/01/20 10:44 Folic Acid (Folate) 3 mg DAILY ORAL 03/31/20 09:00 04/30/20 08:59 04/03/20 08:26 Heparin Sodium (Porcine) (Heparin 5000 units/ml) 5,000 units EVERY 12 HOURS SUBQ 03/30/20 09:00 05/14/20 08:59 03/30/20 20:12 Hydralazine HCl (Apresoline) 50 mg Q8HR ORAL 04/02/20 14:00 07/01/20 13:59 04/03/20 14:23 Insulin Aspart (NovoLOG) BEFORE MEALS AND HS SUBQ 04/02/20 11:30 07/01/20 11:29 Mirtazapine (Remeron) 15 mg BEDTIME ORAL 04/02/20 21:00 07/01/20 20:59 04/02/20 21:42 Ondansetron HCl (Zofran) 4 mg Q6H PRN IVP Nausea & Vomiting 03/29/20 22:30 04/28/20 22:29 Polyethylene Glycol (Miralax) 17 gm DAILYPRN PRN ORAL Constipation 03/29/20 22:30 04/28/20 22:29 04/03/20 17:42 Tamsulosin HCl (Flomax) 0.4 mg BEDTIME ORAL 03/30/20 21:00 04/29/20 20:59 04/02/20 21:41 Temazepam (Restoril) 15 mg HSPRN PRN ORAL Insomnia 03/29/20 22:30 04/05/20 22:29 Allergies: Coded Allergies: PENICILLINS (Verified Allergy, Unknown, 11/16/16) ROS Limited/Unobtainable: No Constitutional: Reports: no symptoms HEENT: Reports: no symptoms Cardiovascular: Reports: no symptoms Respiratory: Reports: no symptoms Gastrointestinal/Abdominal: Reports: no symptoms Genitourinary: Reports: no symptoms Neurologic/Psychiatric: Reports: no symptoms Subjective 85 YO M admitted with respiratory failure. Now UTI with renal failure and sepsis. Cover for Int Med-Dr Sierra. Step down unit Objective Last Vital Signs Date Time Temp Pulse Resp B/P (MAP) Pulse Ox O2 Delivery O2 Flow Rate FiO2 04/03/20 16:00 Nasal Cannula 2.0 04/03/20 16:00 98.0 78 20 150/77 (101) 96 04/03/20 08:36 28 Laboratory Tests Test 04/02/20 21:46 04/03/20 04:53 04/03/20 05:22 POC Whole Blood Glucose 163 MG/DL (74-106) H 152 MG/DL (74-106) H White Blood Count 10.8 K/UL (4.8-10.8) Red Blood Count 3.86 M/UL (4.70-6.10) L Hemoglobin 12.3 G/DL (14.2-18.0) L Hematocrit 39.2 % (42.0-52.0) L Mean Corpuscular Volume 102 FL (80-99) H Mean Corpuscular Hemoglobin 31.8 PG (27.0-31.0) H Mean Corpuscular Hemoglobin Concent 31.2 G/DL (32.0-36.0) L Red Cell Distribution Width 13.9 % (11.6-14.8) Platelet Count 142 K/UL (150-450) L Mean Platelet Volume 9.7 FL (6.5-10.1) Neutrophils (%) (Auto) 74.4 % (45.0-75.0) Lymphocytes (%) (Auto) 14.7 % (20.0-45.0) L Monocytes (%) (Auto) 8.7 % (1.0-10.0) Eosinophils (%) (Auto) 1.4 % (0.0-3.0) Basophils (%) (Auto) 0.7 % (0.0-2.0) Erythrocyte Sedimentation Rate 104 MM/HR (0-20) H Sodium Level 151 MMOL/L (136-145) H Potassium Level 3.4 MMOL/L (3.5-5.1) L Chloride Level 114 MMOL/L (98-107) H Carbon Dioxide Level 30 MMOL/L (21-32) Anion Gap 7 mmol/L (5-15) Blood Urea Nitrogen 25 mg/dL (7-18) H Creatinine 1.5 MG/DL (0.55-1.30) H Estimat Glomerular Filtration Rate 53.7 mL/min (>60) Glucose Level 163 MG/DL (74-106) H Calcium Level 8.0 MG/DL (8.5-10.1) L Phosphorus Level 2.3 MG/DL (2.5-4.9) L Magnesium Level 2.2 MG/DL (1.8-2.4) Total Bilirubin 0.6 MG/DL (0.2-1.0) Aspartate Amino Transf (AST/SGOT) 19 U/L (15-37) Alanine Aminotransferase (ALT/SGPT) 33 U/L (12-78) Alkaline Phosphatase 89 U/L (46-116) C-Reactive Protein, Quantitative 18.3 mg/dL (0.00-0.90) H Total Protein 6.6 G/DL (6.4-8.2) Albumin 2.0 G/DL (3.4-5.0) L Globulin 4.6 g/dL Albumin/Globulin Ratio 0.4 (1.0-2.7) L Intake and Output 04/02/20 04/03/20 19:00 07:00 Intake Total 480 ml 110 ml Output Total 2000 ml 1450 ml Balance -1520 ml -1340 ml Intake Oral 480 ml IV Total 110 ml Output Urine Total 2000 ml 1450 ml Objective Objective General: No acute distress, awake and alert, chronic ill appearing. HEENT: NCAT, sclera anicteric, PERRL, EOMI.on Vent mask. Neck: Supple, no significant jugular venous distention, Lungs: Fair inspiratory effort, decreased air at the bases, no Wheeze or Rales. Heart: Regular rate and rhythm, normal S1/S2, no murmurs/gallops Abdomen: soft, nontender, nondistended. Normoactive bowel sounds. : Dennison cath. Extremities: No Cyanosis , clubbing or edema. Neuro: A&O x 3, Able to move all extremities Skin: warm, no rash, dry skin. Assessment/Plan Assessment/Plan Assessment/Plan Assessment/Plan Assessment/Plan UTI=Enterobacter cloacae Sepsis=Enterobacter cloacae acute kidney injury and chronic renal insufficiency Acute hypoxemic respiratory failure Gram-negative sergei bacteremia Hyperkalemia Sepsis due to the urinary tract infection COPD CVA Severe protein calorie malnutrition. Plan: Antibiotics: cefepime; S/P vanco DVT prophylaxis: Heparin subcu CODE STATUS: Full code. nephrology=Dr Morgan ID=Dr Levy Pulmonary=David Wills MD Apr 03, 2020 18:03
[2020-04-03] MEDS ORDERED: NS 275ml ONE (18:29)
[2020-04-03 20:00] VITALS: BP 151/79
[2020-04-03] MEDS: Tamsulosin 0.4mg cap ORAL SCH (20:13)
[2020-04-04] VITALS: BP 140/75
[2020-04-04] MEDS: Cefepime HCl 2 GM in NS 110 ML IV SCH ×2 (00:03→23:29)
[2020-04-04 04:00] VITALS: BP 149/71
--- NOTE | 2020-04-04 04:12 | Cardiology Report ---
APPROVED REPORT EXAM: Two-dimensional and M-mode echocardiogram with Doppler and color Doppler. INDICATION Left ventricular function M-Mode DIMENSIONS IVSd1.0 (0.7-1.1cm)Left Atrium (MM)3.8 (1.6-4.0cm) LVDd4.4 (3.5-5.6cm)Aortic Root3.3 (2.0-3.7cm) PWd1.2 (0.7-1.1cm)Aortic Cusp Exc.1.7 (1.5-2.0cm) IVSs1.4 cmEPSS0.7 (>1.0cm) LVDs3.0 (2.5-4.0cm) PWs1.6 cm <Conclusion> Technically difficult study due to dextro-cardiac acoustical windows. Normal left ventricular chamber size, systolic function to extent visualized. Normal wall motion. Left ventricular ejection fraction estimated to be 55-60 %. No left ventricular hypertrophy. No evidence of pericardial effusion. All other cardiac chamber sizes are within normal limits. Focal aortic valve sclerosis with adequate cusp excursion. Thickened mitral valve leaflets with normal excursion. Mitral annulus and aortic root calcification. Normal pulmonic valve structure Normal tricuspid valve structure. Subcostal view unobtainable. IVC at normal size with physiologic collapse. A color flow and spectral Doppler study was performed and revealed: Mild aortic regurgitation. Trace mitral regurgitation. Mitral diastolic velocities suggest reduced left ventricular relaxation c/w mild LV diastolic dysfunction (Grade I). Trace to mild tricuspid regurgitation. Tricuspid systolic velocities suggests peak right ventricular systolic pressure of 32 mmHg.
--- NOTE | 2020-04-04 04:15 | Cardiology Report ---
APPROVED REPORT EKG Measurement Heart [id number] <Conclusion> Sinus tachycardia T wave abnormality, consider inferolateral ischemia Abnormal ECG
[2020-04-04] MEDS: HydrALAZINE 50mg tab ORAL SCH ×3 (05:13→21:54)
[2020-04-04 05:15] LABS: BASOPHILS % (AUTO) 0.4 % (0.0-2.0); EOSINOPHILS % (AUTO) 2.7 % (0.0-3.0); HEMATOCRIT 35.5 % (42.0-52.0); HEMOGLOBIN 11.1 G/DL (14.2-18.0); LYMPHOCYTES % (AUTO) 17.8 % (20.0-45.0); MEAN CORPUSCULAR VOLUME 101 FL (80-99); MONOCYTES % (AUTO) 7.4 % (1.0-10.0); NEUTROPHILS % (AUTO) 71.7 % (45.0-75.0); PLATELET COUNT 153 K/UL (150-450); RED BLOOD COUNT 3.52 M/UL (4.70-6.10); RED CELL DISTRIBUTION WIDTH 13.4 % (11.6-14.8); WHITE BLOOD COUNT 10.3 K/UL (4.8-10.8)
[2020-04-04 05:47] LABS: ALBUMIN 1.8 G/DL (3.4-5.0); ALBUMIN/GLOBULIN RATIO 0.4 (1.0-2.7); BILIRUBIN,TOTAL 0.6 MG/DL (0.2-1.0); CALCIUM 7.4 MG/DL (8.5-10.1); CREATININE 1.4 MG/DL (0.55-1.30); PHOSPHORUS 3.2 MG/DL (2.5-4.9); POTASSIUM 3.3 MMOL/L (3.5-5.1)
[2020-04-04] MEDS: NovoLOG Insulin Flexpen SUBQ SCH (05:48)
[2020-04-04 08:36] VITALS: BP 138/75
[2020-04-04] MEDS: Heparin 5000 units/ml inj SUBQ SCH ×2 (09:19→20:55)
--- NOTE | 2020-04-04 10:24 | Pulmonology Progress Note ---
Subjective ROS Limited/Unobtainable: Yes Constitutional: Reports: no symptoms HEENT: Repors: no symptoms Allergies: Coded Allergies: PENICILLINS (Verified Allergy, Unknown, 11/16/16) Objective Last 24 Hour Vital Signs Date Time Temp Pulse Resp B/P (MAP) Pulse Ox O2 Delivery O2 Flow Rate FiO2 04/04/20 09:16 95 138/75 04/04/20 08:36 97.9 95 20 138/75 (96) 99 04/04/20 08:00 2.0 04/04/20 08:00 Nasal Cannula 2.0 04/04/20 05:13 141/75 04/04/20 04:00 Nasal Cannula 2.0 04/04/20 04:00 98.2 87 21 149/71 (97) 100 04/04/20 04:00 2.0 04/04/20 03:33 92 04/04/20 00:00 Nasal Cannula 2.0 04/04/20 00:00 2.0 04/04/20 00:00 97.9 87 20 140/75 (96) 99 04/04/20 00:00 98 04/03/20 22:04 146/88 04/03/20 20:14 93 151/79 04/03/20 20:00 2.0 04/03/20 20:00 Nasal Cannula 2.0 04/03/20 20:00 98.1 94 19 151/79 (103) 98 04/03/20 19:28 92 04/03/20 19:15 98 Nasal Cannula 2.0 28 04/03/20 16:00 Nasal Cannula 2.0 04/03/20 16:00 98.0 78 20 150/77 (101) 96 04/03/20 16:00 2.0 04/03/20 15:50 99 04/03/20 14:23 162/82 04/03/20 12:00 86 04/03/20 12:00 Nasal Cannula 2.0 04/03/20 12:00 2.0 04/03/20 12:00 98.2 82 20 162/80 (107) 96 Intake and Output 04/03/20 04/04/20 19:00 07:00 Intake Total 999.25 ml 250 ml Output Total 1500 ml 1300 ml Balance -500.75 ml -1050 ml Intake Oral 500 ml 250 ml IV Total 499.25 ml Output Urine Total 1500 ml 1300 ml General Appearance: cachetic HEENT: normocephalic, atraumatic Respiratory: chest wall non-tender, lungs clear Cardiovascular: normal peripheral pulses, normal rate Abdomen: normal bowel sounds, soft, non tender Genitourinary: normal external genitalia Extremities: no cyanosis 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 normal Laboratory Tests 04/03/20 20:10: POC Whole Blood Glucose 172H 04/04/20 04:00: White Blood Count 10.3, Red Blood Count 3.52L, Hemoglobin 11.1L, Hematocrit 35.5L, Mean Corpuscular Volume 101H, Mean Corpuscular Hemoglobin 31.6H, Mean Corpuscular Hemoglobin Concent 31.4L, Red Cell Distribution Width 13.4, Platelet Count 153, Mean Platelet Volume 8.9, Neutrophils (%) (Auto) 71.7, Lymphocytes (%) (Auto) 17.8L, Monocytes (%) (Auto) 7.4, Eosinophils (%) (Auto) 2.7, Basophils (%) (Auto) 0.4, Erythrocyte Sedimentation Rate 105H, Sodium Level 142, Potassium Level 3.3L, Chloride Level 106, Carbon Dioxide Level 32, Anion Gap 4L, Blood Urea Nitrogen 18, Creatinine 1.4H, Estimat Glomerular Filtration Rate 58.1, Glucose Level 140H, Calcium Level 7.4L, Phosphorus Level 3.2, Magnesium Level 1.5L, Total Bilirubin 0.6, Aspartate Amino Transf (AST/SGOT) 16, Alanine Aminotransferase (ALT/SGPT) 13, Alkaline Phosphatase 79, C-Reactive Protein, Quantitative 14.2H, Pro-B-Type Natriuretic Peptide 1988H, Total Protein 5.8L, Albumin 1.8L, Globulin 4.0, Albumin/Globulin Ratio 0.4L 04/04/20 05:45: POC Whole Blood Glucose 162H Current Medications Medications (Trade) Dose Ordered Sig/Ja Route PRN Reason Start Time Stop Time Status Last Admin Dose Admin Acetaminophen (Tylenol) 650 mg Q4H PRN ORAL fever 03/29/20 22:30 04/28/20 22:29 04/02/20 04:15 Albuterol/ Ipratropium (Albuterol/ Ipratropium) 3 ml EVERY 4 HOURS PRN HHN Shortness of Breath 03/29/20 22:30 04/10/20 22:29 Amlodipine Besylate (Norvasc) 5 mg BID@0900,2100 ORAL 04/01/20 09:00 05/01/20 08:59 04/04/20 09:16 Cefepime HCl 2 gm/ Sodium Chloride 110 ml @ 220 mls/hr Q24H IV 04/03/20 00:00 04/10/20 00:00 04/04/20 00:03 Clonidine HCl (Catapres Tab) 0.1 mg Q2H PRN ORAL For High Blood Pressure 04/01/20 06:45 06/30/20 06:44 04/02/20 10:08 Dextrose (Dextrose 50%) 25 ml Q30M PRN IV Hypoglycemia 04/02/20 10:45 07/01/20 10:44 Dextrose (Dextrose 50%) 50 ml Q30M PRN IV Hypoglycemia 04/02/20 10:45 07/01/20 10:44 Folic Acid (Folate) 3 mg DAILY ORAL 03/31/20 09:00 04/30/20 08:59 04/04/20 09:16 Heparin Sodium (Porcine) (Heparin 5000 units/ml) 5,000 units EVERY 12 HOURS SUBQ 03/30/20 09:00 05/14/20 08:59 04/04/20 09:19 Hydralazine HCl (Apresoline) 50 mg Q8HR ORAL 04/02/20 14:00 07/01/20 13:59 04/04/20 05:13 Magnesium Sulfate 100 ml @ 100 mls/hr Q1H IVPB 04/04/20 10:00 04/04/20 13:59 Mirtazapine (Remeron) 15 mg BEDTIME ORAL 04/02/20 21:00 07/01/20 20:59 04/03/20 20:13 Ondansetron HCl (Zofran) 4 mg Q6H PRN IVP Nausea & Vomiting 03/29/20 22:30 04/28/20 22:29 Polyethylene Glycol (Miralax) 17 gm DAILYPRN PRN ORAL Constipation 03/29/20 22:30 04/28/20 22:29 04/03/20 17:42 Potassium Chloride (K-Dur) 40 meq TWICE A DAY ORAL 04/04/20 18:00 07/03/20 17:59 Tamsulosin HCl (Flomax) 0.4 mg BEDTIME ORAL 03/30/20 21:00 04/29/20 20:59 04/03/20 20:13 Temazepam (Restoril) 15 mg HSPRN PRN ORAL Insomnia 03/29/20 22:30 04/05/20 22:29 Assessment/Plan Problems: (1) Gram-negative bacteremia (2) Acute on chronic respiratory failure (3) Hyperkalemia (4) COPD (chronic obstructive pulmonary disease) (5) Episode of generalized weakness (6) History of CVA (cerebrovascular accident) (7) Uncontrolled hypertension Assessment/Plan BP better after adding Hydralazine, no more clonodine prn given yesterday Afebrile, diabetic diet, because of persistent increase in Blood sugar and borderline increase in A1c BC are positive for GNB, Enterobacter iv fluids iv abx, On cefepime and vancomycin check electrolytes, Phos supplement swallow study b/o of recent CVA: 1. Pureed diet and thin liquid 2. Advance to soft solid diet as tolerate continue Dennison catheter, with frequent flushes. renal US reviewed, EF 55% Elisabet Mendez MD Apr 04, 2020 10:24
--- NOTE | 2020-04-04 10:25 | Diagnostic Imaging Report ---
Indication: Shortness of breath Technique: One view of the chest Comparison: 03/31/2020 Findings: The left hemidiaphragm is elevated. The lungs and pleural spaces are clear. Interim partial clearing of previously demonstrated minimal opacities at the right lung base. The heart size is normal Impression: Improved right basilar atelectasis or patchy infiltrate, over 4 days
--- NOTE | 2020-04-04 11:24 | Internal Med Progress Note ---
Subjective Date of Service: Apr 04, 2020 Physician Name David Jonas Attending Physician Fernando Sierra MD Current Medications Medications (Trade) Dose Ordered Sig/Ja Route PRN Reason Start Time Stop Time Status Last Admin Dose Admin Acetaminophen (Tylenol) 650 mg Q4H PRN ORAL fever 03/29/20 22:30 04/28/20 22:29 04/02/20 04:15 Albuterol/ Ipratropium (Albuterol/ Ipratropium) 3 ml EVERY 4 HOURS PRN HHN Shortness of Breath 03/29/20 22:30 04/10/20 22:29 Amlodipine Besylate (Norvasc) 5 mg BID@0900,2100 ORAL 04/01/20 09:00 05/01/20 08:59 04/04/20 09:16 Cefepime HCl 2 gm/ Sodium Chloride 110 ml @ 220 mls/hr Q24H IV 04/03/20 00:00 04/10/20 00:00 04/04/20 00:03 Clonidine HCl (Catapres Tab) 0.1 mg Q2H PRN ORAL For High Blood Pressure 04/01/20 06:45 06/30/20 06:44 04/02/20 10:08 Dextrose (Dextrose 50%) 25 ml Q30M PRN IV Hypoglycemia 04/02/20 10:45 07/01/20 10:44 Dextrose (Dextrose 50%) 50 ml Q30M PRN IV Hypoglycemia 04/02/20 10:45 07/01/20 10:44 Folic Acid (Folate) 3 mg DAILY ORAL 03/31/20 09:00 04/30/20 08:59 04/04/20 09:16 Heparin Sodium (Porcine) (Heparin 5000 units/ml) 5,000 units EVERY 12 HOURS SUBQ 03/30/20 09:00 05/14/20 08:59 04/04/20 09:19 Hydralazine HCl (Apresoline) 50 mg Q8HR ORAL 04/02/20 14:00 07/01/20 13:59 04/04/20 05:13 Magnesium Sulfate 100 ml @ 100 mls/hr Q1H IVPB 04/04/20 10:00 04/04/20 13:59 04/04/20 10:54 Mirtazapine (Remeron) 15 mg BEDTIME ORAL 04/02/20 21:00 07/01/20 20:59 04/03/20 20:13 Ondansetron HCl (Zofran) 4 mg Q6H PRN IVP Nausea & Vomiting 03/29/20 22:30 04/28/20 22:29 Polyethylene Glycol (Miralax) 17 gm DAILYPRN PRN ORAL Constipation 03/29/20 22:30 04/28/20 22:29 04/03/20 17:42 Potassium Chloride (K-Dur) 40 meq TWICE A DAY ORAL 04/04/20 18:00 07/03/20 17:59 Tamsulosin HCl (Flomax) 0.4 mg BEDTIME ORAL 03/30/20 21:00 04/29/20 20:59 04/03/20 20:13 Temazepam (Restoril) 15 mg HSPRN PRN ORAL Insomnia 03/29/20 22:30 04/05/20 22:29 Allergies: Coded Allergies: PENICILLINS (Verified Allergy, Unknown, 11/16/16) ROS Limited/Unobtainable: No Constitutional: Reports: no symptoms HEENT: Reports: no symptoms Cardiovascular: Reports: no symptoms Respiratory: Reports: no symptoms Gastrointestinal/Abdominal: Reports: no symptoms Genitourinary: Reports: no symptoms Neurologic/Psychiatric: Reports: no symptoms Subjective 85 YO M admitted with respiratory failure. Now UTI with renal failure and sepsis. Cover for Int Cuong-Dr Sierra. Step down unit Objective Last Vital Signs Date Time Temp Pulse Resp B/P (MAP) Pulse Ox O2 Delivery O2 Flow Rate FiO2 04/04/20 09:16 95 138/75 04/04/20 08:36 97.9 20 99 04/04/20 08:00 2.0 04/04/20 08:00 Nasal Cannula 04/03/20 19:15 28 Laboratory Tests Test 04/03/20 20:10 04/04/20 04:00 04/04/20 05:45 POC Whole Blood Glucose 172 MG/DL (74-106) H 162 MG/DL (74-106) H White Blood Count 10.3 K/UL (4.8-10.8) Red Blood Count 3.52 M/UL (4.70-6.10) L Hemoglobin 11.1 G/DL (14.2-18.0) L Hematocrit 35.5 % (42.0-52.0) L Mean Corpuscular Volume 101 FL (80-99) H Mean Corpuscular Hemoglobin 31.6 PG (27.0-31.0) H Mean Corpuscular Hemoglobin Concent 31.4 G/DL (32.0-36.0) L Red Cell Distribution Width 13.4 % (11.6-14.8) Platelet Count 153 K/UL (150-450) Mean Platelet Volume 8.9 FL (6.5-10.1) Neutrophils (%) (Auto) 71.7 % (45.0-75.0) Lymphocytes (%) (Auto) 17.8 % (20.0-45.0) L Monocytes (%) (Auto) 7.4 % (1.0-10.0) Eosinophils (%) (Auto) 2.7 % (0.0-3.0) Basophils (%) (Auto) 0.4 % (0.0-2.0) Erythrocyte Sedimentation Rate 105 MM/HR (0-20) H Sodium Level 142 MMOL/L (136-145) Potassium Level 3.3 MMOL/L (3.5-5.1) L Chloride Level 106 MMOL/L (98-107) Carbon Dioxide Level 32 MMOL/L (21-32) Anion Gap 4 mmol/L (5-15) L Blood Urea Nitrogen 18 mg/dL (7-18) Creatinine 1.4 MG/DL (0.55-1.30) H Estimat Glomerular Filtration Rate 58.1 mL/min (>60) Glucose Level 140 MG/DL (74-106) H Calcium Level 7.4 MG/DL (8.5-10.1) L Phosphorus Level 3.2 MG/DL (2.5-4.9) Magnesium Level 1.5 MG/DL (1.8-2.4) L Total Bilirubin 0.6 MG/DL (0.2-1.0) Aspartate Amino Transf (AST/SGOT) 16 U/L (15-37) Alanine Aminotransferase (ALT/SGPT) 13 U/L (12-78) Alkaline Phosphatase 79 U/L (46-116) C-Reactive Protein, Quantitative 14.2 mg/dL (0.00-0.90) H Pro-B-Type Natriuretic Peptide 1988 pg/mL (0-125) H Total Protein 5.8 G/DL (6.4-8.2) L Albumin 1.8 G/DL (3.4-5.0) L Globulin 4.0 g/dL Albumin/Globulin Ratio 0.4 (1.0-2.7) L Intake and Output 04/03/20 04/04/20 19:00 07:00 Intake Total 999.25 ml 250 ml Output Total 1500 ml 1300 ml Balance -500.75 ml -1050 ml Intake Oral 500 ml 250 ml IV Total 499.25 ml Output Urine Total 1500 ml 1300 ml Objective Objective General: No acute distress, awake and alert, chronic ill appearing. HEENT: NCAT, sclera anicteric, PERRL, EOMI.on Vent mask. Neck: Supple, no significant jugular venous distention, Lungs: Fair inspiratory effort, decreased air at the bases, no Wheeze or Rales. Heart: Regular rate and rhythm, normal S1/S2, no murmurs/gallops Abdomen: soft, nontender, nondistended. Normoactive bowel sounds. : Dennison cath. Extremities: No Cyanosis , clubbing or edema. Neuro: A&O x 3, Able to move all extremities Skin: warm, no rash, dry skin. Assessment/Plan Assessment/Plan Assessment/Plan Assessment/Plan Assessment/Plan UTI=Enterobacter cloacae Sepsis=Enterobacter cloacae acute kidney injury and chronic renal insufficiency Acute hypoxemic respiratory failure Gram-negative sergei bacteremia Hyperkalemia Sepsis due to the urinary tract infection COPD CVA Severe protein calorie malnutrition. Plan: Antibiotics: cefepime; S/P vanco DVT prophylaxis: Heparin subcu CODE STATUS: Full code. nephrology=Dr Morgan ID=Dr Levy Pulmonary=David Wills MD Apr 04, 2020 11:24
--- NOTE | 2020-04-04 11:56 | Infectious Diseases Prog Note ---
Assessment/Plan Assessment: Sepsis UTI c/w Gram neg bacteremia -04/02 bcx p -03/30 Renal US: MILD RIGHT HYDRONEPHROSIS. THERE IS A ROSSI CATHETER IN THE BLADDER BUT THE BLADDER STILL APPEARS FAIRLY DISTENDED. PLEASE CHECK FUNCTION OF CATHETER. LAYERING STONE AND SOME DEBRIS NOTED IN THE URINARY BLADDER. -Bcx 3 E. cloacae complex -03/29 u/a wbc 60-80, nit neg, leuk +3; ucx >100k E. cloacae complex (R ancef, bactrim; I macrobid; otherwise S) Bcx 09/02 E. cloacae complex (R ancef, bactrim; otherwise S) ABd US: Limited evaluation due to bowel gas. Increased echogenicity of the kidney suggestive of medical renal disease. Nonobstructing right renal calculus. No gallstones detected. The gallbladder is unremarkable. The common bile duct Measures 0.65 cm and is mildly dilated. Choledocholithiasis cannot be excluded. MRCP study will provide additional information as deemed necessary. Mild hydronephrosis of the right kidney of uncertain etiology. CT imaging of the abdomen and pelvis should be considered. Spleen is not visualized due to body habitus. Low grade fever; improving Leukocytosis, worsened- now resolved Thrombocytopenia, improving Acute hypoxic resp failure- sp bipap> 2l NC Pulmonary edema probable PNA -04/04 CXR: Improved right basilar atelectasis or patchy infiltrate, over 4 days -03/31 CXR: Bibasilar opacities may represent atelectasis. Prominent lung markings may represent chronic interstitial lung changes versus pulmonary vasculature congestion. Infectious/inflammatory process is not excluded. -03/30 CXR: Nonspecific interstitial opacities are seen throughout both lungs bilaterally, probably unchanged allowing for differences in exposure technique and degree of rotation. -VQ scan: Findings are low probability for pulmonary embolus - rapid COVID neg x2 -influenza sc eng BENNETT, improving- likely underlying CKD recent CVA (2 months ago) BPH w/ chronic rossi Plan: -Continue empiric Cefepime # / for UTI and bacteremia -04/02 SP IV Vancomycin #5 -03/29 SP Levaquin x1 -f/u cx -Monitor CBC/CMP, temperatures -f/u repeat Bcx x2 Thank you for this consultation. Will continue to follow along with you. Discussed with MARCELLO. Subjective Allergies: Coded Allergies: PENICILLINS (Verified Allergy, Unknown, 11/16/16) afebrile >48hrs no leukocytosis Cr improving repeat Bcx p Objective Last 24 Hour Vital Signs Date Time Temp Pulse Resp B/P (MAP) Pulse Ox O2 Delivery O2 Flow Rate FiO2 04/04/20 09:16 95 138/75 04/04/20 08:36 97.9 95 20 138/75 (96) 99 04/04/20 08:00 88 04/04/20 08:00 2.0 04/04/20 08:00 Nasal Cannula 2.0 04/04/20 05:13 141/75 04/04/20 04:00 Nasal Cannula 2.0 04/04/20 04:00 98.2 87 21 149/71 (97) 100 04/04/20 04:00 2.0 04/04/20 03:33 92 04/04/20 00:00 Nasal Cannula 2.0 04/04/20 00:00 2.0 04/04/20 00:00 97.9 87 20 140/75 (96) 99 04/04/20 00:00 98 04/03/20 22:04 146/88 04/03/20 20:14 93 151/79 04/03/20 20:00 2.0 04/03/20 20:00 Nasal Cannula 2.0 04/03/20 20:00 98.1 94 19 151/79 (103) 98 04/03/20 19:28 92 04/03/20 19:15 98 Nasal Cannula 2.0 28 04/03/20 16:00 Nasal Cannula 2.0 04/03/20 16:00 98.0 78 20 150/77 (101) 96 04/03/20 16:00 2.0 04/03/20 15:50 99 04/03/20 14:23 162/82 04/03/20 12:00 86 04/03/20 12:00 Nasal Cannula 2.0 04/03/20 12:00 2.0 04/03/20 12:00 98.2 82 20 162/80 (107) 96 Height (Feet): 5 Height (Inches): 11.00 Weight (Pounds): 151 General Appearance: cachetic, thin Male HEENT: NCAT, MMM, EOMI Respiratory/Chest: CTAB, No W Cardiovascular/Chest: RRR, S1, S2 Abdomen: normal bowel sounds, non tender, soft Laboratory Tests Test 04/03/20 20:10 04/04/20 04:00 04/04/20 05:45 POC Whole Blood Glucose 172 MG/DL (74-106) H 162 MG/DL (74-106) H White Blood Count 10.3 K/UL (4.8-10.8) Red Blood Count 3.52 M/UL (4.70-6.10) L Hemoglobin 11.1 G/DL (14.2-18.0) L Hematocrit 35.5 % (42.0-52.0) L Mean Corpuscular Volume 101 FL (80-99) H Mean Corpuscular Hemoglobin 31.6 PG (27.0-31.0) H Mean Corpuscular Hemoglobin Concent 31.4 G/DL (32.0-36.0) L Red Cell Distribution Width 13.4 % (11.6-14.8) Platelet Count 153 K/UL (150-450) Mean Platelet Volume 8.9 FL (6.5-10.1) Neutrophils (%) (Auto) 71.7 % (45.0-75.0) Lymphocytes (%) (Auto) 17.8 % (20.0-45.0) L Monocytes (%) (Auto) 7.4 % (1.0-10.0) Eosinophils (%) (Auto) 2.7 % (0.0-3.0) Basophils (%) (Auto) 0.4 % (0.0-2.0) Erythrocyte Sedimentation Rate 105 MM/HR (0-20) H Sodium Level 142 MMOL/L (136-145) Potassium Level 3.3 MMOL/L (3.5-5.1) L Chloride Level 106 MMOL/L (98-107) Carbon Dioxide Level 32 MMOL/L (21-32) Anion Gap 4 mmol/L (5-15) L Blood Urea Nitrogen 18 mg/dL (7-18) Creatinine 1.4 MG/DL (0.55-1.30) H Estimat Glomerular Filtration Rate 58.1 mL/min (>60) Glucose Level 140 MG/DL (74-106) H Calcium Level 7.4 MG/DL (8.5-10.1) L Phosphorus Level 3.2 MG/DL (2.5-4.9) Magnesium Level 1.5 MG/DL (1.8-2.4) L Total Bilirubin 0.6 MG/DL (0.2-1.0) Aspartate Amino Transf (AST/SGOT) 16 U/L (15-37) Alanine Aminotransferase (ALT/SGPT) 13 U/L (12-78) Alkaline Phosphatase 79 U/L (46-116) C-Reactive Protein, Quantitative 14.2 mg/dL (0.00-0.90) H Pro-B-Type Natriuretic Peptide 1988 pg/mL (0-125) H Total Protein 5.8 G/DL (6.4-8.2) L Albumin 1.8 G/DL (3.4-5.0) L Globulin 4.0 g/dL Albumin/Globulin Ratio 0.4 (1.0-2.7) L Current Medications Medications (Trade) Dose Ordered Sig/Ja Route PRN Reason Start Time Stop Time Status Last Admin Dose Admin Acetaminophen (Tylenol) 650 mg Q4H PRN ORAL fever 03/29/20 22:30 04/28/20 22:29 04/02/20 04:15 Albuterol/ Ipratropium (Albuterol/ Ipratropium) 3 ml EVERY 4 HOURS PRN HHN Shortness of Breath 03/29/20 22:30 04/10/20 22:29 Amlodipine Besylate (Norvasc) 5 mg BID@0900,2100 ORAL 04/01/20 09:00 05/01/20 08:59 04/04/20 09:16 Cefepime HCl 2 gm/ Sodium Chloride 110 ml @ 220 mls/hr Q24H IV 04/03/20 00:00 04/10/20 00:00 04/04/20 00:03 Clonidine HCl (Catapres Tab) 0.1 mg Q2H PRN ORAL For High Blood Pressure 04/01/20 06:45 06/30/20 06:44 04/02/20 10:08 Dextrose (Dextrose 50%) 25 ml Q30M PRN IV Hypoglycemia 04/02/20 10:45 07/01/20 10:44 Dextrose (Dextrose 50%) 50 ml Q30M PRN IV Hypoglycemia 04/02/20 10:45 07/01/20 10:44 Folic Acid (Folate) 3 mg DAILY ORAL 03/31/20 09:00 04/30/20 08:59 04/04/20 09:16 Heparin Sodium (Porcine) (Heparin 5000 units/ml) 5,000 units EVERY 12 HOURS SUBQ 03/30/20 09:00 05/14/20 08:59 04/04/20 09:19 Hydralazine HCl (Apresoline) 50 mg Q8HR ORAL 04/02/20 14:00 07/01/20 13:59 04/04/20 05:13 Magnesium Sulfate 100 ml @ 100 mls/hr Q1H IVPB 04/04/20 10:00 04/04/20 13:59 04/04/20 11:44 Mirtazapine (Remeron) 15 mg BEDTIME ORAL 04/02/20 21:00 07/01/20 20:59 04/03/20 20:13 Ondansetron HCl (Zofran) 4 mg Q6H PRN IVP Nausea & Vomiting 03/29/20 22:30 04/28/20 22:29 Polyethylene Glycol (Miralax) 17 gm DAILYPRN PRN ORAL Constipation 03/29/20 22:30 04/28/20 22:29 04/03/20 17:42 Potassium Chloride (K-Dur) 40 meq TWICE A DAY ORAL 04/04/20 18:00 07/03/20 17:59 Tamsulosin HCl (Flomax) 0.4 mg BEDTIME ORAL 03/30/20 21:00 04/29/20 20:59 04/03/20 20:13 Temazepam (Restoril) 15 mg HSPRN PRN ORAL Insomnia 03/29/20 22:30 04/05/20 22:29 Karen Whiteside M.D. Apr 04, 2020 11:56
[2020-04-04 12:00] VITALS: BP 144/75
--- NOTE | 2020-04-04 14:31 | Cardiology Progress Note ---
Assessment/Plan Assessment/Plan UTI/ urosepsis bacteremia Hypokalemia - hypernatremia Dyspnea - resolved. BENNETT - hx of CVA sig improvement of cr with hydration sat 98% on 2 liter now bp on the higher side will increase amlodipine, is on hydralazine as well will consider acei or arb if ok with dr meier tomorrow depending on cr echo reviewed personally normal lv function ivc normal continue abx venous duplex neg v/q low probability na improved he looks ok but co sob only on questioning cxr reportedly improved bnp not sig elevated may not need oxygen Subjective Cardiovascular: Denies: chest pain, lightheadedness, palpitations Respiratory: Denies: shortness of breath Gastrointestinal/Abdominal: Reports: constipated; Denies: abdominal pain Genitourinary: Denies: burning Objective Last 24 Hour Vital Signs Date Time Temp Pulse Resp B/P (MAP) Pulse Ox O2 Delivery O2 Flow Rate FiO2 04/04/20 13:07 138/75 04/04/20 12:00 86 04/04/20 12:00 Nasal Cannula 2.0 04/04/20 12:00 98.2 87 22 144/75 (98) 98 04/04/20 09:16 95 138/75 04/04/20 08:36 97.9 95 20 138/75 (96) 99 04/04/20 08:00 88 04/04/20 08:00 2.0 04/04/20 08:00 Nasal Cannula 2.0 04/04/20 05:13 141/75 04/04/20 04:00 Nasal Cannula 2.0 04/04/20 04:00 98.2 87 21 149/71 (97) 100 04/04/20 04:00 2.0 04/04/20 03:33 92 04/04/20 00:00 Nasal Cannula 2.0 04/04/20 00:00 2.0 04/04/20 00:00 97.9 87 20 140/75 (96) 99 04/04/20 00:00 98 04/03/20 22:04 146/88 04/03/20 20:14 93 151/79 04/03/20 20:00 2.0 04/03/20 20:00 Nasal Cannula 2.0 04/03/20 20:00 98.1 94 19 151/79 (103) 98 04/03/20 19:28 92 04/03/20 19:15 98 Nasal Cannula 2.0 28 04/03/20 16:00 Nasal Cannula 2.0 04/03/20 16:00 98.0 78 20 150/77 (101) 96 04/03/20 16:00 2.0 04/03/20 15:50 99 General Appearance: no apparent distress, alert Neck: supple Cardiovascular: normal rate Respiratory/Chest: lungs clear Abdomen: non tender, soft Extremities: no swelling Intake and Output 04/03/20 04/04/20 19:00 07:00 Intake Total 999.25 ml 250 ml Output Total 1500 ml 1300 ml Balance -500.75 ml -1050 ml Intake Oral 500 ml 250 ml IV Total 499.25 ml Output Urine Total 1500 ml 1300 ml Laboratory Tests Test 04/03/20 20:10 04/04/20 04:00 04/04/20 05:45 04/04/20 11:55 POC Whole Blood Glucose 172 MG/DL (74-106) H 162 MG/DL (74-106) H 158 MG/DL (74-106) H White Blood Count 10.3 K/UL (4.8-10.8) Red Blood Count 3.52 M/UL (4.70-6.10) L Hemoglobin 11.1 G/DL (14.2-18.0) L Hematocrit 35.5 % (42.0-52.0) L Mean Corpuscular Volume 101 FL (80-99) H Mean Corpuscular Hemoglobin 31.6 PG (27.0-31.0) H Mean Corpuscular Hemoglobin Concent 31.4 G/DL (32.0-36.0) L Red Cell Distribution Width 13.4 % (11.6-14.8) Platelet Count 153 K/UL (150-450) Mean Platelet Volume 8.9 FL (6.5-10.1) Neutrophils (%) (Auto) 71.7 % (45.0-75.0) Lymphocytes (%) (Auto) 17.8 % (20.0-45.0) L Monocytes (%) (Auto) 7.4 % (1.0-10.0) Eosinophils (%) (Auto) 2.7 % (0.0-3.0) Basophils (%) (Auto) 0.4 % (0.0-2.0) Erythrocyte Sedimentation Rate 105 MM/HR (0-20) H Sodium Level 142 MMOL/L (136-145) Potassium Level 3.3 MMOL/L (3.5-5.1) L Chloride Level 106 MMOL/L (98-107) Carbon Dioxide Level 32 MMOL/L (21-32) Anion Gap 4 mmol/L (5-15) L Blood Urea Nitrogen 18 mg/dL (7-18) Creatinine 1.4 MG/DL (0.55-1.30) H Estimat Glomerular Filtration Rate 58.1 mL/min (>60) Glucose Level 140 MG/DL (74-106) H Calcium Level 7.4 MG/DL (8.5-10.1) L Phosphorus Level 3.2 MG/DL (2.5-4.9) Magnesium Level 1.5 MG/DL (1.8-2.4) L Total Bilirubin 0.6 MG/DL (0.2-1.0) Aspartate Amino Transf (AST/SGOT) 16 U/L (15-37) Alanine Aminotransferase (ALT/SGPT) 13 U/L (12-78) Alkaline Phosphatase 79 U/L (46-116) C-Reactive Protein, Quantitative 14.2 mg/dL (0.00-0.90) H Pro-B-Type Natriuretic Peptide 1988 pg/mL (0-125) H Total Protein 5.8 G/DL (6.4-8.2) L Albumin 1.8 G/DL (3.4-5.0) L Globulin 4.0 g/dL Albumin/Globulin Ratio 0.4 (1.0-2.7) L Tiago Clay MD Apr 04, 2020 14:31
[2020-04-04] MEDS: Miralax 17gm pkt ORAL PRN (14:45)
[2020-04-04 16:00] VITALS: BP 135/60
--- NOTE | 2020-04-04 16:45 | Nephrology Progress Note ---
Assessment/Plan Problem List: (1) BENNETT (acute kidney injury) (2) Renal failure (ARF), acute on chronic (3) Dennison catheter problem (4) Acute on chronic respiratory failure (5) Hyperkalemia Assessment Renal failure, most likely acute on chronic Right hydronephrosis Urinary outlet obstruction despite a Dennison catheter since the bladder still distended on ultrasound Respiratory distress, patient on nonrebreather mask. No chest x-ray available. CHF versus pneumonia. Sepsis, UTI Plan April 04: Serum creatinine at its lowest 1.4. Continue to monitor renal para meters and electrolytes. Low potassium low magnesium and low phosphorus addressed. April 03: Serum creatinine continues to decline. Abnormal electrolytes addressed. Continue per consultants. April 02: Renal parameters continue to improve. Creatinine down to 1.9 from 6.3 on admission. Abnormal electrolytes at rest. Continue per consultants. April 01: Renal parameters improving. Abnormal electrolytes addressed. Continue to monitor renal parameters. Continue per consultants. Previously: Change diet to renal Kayexalate as needed Potassium and magnesium and phosphorus supplement as needed Kidney ultrasound MILD RIGHT HYDRONEPHROSIS. 2D echocardiogram ejection fraction 55% Monitor renal parameters Antibiotics Avoid nephrotoxic's Subjective ROS Limited/Unobtainable: Yes Objective Objective Last 24 Hour Vital Signs Date Time Temp Pulse Resp B/P (MAP) Pulse Ox O2 Delivery O2 Flow Rate FiO2 04/04/20 16:00 Nasal Cannula 2.0 04/04/20 16:00 96.3 89 20 135/60 (85) 95 04/04/20 13:07 138/75 04/04/20 12:00 86 04/04/20 12:00 Nasal Cannula 2.0 04/04/20 12:00 98.2 87 22 144/75 (98) 98 04/04/20 09:16 95 138/75 04/04/20 08:36 97.9 95 20 138/75 (96) 99 04/04/20 08:00 88 04/04/20 08:00 2.0 04/04/20 08:00 Nasal Cannula 2.0 04/04/20 05:13 141/75 04/04/20 04:00 Nasal Cannula 2.0 04/04/20 04:00 98.2 87 21 149/71 (97) 100 04/04/20 04:00 2.0 04/04/20 03:33 92 04/04/20 00:00 Nasal Cannula 2.0 04/04/20 00:00 2.0 04/04/20 00:00 97.9 87 20 140/75 (96) 99 04/04/20 00:00 98 04/03/20 22:04 146/88 04/03/20 20:14 93 151/79 04/03/20 20:00 2.0 04/03/20 20:00 Nasal Cannula 2.0 04/03/20 20:00 98.1 94 19 151/79 (103) 98 04/03/20 19:28 92 04/03/20 19:15 98 Nasal Cannula 2.0 28 Intake and Output 04/03/20 04/04/20 19:00 07:00 Intake Total 999.25 ml 250 ml Output Total 1500 ml 1300 ml Balance -500.75 ml -1050 ml Intake Oral 500 ml 250 ml IV Total 499.25 ml Output Urine Total 1500 ml 1300 ml Current Medications Medications (Trade) Dose Ordered Sig/Ja Route PRN Reason Start Time Stop Time Status Last Admin Dose Admin Acetaminophen (Tylenol) 650 mg Q4H PRN ORAL fever 03/29/20 22:30 04/28/20 22:29 04/02/20 04:15 Albuterol/ Ipratropium (Albuterol/ Ipratropium) 3 ml EVERY 4 HOURS PRN HHN Shortness of Breath 03/29/20 22:30 04/10/20 22:29 Amlodipine Besylate (Norvasc) 5 mg BID@0900,2100 ORAL 04/01/20 09:00 05/01/20 08:59 04/04/20 09:16 Cefepime HCl 2 gm/ Sodium Chloride 110 ml @ 220 mls/hr Q24H IV 04/03/20 00:00 04/10/20 00:00 04/04/20 00:03 Clonidine HCl (Catapres Tab) 0.1 mg Q2H PRN ORAL For High Blood Pressure 04/01/20 06:45 06/30/20 06:44 04/02/20 10:08 Dextrose (Dextrose 50%) 25 ml Q30M PRN IV Hypoglycemia 04/02/20 10:45 07/01/20 10:44 Dextrose (Dextrose 50%) 50 ml Q30M PRN IV Hypoglycemia 11/2/20 10:45 07/01/20 10:44 Folic Acid (Folate) 3 mg DAILY ORAL 03/31/20 09:00 04/30/20 08:59 04/04/20 09:16 Heparin Sodium (Porcine) (Heparin 5000 units/ml) 5,000 units EVERY 12 HOURS SUBQ 03/30/20 09:00 05/14/20 08:59 04/04/20 09:19 Hydralazine HCl (Apresoline) 50 mg Q8HR ORAL 04/02/20 14:00 07/01/20 13:59 04/04/20 13:07 Mirtazapine (Remeron) 15 mg BEDTIME ORAL 04/02/20 21:00 07/01/20 20:59 04/03/20 20:13 Ondansetron HCl (Zofran) 4 mg Q6H PRN IVP Nausea & Vomiting 03/29/20 22:30 04/28/20 22:29 Polyethylene Glycol (Miralax) 17 gm DAILYPRN PRN ORAL Constipation 03/29/20 22:30 04/28/20 22:29 04/04/20 14:45 Potassium Chloride (K-Dur) 40 meq TWICE A DAY ORAL 04/04/20 18:00 07/03/20 17:59 Tamsulosin HCl (Flomax) 0.4 mg BEDTIME ORAL 03/30/20 21:00 04/29/20 20:59 04/03/20 20:13 Temazepam (Restoril) 15 mg HSPRN PRN ORAL Insomnia 03/29/20 22:30 04/05/20 22:29 Laboratory Tests 04/03/20 20:10: POC Whole Blood Glucose 172H 04/04/20 04:00: White Blood Count 10.3, Red Blood Count 3.52L, Hemoglobin 11.1L, Hematocrit 35.5L, Mean Corpuscular Volume 101H, Mean Corpuscular Hemoglobin 31.6H, Mean Corpuscular Hemoglobin Concent 31.4L, Red Cell Distribution Width 13.4, Platelet Count 153, Mean Platelet Volume 8.9, Neutrophils (%) (Auto) 71.7, Lymphocytes (%) (Auto) 17.8L, Monocytes (%) (Auto) 7.4, Eosinophils (%) (Auto) 2.7, Basophils (%) (Auto) 0.4, Erythrocyte Sedimentation Rate 105H, Sodium Level 142, Potassium Level 3.3L, Chloride Level 106, Carbon Dioxide Level 32, Anion Gap 4L, Blood Urea Nitrogen 18, Creatinine 1.4H, Estimat Glomerular Filtration Rate 58.1, Glucose Level 140H, Calcium Level 7.4L, Phosphorus Level 3.2, Magnesium Level 1.5L, Total Bilirubin 0.6, Aspartate Amino Transf (AST/SGOT) 16, Alanine Aminotransferase (ALT/SGPT) 13, Alkaline Phosphatase 79, C-Reactive Protein, Quantitative 14.2H, Pro-B-Type Natriuretic Peptide 1988H, Total Protein 5.8L, Albumin 1.8L, Globulin 4.0, Albumin/Globulin Ratio 0.4L 04/04/20 05:45: POC Whole Blood Glucose 162H 04/04/20 11:55: POC Whole Blood Glucose 158H Height (Feet): 5 Height (Inches): 11.00 Weight (Pounds): 151 General Appearance: no apparent distress, lethargic EENT: other - On nasal cannula Cardiovascular: tachycardia Respiratory/Chest: decreased breath sounds Abdomen: distended Mich Morgan MD Apr 04, 2020 16:45
[2020-04-04 20:00] VITALS: BP 141/63
[2020-04-04] MEDS: Tamsulosin 0.4mg cap ORAL SCH (20:52)
[2020-04-04] MEDS ORDERED: Tubing IV Secondary IV ONE (21:10)
[2020-04-04] MEDS ORDERED: NS 275ml ONE (21:10)
[2020-04-04] MEDS ORDERED: NS Irrig 1000ml ONE (21:10)
[2020-04-05] VITALS: BP 132/74
[2020-04-05 04:00] VITALS: BP 138/64
[2020-04-05 04:37] LABS: BASOPHILS % (AUTO) 0.4 % (0.0-2.0); EOSINOPHILS % (AUTO) 2.8 % (0.0-3.0); HEMATOCRIT 37.1 % (42.0-52.0); HEMOGLOBIN 11.7 G/DL (14.2-18.0); MEAN CORPUSCULAR VOLUME 101 FL (80-99); MONOCYTES % (AUTO) 6.3 % (1.0-10.0); NEUTROPHILS % (AUTO) 68.6 % (45.0-75.0); PLATELET COUNT 209 K/UL (150-450); RED BLOOD COUNT 3.66 M/UL (4.70-6.10); RED CELL DISTRIBUTION WIDTH 13.3 % (11.6-14.8); WHITE BLOOD COUNT 9.4 K/UL (4.8-10.8)
[2020-04-05] MEDS: HydrALAZINE 50mg tab ORAL SCH ×3 (05:31→21:10)
[2020-04-05 05:34] LABS: ALANINE AMINOTRANSFERASE 15 U/L (12-78); ALBUMIN 1.9 G/DL (3.4-5.0); ALBUMIN/GLOBULIN RATIO 0.5 (1.0-2.7); ALKALINE PHOSPHATASE 79 U/L (46-116); ANION GAP 4 mmol/L (5-15); ASPARTATE AMINO TRANSFERASE 17 U/L (15-37); BILIRUBIN,TOTAL 0.5 MG/DL (0.2-1.0); BLOOD UREA NITROGEN 15 mg/dL (7-18); CALCIUM 7.7 MG/DL (8.5-10.1); CARBON DIOXIDE 31 MMOL/L (21-32); CHLORIDE 105 MMOL/L (98-107); CREATININE 1.3 MG/DL (0.55-1.30); PHOSPHORUS 2.6 MG/DL (2.5-4.9); POTASSIUM 3.9 MMOL/L (3.5-5.1); SODIUM 140 MMOL/L (136-145)
--- NOTE | 2020-04-05 07:31 | Emergency Room Report ---
History of Present Illness General Chief Complaint: Generalized Weakness Source: Patient, Family Member, EMS Present Illness HPI Patient is an 85-year-old male brought in by ambulance for increased generalized weakness. Prior history of COPD. Had a chronic indwelling Dennison catheter. Patient was noted to have a low oxygen saturation by EMS and was started on supplemental oxygen. Reports of increased difficulty with breathing. Reports having decreased urine output. Allergies: Coded Allergies: PENICILLINS (Verified Allergy, Unknown, 11/16/16) COVID-19 Screening Contact w/high risk pt: No Recent Travel to affected area: No Experienced COVID-19 symptoms?: No COVID-19 Testing performed [employer]: No COVID-19 Screening: Negative COVID-19 Patient History Past Medical History: see triage record Reviewed Nursing Documentation: PMH: Agreed; PSxH: Agreed Nursing Documentation-PMH Past Medical History: No History, Except For Hx Cardiac Problems: Yes Hx Hypertension: Yes Hx Cancer: No Hx Gastrointestinal Problems: Yes - BPH Hx Neurological Problems: Yes - stroke december 2019 Review of Systems Musculoskeletal: Reports: see HPI All Other Systems: limited - By poor historian Physical Exam Vital Signs Date Time Temp Pulse Resp B/P (MAP) Pulse Ox O2 Delivery O2 Flow Rate FiO2 04/01/20 07:10 100 Nasal Cannula 3.0 32 04/01/20 07:40 82 04/01/20 08:00 97.5 18 159/74 (102) General Appearance: alert, moderate distress, Chronically Ill ENT: hearing grossly normal Neck: limited range of motion Respiratory: wheezing, other - Tachypnea Cardiovascular #1: tachycardia Gastrointestinal: normal bowel sounds Neurologic: alert, motor weakness - Lower extremity weakness Skin: no rash Procedures Critical Care Time Critical Care Time Patient had a critical medical condition which untreated could potentially result in life or limb threatening injury. Total critical care time excluding procedures approximately 45 minutes. Medical Decision Making Diagnostic Impression: Primary Impression: Episode of generalized weakness Additional Impressions: Dennison catheter problem COPD (chronic obstructive pulmonary disease) Acute on chronic respiratory failure History of CVA (cerebrovascular accident) ER Course Patient present for increased weakness and shortness of breath. Differential diagnosis include was not limited to pneumonia, anemia, coronavirus infection, COPD exacerbation among others. Because of complexity of patient's case laboratory tests and imaging studies were ordered. Patient was noted to have initial decreased urine output with Dennison catheter. Dennison catheter appear to be obstructed. Catheter was changed and removed. Patient was noted to have prior history of CVA. Patient had elevated white blood count as well as elevated lactic acid level. Urinalysis showed some evidence of significant urinary infection. He was given IV fluids. Patient was given breathing treatment after coronavirus testing was negative. Coronavirus testing was negative. Patient started on BiPAP. Arterial blood gas showed elevated CO2. Dr. Fernando Sierra was contacted for inpatient management EKG Diagnostic Results Rate: tachycardiac Rhythm: other - Sinus tachycardia rate of 110 Last Vital Signs Date Time Temp Pulse Resp B/P (MAP) Pulse Ox O2 Delivery O2 Flow Rate FiO2 04/05/20 05:31 129/62 04/05/20 04:00 98.1 74 20 95 04/05/20 04:00 Nasal Cannula 2.0 04/04/20 19:07 28 Status: improved Disposition: ADMITTED INPATIENT Condition: Serious Referrals: NON PHYSICIAN (PCP) Gustavo Hopson MD Apr 05, 2020 07:31
[2020-04-05 08:00] VITALS: BP 131/56
[2020-04-05] MEDS: Heparin 5000 units/ml inj SUBQ SCH ×2 (08:51→21:12)
--- NOTE | 2020-04-05 11:50 | Nephrology Progress Note ---
Assessment/Plan Problem List: (1) BENNETT (acute kidney injury) (2) Renal failure (ARF), acute on chronic (3) Dennison catheter problem (4) Acute on chronic respiratory failure (5) Hyperkalemia Assessment Renal failure, most likely acute on chronic Right hydronephrosis Urinary outlet obstruction despite a Dennison catheter since the bladder still distended on ultrasound Respiratory distress, patient on nonrebreather mask. No chest x-ray available. CHF versus pneumonia. Sepsis, UTI Plan April 05: Renal parameters stable. Continue to monitor electrolytes. Contin ue per consultants April 04: Serum creatinine at its lowest 1.4. Continue to monitor renal parameters and electrolytes. Low potassium low magnesium and low phosphorus addressed. April 03: Serum creatinine continues to decline. Abnormal electrolytes addressed. Continue per consultants. April 02: Renal parameters continue to improve. Creatinine down to 1.9 from 6.3 on admission. Abnormal electrolytes at rest. Continue per consultants. April 01: Renal parameters improving. Abnormal electrolytes addressed. Continue to monitor renal parameters. Continue per consultants. Previously: Change diet to renal Kayexalate as needed Potassium and magnesium and phosphorus supplement as needed Kidney ultrasound MILD RIGHT HYDRONEPHROSIS. 2D echocardiogram ejection fraction 55% Monitor renal parameters Antibiotics Avoid nephrotoxic's Subjective ROS Limited/Unobtainable: No Constitutional: Reports: malaise Objective Objective Last 24 Hour Vital Signs Date Time Temp Pulse Resp B/P (MAP) Pulse Ox O2 Delivery O2 Flow Rate FiO2 04/05/20 08:47 80 131/56 04/05/20 08:30 Nasal Cannula 2.0 04/05/20 08:00 97.5 80 22 131/56 (81) 98 04/05/20 07:48 80 04/05/20 05:31 129/62 04/05/20 04:00 98.1 74 20 138/64 (88) 95 04/05/20 04:00 Nasal Cannula 2.0 04/05/20 03:29 90 04/05/20 00:00 98.1 85 20 132/74 (93) 95 04/05/20 00:00 Nasal Cannula 2.0 04/04/20 23:28 90 04/04/20 21:54 137/61 04/04/20 20:52 85 148/62 04/04/20 20:00 Nasal Cannula 2.0 04/04/20 20:00 97.7 96 20 141/63 (89) 95 04/04/20 19:07 98 Nasal Cannula 2.0 28 04/04/20 19:05 92 04/04/20 16:00 93 04/04/20 16:00 Nasal Cannula 2.0 04/04/20 16:00 96.3 89 20 135/60 (85) 95 04/04/20 13:07 138/75 04/04/20 12:00 86 04/04/20 12:00 Nasal Cannula 2.0 04/04/20 12:00 98.2 87 22 144/75 (98) 98 Intake and Output 04/04/20 04/05/20 19:00 07:00 Intake Total 920 ml 230 ml Output Total 1350 ml 1300 ml Balance -430 ml -1070 ml Intake Oral 920 ml 120 ml IV Total 110 ml Output Urine Total 1350 ml 1300 ml # Bowel Movements 2 Current Medications Medications (Trade) Dose Ordered Sig/Ja Route PRN Reason Start Time Stop Time Status Last Admin Dose Admin Acetaminophen (Tylenol) 650 mg Q4H PRN ORAL fever 03/29/20 22:30 04/28/20 22:29 04/02/20 04:15 Albuterol/ Ipratropium (Albuterol/ Ipratropium) 3 ml EVERY 4 HOURS PRN HHN Shortness of Breath 03/29/20 22:30 04/10/20 22:29 Amlodipine Besylate (Norvasc) 5 mg BID@0900,2100 ORAL 04/01/20 09:00 05/01/20 08:59 04/05/20 08:47 Cefepime HCl 2 gm/ Sodium Chloride 110 ml @ 220 mls/hr Q24H IV 04/03/20 00:00 04/10/20 00:00 04/04/20 23:29 Clonidine HCl (Catapres Tab) 0.1 mg Q2H PRN ORAL For High Blood Pressure 04/01/20 06:45 06/30/20 06:44 04/02/20 10:08 Dextrose (Dextrose 50%) 25 ml Q30M PRN IV Hypoglycemia 04/02/20 10:45 07/01/20 10:44 Dextrose (Dextrose 50%) 50 ml Q30M PRN IV Hypoglycemia 04/02/20 10:45 07/01/20 10:44 Folic Acid (Folate) 3 mg DAILY ORAL 03/31/20 09:00 04/30/20 08:59 04/05/20 08:47 Heparin Sodium (Porcine) (Heparin 5000 units/ml) 5,000 units EVERY 12 HOURS SUBQ 03/30/20 09:00 05/14/20 08:59 04/05/20 08:51 Hydralazine HCl (Apresoline) 50 mg Q8HR ORAL 04/02/20 14:00 07/01/20 13:59 04/05/20 05:31 Mirtazapine (Remeron) 15 mg BEDTIME ORAL 04/02/20 21:00 07/01/20 20:59 04/04/20 20:52 Ondansetron HCl (Zofran) 4 mg Q6H PRN IVP Nausea & Vomiting 03/29/20 22:30 04/28/20 22:29 Polyethylene Glycol (Miralax) 17 gm DAILYPRN PRN ORAL Constipation 03/29/20 22:30 04/28/20 22:29 04/04/20 14:45 Potassium Chloride (K-Dur) 40 meq TWICE A DAY ORAL 04/04/20 18:00 07/03/20 17:59 04/05/20 08:48 Tamsulosin HCl (Flomax) 0.4 mg BEDTIME ORAL 03/30/20 21:00 04/29/20 20:59 04/04/20 20:52 Temazepam (Restoril) 15 mg HSPRN PRN ORAL Insomnia 03/29/20 22:30 04/05/20 22:29 Laboratory Tests 04/04/20 11:55: POC Whole Blood Glucose 158H 04/04/20 17:23: POC Whole Blood Glucose 167H 04/04/20 21:34: POC Whole Blood Glucose 140H 04/05/20 03:25: White Blood Count 9.4, Red Blood Count 3.66L, Hemoglobin 11.7L, Hematocrit 37.1L , Mean Corpuscular Volume 101H, Mean Corpuscular Hemoglobin 32.1H, Mean Corpuscular Hemoglobin Concent 31.7L, Red Cell Distribution Width 13.3, Platelet Count 209, Mean Platelet Volume 9.2, Neutrophils (%) (Auto) 68.6, Lymphocytes (%) (Auto) 22.0, Monocytes (%) (Auto) 6.3, Eosinophils (%) (Auto) 2.8, Basophils (%) (Auto) 0.4, Erythrocyte Sedimentation Rate 100H, Sodium Level 140, Potassium Level 3.9, Chloride Level 105, Carbon Dioxide Level 31, Anion Gap 4L, Blood Urea Nitrogen 15, Creatinine 1.3, Estimat Glomerular Filtration Rate > 60, Glucose Level 121H, Calcium Level 7.7L, Phosphorus Level 2.6, Magnesium Level 2.2, Total Bilirubin 0.5, Aspartate Amino Transf (AST/SGOT) 17, Alanine Aminotransferase (ALT/SGPT) 15, Alkaline Phosphatase 79, C-Reactive Protein, Quantitative 15.9H, Total Protein 5.6L, Albumin 1.9L, Globulin 3.7, Albumin/Globulin Ratio 0.5L 04/05/20 06:38: POC Whole Blood Glucose 132H Height (Feet): 5 Height (Inches): 11.00 Weight (Pounds): 151 General Appearance: no apparent distress Cardiovascular: normal rate Respiratory/Chest: decreased breath sounds Abdomen: distended Mich Morgan MD Apr 05, 2020 11:49
[2020-04-05 12:00] VITALS: BP 135/61
--- NOTE | 2020-04-05 12:51 | Pulmonology Progress Note ---
Subjective ROS Limited/Unobtainable: No Constitutional: Reports: no symptoms HEENT: Repors: no symptoms Allergies: Coded Allergies: PENICILLINS (Verified Allergy, Unknown, 11/16/16) Objective Last 24 Hour Vital Signs Date Time Temp Pulse Resp B/P (MAP) Pulse Ox O2 Delivery O2 Flow Rate FiO2 04/05/20 12:00 Room Air 04/05/20 12:00 97.9 81 20 135/61 (85) 96 04/05/20 08:47 80 131/56 04/05/20 08:30 Nasal Cannula 2.0 04/05/20 08:00 97.5 80 22 131/56 (81) 98 04/05/20 07:48 80 04/05/20 05:31 129/62 04/05/20 04:00 98.1 74 20 138/64 (88) 95 04/05/20 04:00 Nasal Cannula 2.0 04/05/20 03:29 90 04/05/20 00:00 98.1 85 20 132/74 (93) 95 04/05/20 00:00 Nasal Cannula 2.0 04/04/20 23:28 90 04/04/20 21:54 137/61 04/04/20 20:52 85 148/62 04/04/20 20:00 Nasal Cannula 2.0 04/04/20 20:00 97.7 96 20 141/63 (89) 95 04/04/20 19:07 98 Nasal Cannula 2.0 28 04/04/20 19:05 92 04/04/20 16:00 93 04/04/20 16:00 Nasal Cannula 2.0 04/04/20 16:00 96.3 89 20 135/60 (85) 95 04/04/20 13:07 138/75 Intake and Output 04/04/20 04/05/20 19:00 07:00 Intake Total 920 ml 230 ml Output Total 1350 ml 1300 ml Balance -430 ml -1070 ml Intake Oral 920 ml 120 ml IV Total 110 ml Output Urine Total 1350 ml 1300 ml # Bowel Movements 2 General Appearance: cachetic HEENT: normocephalic, atraumatic Respiratory: chest wall non-tender, lungs clear Cardiovascular: normal peripheral pulses, normal rate Abdomen: normal bowel sounds, soft, non tender Genitourinary: normal external genitalia Extremities: no cyanosis Neurologic: electronic gluer II-XII grossly normal Laboratory Tests 04/04/20 17:23: POC Whole Blood Glucose 167H 04/04/20 21:34: POC Whole Blood Glucose 140H 04/05/20 03:25: White Blood Count 9.4, Red Blood Count 3.66L, Hemoglobin 11.7L, Hematocrit 37.1L , Mean Corpuscular Volume 101H, Mean Corpuscular Hemoglobin 32.1H, Mean Corpuscular Hemoglobin Concent 31.7L, Red Cell Distribution Width 13.3, Platelet Count 209, Mean Platelet Volume 9.2, Neutrophils (%) (Auto) 68.6, Lymphocytes (%) (Auto) 22.0, Monocytes (%) (Auto) 6.3, Eosinophils (%) (Auto) 2.8, Basophils (%) (Auto) 0.4, Erythrocyte Sedimentation Rate 100H, Sodium Level 140, Potassium Level 3.9, Chloride Level 105, Carbon Dioxide Level 31, Anion Gap 4L, Blood Urea Nitrogen 15, Creatinine 1.3, Estimat Glomerular Filtration Rate > 60, Glucose Level 121H, Calcium Level 7.7L, Phosphorus Level 2.6, Magnesium Level 2.2, Total Bilirubin 0.5, Aspartate Amino Transf (AST/SGOT) 17, Alanine Aminotransferase (ALT/SGPT) 15, Alkaline Phosphatase 79, C-Reactive Protein, Quantitative 15.9H, Total Protein 5.6L, Albumin 1.9L, Globulin 3.7, Albumin/Globulin Ratio 0.5L 04/05/20 06:38: POC Whole Blood Glucose 132H 04/05/20 11:58: POC Whole Blood Glucose 156H Current Medications Medications (Trade) Dose Ordered Sig/Ja Route PRN Reason Start Time Stop Time Status Last Admin Dose Admin Acetaminophen (Tylenol) 650 mg Q4H PRN ORAL fever 03/29/20 22:30 04/28/20 22:29 04/02/20 04:15 Albuterol/ Ipratropium (Albuterol/ Ipratropium) 3 ml EVERY 4 HOURS PRN HHN Shortness of Breath 03/29/20 22:30 04/10/20 22:29 Amlodipine Besylate (Norvasc) 5 mg BID@0900,2100 ORAL 04/01/20 09:00 05/01/20 08:59 04/05/20 08:47 Cefepime HCl 2 gm/ Sodium Chloride 110 ml @ 220 mls/hr Q24H IV 04/03/20 00:00 04/10/20 00:00 04/04/20 23:29 Clonidine HCl (Catapres Tab) 0.1 mg Q2H PRN ORAL For High Blood Pressure 04/01/20 06:45 06/30/20 06:44 04/02/20 10:08 Dextrose (Dextrose 50%) 25 ml Q30M PRN IV Hypoglycemia 04/02/20 10:45 07/01/20 10:44 Dextrose (Dextrose 50%) 50 ml Q30M PRN IV Hypoglycemia 04/02/20 10:45 07/01/20 10:44 Folic Acid (Folate) 3 mg DAILY ORAL 03/31/20 09:00 04/30/20 08:59 04/05/20 08:47 Heparin Sodium (Porcine) (Heparin 5000 units/ml) 5,000 units EVERY 12 HOURS SUBQ 03/30/20 09:00 05/14/20 08:59 04/05/20 08:51 Hydralazine HCl (Apresoline) 50 mg Q8HR ORAL 04/02/20 14:00 07/01/20 13:59 04/05/20 05:31 Mirtazapine (Remeron) 15 mg BEDTIME ORAL 04/02/20 21:00 07/01/20 20:59 04/04/20 20:52 Ondansetron HCl (Zofran) 4 mg Q6H PRN IVP Nausea & Vomiting 03/29/20 22:30 04/28/20 22:29 Polyethylene Glycol (Miralax) 17 gm DAILYPRN PRN ORAL Constipation 03/29/20 22:30 04/28/20 22:29 04/04/20 14:45 Potassium Chloride (K-Dur) 40 meq TWICE A DAY ORAL 04/04/20 18:00 07/03/20 17:59 04/05/20 08:48 Tamsulosin HCl (Flomax) 0.4 mg BEDTIME ORAL 03/30/20 21:00 04/29/20 20:59 04/04/20 20:52 Temazepam (Restoril) 15 mg HSPRN PRN ORAL Insomnia 03/29/20 22:30 04/05/20 22:29 Assessment/Plan Problems: (1) Gram-negative bacteremia (2) Acute on chronic respiratory failure (3) Hyperkalemia (4) COPD (chronic obstructive pulmonary disease) (5) Episode of generalized weakness (6) History of CVA (cerebrovascular accident) (7) Uncontrolled hypertension Assessment/Plan all reviewed Afebrile, diabetic diet, because of persistent increase in Blood sugar and borderline increase in A1c BC are positive for GNB, Enterobacter iv fluids iv abx, On cefepime and vancomycin check electrolytes, Phos supplement swallow study b/o of recent CVA: 1. Pureed diet and thin liquid 2. Advance to soft solid diet as tolerate continue Dennison catheter, with frequent flushes. renal US reviewed, EF 55% Elisabet Mendez MD Apr 05, 2020 12:51
--- NOTE | 2020-04-05 14:16 | Internal Med Progress Note ---
Subjective Physician Name Fernando Sierra Attending Physician Fernando Sierra MD Current Medications Medications (Trade) Dose Ordered Sig/Ja Route PRN Reason Start Time Stop Time Status Last Admin Dose Admin Acetaminophen (Tylenol) 650 mg Q4H PRN ORAL fever 03/29/20 22:30 04/28/20 22:29 04/02/20 04:15 Albuterol/ Ipratropium (Albuterol/ Ipratropium) 3 ml EVERY 4 HOURS PRN HHN Shortness of Breath 03/29/20 22:30 04/10/20 22:29 Amlodipine Besylate (Norvasc) 5 mg BID@0900,2100 ORAL 04/01/20 09:00 05/01/20 08:59 04/05/20 08:47 Cefepime HCl 2 gm/ Sodium Chloride 110 ml @ 220 mls/hr Q24H IV 04/03/20 00:00 04/12/20 23:59 04/04/20 23:29 Clonidine HCl (Catapres Tab) 0.1 mg Q2H PRN ORAL For High Blood Pressure 04/01/20 06:45 06/30/20 06:44 04/02/20 10:08 Dextrose (Dextrose 50%) 25 ml Q30M PRN IV Hypoglycemia 04/02/20 10:45 07/01/20 10:44 Dextrose (Dextrose 50%) 50 ml Q30M PRN IV Hypoglycemia 04/02/20 10:45 07/01/20 10:44 Folic Acid (Folate) 3 mg DAILY ORAL 03/31/20 09:00 04/30/20 08:59 04/05/20 08:47 Heparin Sodium (Porcine) (Heparin 5000 units/ml) 5,000 units EVERY 12 HOURS SUBQ 03/30/20 09:00 05/14/20 08:59 04/05/20 08:51 Hydralazine HCl (Apresoline) 50 mg Q8HR ORAL 04/02/20 14:00 07/01/20 13:59 04/05/20 13:50 Mirtazapine (Remeron) 15 mg BEDTIME ORAL 04/02/20 21:00 07/01/20 20:59 04/04/20 20:52 Ondansetron HCl (Zofran) 4 mg Q6H PRN IVP Nausea & Vomiting 03/29/20 22:30 04/28/20 22:29 Polyethylene Glycol (Miralax) 17 gm DAILYPRN PRN ORAL Constipation 03/29/20 22:30 04/28/20 22:29 04/04/20 14:45 Potassium Chloride (K-Dur) 40 meq TWICE A DAY ORAL 04/04/20 18:00 07/03/20 17:59 04/05/20 08:48 Tamsulosin HCl (Flomax) 0.4 mg BEDTIME ORAL 03/30/20 21:00 04/29/20 20:59 04/04/20 20:52 Temazepam (Restoril) 15 mg HSPRN PRN ORAL Insomnia 03/29/20 22:30 04/05/20 22:29 Allergies: Coded Allergies: PENICILLINS (Verified Allergy, Unknown, 11/16/16) Subjective awake, responsive, No BM, talking more. WBC: 9.4. Objective Last Vital Signs Date Time Temp Pulse Resp B/P (MAP) Pulse Ox O2 Delivery O2 Flow Rate FiO2 04/05/20 13:50 135/61 04/05/20 12:00 Room Air 04/05/20 12:00 97.9 81 20 96 04/05/20 08:30 2.0 04/04/20 19:07 28 Laboratory Tests Test 04/04/20 17:23 04/04/20 21:34 04/05/20 03:25 04/05/20 06:38 POC Whole Blood Glucose 167 MG/DL (74-106) H 140 MG/DL (74-106) H 132 MG/DL (74-106) H White Blood Count 9.4 K/UL (4.8-10.8) Red Blood Count 3.66 M/UL (4.70-6.10) L Hemoglobin 11.7 G/DL (14.2-18.0) L Hematocrit 37.1 % (42.0-52.0) L Mean Corpuscular Volume 101 FL (80-99) H Mean Corpuscular Hemoglobin 32.1 PG (27.0-31.0) H Mean Corpuscular Hemoglobin Concent 31.7 G/DL (32.0-36.0) L Red Cell Distribution Width 13.3 % (11.6-14.8) Platelet Count 209 K/UL (150-450) Mean Platelet Volume 9.2 FL (6.5-10.1) Neutrophils (%) (Auto) 68.6 % (45.0-75.0) Lymphocytes (%) (Auto) 22.0 % (20.0-45.0) Monocytes (%) (Auto) 6.3 % (1.0-10.0) Eosinophils (%) (Auto) 2.8 % (0.0-3.0) Basophils (%) (Auto) 0.4 % (0.0-2.0) Erythrocyte Sedimentation Rate 100 MM/HR (0-20) H Sodium Level 140 MMOL/L (136-145) Potassium Level 3.9 MMOL/L (3.5-5.1) Chloride Level 105 MMOL/L (98-107) Carbon Dioxide Level 31 MMOL/L (21-32) Anion Gap 4 mmol/L (5-15) L Blood Urea Nitrogen 15 mg/dL (7-18) Creatinine 1.3 MG/DL (0.55-1.30) Estimat Glomerular Filtration Rate > 60 mL/min (>60) Glucose Level 121 MG/DL (74-106) H Calcium Level 7.7 MG/DL (8.5-10.1) L Phosphorus Level 2.6 MG/DL (2.5-4.9) Magnesium Level 2.2 MG/DL (1.8-2.4) Total Bilirubin 0.5 MG/DL (0.2-1.0) Aspartate Amino Transf (AST/SGOT) 17 U/L (15-37) Alanine Aminotransferase (ALT/SGPT) 15 U/L (12-78) Alkaline Phosphatase 79 U/L (46-116) C-Reactive Protein, Quantitative 15.9 mg/dL (0.00-0.90) H Total Protein 5.6 G/DL (6.4-8.2) L Albumin 1.9 G/DL (3.4-5.0) L Globulin 3.7 g/dL Albumin/Globulin Ratio 0.5 (1.0-2.7) L Test 04/05/20 11:58 POC Whole Blood Glucose 156 MG/DL (74-106) H Intake and Output 04/04/20 04/05/20 19:00 07:00 Intake Total 920 ml 230 ml Output Total 1350 ml 1300 ml Balance -430 ml -1070 ml Intake Oral 920 ml 120 ml IV Total 110 ml Output Urine Total 1350 ml 1300 ml # Bowel Movements 2 Objective General: No acute distress, awake and alert, chronic ill appearing. HEENT: NCAT, sclera anicteric, PERRL, EOMI. Neck: Supple, no significant jugular venous distention, Lungs: Fair inspiratory effort, decreased air at the bases, no Wheeze or Rales. Heart: Regular rate and rhythm, normal S1/S2, no murmurs/gallops Abdomen: soft, nontender, nondistended. Normoactive bowel sounds. : Dennison cath. Extremities: No Cyanosis , clubbing or edema. Neuro: A&O x 3, Able to move all extremities Skin: warm, no rash, dry skin. Assessment/Plan Assessment/Plan acute kidney injury and chronic renal insufficiency Acute hypoxemic respiratory failure Gram-negative sergei bacteremia Hyperkalemia Sepsis due to the urinary tract infection COPD CVA Severe protein calorie malnutrition. Plan: Antibiotics: Cefepime IV DVT prophylaxis: Heparin subcu CODE STATUS: Full code. Follow-up with nephrology, pulmonary, infection disease recommendations Follow up with the laboratory as well as cultures in the morning. transferred to Med / Surg unit PT mobility Discharge planning to SNF. Fernando Sierra MD Apr 05, 2020 14:16
--- NOTE | 2020-04-05 14:33 | Infectious Diseases Prog Note ---
Assessment/Plan Assessment: Sepsis UTI c/w Gram neg bacteremia -04/02 bcx p -03/30 Renal US: MILD RIGHT HYDRONEPHROSIS. THERE IS A ROSSI CATHETER IN THE BLADDER BUT THE BLADDER STILL APPEARS FAIRLY DISTENDED. PLEASE CHECK FUNCTION OF CATHETER. LAYERING STONE AND SOME DEBRIS NOTED IN THE URINARY BLADDER. -Bcx 08/02 E. cloacae complex -03/29 u/a wbc 60-80, nit neg, leuk +3; ucx >100k E. cloacae complex (R ancef, bactrim; I macrobid; otherwise S) Bcx 09/02 E. cloacae complex (R ancef, bactrim; otherwise S) ABd US: Limited evaluation due to bowel gas. Increased echogenicity of the kidney suggestive of medical renal disease. Nonobstructing right renal calculus. No gallstones detected. The gallbladder is unremarkable. The common bile duct Measures 0.65 cm and is mildly dilated. Choledocholithiasis cannot be excluded. MRCP study will provide additional information as deemed necessary. Mild hydronephrosis of the right kidney of uncertain etiology. CT imaging of the abdomen and pelvis should be considered. Spleen is not visualized due to body habitus. Low grade fever; improving Leukocytosis, worsened- now resolved Thrombocytopenia, improving Acute hypoxic resp failure- sp bipap> 2l NC Pulmonary edema probable PNA -04/04 CXR: Improved right basilar atelectasis or patchy infiltrate, over 4 days -03/31 CXR: Bibasilar opacities may represent atelectasis. Prominent lung markings may represent chronic interstitial lung changes versus pulmonary vasculature congestion. Infectious/inflammatory process is not excluded. -03/30 CXR: Nonspecific interstitial opacities are seen throughout both lungs bilaterally, probably unchanged allowing for differences in exposure technique and degree of rotation. -VQ scan: Findings are low probability for pulmonary embolus - rapid COVID neg x2 -influenza sc eng BENNETT, improving- likely underlying CKD recent CVA (2 months ago) BPH w/ chronic rossi Plan: -Continue empiric Cefepime #7 / for UTI and bacteremia -04/02 SP IV Vancomycin #5 -03/29 SP Levaquin x1 -f/u cx -Monitor CBC/CMP, temperatures -f/u repeat Bcx x2 Thank you for this consultation. Will continue to follow along with you. Discussed with MARCELLO. Subjective Allergies: Coded Allergies: PENICILLINS (Verified Allergy, Unknown, 11/16/16) afebrile no leukocytosis Cr improving repeat Bcx still pending Objective Last 24 Hour Vital Signs Date Time Temp Pulse Resp B/P (MAP) Pulse Ox O2 Delivery O2 Flow Rate FiO2 04/05/20 13:50 135/61 04/05/20 12:00 Room Air 04/05/20 12:00 97.9 81 20 135/61 (85) 96 04/05/20 11:40 84 04/05/20 08:47 80 131/56 04/05/20 08:30 Nasal Cannula 2.0 04/05/20 08:00 97.5 80 22 131/56 (81) 98 04/05/20 07:48 80 04/05/20 05:31 129/62 04/05/20 04:00 98.1 74 20 138/64 (88) 95 04/05/20 04:00 Nasal Cannula 2.0 04/05/20 03:29 90 04/05/20 00:00 98.1 85 20 132/74 (93) 95 04/05/20 00:00 Nasal Cannula 2.0 04/04/20 23:28 90 04/04/20 21:54 137/61 04/04/20 20:52 85 148/62 04/04/20 20:00 Nasal Cannula 2.0 04/04/20 20:00 97.7 96 20 141/63 (89) 95 04/04/20 19:07 98 Nasal Cannula 2.0 28 04/04/20 19:05 92 04/04/20 16:00 93 04/04/20 16:00 Nasal Cannula 2.0 04/04/20 16:00 96.3 89 20 135/60 (85) 95 Height (Feet): 5 Height (Inches): 11.00 Weight (Pounds): 151 General Appearance: cachetic, thin Male HEENT: NCAT, MMM, EOMI Respiratory/Chest: CTAB, No W Cardiovascular/Chest: RRR, S1, S2 Abdomen: normal bowel sounds, non tender, soft Laboratory Tests Test 04/04/20 17:23 04/04/20 21:34 04/05/20 03:25 04/05/20 06:38 POC Whole Blood Glucose 167 MG/DL (74-106) H 140 MG/DL (74-106) H 132 MG/DL (74-106) H White Blood Count 9.4 K/UL (4.8-10.8) Red Blood Count 3.66 M/UL (4.70-6.10) L Hemoglobin 11.7 G/DL (14.2-18.0) L Hematocrit 37.1 % (42.0-52.0) L Mean Corpuscular Volume 101 FL (80-99) H Mean Corpuscular Hemoglobin 32.1 PG (27.0-31.0) H Mean Corpuscular Hemoglobin Concent 31.7 G/DL (32.0-36.0) L Red Cell Distribution Width 13.3 % (11.6-14.8) Platelet Count 209 K/UL (150-450) Mean Platelet Volume 9.2 FL (6.5-10.1) Neutrophils (%) (Auto) 68.6 % (45.0-75.0) Lymphocytes (%) (Auto) 22.0 % (20.0-45.0) Monocytes (%) (Auto) 6.3 % (1.0-10.0) Eosinophils (%) (Auto) 2.8 % (0.0-3.0) Basophils (%) (Auto) 0.4 % (0.0-2.0) Erythrocyte Sedimentation Rate 100 MM/HR (0-20) H Sodium Level 140 MMOL/L (136-145) Potassium Level 3.9 MMOL/L (3.5-5.1) Chloride Level 105 MMOL/L (98-107) Carbon Dioxide Level 31 MMOL/L (21-32) Anion Gap 4 mmol/L (5-15) L Blood Urea Nitrogen 15 mg/dL (7-18) Creatinine 1.3 MG/DL (0.55-1.30) Estimat Glomerular Filtration Rate > 60 mL/min (>60) Glucose Level 121 MG/DL (74-106) H Calcium Level 7.7 MG/DL (8.5-10.1) L Phosphorus Level 2.6 MG/DL (2.5-4.9) Magnesium Level 2.2 MG/DL (1.8-2.4) Total Bilirubin 0.5 MG/DL (0.2-1.0) Aspartate Amino Transf (AST/SGOT) 17 U/L (15-37) Alanine Aminotransferase (ALT/SGPT) 15 U/L (12-78) Alkaline Phosphatase 79 U/L (46-116) C-Reactive Protein, Quantitative 15.9 mg/dL (0.00-0.90) H Total Protein 5.6 G/DL (6.4-8.2) L Albumin 1.9 G/DL (3.4-5.0) L Globulin 3.7 g/dL Albumin/Globulin Ratio 0.5 (1.0-2.7) L Test 04/05/20 11:58 POC Whole Blood Glucose 156 MG/DL (74-106) H Current Medications Medications (Trade) Dose Ordered Sig/Ja Route PRN Reason Start Time Stop Time Status Last Admin Dose Admin Acetaminophen (Tylenol) 650 mg Q4H PRN ORAL fever 03/29/20 22:30 04/28/20 22:29 04/02/20 04:15 Albuterol/ Ipratropium (Albuterol/ Ipratropium) 3 ml EVERY 4 HOURS PRN HHN Shortness of Breath 03/29/20 22:30 04/10/20 22:29 Amlodipine Besylate (Norvasc) 5 mg BID@0900,2100 ORAL 04/01/20 09:00 05/01/20 08:59 04/05/20 08:47 Cefepime HCl 2 gm/ Sodium Chloride 110 ml @ 220 mls/hr Q24H IV 04/03/20 00:00 04/12/20 23:59 04/04/20 23:29 Clonidine HCl (Catapres Tab) 0.1 mg Q2H PRN ORAL For High Blood Pressure 04/01/20 06:45 06/30/20 06:44 04/02/20 10:08 Dextrose (Dextrose 50%) 25 ml Q30M PRN IV Hypoglycemia 04/02/20 10:45 07/01/20 10:44 Dextrose (Dextrose 50%) 50 ml Q30M PRN IV Hypoglycemia 04/02/20 10:45 07/01/20 10:44 Folic Acid (Folate) 3 mg DAILY ORAL 03/31/20 09:00 04/30/20 08:59 04/05/20 08:47 Heparin Sodium (Porcine) (Heparin 5000 units/ml) 5,000 units EVERY 12 HOURS SUBQ 10/30/20 09:00 05/14/20 08:59 04/05/20 08:51 Hydralazine HCl (Apresoline) 50 mg Q8HR ORAL 04/02/20 14:00 07/01/20 13:59 04/05/20 13:50 Mirtazapine (Remeron) 15 mg BEDTIME ORAL 04/02/20 21:00 07/01/20 20:59 04/04/20 20:52 Ondansetron HCl (Zofran) 4 mg Q6H PRN IVP Nausea & Vomiting 03/29/20 22:30 04/28/20 22:29 Polyethylene Glycol (Miralax) 17 gm DAILYPRN PRN ORAL Constipation 03/29/20 22:30 04/28/20 22:29 04/04/20 14:45 Potassium Chloride (K-Dur) 40 meq TWICE A DAY ORAL 04/04/20 18:00 07/03/20 17:59 04/05/20 08:48 Tamsulosin HCl (Flomax) 0.4 mg BEDTIME ORAL 03/30/20 21:00 04/29/20 20:59 04/04/20 20:52 Temazepam (Restoril) 15 mg HSPRN PRN ORAL Insomnia 03/29/20 22:30 04/05/20 22:29 Karen Whiteside M.D. Apr 05, 2020 14:33
[2020-04-05 16:00] VITALS: BP 129/68
--- NOTE | 2020-04-05 17:37 | Cardiology Progress Note ---
Assessment/Plan Assessment/Plan UTI/ urosepsis bacteremia Hypokalemia - hypernatremia Dyspnea - resolved. BENNETT - hx of CVA sig improvement of cr with hydration sat 98% on 2 liter now bp better echo reviewed personally normal lv function ivc normal continue abx venous duplex neg v/q low probability na improved he looks ok not need oxygen 97% on room arir now Subjective Cardiovascular: Denies: chest pain, lightheadedness, palpitations Respiratory: Denies: shortness of breath Gastrointestinal/Abdominal: Denies: abdominal pain Genitourinary: Denies: burning Objective Last 24 Hour Vital Signs Date Time Temp Pulse Resp B/P (MAP) Pulse Ox O2 Delivery O2 Flow Rate FiO2 04/05/20 16:00 98.2 86 20 129/68 (88) 97 04/05/20 16:00 90 04/05/20 13:50 135/61 04/05/20 12:00 Room Air 04/05/20 12:00 97.9 81 20 135/61 (85) 96 04/05/20 11:40 84 04/05/20 08:47 80 131/56 04/05/20 08:30 Nasal Cannula 2.0 04/05/20 08:00 97.5 80 22 131/56 (81) 98 04/05/20 07:48 80 04/05/20 05:31 129/62 04/05/20 04:00 98.1 74 20 138/64 (88) 95 04/05/20 04:00 Nasal Cannula 2.0 04/05/20 03:29 90 04/05/20 00:00 98.1 85 20 132/74 (93) 95 04/05/20 00:00 Nasal Cannula 2.0 04/04/20 23:28 90 04/04/20 21:54 137/61 04/04/20 20:52 85 148/62 04/04/20 20:00 Nasal Cannula 2.0 04/04/20 20:00 97.7 96 20 141/63 (89) 95 04/04/20 19:07 98 Nasal Cannula 2.0 28 04/04/20 19:05 92 General Appearance: no apparent distress, alert Neck: supple Cardiovascular: normal rate Respiratory/Chest: lungs clear Abdomen: normal bowel sounds, non tender, soft Extremities: no swelling Intake and Output 04/04/20 04/05/20 19:00 07:00 Intake Total 920 ml 230 ml Output Total 1350 ml 1300 ml Balance -430 ml -1070 ml Intake Oral 920 ml 120 ml IV Total 110 ml Output Urine Total 1350 ml 1300 ml # Bowel Movements 2 Laboratory Tests Test 04/04/20 21:34 04/05/20 03:25 04/05/20 06:38 04/05/20 11:58 POC Whole Blood Glucose 140 MG/DL (74-106) H 132 MG/DL (74-106) H 156 MG/DL (74-106) H White Blood Count 9.4 K/UL (4.8-10.8) Red Blood Count 3.66 M/UL (4.70-6.10) L Hemoglobin 11.7 G/DL (14.2-18.0) L Hematocrit 37.1 % (42.0-52.0) L Mean Corpuscular Volume 101 FL (80-99) H Mean Corpuscular Hemoglobin 32.1 PG (27.0-31.0) H Mean Corpuscular Hemoglobin Concent 31.7 G/DL (32.0-36.0) L Red Cell Distribution Width 13.3 % (11.6-14.8) Platelet Count 209 K/UL (150-450) Mean Platelet Volume 9.2 FL (6.5-10.1) Neutrophils (%) (Auto) 68.6 % (45.0-75.0) Lymphocytes (%) (Auto) 22.0 % (20.0-45.0) Monocytes (%) (Auto) 6.3 % (1.0-10.0) Eosinophils (%) (Auto) 2.8 % (0.0-3.0) Basophils (%) (Auto) 0.4 % (0.0-2.0) Erythrocyte Sedimentation Rate 100 MM/HR (0-20) H Sodium Level 140 MMOL/L (136-145) Potassium Level 3.9 MMOL/L (3.5-5.1) Chloride Level 105 MMOL/L (98-107) Carbon Dioxide Level 31 MMOL/L (21-32) Anion Gap 4 mmol/L (5-15) L Blood Urea Nitrogen 15 mg/dL (7-18) Creatinine 1.3 MG/DL (0.55-1.30) Estimat Glomerular Filtration Rate > 60 mL/min (>60) Glucose Level 121 MG/DL (74-106) H Calcium Level 7.7 MG/DL (8.5-10.1) L Phosphorus Level 2.6 MG/DL (2.5-4.9) Magnesium Level 2.2 MG/DL (1.8-2.4) Total Bilirubin 0.5 MG/DL (0.2-1.0) Aspartate Amino Transf (AST/SGOT) 17 U/L (15-37) Alanine Aminotransferase (ALT/SGPT) 15 U/L (12-78) Alkaline Phosphatase 79 U/L (46-116) C-Reactive Protein, Quantitative 15.9 mg/dL (0.00-0.90) H Total Protein 5.6 G/DL (6.4-8.2) L Albumin 1.9 G/DL (3.4-5.0) L Globulin 3.7 g/dL Albumin/Globulin Ratio 0.5 (1.0-2.7) L Test 04/05/20 16:28 POC Whole Blood Glucose 127 MG/DL (74-106) H Tiago Clay MD Apr 05, 2020 17:37
[2020-04-05 20:00] VITALS: BP 148/65
[2020-04-05] MEDS: Tamsulosin 0.4mg cap ORAL SCH (21:09)
[2020-04-05] MEDS: Miralax 17gm pkt ORAL PRN (21:15)
[2020-04-06] VITALS: BP 141/68
[2020-04-06] MEDS: Cefepime HCl 2 GM in NS 110 ML IV SCH (00:16)
[2020-04-06 04:00] VITALS: BP 147/72
[2020-04-06] MEDS: HydrALAZINE 50mg tab ORAL SCH ×2 (05:57→13:43)
[2020-04-06 08:00] VITALS: BP 138/74
[2020-04-06 08:05] LABS: EOSINOPHILS % (AUTO) 2.5 % (0.0-3.0); HEMATOCRIT 36.5 % (42.0-52.0); HEMOGLOBIN 11.7 G/DL (14.2-18.0); LYMPHOCYTES % (AUTO) 25.9 % (20.0-45.0); MEAN CORPUSCULAR VOLUME 99 FL (80-99); NEUTROPHILS % (AUTO) 65.7 % (45.0-75.0); PLATELET COUNT 249 K/UL (150-450); RED CELL DISTRIBUTION WIDTH 13.7 % (11.6-14.8); WHITE BLOOD COUNT 7.9 K/UL (4.8-10.8)
[2020-04-06 08:20] LABS: ALANINE AMINOTRANSFERASE 14 U/L (12-78); ALBUMIN 2.1 G/DL (3.4-5.0); ALBUMIN/GLOBULIN RATIO 0.5 (1.0-2.7); ALKALINE PHOSPHATASE 84 U/L (46-116); ANION GAP 6 mmol/L (5-15); ASPARTATE AMINO TRANSFERASE 18 U/L (15-37); BILIRUBIN,TOTAL 0.5 MG/DL (0.2-1.0); BLOOD UREA NITROGEN 13 mg/dL (7-18); CALCIUM 8.3 MG/DL (8.5-10.1); CARBON DIOXIDE 30 MMOL/L (21-32); CHLORIDE 105 MMOL/L (98-107); CREATININE 1.3 MG/DL (0.55-1.30); PHOSPHORUS 2.4 MG/DL (2.5-4.9); POTASSIUM 4.6 MMOL/L (3.5-5.1); SODIUM 140 MMOL/L (136-145)
[2020-04-06] MEDS: Heparin 5000 units/ml inj SUBQ SCH (08:26)
[2020-04-06] MEDS ORDERED: NS 275ml ONE (09:50)
--- NOTE | 2020-04-06 10:12 | Nephrology Progress Note ---
Assessment/Plan Problem List: (1) BENNETT (acute kidney injury) (2) Renal failure (ARF), acute on chronic (3) Dennison catheter problem (4) Acute on chronic respiratory failure (5) Hyperkalemia Assessment Renal failure, most likely acute on chronic Right hydronephrosis Urinary outlet obstruction despite a Dennison catheter since the bladder still distended on ultrasound Respiratory distress, patient on nonrebreather mask. No chest x-ray available. CHF versus pneumonia. Sepsis, UTI Plan April 06: Electrolytes stable. Renal parameters stable. Continue per consul tants. April 05: Renal parameters stable. Continue to monitor electrolytes. Continue per consultants April 04: Serum creatinine at its lowest 1.4. Continue to monitor renal parameters and electrolytes. Low potassium low magnesium and low phosphorus addressed. April 03: Serum creatinine continues to decline. Abnormal electrolytes addressed. Continue per consultants. April 02: Renal parameters continue to improve. Creatinine down to 1.9 from 6.3 on admission. Abnormal electrolytes at rest. Continue per consultants. April 01: Renal parameters improving. Abnormal electrolytes addressed. Continue to monitor renal parameters. Continue per consultants. Previously: Change diet to renal Kayexalate as needed Potassium and magnesium and phosphorus supplement as needed Kidney ultrasound MILD RIGHT HYDRONEPHROSIS. 2D echocardiogram ejection fraction 55% Monitor renal parameters Antibiotics Avoid nephrotoxic's Subjective ROS Limited/Unobtainable: No Constitutional: Reports: malaise, weakness Objective Objective Last 24 Hour Vital Signs Date Time Temp Pulse Resp B/P (MAP) Pulse Ox O2 Delivery O2 Flow Rate FiO2 04/06/20 09:00 Room Air 04/06/20 08:25 77 130/80 04/06/20 08:00 98.1 20 138/74 (95) 95 04/06/20 05:57 147/72 04/06/20 04:00 98.7 94 18 147/72 (97) 97 04/06/20 00:00 98.3 90 20 141/68 (92) 96 04/05/20 21:10 94 Room Air 21 04/05/20 21:10 148/65 04/05/20 21:09 93 148/65 04/05/20 21:00 Room Air 04/05/20 20:00 98.5 93 20 148/65 (92) 96 04/05/20 16:00 98.2 86 20 129/68 (88) 97 04/05/20 16:00 90 04/05/20 13:50 135/61 04/05/20 12:00 Room Air 04/05/20 12:00 97.9 81 20 135/61 (85) 96 04/05/20 11:40 84 Intake and Output 04/05/20 04/06/20 19:00 07:00 Intake Total 600 ml 110 ml Output Total 800 ml 2000 ml Balance -200 ml -1890 ml Intake Oral 600 ml IV Total 110 ml Output Urine Total 800 ml 2000 ml # Bowel Movements 1 1 Laboratory Tests 04/05/20 11:58: POC Whole Blood Glucose 156H 04/05/20 16:28: POC Whole Blood Glucose 127H 04/06/20 07:15: White Blood Count 7.9, Red Blood Count 3.70L, Hemoglobin 11.7L, Hematocrit 36.5L , Mean Corpuscular Volume 99, Mean Corpuscular Hemoglobin 31.6H, Mean Corpuscular Hemoglobin Concent 32.1, Red Cell Distribution Width 13.7, Platelet Count 249, Mean Platelet Volume 9.2, Neutrophils (%) (Auto) 65.7, Lymphocytes (%) (Auto) 25.9, Monocytes (%) (Auto) 5.0, Eosinophils (%) (Auto) 2.5, Basophils (%) (Auto) 1.0, Erythrocyte Sedimentation Rate [Pending], Sodium Level 140, Potassium Level 4.6, Chloride Level 105, Carbon Dioxide Level 30, Anion Gap 6, Blood Urea Nitrogen 13, Creatinine 1.3, Estimat Glomerular Filtration Rate > 60, Glucose Level 139H, Calcium Level 8.3L, Phosphorus Level 2.4L, Magnesium Level 1.9, Total Bilirubin 0.5, Aspartate Amino Transf (AST/SGOT) 18, Alanine Aminotransferase (ALT/SGPT) 14, Alkaline Phosphatase 84, C-Reactive Protein, Quantitative 13.5H, Total Protein 6.3L, Albumin 2.1L, Globulin 4.2, Albumin/Globulin Ratio 0.5L Height (Feet): 5 Height (Inches): 11.00 Weight (Pounds): 151 General Appearance: no apparent distress, lethargic Cardiovascular: normal rate Respiratory/Chest: decreased breath sounds Abdomen: soft Mich Morgan MD Apr 06, 2020 10:12
[2020-04-06 12:00] VITALS: BP 147/65
--- NOTE | 2020-04-06 13:01 | Pulmonology Progress Note ---
Subjective ROS Limited/Unobtainable: No Constitutional: Reports: no symptoms HEENT: Repors: no symptoms Allergies: Coded Allergies: PENICILLINS (Verified Allergy, Unknown, 11/16/16) Objective Last 24 Hour Vital Signs Date Time Temp Pulse Resp B/P (MAP) Pulse Ox O2 Delivery O2 Flow Rate FiO2 04/06/20 12:00 97.9 20 147/65 (92) 95 04/06/20 09:00 Room Air 04/06/20 08:25 77 130/80 04/06/20 08:00 98.1 20 138/74 (95) 95 04/06/20 05:57 147/72 04/06/20 04:00 98.7 94 18 147/72 (97) 97 04/06/20 00:00 98.3 90 20 141/68 (92) 96 04/05/20 21:10 94 Room Air 21 04/05/20 21:10 148/65 04/05/20 21:09 93 148/65 04/05/20 21:00 Room Air 04/05/20 20:00 98.5 93 20 148/65 (92) 96 04/05/20 16:00 98.2 86 20 129/68 (88) 97 04/05/20 16:00 90 04/05/20 13:50 135/61 Intake and Output 04/05/20 04/06/20 19:00 07:00 Intake Total 600 ml 110 ml Output Total 800 ml 2000 ml Balance -200 ml -1890 ml Intake Oral 600 ml IV Total 110 ml Output Urine Total 800 ml 2000 ml # Bowel Movements 1 1 General Appearance: cachetic HEENT: normocephalic, atraumatic Respiratory: chest wall non-tender, lungs clear Cardiovascular: normal peripheral pulses, normal rate Abdomen: normal bowel sounds, soft, non tender Genitourinary: normal external genitalia Extremities: no cyanosis 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 Laboratory Tests 04/05/20 16:28: POC Whole Blood Glucose 127H 04/06/20 07:15: White Blood Count 7.9, Red Blood Count 3.70L, Hemoglobin 11.7L, Hematocrit 36.5L , Mean Corpuscular Volume 99, Mean Corpuscular Hemoglobin 31.6H, Mean Corpuscular Hemoglobin Concent 32.1, Red Cell Distribution Width 13.7, Platelet Count 249, Mean Platelet Volume 9.2, Neutrophils (%) (Auto) 65.7, Lymphocytes (%) (Auto) 25.9, Monocytes (%) (Auto) 5.0, Eosinophils (%) (Auto) 2.5, Basophils (%) (Auto) 1.0, Erythrocyte Sedimentation Rate 80H, Sodium Level 140, Potassium Level 4.6, Chloride Level 105, Carbon Dioxide Level 30, Anion Gap 6, Blood Urea Nitrogen 13, Creatinine 1.3, Estimat Glomerular Filtration Rate > 60, Glucose Level 139H, Calcium Level 8.3L, Phosphorus Level 2.4L, Magnesium Level 1.9, Total Bilirubin 0.5, Aspartate Amino Transf (AST/SGOT) 18, Alanine Aminotransferase (ALT/SGPT) 14, Alkaline Phosphatase 84, C-Reactive Protein, Quantitative 13.5H, Total Protein 6.3L, Albumin 2.1L, Globulin 4.2, Albumin/Globulin Ratio 0.5L 04/06/20 11:39: POC Whole Blood Glucose 118H Current Medications Medications (Trade) Dose Ordered Sig/Ja Route PRN Reason Start Time Stop Time Status Last Admin Dose Admin Acetaminophen (Tylenol) 650 mg Q4H PRN ORAL fever 03/29/20 22:30 04/28/20 22:29 04/02/20 04:15 Albuterol/ Ipratropium (Albuterol/ Ipratropium) 3 ml EVERY 4 HOURS PRN HHN Shortness of Breath 03/29/20 22:30 04/10/20 22:29 Amlodipine Besylate (Norvasc) 5 mg BID@0900,2100 ORAL 04/01/20 09:00 05/01/20 08:59 04/06/20 08:25 Cefepime HCl 2 gm/ Sodium Chloride 110 ml @ 220 mls/hr Q24H IV 04/03/20 00:00 04/12/20 23:59 04/06/20 00:16 Clonidine HCl (Catapres Tab) 0.1 mg Q2H PRN ORAL For High Blood Pressure 04/01/20 06:45 06/30/20 06:44 04/02/20 10:08 Dextrose (Dextrose 50%) 25 ml Q30M PRN IV Hypoglycemia 04/02/20 10:45 07/01/20 10:44 Dextrose (Dextrose 50%) 50 ml Q30M PRN IV Hypoglycemia 04/02/20 10:45 07/01/20 10:44 Folic Acid (Folate) 3 mg DAILY ORAL 03/31/20 09:00 04/30/20 08:59 04/06/20 08:25 Heparin Sodium (Porcine) (Heparin 5000 units/ml) 5,000 units EVERY 12 HOURS SUBQ 03/30/20 09:00 05/14/20 08:59 04/06/20 08:26 Hydralazine HCl (Apresoline) 50 mg Q8HR ORAL 04/02/20 14:00 07/01/20 13:59 04/06/20 05:57 Mirtazapine (Remeron) 15 mg BEDTIME ORAL 04/02/20 21:00 07/01/20 20:59 04/05/20 21:09 Ondansetron HCl (Zofran) 4 mg Q6H PRN IVP Nausea & Vomiting 03/29/20 22:30 04/28/20 22:29 Polyethylene Glycol (Miralax) 17 gm DAILYPRN PRN ORAL Constipation 03/29/20 22:30 04/28/20 22:29 04/05/20 21:15 Potassium Chloride (K-Dur) 40 meq TWICE A DAY ORAL 04/04/20 18:00 07/03/20 17:59 04/06/20 08:25 Tamsulosin HCl (Flomax) 0.4 mg BEDTIME ORAL 03/30/20 21:00 04/29/20 20:59 04/05/20 21:09 Assessment/Plan Problems: (1) Gram-negative bacteremia (2) Acute on chronic respiratory failure (3) Hyperkalemia (4) COPD (chronic obstructive pulmonary disease) (5) Episode of generalized weakness (6) History of CVA (cerebrovascular accident) (7) Uncontrolled hypertension Assessment/Plan all reviewed Afebrile, wbc wnl, ID suggest 14 days of Cefepime. diabetic diet, because of persistent increase in Blood sugar and borderline increase in A1c BC are positive for GNB, Enterobacter iv fluids, bun/creatinine wnl continue Dennison catheter, with frequent flushes. renal US reviewed, EF 55% pt wants to go to a half-way Elisabet Mendez MD Apr 06, 2020 13:01
[2020-04-06] MEDS ORDERED: FLOMAX0.4 MG ORAL (13:03)
[2020-04-06] MEDS ORDERED: NORVASC5 MG ORAL (13:03)
[2020-04-06] MEDS ORDERED: APRESOLINE50 MG ORAL (13:03)
[2020-04-06] MEDS ORDERED: CEFEPIME-D2 GM/50 ML IVPB (13:04)
--- NOTE | 2020-04-06 14:25 | Internal Med Progress Note ---
Subjective Physician Name Fernando Sierra Attending Physician Fernando Sierra MD Current Medications Medications (Trade) Dose Ordered Sig/Ja Route PRN Reason Start Time Stop Time Status Last Admin Dose Admin Acetaminophen (Tylenol) 650 mg Q4H PRN ORAL fever 03/29/20 22:30 04/28/20 22:29 04/02/20 04:15 Albuterol/ Ipratropium (Albuterol/ Ipratropium) 3 ml EVERY 4 HOURS PRN HHN Shortness of Breath 03/29/20 22:30 04/10/20 22:29 Amlodipine Besylate (Norvasc) 5 mg BID@0900,2100 ORAL 04/01/20 09:00 05/01/20 08:59 04/06/20 08:25 Cefepime HCl 2 gm/ Sodium Chloride 110 ml @ 220 mls/hr Q24H IV 04/03/20 00:00 04/12/20 23:59 04/06/20 00:16 Clonidine HCl (Catapres Tab) 0.1 mg Q2H PRN ORAL For High Blood Pressure 04/01/20 06:45 06/30/20 06:44 04/02/20 10:08 Dextrose (Dextrose 50%) 25 ml Q30M PRN IV Hypoglycemia 04/02/20 10:45 07/01/20 10:44 Dextrose (Dextrose 50%) 50 ml Q30M PRN IV Hypoglycemia 04/02/20 10:45 07/01/20 10:44 Folic Acid (Folate) 3 mg DAILY ORAL 03/31/20 09:00 04/30/20 08:59 04/06/20 08:25 Heparin Sodium (Porcine) (Heparin 5000 units/ml) 5,000 units EVERY 12 HOURS SUBQ 03/30/20 09:00 05/14/20 08:59 04/06/20 08:26 Hydralazine HCl (Apresoline) 50 mg Q8HR ORAL 04/02/20 14:00 07/01/20 13:59 04/06/20 13:43 Mirtazapine (Remeron) 15 mg BEDTIME ORAL 04/02/20 21:00 07/01/20 20:59 04/05/20 21:09 Ondansetron HCl (Zofran) 4 mg Q6H PRN IVP Nausea & Vomiting 03/29/20 22:30 04/28/20 22:29 Polyethylene Glycol (Miralax) 17 gm DAILYPRN PRN ORAL Constipation 03/29/20 22:30 04/28/20 22:29 04/05/20 21:15 Potassium Chloride (K-Dur) 40 meq TWICE A DAY ORAL 04/04/20 18:00 07/03/20 17:59 04/06/20 08:25 Tamsulosin HCl (Flomax) 0.4 mg BEDTIME ORAL 03/30/20 21:00 04/29/20 20:59 04/05/20 21:09 Allergies: Coded Allergies: PENICILLINS (Verified Allergy, Unknown, 11/16/16) Subjective awake, responsive, No BM, talking more. WBC: 7.9, Hgb: 11.7. Objective Last Vital Signs Date Time Temp Pulse Resp B/P (MAP) Pulse Ox O2 Delivery O2 Flow Rate FiO2 04/06/20 13:43 147/65 04/06/20 12:00 97.9 20 95 04/06/20 09:00 Room Air 04/06/20 08:25 77 04/05/20 21:10 21 04/05/20 08:30 2.0 Laboratory Tests Test 04/05/20 16:28 04/06/20 07:15 04/06/20 11:39 POC Whole Blood Glucose 127 MG/DL (74-106) H 118 MG/DL (74-106) H White Blood Count 7.9 K/UL (4.8-10.8) Red Blood Count 3.70 M/UL (4.70-6.10) L Hemoglobin 11.7 G/DL (14.2-18.0) L Hematocrit 36.5 % (42.0-52.0) L Mean Corpuscular Volume 99 FL (80-99) Mean Corpuscular Hemoglobin 31.6 PG (27.0-31.0) H Mean Corpuscular Hemoglobin Concent 32.1 G/DL (32.0-36.0) Red Cell Distribution Width 13.7 % (11.6-14.8) Platelet Count 249 K/UL (150-450) Mean Platelet Volume 9.2 FL (6.5-10.1) Neutrophils (%) (Auto) 65.7 % (45.0-75.0) Lymphocytes (%) (Auto) 25.9 % (20.0-45.0) Monocytes (%) (Auto) 5.0 % (1.0-10.0) Eosinophils (%) (Auto) 2.5 % (0.0-3.0) Basophils (%) (Auto) 1.0 % (0.0-2.0) Erythrocyte Sedimentation Rate 80 MM/HR (0-20) H Sodium Level 140 MMOL/L (136-145) Potassium Level 4.6 MMOL/L (3.5-5.1) Chloride Level 105 MMOL/L (98-107) Carbon Dioxide Level 30 MMOL/L (21-32) Anion Gap 6 mmol/L (5-15) Blood Urea Nitrogen 13 mg/dL (7-18) Creatinine 1.3 MG/DL (0.55-1.30) Estimat Glomerular Filtration Rate > 60 mL/min (>60) Glucose Level 139 MG/DL (74-106) H Calcium Level 8.3 MG/DL (8.5-10.1) L Phosphorus Level 2.4 MG/DL (2.5-4.9) L Magnesium Level 1.9 MG/DL (1.8-2.4) Total Bilirubin 0.5 MG/DL (0.2-1.0) Aspartate Amino Transf (AST/SGOT) 18 U/L (15-37) Alanine Aminotransferase (ALT/SGPT) 14 U/L (12-78) Alkaline Phosphatase 84 U/L (46-116) C-Reactive Protein, Quantitative 13.5 mg/dL (0.00-0.90) H Total Protein 6.3 G/DL (6.4-8.2) L Albumin 2.1 G/DL (3.4-5.0) L Globulin 4.2 g/dL Albumin/Globulin Ratio 0.5 (1.0-2.7) L Intake and Output 04/05/20 04/06/20 19:00 07:00 Intake Total 600 ml 110 ml Output Total 800 ml 2000 ml Balance -200 ml -1890 ml Intake Oral 600 ml IV Total 110 ml Output Urine Total 800 ml 2000 ml # Bowel Movements 1 1 Objective General: No acute distress, awake and alert, chronic ill appearing. HEENT: NCAT, sclera anicteric, PERRL, EOMI. Neck: Supple, no significant jugular venous distention, Lungs: Fair inspiratory effort, decreased air at the bases, no Wheeze or Rales. Heart: Regular rate and rhythm, normal S1/S2, no murmurs/gallops Abdomen: soft, nontender, nondistended. Normoactive bowel sounds. : Dennison cath. Extremities: No Cyanosis , clubbing or edema. Neuro: A&O x 3, Able to move all extremities Skin: warm, no rash, dry skin. Assessment/Plan Assessment/Plan acute kidney injury and chronic renal insufficiency Acute hypoxemic respiratory failure Gram-negative sergei bacteremia Hyperkalemia Sepsis due to the urinary tract infection COPD CVA Severe protein calorie malnutrition. Plan: Antibiotics: Cefepime IV DVT prophylaxis: Heparin subcu CODE STATUS: Full code. Follow-up with nephrology, pulmonary, infection disease recommendations Follow up with the laboratory as well as cultures in the morning. In Med / Surg unit PT mobility Discharge planning to SNF. Fernando Sierra MD Apr 06, 2020 14:25
--- NOTE | 2020-04-06 14:47 | Infectious Diseases Prog Note ---
Assessment/Plan Assessment: Sepsis UTI c/w Gram neg bacteremia -04/02 bcx NTD -03/30 Renal US: MILD RIGHT HYDRONEPHROSIS. THERE IS A ROSSI CATHETER IN THE BLADDER BUT THE BLADDER STILL APPEARS FAIRLY DISTENDED. PLEASE CHECK FUNCTION OF CATHETER. LAYERING STONE AND SOME DEBRIS NOTED IN THE URINARY BLADDER. -Bcx 3 E. cloacae complex -03/29 u/a wbc 60-80, nit neg, leuk +3; ucx >100k E. cloacae complex (R ancef, bactrim; I macrobid; otherwise S) Bcx 09/02 E. cloacae complex (R ancef, bactrim; otherwise S) ABd US: Limited evaluation due to bowel gas. Increased echogenicity of the kidney suggestive of medical renal disease. Nonobstructing right renal calculus. No gallstones detected. The gallbladder is unremarkable. The common bile duct Measures 0.65 cm and is mildly dilated. Choledocholithiasis cannot be excluded. MRCP study will provide additional information as deemed necessary. Mild hydronephrosis of the right kidney of uncertain etiology. CT imaging of the abdomen and pelvis should be considered. Spleen is not visualized due to body habitus. Low grade fever; SP Leukocytosis, worsened- now resolved Thrombocytopenia, improving Acute hypoxic resp failure- sp bipap> 2l NC Pulmonary edema probable PNA -04/04 CXR: Improved right basilar atelectasis or patchy infiltrate, over 4 days -03/31 CXR: Bibasilar opacities may represent atelectasis. Prominent lung markings may represent chronic interstitial lung changes versus pulmonary vasculature congestion. Infectious/inflammatory process is not excluded. -03/30 CXR: Nonspecific interstitial opacities are seen throughout both lungs bilaterally, probably unchanged allowing for differences in exposure technique and degree of rotation. -VQ scan: Findings are low probability for pulmonary embolus - rapid COVID neg x2 -influenza sc eng BENNETT, improving- likely underlying CKD recent CVA (2 months ago) BPH w/ chronic rossi Plan: -Continue empiric Cefepime #8 / for UTI and bacteremia -04/02 SP IV Vancomycin #5 -03/29 SP Levaquin x1 -f/u cx -Monitor CBC/CMP, temperatures -f/u repeat Bcx x2 Thank you for this consultation. Will continue to follow along with you. Discussed with MARCELLO. Subjective Allergies: Coded Allergies: PENICILLINS (Verified Allergy, Unknown, 11/16/16) afebrile no leukocytosis Cr improving repeat Bcx NTD transferred from SDU to med surg Objective Last 24 Hour Vital Signs Date Time Temp Pulse Resp B/P (MAP) Pulse Ox O2 Delivery O2 Flow Rate FiO2 04/06/20 13:43 147/65 04/06/20 12:00 97.9 20 147/65 (92) 95 04/06/20 09:00 Room Air 04/06/20 08:25 77 130/80 04/06/20 08:00 98.1 20 138/74 (95) 95 04/06/20 05:57 147/72 04/06/20 04:00 98.7 94 18 147/72 (97) 97 04/06/20 00:00 98.3 90 20 141/68 (92) 96 04/05/20 21:10 94 Room Air 21 04/05/20 21:10 148/65 04/05/20 21:09 93 148/65 04/05/20 21:00 Room Air 04/05/20 20:00 98.5 93 20 148/65 (92) 96 04/05/20 16:00 98.2 86 20 129/68 (88) 97 04/05/20 16:00 90 Height (Feet): 5 Height (Inches): 11.00 Weight (Pounds): 151 General Appearance: cachetic, thin Male HEENT: NCAT, MMM, EOMI Respiratory/Chest: CTAB, No W Cardiovascular/Chest: RRR, S1, S2 Abdomen: normal bowel sounds, non tender, soft Laboratory Tests Test 04/05/20 16:28 04/06/20 07:15 04/06/20 11:39 POC Whole Blood Glucose 127 MG/DL (74-106) H 118 MG/DL (74-106) H White Blood Count 7.9 K/UL (4.8-10.8) Red Blood Count 3.70 M/UL (4.70-6.10) L Hemoglobin 11.7 G/DL (14.2-18.0) L Hematocrit 36.5 % (42.0-52.0) L Mean Corpuscular Volume 99 FL (80-99) Mean Corpuscular Hemoglobin 31.6 PG (27.0-31.0) H Mean Corpuscular Hemoglobin Concent 32.1 G/DL (32.0-36.0) Red Cell Distribution Width 13.7 % (11.6-14.8) Platelet Count 249 K/UL (150-450) Mean Platelet Volume 9.2 FL (6.5-10.1) Neutrophils (%) (Auto) 65.7 % (45.0-75.0) Lymphocytes (%) (Auto) 25.9 % (20.0-45.0) Monocytes (%) (Auto) 5.0 % (1.0-10.0) Eosinophils (%) (Auto) 2.5 % (0.0-3.0) Basophils (%) (Auto) 1.0 % (0.0-2.0) Erythrocyte Sedimentation Rate 80 MM/HR (0-20) H Sodium Level 140 MMOL/L (136-145) Potassium Level 4.6 MMOL/L (3.5-5.1) Chloride Level 105 MMOL/L (98-107) Carbon Dioxide Level 30 MMOL/L (21-32) Anion Gap 6 mmol/L (5-15) Blood Urea Nitrogen 13 mg/dL (7-18) Creatinine 1.3 MG/DL (0.55-1.30) Estimat Glomerular Filtration Rate > 60 mL/min (>60) Glucose Level 139 MG/DL (74-106) H Calcium Level 8.3 MG/DL (8.5-10.1) L Phosphorus Level 2.4 MG/DL (2.5-4.9) L Magnesium Level 1.9 MG/DL (1.8-2.4) Total Bilirubin 0.5 MG/DL (0.2-1.0) Aspartate Amino Transf (AST/SGOT) 18 U/L (15-37) Alanine Aminotransferase (ALT/SGPT) 14 U/L (12-78) Alkaline Phosphatase 84 U/L (46-116) C-Reactive Protein, Quantitative 13.5 mg/dL (0.00-0.90) H Total Protein 6.3 G/DL (6.4-8.2) L Albumin 2.1 G/DL (3.4-5.0) L Globulin 4.2 g/dL Albumin/Globulin Ratio 0.5 (1.0-2.7) L Current Medications Medications (Trade) Dose Ordered Sig/Ja Route PRN Reason Start Time Stop Time Status Last Admin Dose Admin Acetaminophen (Tylenol) 650 mg Q4H PRN ORAL fever 03/29/20 22:30 04/28/20 22:29 04/02/20 04:15 Albuterol/ Ipratropium (Albuterol/ Ipratropium) 3 ml EVERY 4 HOURS PRN HHN Shortness of Breath 03/29/20 22:30 04/10/20 22:29 Amlodipine Besylate (Norvasc) 5 mg BID@0900,2100 ORAL 04/01/20 09:00 05/01/20 08:59 04/06/20 08:25 Cefepime HCl 2 gm/ Sodium Chloride 110 ml @ 220 mls/hr Q24H IV 04/03/20 00:00 04/12/20 23:59 04/06/20 00:16 Clonidine HCl (Catapres Tab) 0.1 mg Q2H PRN ORAL For High Blood Pressure 04/01/20 06:45 06/30/20 06:44 04/02/20 10:08 Dextrose (Dextrose 50%) 25 ml Q30M PRN IV Hypoglycemia 04/02/20 10:45 07/01/20 10:44 Dextrose (Dextrose 50%) 50 ml Q30M PRN IV Hypoglycemia 04/02/20 10:45 07/01/20 10:44 Folic Acid (Folate) 3 mg DAILY ORAL 03/31/20 09:00 04/30/20 08:59 04/06/20 08:25 Heparin Sodium (Porcine) (Heparin 5000 units/ml) 5,000 units EVERY 12 HOURS SUBQ 03/30/20 09:00 05/14/20 08:59 04/06/20 08:26 Hydralazine HCl (Apresoline) 50 mg Q8HR ORAL 04/02/20 14:00 07/01/20 13:59 04/06/20 13:43 Mirtazapine (Remeron) 15 mg BEDTIME ORAL 04/02/20 21:00 07/01/20 20:59 04/05/20 21:09 Ondansetron HCl (Zofran) 4 mg Q6H PRN IVP Nausea & Vomiting 03/29/20 22:30 04/28/20 22:29 Polyethylene Glycol (Miralax) 17 gm DAILYPRN PRN ORAL Constipation 03/29/20 22:30 04/28/20 22:29 04/05/20 21:15 Potassium Chloride (K-Dur) 40 meq TWICE A DAY ORAL 04/04/20 18:00 07/03/20 17:59 04/06/20 08:25 Tamsulosin HCl (Flomax) 0.4 mg BEDTIME ORAL 03/30/20 21:00 04/29/20 20:59 04/05/20 21:09 Karen Whiteside M.D. Apr 06, 2020 14:47
[2020-04-06 16:00] VITALS: BP 139/67
[2020-04-06 20:00] VITALS: BP 138/58
--- NOTE | 2020-04-09 07:47 | Discharge Summary ---
Discharge Summary Discharge Summary _ DATE OF ADMISSION: 03/29/2020 DATE OF DISCHARGE: 04/06/2020 ADMITTING MD : Dr. Fernando Sierra CONSULTANTS: Dr. Elisabet Clay BRIEF HOSPITAL COURSE: The patient is an 85 -[place] gentleman with past medical history significant for CVA, recently diagnosed 2 months ago with chronic urinary retention, with in willing Dennison catheter, who presented to emergency department complaining of weakness, fatigue, and shortness of breath. The patient was noted to be hypoxemic in the emergency department and subsequently was started on BiPAP and was found to be in acute renal failure. The patient received a dose of Lasix in ER. Shortly after evaluation in the emergency department, the patient was admitted to [facility] due to sepsis secondary to urinary tract infection as well as acute hypoxemic respiratory failure. He was started on broad-spectrum antibiotics with vancomycin and cefepime. He was given Heparin for DVT prophylaxis. He was continued on BiPAP support. Kidney function was monitored. Abdominal ultrasound showed increased echogenicity of the kidneys suggestive of medical renal disease. Nonobstructing right renal calculus. Mild hydronephrosis of right kidney of uncertain etiology. CBD mildly dilated. No gallstones. Chest x-ray showed nonspecific interstitial opacities throughout the lungs bilaterally. VQ scan was showed no probability for PE. Venous duplex scan was negative. Rapid Covid testing was negative. Blood and urine culture showed growth of gram-negative bacteremia. Patient also complained of shortness of breath and intermittent substernal chest discomfort no specific precipitant nor alleviating factors. EKG showed sinus tachycardia, voltage criteria for LVH and T wave inversion in leads I and L consistent with repolarization change. Echocardiogram was reportedly a technically difficult study, but showed an EF of 55%. No left ventricular hypertrophy and mitral velocities consistent with diastolic dysfunction. Dyspnea did not appear to be secondary to congestive heart failure, even though with elevated BNP, this may be due to renal insufficiency as his creatinine was elevated. He underwent swallow evaluation. He was placed on pured diet with thin liquid; advance to soft solid diet as tolerated. He had low-grade fever, repeat blood culture done. He was continued on IV antibiotics. Patient had significant improvement in renal function with hydration. He was able to be tapered off BiPAP support and was saturating well on 2 L nasal cannula. Repeat blood culture did not isolate any growth. Kidney function normalized. Blood pressure had better controlled. He was given PT mobility. He was eventually discharged to SNF. FINAL DIAGNOSES: Sepsis UTI with gram-negative bacteremia Acute hypoxic respiratory failure, resolved Acute kidney injury on chronic renal insufficiency Pulmonary edema Probable pneumonia Thrombocytopenia Hyperkalemia Severe protein calorie malnutrition COPD Old CVA DISPOSITION: Patient was discharged to [facility] rehab. DISCHARGE MEDICATIONS: Refer to Discharge Medication List. I have been assigned to complete a discharge summary on this account, I was not involved with the patient's management.--NICHOLAS Chacon Jacqueline Robles NP Apr 09, 2020 07:47
== END 2020-04-06 21:00 | DRG 871 ==
LOC: EDBD 17:26 → EMR 17:35 → 2W 19:52 → EDBEDREQ 21:03 → 2W 21:33 → 4E 04-05 16:35
PROC: 5A09357 Assistance with Respiratory Ventilation, Less than 24 Consecutive Hours, Continuous Positive Airway Pressure (ICD-10-PCS; principal; 2020-03-29)
DX: A41.50 Gram-negative sepsis, unspecified (principal); E43 Unspecified severe protein-calorie malnutrition; J18.9 Pneumonia, unspecified organism; J96.21 Acute and chronic respiratory failure with hypoxia; N17.9 Acute kidney failure, unspecified; E87.0 Hyperosmolality and hypernatremia; N39.0 Urinary tract infection, site not specified; N13.2 Hydronephrosis with renal and ureteral calculous obstruction; E87.5 Hyperkalemia; Z68.22 Body mass index [BMI] 22.0-22.9, adult; Z88.0 Allergy status to penicillin; D69.6 Thrombocytopenia, unspecified; J44.9 Chronic obstructive pulmonary disease, unspecified; Z86.73 Personal history of transient ischemic attack (TIA), and cerebral infarction without residual deficits; E86.0 Dehydration; N18.9 Chronic kidney disease, unspecified; N40.1 Benign prostatic hyperplasia with lower urinary tract symptoms; R33.8 Other retention of urine
CPT/HCPCS: 36415; 71045; 76700; 76770; 78579; 78580; 80048; 80053; 80202; 81003; 82043; 82550; 82553; 82607; 82728; 82746; 82803; 82962; 82977; 83036; 83540; 83550; 83605; 83615; 83690; 83735; 83880; 83935; 84100; 84300; 84443; 84484; 84550; 85007; 85025; 85379; 85610; 85651; 85730; 86140; 86710; 86850; 86900; 86901; 87040; 87086; 87181; 89050; 93005; 93306; 93970; 94660; 94664; 96365; 96367; 96368; 96375; 99285; A9503; J1815; J7030; J8499; U0002

== ENCOUNTER 2020-05-08 09:17 | Inpatient (IN) | payer MEDICARE, OTHER ==
[~2020-05-08] VITALS: Ht 185.4 cm; Wt 68.0 kg
[~2020-05-08 09:17] MED LIST changes: +ACETAMINOPHEN325 M1 ORAL; +ALFUZOSIN HCL10 MG PO; +APRESOLINE50 MG ORAL; +ASPIRIN81 MG ORAL; +ATORVASTATIN CA40 MG ORAL; +ATORVASTATIN CA80 MG ORAL; +CEFEPIME-D2 GM/50 ML IVPB; +FLOMAX0.4 MG ORAL; +LD2JL30 TOPIC; +MAGNESIUM OXID400 M1 ORAL; +MIRTAZAPINE15 M3 ORAL; +MIRTAZAPINE30 MG ORAL; +NORVASC5 MG ORAL; +RIBOFLAVIN100 MG PO; +ZETIA10 MG ORAL
[2020-05-08 09:20] VITALS: BP 132/72
--- NOTE | 2020-05-08 09:28 | Emergency Room Report ---
History of Present Illness General Chief Complaint: Male Urogenital Problems Source: Patient Present Illness HPI Disclaimer: Please note that this report is being documented using DRAGON technology. This can lead to erroneous entry secondary to incorrect interpretation by the dictating instrument. HPI: 85-year-old male with history of CVA, BPH with chronic indwelling Dennison, COPD presents for evaluation of abdominal pain and weakness. Patient complaining of cramping and tenderness in the lower abdomen. He states his Dennison is no longer draining since this morning. Has had a dark color to it lately. Denies fever, chills, nausea, vomiting, diarrhea, chest pain, cough, congestion. He feels globally weak. Denies fall or injury. PMH: COPD, BPH, CVA PSH: Appendectomy Allergies: Penicillin Social Hx: Reviewed Allergies: Coded Allergies: PENICILLINS (Verified Allergy, Unknown, 11/16/16) COVID-19 Screening Contact w/high risk pt: No Recent Travel to affected area: No Experienced COVID-19 symptoms?: No COVID-19 Testing performed [employer] PROSPECTING: Yes COVID-19 Screening: Negative COVID-19 COVID-19 Testing Source: 2 weeks ago @ [facility] [place] Nursing Documentation-PMH Past Medical History: No History, Except For Hx Cardiac Problems: Yes Hx Hypertension: Yes Hx Cancer: No Hx Gastrointestinal Problems: Yes - BPH Hx Neurological Problems: Yes - stroke december 2019 Review of Systems All Other Systems: negative except mentioned in HPI Physical Exam Vital Signs Date Time Temp Pulse Resp B/P (MAP) Pulse Ox O2 Delivery O2 Flow Rate FiO2 05/08/20 09:01 96.4 106 20 131/69 (89) 98 General: Awake and alert, no acute distress HEENT: NC/AT. EOMI. Cardiovascular: Mildly tachycardic. S1 and S2 normal. No murmur appreciated Resp: Normal work of breathing. No cough, wheezing or crackles appreciated Abdomen: Abdomen is soft, nondistended. Tender palpation of suprapubic region. Somewhat distended. No rebound. No masses. No tenderness in the upper abdomen. : Arrives with indwelling Dennison. No urine draining. Sediment noted in bag and in catheter. No blood. Dark color to urine Skin: Intact. No abrasions, laceration or rash over the exposed skin MSK: Normal tone and bulk. Moving all extremities. No obvious deformity. Neuro: Awake and alert. Mentating appropriately. Medical Decision Making Diagnostic Impression: Primary Impression: Obstructed Dennison catheter Additional Impressions: UTI (urinary tract infection) Generalized weakness COVID-19 Pneumonia ER Course 85-year-old male with history of BPH chronic Dennison catheter presents for evaluation of lower abdominal pain. Dennison appears to be obstructed with sediment and possibly infectious. It was replaced and brown-colored urine is now decompressing the bladder, 300 cc so far. Labs are largely within normal limits aside from evidence of urinary tract infection. Treated with ceftriaxone. Discussed with Dr. Salvador will try to arrange placement in a nursing/rehab facility for further care and rehabilitation. Lactate is within normal limits. No evidence of sepsis. Patient tested positive for COVID-19. Chest x-ray was obtained showing hazy bilateral opacities concerning for early pneumonia. Also given azithromycin. He remained stable saturating 99% on room air. Unable to transfer patient directly to rehab facility at this time. Patient will be admitted for further treatment Laboratory Tests Test 05/08/20 09:20 05/08/20 10:15 White Blood Count 6.5 K/UL (4.8-10.8) Red Blood Count 4.52 M/UL (4.70-6.10) L Hemoglobin 13.6 G/DL (14.2-18.0) L Hematocrit 41.7 % (42.0-52.0) L Mean Corpuscular Volume 92 FL (80-99) Mean Corpuscular Hemoglobin 30.2 PG (27.0-31.0) Mean Corpuscular Hemoglobin Concent 32.7 G/DL (32.0-36.0) Red Cell Distribution Width 13.2 % (11.6-14.8) Platelet Count 233 K/UL (150-450) Mean Platelet Volume 7.2 FL (6.5-10.1) Neutrophils (%) (Auto) 63.1 % (45.0-75.0) Lymphocytes (%) (Auto) 27.3 % (20.0-45.0) Monocytes (%) (Auto) 6.6 % (1.0-10.0) Eosinophils (%) (Auto) 2.0 % (0.0-3.0) Basophils (%) (Auto) 1.0 % (0.0-2.0) Sodium Level 140 MMOL/L (136-145) Potassium Level 3.9 MMOL/L (3.5-5.1) Chloride Level 106 MMOL/L (98-107) Carbon Dioxide Level 27 MMOL/L (21-32) Anion Gap 7 mmol/L (5-15) Blood Urea Nitrogen 17 mg/dL (7-18) Creatinine 1.4 MG/DL (0.55-1.30) H Estimated Glomerular Filtration Rate 58.1 mL/min (>60) Glucose Level 146 MG/DL (74-106) H Lactic Acid Level 1.80 mmol/L (0.4-2.0) Calcium Level 9.2 MG/DL (8.5-10.1) Total Bilirubin 0.7 MG/DL (0.2-1.0) Aspartate Amino Transferase (AST) 16 U/L (15-37) Alanine Aminotransferase (ALT) 9 U/L (12-78) L Alkaline Phosphatase 83 U/L (46-116) Total Protein 8.2 G/DL (6.4-8.2) Albumin 3.0 G/DL (3.4-5.0) L Globulin 5.2 g/dL Albumin/Globulin Ratio 0.6 (1.0-2.7) L Lipase 76 U/L (73-393) Urine Color Yellow Urine Appearance Cloudy Urine pH 9 (4.5-8.0) Urine Specific [place] 1.015 (1.005-1.035) Urine Protein 3+ (NEGATIVE) H Urine Glucose (UA) Negative (NEGATIVE) Urine Ketones Negative (NEGATIVE) Urine Blood 4+ (NEGATIVE) H Urine Nitrite Negative (NEGATIVE) Urine Bilirubin Negative (NEGATIVE) Urine Urobilinogen 1 MG/DL (0.0-1.0) H Urine Leukocyte Esterase 3+ (NEGATIVE) H Urine RBC 15-20 /HPF (0 - 0) H Urine WBC 5-10 /HPF (0 - 0) H Urine Squamous Epithelial Cells Occasional /LPF Urine Bacteria Many /HPF (NONE) H Microbiology Date/Time Source Procedure Growth Status 05/08/20 10:30 Nasopharynx SARS-CoV-2 RdRp Gene Assay - Final Complete Chest X-Ray Diagnostic Results Chest X-Ray Diagnostic Results : Chest X-Ray Ordered: Yes # of Views/Limited/Complete: 1 View Indication: Other - Positive Covid test EP Interpretation: Yes Interpretation: no effusion, no pneumothorax, other - Bilateral infiltrates lower lobe Impression: Other - Bilateral pneumonia Electronically Signed by: Electronically signed by Dr. Johnson Quinn MD Last Vital Signs Date Time Temp Pulse Resp B/P (MAP) Pulse Ox O2 Delivery O2 Flow Rate FiO2 05/08/20 09:01 96.4 106 20 131/69 (89) 98 Disposition: ADMITTED INPATIENT Condition: Stable Johnson Quinn MD May 08, 2020 09:28
[2020-05-08 09:39] LABS: HEMATOCRIT 41.7 % (42.0-52.0); HEMOGLOBIN 13.6 G/DL (14.2-18.0); LYMPHOCYTES % (AUTO) 27.3 % (20.0-45.0); MEAN CORPUSCULAR VOLUME 92 FL (80-99); MONOCYTES % (AUTO) 6.6 % (1.0-10.0); NEUTROPHILS % (AUTO) 63.1 % (45.0-75.0); PLATELET COUNT 233 K/UL (150-450); RED BLOOD COUNT 4.52 M/UL (4.70-6.10); RED CELL DISTRIBUTION WIDTH 13.2 % (11.6-14.8); WHITE BLOOD COUNT 6.5 K/UL (4.8-10.8)
[2020-05-08 09:57] LABS: CALCIUM 9.2 MG/DL (8.5-10.1); CREATININE 1.4 MG/DL (0.55-1.30); POTASSIUM 3.9 MMOL/L (3.5-5.1)
[2020-05-08] MEDS ORDERED: Morphine Sulfate 2mg/ml Inj(IV/IM USE ONLY) IVP ONE (10:00)
[2020-05-08 10:01] LABS: ALBUMIN/GLOBULIN RATIO 0.6 (1.0-2.7); BILIRUBIN,TOTAL 0.7 MG/DL (0.2-1.0)
[2020-05-08 10:24] LABS: APPEARANCE,URINE CLOUDY; BILIRUBIN, URINE NEGATIVE (NEGATIVE); COLOR,URINE YELLOW; GLUCOSE, URINE (UA) NEGATIVE (NEGATIVE); KETONES,URINE NEGATIVE (NEGATIVE); LEUKOCYTE ESTERASE ,URINE 3+ (NEGATIVE); NITRITE,URINE NEGATIVE (NEGATIVE); PH,URINE 9 (4.5-8.0); PROTEIN,URINE 3+ (NEGATIVE); UROBILINOGEN,URINE 1 MG/DL (0.0-1.0)
[2020-05-08] MEDS ORDERED: cefTRIAXone 1 GM in NS 55 ML IVPB ONE (10:45)
[2020-05-08 11:21] VITALS: BP 141/74
--- NOTE | 2020-05-08 12:51 | Diagnostic Imaging Report ---
Procedure: XRAY Chest 1v Reason for study: Cough. Comparison films: 04/04/2020. FINDINGS: A single one view chest is obtained. Vascularity is normal. There is mild hazy infiltrates in the lung bases. Cardiac and mediastinal silhouette are within normal limits. CP angles are sharp. The bony thorax appear unremarkable. IMPRESSION: Hazy basilar infiltrates.
[2020-05-08] MEDS ORDERED: Azithromycin 250mg tab ORAL ONE (13:00)
[2020-05-08 13:35] VITALS: BP 130/80
[2020-05-08 14:55] VITALS: BP 143/67
[2020-05-08 16:40] VITALS: BP 125/61
--- NOTE | 2020-05-08 18:14 | History & Physical ---
History and Physical History & Physicial Dictated for Int Med-DR Sierra no. [id number]. David Jonas MD May 08, 2020 18:13
[2020-05-08] MEDS ORDERED: Zolpidem 5mg tab ORAL PRN (18:15)
[2020-05-08] MEDS ORDERED: Albuterol ud Inhalation HHN PRN (18:15)
[2020-05-08] MEDS ORDERED: LORazepam 1mg tab ORAL PRN (18:15)
[2020-05-08] MEDS ORDERED: Albuterol 90mcg Inhaler 8gm INH PRN (19:00)
[2020-05-08 20:00] VITALS: BP 112/62
[2020-05-08] MEDS: Tamsulosin 0.4mg cap ORAL SCH (20:37)
[2020-05-08] MEDS: Atorvastatin 80mg tab ORAL SCH (20:37)
[2020-05-08] MEDS: Enoxaparin 40mg Inj SUBQ SCH (20:38)
--- NOTE | 2020-05-08 20:45 | History and Physical Report ---
DATE OF ADMISSION: 05/08/2020 CHIEF COMPLAINT: The patient is an 85-year-old male who presents with a chief complaint of abdominal pain. HISTORY OF PRESENT ILLNESS: The patient was admitted to [facility] in March 2020. Please see history and physical and discharge summary dictated at that time. The patient has an indwelling Dennison catheter. The patient states this was placed about a year ago at the [facility]. The patient states he began to experience lower abdominal pain on May 07, 2020. The patient states that his Dennison catheter was not draining properly. The patient also states he had become extremely weak. The patient was unable to walk. The patient presented to [facility]. The patient was found to be COVID-19 positive. The patient is admitted with generalized weakness and COVID-19 pneumonia. REVIEW OF SYSTEMS: CONSTITUTIONAL: The patient denies weight loss or weight gain. The patient denies fevers or chills. HEENT: The patient denies ear or throat pain. The patient denies headache. CARDIOVASCULAR: The patient denies palpitations or chest pain. CHEST: The patient denies wheeze or shortness of breath. ABDOMEN: The patient complains of lower abdominal pain as above. The patient denies nausea, vomiting, diarrhea, or constipation. GENITOURINARY: The patient complains of malfunction a Dennison catheter as above. The patient denies dysuria, increased frequency of urination. The patient denies hematuria. NEUROMUSCULAR: The patient complains of generalized weakness. The patient denies seizures. PAST MEDICAL HISTORY: Significant for: 1. Cerebrovascular accident in December 2019. 2. Benign prostatic hypertrophy with urine outlet obstruction. 3. Chronic obstructive pulmonary disease. PAST SURGICAL HISTORY: Significant for appendectomy. CURRENT MEDICATIONS: 1. Amlodipine 5 mg 1 tablet p.o. twice daily. 2. Lipitor 80 mg p.o. at bedtime. 3. Zetia 10 mg p.o. daily. 4. Hydralazine 50 mg p.o. q.8h. 5. Tamsulosin 0.4 mg p.o. at bedtime. ALLERGIES: Penicillin. SOCIAL HISTORY: The patient is single and lives with his adult son. The patient denies tobacco use having quit a few years ago. The patient denies alcohol use. PHYSICAL EXAMINATION: VITAL SIGNS: Temperature 96.4, respirations 20, pulse 106, blood pressure 131/69. GENERAL: The patient is a well-developed, well-nourished male, in no apparent distress. HEENT: Eyes, pupils equal and responsive to light and accommodation. Extra movements are intact. NECK: Supple without lymphadenopathy. CHEST: Lungs are clear to auscultation bilaterally without wheezes or rales. CARDIOVASCULAR: Regular rhythm and rate. S1, S2 are normal without murmurs, rubs, or gallops. ABDOMEN: Soft, nontender, and nondistended. Positive bowel sounds. No evidence of hepatosplenomegaly. Currently no rebound or guarding noted. EXTREMITIES: Negative for clubbing, cyanosis, or edema. RECTAL/GENITAL: Not performed. NEUROLOGIC: Cranial nerves II through XII are grossly intact without focal deficits. Motor strength is 5/5 bilaterally. Deep tendon reflexes are 2+ plantar. LABORATORY STUDIES: WBC 6.5, hemoglobin 13.6, hematocrit 41.7, platelets 233,000. Sodium 140, potassium 3.9, chloride 106, CO2 27, BUN 17, creatinine 1.4, glucose 146. Urinalysis showed 3+ protein, 4+ blood, 3+ leukocyte esterase with 15-20 rbc's and 5-10 wbc's. A chest x-ray was reported as bilateral basilar infiltrates. Rapid COVID-19 test was reported as positive. ASSESSMENT: This is an 85-year-old male. 1. COVID-19 pneumonia. 2. Urinary tract infection. 3. Abdominal pain. 4. Benign prostatic hypertrophy. 5. Hypertension. 6. Cerebrovascular disease. 7. Chronic obstructive pulmonary disease. TREATMENT: 1. Urinary tract infection. The patient has been started empirically on ceftriaxone. Urine culture is pending. 2. COVID-19 pneumonia. The patient has been started empirically on azithromycin and ceftriaxone. The patient is currently tolerating room air. An infectious disease consultation has been obtained with Dr. Aguayo. A pulmonary consultation has been obtained with Dr. Elisabet Mendez. 3. Benign prostatic hypertrophy. The patient currently has a Dennison catheter in place. 4. Hypertension. Continue amlodipine and hydralazine as above. 5. History of cerebrovascular disease. 6. Chronic obstructive pulmonary disease. David Jonas M.D. DR: MAXIMILIAN JOB#: [id number] CC:
[2020-05-08] MEDS: HydrALAZINE 50mg tab ORAL SCH (22:00)
[2020-05-09] VITALS: BP 118/63
[2020-05-09 04:00] VITALS: BP 144/68
[2020-05-09] MEDS: HydrALAZINE 50mg tab ORAL SCH ×3 (05:19→22:34)
[2020-05-09 07:41] LABS: BASOPHILS % (AUTO) 0.5 % (0.0-2.0); EOSINOPHILS % (AUTO) 2.5 % (0.0-3.0); HEMATOCRIT 36.4 % (42.0-52.0); HEMOGLOBIN 12.8 G/DL (14.2-18.0); LYMPHOCYTES % (AUTO) 36.2 % (20.0-45.0); MEAN CORPUSCULAR VOLUME 88 FL (80-99); MONOCYTES % (AUTO) 8.9 % (1.0-10.0); NEUTROPHILS % (AUTO) 51.8 % (45.0-75.0); PLATELET COUNT 217 K/UL (150-450); RED BLOOD COUNT 4.13 M/UL (4.70-6.10); RED CELL DISTRIBUTION WIDTH 14.7 % (11.6-14.8); WHITE BLOOD COUNT 5.7 K/UL (4.8-10.8)
[2020-05-09 07:53] LABS: ANION GAP 7 mmol/L (5-15); BLOOD UREA NITROGEN 15 mg/dL (7-18); CALCIUM 8.7 MG/DL (8.5-10.1); CARBON DIOXIDE 28 MMOL/L (21-32); CHLORIDE 105 MMOL/L (98-107); CREATININE 1.2 MG/DL (0.55-1.30); POTASSIUM 3.7 MMOL/L (3.5-5.1); SODIUM 140 MMOL/L (136-145)
[2020-05-09 08:00] VITALS: BP 135/69
--- NOTE | 2020-05-09 09:00 | Consultation ---
History of Present Illness General Date patient seen: May 09, 2020 Time patient seen: 12:16 Chief Complaint: Male Urogenital Problems Referring physician: Dr. Jonas Reason for Consultation: COVID+ Present Illness HPI 85yo M w/ indwelling rossi x1 year who p/w lower abd pain x1 day, rossi not draining properly. Pt feeling very weak. Found to be COVID positive on rapid test. In house, pt has been AF, satting well on RA without any leukocytosis. UCx NTD. Pt is calm in bed on RA. Reports not feeling well, overall generally weak. Reports prior abd pain and rossi wasn't draining, rossi replaced and is now working and abd pain resolved. Denies any fevers/chills, NVD, abd pain, CP, SOB, cough or problems breathing. Lives in [place] w/ son who is healthy. Doesn't walk, gets around in wheelchair at home. Denies any allergies to abx Allergies: Coded Allergies: PENICILLINS (Verified Allergy, Unknown, 11/16/16) Medication History Scheduled Amlodipine Besylate (Norvasc), 5 MG ORAL BID@0900,2100 Atorvastatin Calcium* (Lipitor*), 80 MG ORAL BEDTIME, (Reported) Ezetimibe (Zetia*), 10 MG ORAL BEDTIME, (Reported) Hydralazine HCl (Hydralazine HCl), 50 MG ORAL Q8HR Tamsulosin HCl (Flomax), 0.4 MG ORAL BEDTIME Discontinued Medications Acetaminophen* (Acetaminophen 325MG Tablet*), 650 MG ORAL Q6H PRN for For Pain, (Reported) Discontinued Reason: Pt stopped taking med Alfuzosin* (Uroxatrol*), 10 MG PO QHS, (Reported) Discontinued Reason: Pt stopped taking med Aspirin* (Aspirin*), 81 MG ORAL DAILY, (Reported) Discontinued Reason: Pt stopped taking med Cefepime Hcl/D5w (Cefepime-Dextrose 2 Gm/50 Ml), 2 GM IVPB DAILY Discontinued Reason: Pt stopped taking med Lidocaine HCL 2% Jelly* (Lidocaine Jelly 2%*), 0 TOPIC TID, (Reported) Discontinued Reason: Pt stopped taking med Magnesium Oxide (Magnesium Oxide), 400 MG ORAL DAILY, (Reported) Discontinued Reason: Pt stopped taking med Mirtazapine* (Remeron*), 30 MG ORAL BEDTIME, (Reported) Discontinued Reason: Pt stopped taking med Riboflavin (Riboflavin), 400 MG PO DAILY, (Reported) Discontinued Reason: Pt stopped taking med Patient History Healthcare decision maker Resuscitation status Advanced Directive on File Review of Systems ROS Narrative 10-point ROS neg except as noted in HPI Physical Exam Physical Exam Narrative Gen: NAD HEENT: NCAT Pulm: BL chest rise Abd: Non-distended Ext: No c/c/e, very thin Skin: No visible rashes Neuro: Awake, alert, interactive Last 24 Hour Vital Signs Date Time Temp Pulse Resp B/P (MAP) Pulse Ox O2 Delivery O2 Flow Rate FiO2 05/09/20 08:40 84 135/69 05/09/20 08:10 Room Air 05/09/20 05:19 144/68 05/09/20 04:00 97.8 93 19 144/68 (93) 97 05/09/20 00:00 97.3 88 19 118/63 (81) 92 05/08/20 22:00 108/53 05/08/20 21:00 Room Air 05/08/20 20:33 97 112/62 05/08/20 20:00 96.6 97 18 112/62 (79) 96 05/08/20 17:10 Room Air 05/08/20 16:40 97.3 49 18 125/61 (82) 95 05/08/20 16:30 97.8 86 25 144/96 99 Room Air 05/08/20 14:55 98.2 85 30 143/67 99 Room Air 05/08/20 13:35 98.0 92 18 130/80 99 Room Air 05/08/20 11:21 97.7 96 20 141/74 100 Room Air 05/08/20 10:34 96.5 05/08/20 09:20 96.5 118 22 132/72 100 Room Air 05/08/20 09:01 96.4 106 20 131/69 (89) 98 Intake and Output 05/08/20 05/09/20 19:00 07:00 Intake Total 50 ml Output Total 750 ml 200 ml Balance -700 ml -200 ml Intake IV Total 50 ml Output Urine Total 750 ml 200 ml Laboratory Tests Test 05/08/20 09:20 05/08/20 10:15 05/09/20 07:15 White Blood Count 6.5 K/UL (4.8-10.8) 5.7 K/UL (4.8-10.8) Red Blood Count 4.52 M/UL (4.70-6.10) L 4.13 M/UL (4.70-6.10) L Hemoglobin 13.6 G/DL (14.2-18.0) L 12.8 G/DL (14.2-18.0) L Hematocrit 41.7 % (42.0-52.0) L 36.4 % (42.0-52.0) L Mean Corpuscular Volume 92 FL (80-99) 88 FL (80-99) Mean Corpuscular Hemoglobin 30.2 PG (27.0-31.0) 31.1 PG (27.0-31.0) H Mean Corpuscular Hemoglobin Concent 32.7 G/DL (32.0-36.0) 35.3 G/DL (32.0-36.0) Red Cell Distribution Width 13.2 % (11.6-14.8) 14.7 % (11.6-14.8) Platelet Count 233 K/UL (150-450) 217 K/UL (150-450) Mean Platelet Volume 7.2 FL (6.5-10.1) 6.8 FL (6.5-10.1) Neutrophils (%) (Auto) 63.1 % (45.0-75.0) 51.8 % (45.0-75.0) Lymphocytes (%) (Auto) 27.3 % (20.0-45.0) 36.2 % (20.0-45.0) Monocytes (%) (Auto) 6.6 % (1.0-10.0) 8.9 % (1.0-10.0) Eosinophils (%) (Auto) 2.0 % (0.0-3.0) 2.5 % (0.0-3.0) Basophils (%) (Auto) 1.0 % (0.0-2.0) 0.5 % (0.0-2.0) Sodium Level 140 MMOL/L (136-145) 140 MMOL/L (136-145) Potassium Level 3.9 MMOL/L (3.5-5.1) 3.7 MMOL/L (3.5-5.1) Chloride Level 106 MMOL/L (98-107) 105 MMOL/L (98-107) Carbon Dioxide Level 27 MMOL/L (21-32) 28 MMOL/L (21-32) Anion Gap 7 mmol/L (5-15) 7 mmol/L (5-15) Blood Urea Nitrogen 17 mg/dL (7-18) 15 mg/dL (7-18) Creatinine 1.4 MG/DL (0.55-1.30) H 1.2 MG/DL (0.55-1.30) Estimat Glomerular Filtration Rate 58.1 mL/min (>60) > 60 mL/min (>60) Glucose Level 146 MG/DL (74-106) H 117 MG/DL (74-106) H Lactic Acid Level 1.80 mmol/L (0.4-2.0) Calcium Level 9.2 MG/DL (8.5-10.1) 8.7 MG/DL (8.5-10.1) Total Bilirubin 0.7 MG/DL (0.2-1.0) Aspartate Amino Transf (AST/SGOT) 16 U/L (15-37) Alanine Aminotransferase (ALT/SGPT) 9 U/L (12-78) L Alkaline Phosphatase 83 U/L (46-116) Total Protein 8.2 G/DL (6.4-8.2) Albumin 3.0 G/DL (3.4-5.0) L Globulin 5.2 g/dL Albumin/Globulin Ratio 0.6 (1.0-2.7) L Lipase 76 U/L (73-393) Urine Color Yellow Urine Appearance Cloudy Urine pH 9 (4.5-8.0) Urine Specific [place] 1.015 (1.005-1.035) Urine Protein 3+ (NEGATIVE) H Urine Glucose (UA) Negative (NEGATIVE) Urine Ketones Negative (NEGATIVE) Urine Blood 4+ (NEGATIVE) H Urine Nitrite Negative (NEGATIVE) Urine Bilirubin Negative (NEGATIVE) Urine Urobilinogen 1 MG/DL (0.0-1.0) H Urine Leukocyte Esterase 3+ (NEGATIVE) H Urine RBC 15-20 /HPF (0 - 0) H Urine WBC 5-10 /HPF (0 - 0) H Urine Squamous Epithelial Cells Occasional /LPF Urine Bacteria Many /HPF (NONE) H Microbiology Date/Time Source Procedure Growth Status 05/08/20 21:00 Indwelling Cath Urine Culture - Preliminary NO GROWTH Resulted 05/08/20 16:30 Rectum Received 05/08/20 10:30 Nasopharynx SARS-CoV-2 RdRp Gene Assay - Final Complete 05/08/20 10:15 Urine,Clean Catch Urine Culture - Preliminary NO GROWTH Resulted Height (Feet): 6 Height (Inches): 1.00 Weight (Pounds): 150 Medications Current Medications Medications (Trade) Dose Ordered Sig/Ja Route PRN Reason Start Time Stop Time Status Last Admin Dose Admin Acetaminophen (Tylenol) 650 mg Q4H PRN ORAL Mild Pain (Pain Scale 1-3) 05/08/20 18:15 06/07/20 18:14 Acetaminophen (Tylenol) 650 mg Q4H PRN ORAL Temp >100.5 05/08/20 18:15 06/07/20 18:14 Albuterol Sulfate (Proventil MDI) 2 puff Q4H PRN INH Shortness of Breath 05/08/20 19:00 08/06/20 18:59 Amlodipine Besylate (Norvasc) 5 mg BID@0900,2100 ORAL 05/08/20 21:00 06/07/20 20:59 05/09/20 08:40 Atorvastatin Calcium (Lipitor) 80 mg BEDTIME ORAL 05/08/20 21:00 08/06/20 20:59 05/08/20 20:37 Azithromycin 500 mg/Dextrose 275 ml @ 275 mls/hr Q24HRS IV 05/09/20 13:00 05/15/20 13:59 Ceftriaxone Sodium 1 gm/ Dextrose 55 ml @ 110 mls/hr Q24H IVPB 05/09/20 11:00 05/16/20 10:59 Dextrose (Dextrose 50%) 25 ml Q30M PRN IV Hypoglycemia 05/08/20 18:15 08/06/20 18:14 Dextrose (Dextrose 50%) 50 ml Q30M PRN IV Hypoglycemia 05/08/20 18:15 08/06/20 18:14 Enoxaparin Sodium (Lovenox) 40 mg Q24H SUBQ 05/08/20 21:00 08/06/20 20:59 05/08/20 20:38 EZETIMIBE (Zetia) 10 mg BEDTIME ORAL 05/08/20 21:00 06/07/20 20:59 05/08/20 20:37 Hydralazine HCl (Apresoline) 50 mg Q8HR ORAL 05/08/20 22:00 08/06/20 21:59 05/09/20 05:19 Lorazepam (Ativan) 1 mg Q4H PRN ORAL For Anxiety 05/08/20 18:15 05/15/20 18:14 Ondansetron HCl (Zofran) 4 mg Q6H PRN IVP Nausea & Vomiting 05/08/20 18:15 06/07/20 18:14 Pantoprazole (Protonix) 40 mg DAILY ORAL 05/09/20 09:00 06/08/20 08:59 05/09/20 08:34 Tamsulosin HCl (Flomax) 0.4 mg BEDTIME ORAL 05/08/20 21:00 06/07/20 20:59 05/08/20 20:37 Zolpidem Tartrate (Ambien) 5 mg HSPRN PRN ORAL Insomnia 05/08/20 18:15 05/15/20 18:14 Assessment/Plan Assessment/Plan: 85yo M with: Afebrile Normal WBC COVID+ Weakness 05/08 COVID rapid test positive BCx p CXR: Hazy bibasilar infiltrates Indwelling rossi Lower abd pain 05/08 UA 5-10 WBC, UCx NTD BENNETT, improving Cr 1.4 --> 1.2 Plan: Cont CTX/azithro #2 for now F/u BCx, UCx Trend resp status, if remains on RA and micro neg, will stop abx soon As pt doing well on RA, no current indication for steroids nor remdesivir in this COVID+ patient. Cont to reassess. Monitor CBC/CMP Monitor temp curve, hemodynamics Monitor resp status D/w RN Thank you for this consult. [facility] will continue to follow. Sofya Tam M.D. May 09, 2020 09:00
[2020-05-09] MEDS: cefTRIAXone 1 GM in D5W 55 ML IVPB SCH (11:06)
[2020-05-09 12:00] VITALS: BP 130/64
--- NOTE | 2020-05-09 12:24 | Internal Med Progress Note ---
Subjective Date of Service: May 09, 2020 Physician Name David Jonas Attending Physician Fernando Sierra MD Current Medications Medications (Trade) Dose Ordered Sig/Ja Route PRN Reason Start Time Stop Time Status Last Admin Dose Admin Acetaminophen (Tylenol) 650 mg Q4H PRN ORAL Mild Pain (Pain Scale 1-3) 05/08/20 18:15 06/07/20 18:14 Acetaminophen (Tylenol) 650 mg Q4H PRN ORAL Temp >100.5 05/08/20 18:15 06/07/20 18:14 Albuterol Sulfate (Proventil MDI) 2 puff Q4H PRN INH Shortness of Breath 05/08/20 19:00 08/06/20 18:59 Amlodipine Besylate (Norvasc) 5 mg BID@0900,2100 ORAL 05/08/20 21:00 06/07/20 20:59 05/09/20 08:40 Atorvastatin Calcium (Lipitor) 80 mg BEDTIME ORAL 05/08/20 21:00 08/06/20 20:59 05/08/20 20:37 Azithromycin 500 mg/Dextrose 275 ml @ 275 mls/hr Q24HRS IV 05/09/20 13:00 05/15/20 13:59 Ceftriaxone Sodium 1 gm/ Dextrose 55 ml @ 110 mls/hr Q24H IVPB 05/09/20 11:00 05/16/20 10:59 05/09/20 11:06 Dextrose (Dextrose 50%) 25 ml Q30M PRN IV Hypoglycemia 05/08/20 18:15 08/06/20 18:14 Dextrose (Dextrose 50%) 50 ml Q30M PRN IV Hypoglycemia 05/08/20 18:15 08/06/20 18:14 Enoxaparin Sodium (Lovenox) 40 mg Q24H SUBQ 05/08/20 21:00 08/06/20 20:59 05/08/20 20:38 EZETIMIBE (Zetia) 10 mg BEDTIME ORAL 05/08/20 21:00 06/07/20 20:59 05/08/20 20:37 Hydralazine HCl (Apresoline) 50 mg Q8HR ORAL 05/08/20 22:00 08/06/20 21:59 05/09/20 05:19 Lorazepam (Ativan) 1 mg Q4H PRN ORAL For Anxiety 05/08/20 18:15 05/15/20 18:14 Ondansetron HCl (Zofran) 4 mg Q6H PRN IVP Nausea & Vomiting 05/08/20 18:15 06/07/20 18:14 Pantoprazole (Protonix) 40 mg DAILY ORAL 05/09/20 09:00 06/08/20 08:59 05/09/20 08:34 Tamsulosin HCl (Flomax) 0.4 mg BEDTIME ORAL 05/08/20 21:00 06/07/20 20:59 05/08/20 20:37 Zolpidem Tartrate (Ambien) 5 mg HSPRN PRN ORAL Insomnia 05/08/20 18:15 05/15/20 18:14 Allergies: Coded Allergies: PENICILLINS (Verified Allergy, Unknown, 11/16/16) ROS Limited/Unobtainable: No Constitutional: Reports: no symptoms HEENT: Reports: no symptoms Cardiovascular: Reports: no symptoms Respiratory: Reports: no symptoms Gastrointestinal/Abdominal: Reports: abdominal pain Genitourinary: Reports: no symptoms Neurologic/Psychiatric: Reports: no symptoms Subjective 85 YO M admitted with abdominal pain. Now COVID 19 positive. Cover for Int [facility]-Dr Sierra Objective Last Vital Signs Date Time Temp Pulse Resp B/P (MAP) Pulse Ox O2 Delivery O2 Flow Rate FiO2 05/09/20 12:00 97.0 88 20 130/64 (86) 99 05/09/20 08:10 Room Air Laboratory Tests Test 05/09/20 07:15 White Blood Count 5.7 K/UL (4.8-10.8) Red Blood Count 4.13 M/UL (4.70-6.10) L Hemoglobin 12.8 G/DL (14.2-18.0) L Hematocrit 36.4 % (42.0-52.0) L Mean Corpuscular Volume 88 FL (80-99) Mean Corpuscular Hemoglobin 31.1 PG (27.0-31.0) H Mean Corpuscular Hemoglobin Concent 35.3 G/DL (32.0-36.0) Red Cell Distribution Width 14.7 % (11.6-14.8) Platelet Count 217 K/UL (150-450) Mean Platelet Volume 6.8 FL (6.5-10.1) Neutrophils (%) (Auto) 51.8 % (45.0-75.0) Lymphocytes (%) (Auto) 36.2 % (20.0-45.0) Monocytes (%) (Auto) 8.9 % (1.0-10.0) Eosinophils (%) (Auto) 2.5 % (0.0-3.0) Basophils (%) (Auto) 0.5 % (0.0-2.0) Sodium Level 140 MMOL/L (136-145) Potassium Level 3.7 MMOL/L (3.5-5.1) Chloride Level 105 MMOL/L (98-107) Carbon Dioxide Level 28 MMOL/L (21-32) Anion Gap 7 mmol/L (5-15) Blood Urea Nitrogen 15 mg/dL (7-18) Creatinine 1.2 MG/DL (0.55-1.30) Estimat Glomerular Filtration Rate > 60 mL/min (>60) Glucose Level 117 MG/DL (74-106) H Calcium Level 8.7 MG/DL (8.5-10.1) Microbiology Date/Time Source Procedure Growth Status 05/08/20 21:00 Indwelling Cath Urine Culture - Preliminary NO GROWTH Resulted 05/08/20 16:30 Rectum Received 05/08/20 10:30 Nasopharynx SARS-CoV-2 RdRp Gene Assay - Final Complete 05/08/20 10:15 Urine,Clean Catch Urine Culture - Preliminary NO GROWTH Resulted Intake and Output 05/08/20 05/09/20 19:00 07:00 Intake Total 50 ml Output Total 750 ml 200 ml Balance -700 ml -200 ml Intake IV Total 50 ml Output Urine Total 750 ml 200 ml Objective PHYSICAL EXAMINATION: GENERAL: The patient is a well-developed, well-nourished male, in no apparent distress. HEENT: Eyes, pupils equal and responsive to light and accommodation. Extra movements are intact. NECK: Supple without lymphadenopathy. CHEST: Lungs are clear to auscultation bilaterally without wheezes or rales. CARDIOVASCULAR: Regular rhythm and rate. S1, S2 are normal without murmurs, rubs, or gallops. ABDOMEN: Soft, nontender, and nondistended. Positive bowel sounds. No evidence of hepatosplenomegaly. Currently no rebound or guarding noted. EXTREMITIES: Negative for clubbing, cyanosis, or edema. RECTAL/GENITAL: Not performed. NEUROLOGIC: Cranial nerves II through XII are grossly intact without focal deficits. Motor strength is 5/5 bilaterally. Deep tendon reflexes are 2+ plantar. Assessment/Plan Assessment/Plan ASSESSMENT: This is an 85-year-old male. 1. COVID-19 pneumonia. 2. Urinary tract infection. 3. Abdominal pain. 4. Benign prostatic hypertrophy. 5. Hypertension. 6. Cerebrovascular disease. 7. Chronic obstructive pulmonary disease. TREATMENT: 1. Urinary tract infection. Continue ceftriaxone. Urine culture = no growth 2. COVID-19 pneumonia. ABX=azithromycin and ceftriaxone. The patient is currently tolerating room air. Infectious disease = /[place]. Pulmonary/critical care= Dr. Elisabet Mendez. 3. Benign prostatic hypertrophy. The patient currently has a Dennison catheter in place. 4. Hypertension. Continue amlodipine and hydralazine as above. 5. History of cerebrovascular disease. 6. Chronic obstructive pulmonary disease. David Jonas MD May 09, 2020 12:24
--- NOTE | 2020-05-09 12:51 | Consultation ---
History of Present Illness General Referring physician: Dr. Jonas Reason for Consultation: COVID+ Present Illness HPI 85-year-old male with history of CVA, BPH with chronic indwelling Dennison, COPD presents for evaluation of abdominal pain and weakness. Patient complaining of cramping and tenderness in the lower abdomen. He states his Dennison is no longer draining since this morning. Has had a dark color to it lately. Denies fever, chills, nausea, vomiting, diarrhea, chest pain, cough, congestion. He feels globally weak. He was tested positive for COVID in ER and his CXR showed RLL infiltrate. Allergies: Coded Allergies: PENICILLINS (Verified Allergy, Unknown, 11/16/16) Medication History Scheduled Amlodipine Besylate (Norvasc), 5 MG ORAL BID@0900,2100 Atorvastatin Calcium* (Lipitor*), 80 MG ORAL BEDTIME, (Reported) Ezetimibe (Zetia*), 10 MG ORAL BEDTIME, (Reported) Hydralazine HCl (Hydralazine HCl), 50 MG ORAL Q8HR Tamsulosin HCl (Flomax), 0.4 MG ORAL BEDTIME Discontinued Medications Acetaminophen* (Acetaminophen 325MG Tablet*), 650 MG ORAL Q6H PRN for For Pain, (Reported) Discontinued Reason: Pt stopped taking med Alfuzosin* (Uroxatrol*), 10 MG PO QHS, (Reported) Discontinued Reason: Pt stopped taking med Aspirin* (Aspirin*), 81 MG ORAL DAILY, (Reported) Discontinued Reason: Pt stopped taking med Cefepime Hcl/D5w (Cefepime-Dextrose 2 Gm/50 Ml), 2 GM IVPB DAILY Discontinued Reason: Pt stopped taking med Lidocaine HCL 2% Jelly* (Lidocaine Jelly 2%*), 0 TOPIC TID, (Reported) Discontinued Reason: Pt stopped taking med Magnesium Oxide (Magnesium Oxide), 400 MG ORAL DAILY, (Reported) Discontinued Reason: Pt stopped taking med Mirtazapine* (Remeron*), 30 MG ORAL BEDTIME, (Reported) Discontinued Reason: Pt stopped taking med Riboflavin (Riboflavin), 400 MG PO DAILY, (Reported) Discontinued Reason: Pt stopped taking med Patient History Healthcare decision maker Resuscitation status Advanced Directive on File Past Medical/Surgical History Past Medical/Surgical History: (1) Pneumonia (2) History of CVA (cerebrovascular accident) (3) COPD (chronic obstructive pulmonary disease) (4) Obstructed Dennison catheter Review of Systems All Other Systems: negative except mentioned in HPI Physical Exam General Appearance: thin Lines, tubes and drains: peripheral HEENT: normocephalic, atraumatic Neck: non-tender, normal alignment Respiratory/Chest: chest wall non-tender, lungs clear Cardiovascular/Chest: normal peripheral pulses, normal rate Abdomen: normal bowel sounds, non tender Genitourinary/Rectal: normal rectal exam Extremities: normal range of motion Skin Exam: cyanotic Last 24 Hour Vital Signs Date Time Temp Pulse Resp B/P (MAP) Pulse Ox O2 Delivery O2 Flow Rate FiO2 05/09/20 12:00 97.0 88 20 130/64 (86) 99 05/09/20 08:40 84 135/69 05/09/20 08:10 Room Air 05/09/20 08:00 97.5 84 20 135/69 (91) 96 05/09/20 05:19 144/68 05/09/20 04:00 97.8 93 19 144/68 (93) 97 05/09/20 00:00 97.3 88 19 118/63 (81) 92 05/08/20 22:00 108/53 05/08/20 21:00 Room Air 05/08/20 20:33 97 112/62 05/08/20 20:00 96.6 97 18 112/62 (79) 96 05/08/20 17:10 Room Air 05/08/20 16:40 97.3 49 18 125/61 (82) 95 05/08/20 16:30 97.8 86 25 144/96 99 Room Air 05/08/20 14:55 98.2 85 30 143/67 99 Room Air 05/08/20 13:35 98.0 92 18 130/80 99 Room Air Intake and Output0 05/08/20 05/09/20 18:59 06:59 Intake Total 50 ml Output Total 750 ml 200 ml Balance -700 ml -200 ml Intake IV Total 50 ml Output Urine Total 750 ml 200 ml Laboratory Tests Test 05/09/20 07:15 White Blood Count 5.7 K/UL (4.8-10.8) Red Blood Count 4.13 M/UL (4.70-6.10) L Hemoglobin 12.8 G/DL (14.2-18.0) L Hematocrit 36.4 % (42.0-52.0) L Mean Corpuscular Volume 88 FL (80-99) Mean Corpuscular Hemoglobin 31.1 PG (27.0-31.0) H Mean Corpuscular Hemoglobin Concent 35.3 G/DL (32.0-36.0) Red Cell Distribution Width 14.7 % (11.6-14.8) Platelet Count 217 K/UL (150-450) Mean Platelet Volume 6.8 FL (6.5-10.1) Neutrophils (%) (Auto) 51.8 % (45.0-75.0) Lymphocytes (%) (Auto) 36.2 % (20.0-45.0) Monocytes (%) (Auto) 8.9 % (1.0-10.0) Eosinophils (%) (Auto) 2.5 % (0.0-3.0) Basophils (%) (Auto) 0.5 % (0.0-2.0) Sodium Level 140 MMOL/L (136-145) Potassium Level 3.7 MMOL/L (3.5-5.1) Chloride Level 105 MMOL/L (98-107) Carbon Dioxide Level 28 MMOL/L (21-32) Anion Gap 7 mmol/L (5-15) Blood Urea Nitrogen 15 mg/dL (7-18) Creatinine 1.2 MG/DL (0.55-1.30) Estimat Glomerular Filtration Rate > 60 mL/min (>60) Glucose Level 117 MG/DL (74-106) H Calcium Level 8.7 MG/DL (8.5-10.1) Microbiology Date/Time Source Procedure Growth Status 05/08/20 21:00 Indwelling Cath Urine Culture - Preliminary NO GROWTH Resulted 05/08/20 16:30 Rectum Received Height (Feet): 6 Height (Inches): 1.00 Weight (Pounds): 150 Medications Current Medications Medications (Trade) Dose Ordered Sig/Ja Route PRN Reason Start Time Stop Time Status Last Admin Dose Admin Acetaminophen (Tylenol) 650 mg Q4H PRN ORAL Mild Pain (Pain Scale 1-3) 05/08/20 18:15 06/07/20 18:14 Acetaminophen (Tylenol) 650 mg Q4H PRN ORAL Temp >100.5 05/08/20 18:15 06/07/20 18:14 Albuterol Sulfate (Proventil MDI) 2 puff Q4H PRN INH Shortness of Breath 05/08/20 19:00 08/06/20 18:59 Amlodipine Besylate (Norvasc) 5 mg BID@0900,2100 ORAL 05/08/20 21:00 06/07/20 20:59 05/09/20 08:40 Atorvastatin Calcium (Lipitor) 80 mg BEDTIME ORAL 05/08/20 21:00 08/06/20 20:59 05/08/20 20:37 Azithromycin 500 mg/Dextrose 275 ml @ 275 mls/hr Q24HRS IV 05/09/20 13:00 05/15/20 13:59 Ceftriaxone Sodium 1 gm/ Dextrose 55 ml @ 110 mls/hr Q24H IVPB 05/09/20 11:00 05/16/20 10:59 05/09/20 11:06 Dextrose (Dextrose 50%) 25 ml Q30M PRN IV Hypoglycemia 05/08/20 18:15 08/06/20 18:14 Dextrose (Dextrose 50%) 50 ml Q30M PRN IV Hypoglycemia 05/08/20 18:15 08/06/20 18:14 Enoxaparin Sodium (Lovenox) 40 mg Q24H SUBQ 05/08/20 21:00 08/06/20 20:59 05/08/20 20:38 EZETIMIBE (Zetia) 10 mg BEDTIME ORAL 05/08/20 21:00 06/07/20 20:59 05/08/20 20:37 Hydralazine HCl (Apresoline) 50 mg Q8HR ORAL 05/08/20 22:00 08/06/20 21:59 05/09/20 05:19 Lorazepam (Ativan) 1 mg Q4H PRN ORAL For Anxiety 05/08/20 18:15 05/15/20 18:14 Ondansetron HCl (Zofran) 4 mg Q6H PRN IVP Nausea & Vomiting 05/08/20 18:15 06/07/20 18:14 Pantoprazole (Protonix) 40 mg DAILY ORAL 05/09/20 09:00 06/08/20 08:59 05/09/20 08:34 Tamsulosin HCl (Flomax) 0.4 mg BEDTIME ORAL 05/08/20 21:00 06/07/20 20:59 05/08/20 20:37 Zolpidem Tartrate (Ambien) 5 mg HSPRN PRN ORAL Insomnia 05/08/20 18:15 05/15/20 18:14 Assessment/Plan Problem List: (1) Pneumonia ICD Codes: J18.9 - Pneumonia, unspecified organism SNOMED: 985894620 (2) COVID-19 ICD Codes: U07.1 - COVID-19 SNOMED: 234759214 (3) Episode of generalized weakness ICD Codes: R53.1 - Weakness SNOMED: 74055399 (4) COPD (chronic obstructive pulmonary disease) ICD Codes: J44.9 - Chronic obstructive pulmonary disease, unspecified SNOMED: 45662989 (5) Obstructed Dennison catheter ICD Codes: T83.091A - Other mechanical complication of indwelling urethral c atheter, initial encounter SNOMED: 464380275 (6) History of CVA (cerebrovascular accident) ICD Codes: Z86.73 - Personal history of transient ischemic attack (TIA), and cerebral infarction without residual deficits SNOMED: 857543166 Assessment/Plan: Dennison was reinserted ID to see ABX for UTI pt/ ptt respiratory treatment titrate fio2 to sat of 92% DVT prohylaxis. Elisabet Mendez MD May 09, 2020 12:51
[2020-05-09] MEDS: Azithromycin 500 MG in D5W 275 ML IV SCH (13:19)
[2020-05-09 16:00] VITALS: BP 119/65
[2020-05-09 20:00] VITALS: BP 105/63
[2020-05-09] MEDS: Enoxaparin 40mg Inj SUBQ SCH (20:56)
[2020-05-09] MEDS: Atorvastatin 80mg tab ORAL SCH (20:58)
[2020-05-09] MEDS: Tamsulosin 0.4mg cap ORAL SCH (20:58)
[2020-05-10] VITALS: BP 138/63
[2020-05-10 04:00] VITALS: BP 116/53
[2020-05-10] MEDS: HydrALAZINE 50mg tab ORAL SCH ×3 (05:21→21:05)
[2020-05-10 08:00] VITALS: BP 144/64
--- NOTE | 2020-05-10 09:03 | Infectious Diseases Prog Note ---
Assessment/Plan 85yo M with: Afebrile Normal WBC COVID+ Weakness Hypoxia on RA 05/08 COVID rapid test positive BCx p CXR: Hazy bibasilar infiltrates Indwelling rossi Lower abd pain 05/08 UA 5-10 WBC, UCx >100k mixed organisms 05/08 UCx 50-60k Micrococcus species BENNETT, improving Cr 1.4 --> 1.2 Plan: Start dexamethasone 6mg daily given O2 sat on RA of 93% Cont CTX/azithro #3/5 for UTI/pna F/u BCx, UCx Trend resp status, if worsens will start remdesivir Monitor CBC/CMP Monitor temp curve, hemodynamics Monitor resp status D/w RN Thank you for this consult. [facility] will continue to follow. Subjective Allergies: Coded Allergies: PENICILLINS (Verified Allergy, Unknown, 11/16/16) AF NAD C/o constipation Now satting 93% on RA, so on 1L NC Objective Last 24 Hour Vital Signs Date Time Temp Pulse Resp B/P (MAP) Pulse Ox O2 Delivery O2 Flow Rate FiO2 05/10/20 08:55 76 144/64 05/10/20 08:00 97.6 76 18 144/64 (90) 100 05/10/20 05:21 103/60 05/10/20 04:00 97.5 82 19 116/53 (74) 99 05/10/20 02:53 97.5 05/10/20 00:00 97.5 88 19 138/63 (88) 97 05/09/20 22:34 131/79 05/09/20 21:00 Room Air 05/09/20 20:57 82 105/63 05/09/20 20:00 97.9 82 19 105/63 (77) 96 05/09/20 16:00 97.5 20 119/65 (83) 99 05/09/20 13:25 140/92 05/09/20 12:00 97.0 88 20 130/64 (86) 99 Height (Feet): 6 Height (Inches): 1.00 Weight (Pounds): 150 Gen: NAD HEENT: NCAT Pulm: BL chest rise Abd: Non-distended Ext: No c/c/e Skin: No visible rashes Neuro: Awake Microbiology Date/Time Source Procedure Growth Status 05/08/20 21:00 Indwelling Cath Urine Culture - Final Micrococcus Species Complete 05/08/20 16:30 Rectum Received 05/08/20 16:30 Nasal Nares MRSA Culture - Final NO METHICILLIN RESISTANT STAPH AUREUS... Complete 05/08/20 10:30 Nasopharynx SARS-CoV-2 RdRp Gene Assay - Final Complete 05/08/20 10:15 Urine,Clean Catch Urine Culture - Final Mixed Gram Positive Organism Complete 05/08/20 09:20 Blood Blood Culture - Preliminary NO GROWTH AFTER 24 HOURS Resulted 05/08/20 09:05 Blood Blood Culture - Preliminary NO GROWTH AFTER 24 HOURS Resulted Current Medications Medications (Trade) Dose Ordered Sig/Ja Route PRN Reason Start Time Stop Time Status Last Admin Dose Admin Acetaminophen (Tylenol) 650 mg Q4H PRN ORAL Mild Pain (Pain Scale 1-3) 05/08/20 18:15 06/07/20 18:14 05/10/20 02:23 Acetaminophen (Tylenol) 650 mg Q4H PRN ORAL Temp >100.5 05/08/20 18:15 06/07/20 18:14 Albuterol Sulfate (Proventil MDI) 2 puff Q4H PRN INH Shortness of Breath 05/08/20 19:00 08/06/20 18:59 Amlodipine Besylate (Norvasc) 5 mg BID@0900,2100 ORAL 05/08/20 21:00 06/07/20 20:59 05/10/20 08:55 Atorvastatin Calcium (Lipitor) 80 mg BEDTIME ORAL 05/08/20 21:00 08/06/20 20:59 05/09/20 20:58 Azithromycin 500 mg/Dextrose 275 ml @ 275 mls/hr Q24HRS IV 05/09/20 13:00 05/15/20 13:59 05/09/20 13:19 Ceftriaxone Sodium 1 gm/ Dextrose 55 ml @ 110 mls/hr Q24H IVPB 05/09/20 11:00 05/16/20 10:59 05/09/20 11:06 Dextrose (Dextrose 50%) 25 ml Q30M PRN IV Hypoglycemia 05/08/20 18:15 08/06/20 18:14 Dextrose (Dextrose 50%) 50 ml Q30M PRN IV Hypoglycemia 05/08/20 18:15 08/06/20 18:14 Enoxaparin Sodium (Lovenox) 40 mg Q24H SUBQ 05/08/20 21:00 08/06/20 20:59 05/09/20 20:56 EZETIMIBE (Zetia) 10 mg BEDTIME ORAL 05/08/20 21:00 06/07/20 20:59 05/09/20 20:57 Hydralazine HCl (Apresoline) 50 mg Q8HR ORAL 05/08/20 22:00 08/06/20 21:59 05/09/20 22:34 Lorazepam (Ativan) 1 mg Q4H PRN ORAL For Anxiety 05/08/20 18:15 05/15/20 18:14 Ondansetron HCl (Zofran) 4 mg Q6H PRN IVP Nausea & Vomiting 05/08/20 18:15 06/07/20 18:14 Pantoprazole (Protonix) 40 mg DAILY ORAL 05/09/20 09:00 06/08/20 08:59 05/10/20 08:55 Tamsulosin HCl (Flomax) 0.4 mg BEDTIME ORAL 05/08/20 21:00 06/07/20 20:59 05/09/20 20:58 Zolpidem Tartrate (Ambien) 5 mg HSPRN PRN ORAL Insomnia 05/08/20 18:15 05/15/20 18:14 Sofya Tam M.D. May 10, 2020 09:03
[2020-05-10 12:00] VITALS: BP 99/55
[2020-05-10] MEDS: cefTRIAXone 1 GM in D5W 55 ML IVPB SCH (12:22)
--- NOTE | 2020-05-10 12:40 | Pulmonology Progress Note ---
Subjective ROS Limited/Unobtainable: No Constitutional: Reports: no symptoms HEENT: Repors: no symptoms Allergies: Coded Allergies: PENICILLINS (Verified Allergy, Unknown, 11/16/16) Objective Last 24 Hour Vital Signs Date Time Temp Pulse Resp B/P (MAP) Pulse Ox O2 Delivery O2 Flow Rate FiO2 05/10/20 08:55 76 144/64 05/10/20 08:00 97.6 76 18 144/64 (90) 100 05/10/20 05:21 103/60 05/10/20 04:00 97.5 82 19 116/53 (74) 99 05/10/20 02:53 97.5 05/10/20 00:00 97.5 88 19 138/63 (88) 97 05/09/20 22:34 131/79 05/09/20 21:00 Room Air 05/09/20 20:57 82 105/63 05/09/20 20:00 97.9 82 19 105/63 (77) 96 05/09/20 16:00 97.5 20 119/65 (83) 99 05/09/20 13:25 140/92 Intake and Output 05/09/20 05/10/20 19:00 07:00 Intake Total 150 ml Output Total 250 ml 250 ml Balance -250 ml -100 ml Intake Oral 150 ml Output Urine Total 250 ml 250 ml General Appearance: WD/WN HEENT: normocephalic, atraumatic, PERRL Respiratory: lungs clear, normal breath sounds Cardiovascular: normal peripheral pulses, normal rate Abdomen: normal bowel sounds, soft, non tender Genitourinary: normal external genitalia Extremities: no cyanosis Skin: no rash Microbiology Date/Time Source Procedure Growth Status 05/08/20 21:00 Indwelling Cath Urine Culture - Final Micrococcus Species Complete 05/08/20 16:30 Rectum - Final NO CARBAPENEM-RESISTANT ENTEROBACTERI... Complete 05/08/20 16:30 Nasal Nares MRSA Culture - Final NO METHICILLIN RESISTANT STAPH AUREUS... Complete 05/08/20 16:00 Rectum VRE Culture - Final NO VANCOMYCIN RESISTANT ENTEROCOCCUS ... Complete 05/08/20 10:30 Nasopharynx SARS-CoV-2 RdRp Gene Assay - Final Complete 05/08/20 10:15 Urine,Clean Catch Urine Culture - Final Mixed Gram Positive Organism Complete 05/08/20 09:20 Blood Blood Culture - Preliminary NO GROWTH AFTER 24 HOURS Resulted 05/08/20 09:05 Blood Blood Culture - Preliminary NO GROWTH AFTER 24 HOURS Resulted Current Medications Medications (Trade) Dose Ordered Sig/Ja Route PRN Reason Start Time Stop Time Status Last Admin Dose Admin Acetaminophen (Tylenol) 650 mg Q4H PRN ORAL Mild Pain (Pain Scale 1-3) 05/08/20 18:15 06/07/20 18:14 05/10/20 02:23 Acetaminophen (Tylenol) 650 mg Q4H PRN ORAL Temp >100.5 05/08/20 18:15 06/07/20 18:14 Albuterol Sulfate (Proventil MDI) 2 puff Q4H PRN INH Shortness of Breath 05/08/20 19:00 08/06/20 18:59 Amlodipine Besylate (Norvasc) 5 mg BID@0900,2100 ORAL 05/08/20 21:00 06/07/20 20:59 05/10/20 08:55 Atorvastatin Calcium (Lipitor) 80 mg BEDTIME ORAL 05/08/20 21:00 08/06/20 20:59 05/09/20 20:58 Azithromycin 500 mg/Dextrose 275 ml @ 275 mls/hr Q24HRS IV 05/09/20 13:00 05/15/20 13:59 05/09/20 13:19 Ceftriaxone Sodium 1 gm/ Dextrose 55 ml @ 110 mls/hr Q24H IVPB 05/09/20 11:00 05/16/20 10:59 05/10/20 12:22 Dextrose (Dextrose 50%) 25 ml Q30M PRN IV Hypoglycemia 05/08/20 18:15 08/06/20 18:14 Dextrose (Dextrose 50%) 50 ml Q30M PRN IV Hypoglycemia 05/08/20 18:15 08/06/20 18:14 Enoxaparin Sodium (Lovenox) 40 mg Q24H SUBQ 05/08/20 21:00 08/06/20 20:59 05/09/20 20:56 EZETIMIBE (Zetia) 10 mg BEDTIME ORAL 05/08/20 21:00 06/07/20 20:59 05/09/20 20:57 Hydralazine HCl (Apresoline) 50 mg Q8HR ORAL 05/08/20 22:00 08/06/20 21:59 05/09/20 22:34 Lorazepam (Ativan) 1 mg Q4H PRN ORAL For Anxiety 05/08/20 18:15 05/15/20 18:14 Ondansetron HCl (Zofran) 4 mg Q6H PRN IVP Nausea & Vomiting 05/08/20 18:15 06/07/20 18:14 Pantoprazole (Protonix) 40 mg DAILY ORAL 05/09/20 09:00 06/08/20 08:59 05/10/20 08:55 Tamsulosin HCl (Flomax) 0.4 mg BEDTIME ORAL 05/08/20 21:00 06/07/20 20:59 05/09/20 20:58 Zolpidem Tartrate (Ambien) 5 mg HSPRN PRN ORAL Insomnia 05/08/20 18:15 05/15/20 18:14 Assessment/Plan Problems: (1) Pneumonia (2) COVID-19 (3) Episode of generalized weakness (4) COPD (chronic obstructive pulmonary disease) (5) Obstructed Dennison catheter (6) History of CVA (cerebrovascular accident) Assessment/Plan all reviewed doing ok no new complaisn ID consult appreciated ABX for UTI pt/ ptt respiratory treatment titrate fio2 to sat of 92% DVT prohylaxis. Elisabet Mendez MD May 10, 2020 12:40
[2020-05-10] MEDS: Docusate 100mg cap ORAL SCH ×2 (12:56→18:18)
[2020-05-10] MEDS: Azithromycin 500 MG in D5W 275 ML IV SCH (12:56)
[2020-05-10] MEDS: Lactulose 20gm/30ml UDC ORAL SCH ×2 (12:56→18:18)
--- NOTE | 2020-05-10 14:00 | Internal Med Progress Note ---
Subjective Physician Name Fernando Sierra Attending Physician Fernando Sierra MD Current Medications Medications (Trade) Dose Ordered Sig/Ja Route PRN Reason Start Time Stop Time Status Last Admin Dose Admin Acetaminophen (Tylenol) 650 mg Q4H PRN ORAL Mild Pain (Pain Scale 1-3) 05/08/20 18:15 06/07/20 18:14 05/10/20 02:23 Acetaminophen (Tylenol) 650 mg Q4H PRN ORAL Temp >100.5 05/08/20 18:15 06/07/20 18:14 Albuterol Sulfate (Proventil MDI) 2 puff Q4H PRN INH Shortness of Breath 05/08/20 19:00 08/06/20 18:59 Amlodipine Besylate (Norvasc) 5 mg BID@0900,2100 ORAL 05/08/20 21:00 06/07/20 20:59 05/10/20 08:55 Atorvastatin Calcium (Lipitor) 80 mg BEDTIME ORAL 05/08/20 21:00 08/06/20 20:59 05/09/20 20:58 Azithromycin 500 mg/Dextrose 275 ml @ 275 mls/hr Q24HRS IV 05/09/20 13:00 05/15/20 13:59 05/10/20 12:56 Ceftriaxone Sodium 1 gm/ Dextrose 55 ml @ 110 mls/hr Q24H IVPB 05/09/20 11:00 05/16/20 10:59 05/10/20 12:22 Dexamethasone Sodium Phosphate (Decadron 10mg/ ml Inj) 6 mg DAILY IV 05/10/20 13:30 05/19/20 09:01 Dextrose (Dextrose 50%) 25 ml Q30M PRN IV Hypoglycemia 05/08/20 18:15 08/06/20 18:14 Dextrose (Dextrose 50%) 50 ml Q30M PRN IV Hypoglycemia 05/08/20 18:15 08/06/20 18:14 Docusate Sodium (Colace) 100 mg THREE TIMES A DAY ORAL 05/10/20 13:00 06/09/20 12:59 05/10/20 12:56 Enoxaparin Sodium (Lovenox) 40 mg Q24H SUBQ 05/08/20 21:00 08/06/20 20:59 05/09/20 20:56 EZETIMIBE (Zetia) 10 mg BEDTIME ORAL 05/08/20 21:00 06/07/20 20:59 05/09/20 20:57 Hydralazine HCl (Apresoline) 50 mg Q8HR ORAL 05/08/20 22:00 08/06/20 21:59 05/09/20 22:34 Lactulose (Cephulac) 30 gm THREE TIMES A DAY ORAL 05/10/20 13:00 06/09/20 12:59 05/10/20 12:56 Lorazepam (Ativan) 1 mg Q4H PRN ORAL For Anxiety 05/08/20 18:15 05/15/20 18:14 Mineral Oil (Fleet's Mineral Oil Enema) 133 ml EVERY OTHER DAY RECTAL 05/12/20 09:00 06/11/20 08:59 Ondansetron HCl (Zofran) 4 mg Q6H PRN IVP Nausea & Vomiting 05/08/20 18:15 06/07/20 18:14 Pantoprazole (Protonix) 40 mg DAILY ORAL 05/09/20 09:00 06/08/20 08:59 05/10/20 08:55 Tamsulosin HCl (Flomax) 0.4 mg BEDTIME ORAL 05/08/20 21:00 06/07/20 20:59 05/09/20 20:58 Zolpidem Tartrate (Ambien) 5 mg HSPRN PRN ORAL Insomnia 05/08/20 18:15 05/15/20 18:14 Allergies: Coded Allergies: PENICILLINS (Verified Allergy, Unknown, 11/16/16) Subjective patient in [place] [address] respiratory and isolation room, denies any chest pain or shortness of breath, complained about constipation. Objective Last Vital Signs Date Time Temp Pulse Resp B/P (MAP) Pulse Ox O2 Delivery O2 Flow Rate FiO2 05/10/20 12:00 98.1 82 18 99/55 (70) 99 05/10/20 09:00 Room Air Microbiology Date/Time Source Procedure Growth Status 05/08/20 21:00 Indwelling Cath Urine Culture - Final Micrococcus Species Complete 05/08/20 16:30 Rectum - Final NO CARBAPENEM-RESISTANT ENTEROBACTERI... Complete 05/08/20 16:30 Nasal Nares MRSA Culture - Final NO METHICILLIN RESISTANT STAPH AUREUS... Complete 05/08/20 16:00 Rectum VRE Culture - Final NO VANCOMYCIN RESISTANT ENTEROCOCCUS ... Complete 05/08/20 10:30 Nasopharynx SARS-CoV-2 RdRp Gene Assay - Final Complete 05/08/20 10:15 Urine,Clean Catch Urine Culture - Final Mixed Gram Positive Organism Complete 05/08/20 09:20 Blood Blood Culture - Preliminary NO GROWTH AFTER 24 HOURS Resulted 05/08/20 09:05 Blood Blood Culture - Preliminary NO GROWTH AFTER 24 HOURS Resulted Intake and Output 05/09/20 05/10/20 19:00 07:00 Intake Total 150 ml Output Total 250 ml 250 ml Balance -250 ml -100 ml Intake Oral 150 ml Output Urine Total 250 ml 250 ml Objective General: No acute distress, awake and alert HEENT: NCAT, sclera anicteric, PERRL, EOMI. Neck: Supple, no significant jugular venous distention, Lungs: Fair inspiratory effort, no accessory muscle use, no Wheeze or Rales. Heart: Regular rate and rhythm, normal S1/S2, no murmurs Abdomen: soft, nontender, nondistended. Normoactive bowel sounds. / Rectal: Refused and deferred. Extremities: No Cyanosis , clubbing or edema. Neuro: A&O x 3, Able to move all extremities Skin: warm, no rashes or lesions Psych: Normal mood and affect Assessment/Plan Assessment/Plan ASSESSMENT: This is an 85-year-old male. 1. COVID-19 pneumonia. 2. Urinary tract infection. 3. Abdominal pain. 4. Benign prostatic hypertrophy. 5. Hypertension. 6. Cerebrovascular disease. 7. Chronic obstructive pulmonary disease. TREATMENT: 1. Urinary tract infection. 2. COVID-19 pneumonia. ABX=azithromycin and ceftriaxone. The patient is currently tolerating room air. Infectious disease = /Yonatan. Pulmonary/critical care= Dr. Elisabet Mendez. 3. Benign prostatic hypertrophy. The patient currently has a Dennison catheter in place. 4. Hypertension. Continue amlodipine and hydralazine as above. 5. History of cerebrovascular disease. 6. Chronic obstructive pulmonary disease. on Decadron IV CODE STATUS: full code DVT prophylaxis: Lovenox. Fernando Sierra MD May 10, 2020 14:00
[2020-05-10] MEDS: dexAMETHasone 10mg/ml Inj IV SCH (14:25)
[2020-05-10 16:00] VITALS: BP 118/60
[2020-05-10 20:00] VITALS: BP 128/65
[2020-05-10] MEDS: Tamsulosin 0.4mg cap ORAL SCH (21:05)
[2020-05-10] MEDS: Atorvastatin 80mg tab ORAL SCH (21:05)
[2020-05-10] MEDS: Enoxaparin 40mg Inj SUBQ SCH (21:06)
[2020-05-11] VITALS: BP 124/58
[2020-05-11 04:00] VITALS: BP 150/65
[2020-05-11] MEDS: HydrALAZINE 50mg tab ORAL SCH ×3 (05:21→22:40)
[2020-05-11 06:46] LABS: BASOPHILS % (AUTO) 1.4 % (0.0-2.0); EOSINOPHILS % (AUTO) 3.8 % (0.0-3.0); HEMATOCRIT 35.5 % (42.0-52.0); HEMOGLOBIN 11.7 G/DL (14.2-18.0); LYMPHOCYTES % (AUTO) 32.8 % (20.0-45.0); MEAN CORPUSCULAR VOLUME 93 FL (80-99); MONOCYTES % (AUTO) 8.8 % (1.0-10.0); NEUTROPHILS % (AUTO) 53.3 % (45.0-75.0); PLATELET COUNT 234 K/UL (150-450); RED BLOOD COUNT 3.84 M/UL (4.70-6.10); WHITE BLOOD COUNT 5.5 K/UL (4.8-10.8)
[2020-05-11 06:58] LABS: ALANINE AMINOTRANSFERASE 10 U/L (12-78); ALBUMIN 2.8 G/DL (3.4-5.0); ALBUMIN/GLOBULIN RATIO 0.6 (1.0-2.7); ALKALINE PHOSPHATASE 73 U/L (46-116); ANION GAP 7 mmol/L (5-15); ASPARTATE AMINO TRANSFERASE 19 U/L (15-37); BILIRUBIN,TOTAL 0.4 MG/DL (0.2-1.0); BLOOD UREA NITROGEN 10 mg/dL (7-18); CALCIUM 8.7 MG/DL (8.5-10.1); CARBON DIOXIDE 27 MMOL/L (21-32); CHLORIDE 105 MMOL/L (98-107); CREATININE 1.1 MG/DL (0.55-1.30); PHOSPHORUS 3.1 MG/DL (2.5-4.9); SODIUM 139 MMOL/L (136-145)
[2020-05-11 08:00] VITALS: BP 141/69
[2020-05-11] MEDS: Lactulose 20gm/30ml UDC ORAL SCH ×3 (09:09→17:58)
[2020-05-11] MEDS: Docusate 100mg cap ORAL SCH ×3 (09:09→17:58)
[2020-05-11] MEDS: dexAMETHasone 10mg/ml Inj IV SCH (09:10)
--- NOTE | 2020-05-11 09:15 | Infectious Diseases Prog Note ---
Assessment/Plan 85yo M with: Afebrile Normal WBC COVID+ Weakness Hypoxia on RA GPC bacteremia, r/o contaminant 05/08 COVID rapid test positive BCx 1/2 +GPCx CXR: Hazy bibasilar infiltrates 05/11 BCx ordered Indwelling rossi Lower abd pain 05/08 UA 5-10 WBC, UCx >100k mixed organisms 05/08 UCx 50-60k Micrococcus species BENNETT, improving Cr 1.4 --> 1.2 Plan: Cont dexamethasone 6mg daily #2 given O2 sat on RA of 93% Cont CTX/azithro #4/5 for UTI/pna Start vanco IV given GPCs in BCx from admission Repeat BCx today given GPCs in prior F/u 05/08 BCx +GPCs, ?contaminant Trend resp status, if worsens will start remdesivir (currently 97-98% on RA) Monitor CBC/CMP Monitor temp curve, hemodynamics Monitor resp status D/w RN Thank you for this consult. [facility] will continue to follow. Subjective Allergies: Coded Allergies: PENICILLINS (Verified Allergy, Unknown, 11/16/16) AF NAD 1/2 BCx from admission +GPCs Satting 97-98% on RA when checked by RA this morning Objective Last 24 Hour Vital Signs Date Time Temp Pulse Resp B/P (MAP) Pulse Ox O2 Delivery O2 Flow Rate FiO2 05/11/20 09:09 88 141/69 05/11/20 05:21 150/65 05/11/20 04:00 97.5 79 19 150/65 (93) 98 05/11/20 00:00 96.7 86 19 124/58 (80) 94 05/10/20 21:05 135/68 05/10/20 21:05 81 135/68 05/10/20 21:00 Room Air 05/10/20 20:00 97.7 81 19 128/65 (86) 93 05/10/20 16:00 98.0 76 18 118/60 (79) 97 05/10/20 14:00 99/55 05/10/20 12:00 98.1 82 18 99/55 (70) 99 Height (Feet): 6 Height (Inches): 1.00 Weight (Pounds): 150 Gen: NAD HEENT: NCAT Pulm: BL chest rise Abd: Non-distended Ext: No c/c/e Skin: No visible rashes Neuro: Awake Microbiology Date/Time Source Procedure Growth Status 05/08/20 21:00 Indwelling Cath Urine Culture - Final Micrococcus Species Complete 05/08/20 16:30 Rectum - Final NO CARBAPENEM-RESISTANT ENTEROBACTERI... Complete 05/08/20 16:30 Nasal Nares MRSA Culture - Final NO METHICILLIN RESISTANT STAPH AUREUS... Complete 05/08/20 16:00 Rectum VRE Culture - Final NO VANCOMYCIN RESISTANT ENTEROCOCCUS ... Complete 05/08/20 10:30 Nasopharynx SARS-CoV-2 RdRp Gene Assay - Final Complete 05/08/20 10:15 Urine,Clean Catch Urine Culture - Final Mixed Gram Positive Organism Complete 05/08/20 09:20 Blood Blood Culture - Preliminary NO GROWTH AFTER 48 HOURS Resulted Laboratory Tests Test 05/11/20 04:00 White Blood Count 5.5 K/UL (4.8-10.8) Red Blood Count 3.84 M/UL (4.70-6.10) L Hemoglobin 11.7 G/DL (14.2-18.0) L Hematocrit 35.5 % (42.0-52.0) L Mean Corpuscular Volume 93 FL (80-99) Mean Corpuscular Hemoglobin 30.6 PG (27.0-31.0) Mean Corpuscular Hemoglobin Concent 33.1 G/DL (32.0-36.0) Red Cell Distribution Width 14.0 % (11.6-14.8) Platelet Count 234 K/UL (150-450) Mean Platelet Volume 6.8 FL (6.5-10.1) Neutrophils (%) (Auto) 53.3 % (45.0-75.0) Lymphocytes (%) (Auto) 32.8 % (20.0-45.0) Monocytes (%) (Auto) 8.8 % (1.0-10.0) Eosinophils (%) (Auto) 3.8 % (0.0-3.0) H Basophils (%) (Auto) 1.4 % (0.0-2.0) Erythrocyte Sedimentation Rate Pending Sodium Level 139 MMOL/L (136-145) Potassium Level 4.0 MMOL/L (3.5-5.1) Chloride Level 105 MMOL/L (98-107) Carbon Dioxide Level 27 MMOL/L (21-32) Anion Gap 7 mmol/L (5-15) Blood Urea Nitrogen 10 mg/dL (7-18) Creatinine 1.1 MG/DL (0.55-1.30) Estimat Glomerular Filtration Rate > 60 mL/min (>60) Glucose Level 113 MG/DL (74-106) H Calcium Level 8.7 MG/DL (8.5-10.1) Phosphorus Level 3.1 MG/DL (2.5-4.9) Magnesium Level 1.9 MG/DL (1.8-2.4) Total Bilirubin 0.4 MG/DL (0.2-1.0) Aspartate Amino Transf (AST/SGOT) 19 U/L (15-37) Alanine Aminotransferase (ALT/SGPT) 10 U/L (12-78) L Alkaline Phosphatase 73 U/L (46-116) C-Reactive Protein, Quantitative 2.0 mg/dL (0.00-0.90) H Total Protein 7.5 G/DL (6.4-8.2) Albumin 2.8 G/DL (3.4-5.0) L Globulin 4.7 g/dL Albumin/Globulin Ratio 0.6 (1.0-2.7) L Current Medications Medications (Trade) Dose Ordered Sig/Ja Route PRN Reason Start Time Stop Time Status Last Admin Dose Admin Acetaminophen (Tylenol) 650 mg Q4H PRN ORAL Mild Pain (Pain Scale 1-3) 05/08/20 18:15 06/07/20 18:14 05/10/20 02:23 Acetaminophen (Tylenol) 650 mg Q4H PRN ORAL Temp >100.5 05/08/20 18:15 06/07/20 18:14 Albuterol Sulfate (Proventil MDI) 2 puff Q4H PRN INH Shortness of Breath 05/08/20 19:00 08/06/20 18:59 Amlodipine Besylate (Norvasc) 5 mg BID@0900,2100 ORAL 05/08/20 21:00 06/07/20 20:59 05/11/20 09:09 Atorvastatin Calcium (Lipitor) 80 mg BEDTIME ORAL 05/08/20 21:00 08/06/20 20:59 05/10/20 21:05 Azithromycin 500 mg/Dextrose 275 ml @ 275 mls/hr Q24HRS IV 05/09/20 13:00 05/15/20 13:59 05/10/20 12:56 Ceftriaxone Sodium 1 gm/ Dextrose 55 ml @ 110 mls/hr Q24H IVPB 05/09/20 11:00 05/16/20 10:59 05/10/20 12:22 Dexamethasone Sodium Phosphate (Decadron 10mg/ ml Inj) 6 mg DAILY IV 05/10/20 13:30 05/19/20 09:01 05/11/20 09:10 Dextrose (Dextrose 50%) 25 ml Q30M PRN IV Hypoglycemia 05/08/20 18:15 08/06/20 18:14 Dextrose (Dextrose 50%) 50 ml Q30M PRN IV Hypoglycemia 05/08/20 18:15 08/06/20 18:14 Docusate Sodium (Colace) 100 mg THREE TIMES A DAY ORAL 05/10/20 13:00 06/09/20 12:59 05/11/20 09:09 Enoxaparin Sodium (Lovenox) 40 mg Q24H SUBQ 05/08/20 21:00 08/06/20 20:59 05/10/20 21:06 EZETIMIBE (Zetia) 10 mg BEDTIME ORAL 05/08/20 21:00 06/07/20 20:59 05/10/20 21:04 Hydralazine HCl (Apresoline) 50 mg Q8HR ORAL 05/08/20 22:00 08/06/20 21:59 05/11/20 05:21 Lactulose (Cephulac) 30 gm THREE TIMES A DAY ORAL 05/10/20 13:00 06/09/20 12:59 05/11/20 09:09 Lorazepam (Ativan) 1 mg Q4H PRN ORAL For Anxiety 05/08/20 18:15 05/15/20 18:14 Mineral Oil (Fleet's Mineral Oil Enema) 133 ml EVERY OTHER DAY RECTAL 05/12/20 09:00 06/11/20 08:59 Ondansetron HCl (Zofran) 4 mg Q6H PRN IVP Nausea & Vomiting 05/08/20 18:15 06/07/20 18:14 Pantoprazole (Protonix) 40 mg DAILY ORAL 05/09/20 09:00 06/08/20 08:59 05/11/20 09:09 Tamsulosin HCl (Flomax) 0.4 mg BEDTIME ORAL 05/08/20 21:00 06/07/20 20:59 05/10/20 21:05 Zolpidem Tartrate (Ambien) 5 mg HSPRN PRN ORAL Insomnia 05/08/20 18:15 05/15/20 18:14 Sofya Tam M.D. May 11, 2020 09:15
[2020-05-11] MEDS: cefTRIAXone 1 GM in D5W 55 ML IVPB SCH (11:58)
[2020-05-11 12:00] VITALS: BP 143/62
--- NOTE | 2020-05-11 12:10 | Pulmonology Progress Note ---
Subjective ROS Limited/Unobtainable: No Constitutional: Reports: no symptoms HEENT: Repors: no symptoms Allergies: Coded Allergies: PENICILLINS (Verified Allergy, Unknown, 11/16/16) Objective Last 24 Hour Vital Signs Date Time Temp Pulse Resp B/P (MAP) Pulse Ox O2 Delivery O2 Flow Rate FiO2 05/11/20 09:09 88 141/69 05/11/20 09:00 Room Air 05/11/20 08:00 97.7 80 19 141/69 (93) 96 05/11/20 05:21 150/65 05/11/20 04:00 97.5 79 19 150/65 (93) 98 05/11/20 00:00 96.7 86 19 124/58 (80) 94 05/10/20 21:05 135/68 05/10/20 21:05 81 135/68 05/10/20 21:00 Room Air 05/10/20 20:00 97.7 81 19 128/65 (86) 93 05/10/20 16:00 98.0 76 18 118/60 (79) 97 05/10/20 14:00 99/55 Intake and Output 05/10/20 05/11/20 19:00 07:00 Intake Total 350 ml Output Total 300 ml 550 ml Balance -300 ml -200 ml Intake Oral 350 ml Output Urine Total 300 ml 550 ml General Appearance: WD/WN HEENT: normocephalic, atraumatic, PERRL Respiratory: lungs clear, normal breath sounds Cardiovascular: normal peripheral pulses, normal rate Abdomen: normal bowel sounds, soft, non tender Genitourinary: normal external genitalia Extremities: no cyanosis Skin: no rash Microbiology Date/Time Source Procedure Growth Status 05/08/20 21:00 Indwelling Cath Urine Culture - Final Micrococcus Species Complete 05/08/20 16:30 Rectum - Final NO CARBAPENEM-RESISTANT ENTEROBACTERI... Complete 05/08/20 16:30 Nasal Nares MRSA Culture - Final NO METHICILLIN RESISTANT STAPH AUREUS... Complete 05/08/20 16:00 Rectum VRE Culture - Final NO VANCOMYCIN RESISTANT ENTEROCOCCUS ... Complete Laboratory Tests 05/11/20 04:00: White Blood Count 5.5, Red Blood Count 3.84L, Hemoglobin 11.7L, Hematocrit 35.5L , Mean Corpuscular Volume 93, Mean Corpuscular Hemoglobin 30.6, Mean Corpuscular Hemoglobin Concent 33.1, Red Cell Distribution Width 14.0, Platelet Count 234, Mean Platelet Volume 6.8, Neutrophils (%) (Auto) 53.3, Lymphocytes (%) (Auto) 32.8, Monocytes (%) (Auto) 8.8, Eosinophils (%) (Auto) 3.8H, Basophils (%) (Auto) 1.4, Erythrocyte Sedimentation Rate 67H, Sodium Level 139, Potassium Level 4.0, Chloride Level 105, Carbon Dioxide Level 27, Anion Gap 7, Blood Urea Nitrogen 10, Creatinine 1.1, Estimat Glomerular Filtration Rate > 60, Glucose Level 113H, Calcium Level 8.7, Phosphorus Level 3.1, Magnesium Level 1.9, Total Bilirubin 0.4, Aspartate Amino Transf (AST/SGOT) 19, Alanine Aminotransferase (ALT/SGPT) 10L, Alkaline Phosphatase 73, C-Reactive Protein, Quantitative 2.0H, Total Protein 7.5, Albumin 2.8L, Globulin 4.7, Albumin/Globulin Ratio 0.6L Current Medications Medications (Trade) Dose Ordered Sig/Ja Route PRN Reason Start Time Stop Time Status Last Admin Dose Admin Acetaminophen (Tylenol) 650 mg Q4H PRN ORAL Mild Pain (Pain Scale 1-3) 05/08/20 18:15 06/07/20 18:14 05/10/20 02:23 Acetaminophen (Tylenol) 650 mg Q4H PRN ORAL Temp >100.5 05/08/20 18:15 06/07/20 18:14 Albuterol Sulfate (Proventil MDI) 2 puff Q4H PRN INH Shortness of Breath 05/08/20 19:00 08/06/20 18:59 Amlodipine Besylate (Norvasc) 5 mg BID@0900,2100 ORAL 05/08/20 21:00 06/07/20 20:59 05/11/20 09:09 Atorvastatin Calcium (Lipitor) 80 mg BEDTIME ORAL 05/08/20 21:00 08/06/20 20:59 05/10/20 21:05 Azithromycin 500 mg/Dextrose 275 ml @ 275 mls/hr Q24HRS IV 05/09/20 13:00 05/15/20 13:59 05/10/20 12:56 Ceftriaxone Sodium 1 gm/ Dextrose 55 ml @ 110 mls/hr Q24H IVPB 05/09/20 11:00 05/16/20 10:59 05/11/20 11:58 Dexamethasone Sodium Phosphate (Decadron 10mg/ ml Inj) 6 mg DAILY IV 05/10/20 13:30 05/19/20 09:01 05/11/20 09:10 Dextrose (Dextrose 50%) 25 ml Q30M PRN IV Hypoglycemia 05/08/20 18:15 08/06/20 18:14 Dextrose (Dextrose 50%) 50 ml Q30M PRN IV Hypoglycemia 05/08/20 18:15 08/06/20 18:14 Docusate Sodium (Colace) 100 mg THREE TIMES A DAY ORAL 05/10/20 13:00 06/09/20 12:59 05/11/20 09:09 Enoxaparin Sodium (Lovenox) 40 mg Q24H SUBQ 05/08/20 21:00 08/06/20 20:59 05/10/20 21:06 EZETIMIBE (Zetia) 10 mg BEDTIME ORAL 05/08/20 21:00 06/07/20 20:59 05/10/20 21:04 Hydralazine HCl (Apresoline) 50 mg Q8HR ORAL 05/08/20 22:00 08/06/20 21:59 05/11/20 05:21 Lactulose (Cephulac) 30 gm THREE TIMES A DAY ORAL 05/10/20 13:00 06/09/20 12:59 05/11/20 09:09 Lorazepam (Ativan) 1 mg Q4H PRN ORAL For Anxiety 05/08/20 18:15 05/15/20 18:14 Mineral Oil (Fleet's Mineral Oil Enema) 133 ml EVERY OTHER DAY RECTAL 05/12/20 09:00 06/11/20 08:59 Ondansetron HCl (Zofran) 4 mg Q6H PRN IVP Nausea & Vomiting 05/08/20 18:15 06/07/20 18:14 Pantoprazole (Protonix) 40 mg DAILY ORAL 05/09/20 09:00 06/08/20 08:59 05/11/20 09:09 Tamsulosin HCl (Flomax) 0.4 mg BEDTIME ORAL 05/08/20 21:00 06/07/20 20:59 05/10/20 21:05 Zolpidem Tartrate (Ambien) 5 mg HSPRN PRN ORAL Insomnia 05/08/20 18:15 05/15/20 18:14 Assessment/Plan Problems: (1) Pneumonia (2) COVID-19 (3) Episode of generalized weakness (4) COPD (chronic obstructive pulmonary disease) (5) Obstructed Dennison catheter (6) History of CVA (cerebrovascular accident) Assessment/Plan all reviewed doing ok no new complaisn ID consult appreciated ABX for UTI pt/ ptt respiratory treatment titrate fio2 to sat of 92% DVT prohylaxis. Elisabet Mendez MD May 11, 2020 12:10
[2020-05-11] MEDS ORDERED: Vancomycin 1.25gm/250ml Premix IVPB ONE (14:00)
[2020-05-11] MEDS: Azithromycin 500 MG in D5W 275 ML IV SCH (14:04)
[2020-05-11 16:00] VITALS: BP 130/62
--- NOTE | 2020-05-11 18:22 | Internal Med Progress Note ---
Subjective Physician Name Fernando Sierra Attending Physician Fernando Sierra MD Current Medications Medications (Trade) Dose Ordered Sig/Ja Route PRN Reason Start Time Stop Time Status Last Admin Dose Admin Acetaminophen (Tylenol) 650 mg Q4H PRN ORAL Mild Pain (Pain Scale 1-3) 05/08/20 18:15 06/07/20 18:14 05/10/20 02:23 Acetaminophen (Tylenol) 650 mg Q4H PRN ORAL Temp >100.5 05/08/20 18:15 06/07/20 18:14 Albuterol Sulfate (Proventil MDI) 2 puff Q4H PRN INH Shortness of Breath 05/08/20 19:00 08/06/20 18:59 Amlodipine Besylate (Norvasc) 5 mg BID@0900,2100 ORAL 05/08/20 21:00 06/07/20 20:59 05/11/20 09:09 Atorvastatin Calcium (Lipitor) 80 mg BEDTIME ORAL 05/08/20 21:00 08/06/20 20:59 05/10/20 21:05 Azithromycin 500 mg/Dextrose 275 ml @ 275 mls/hr Q24HRS IV 05/09/20 13:00 05/15/20 13:59 05/11/20 14:04 Ceftriaxone Sodium 1 gm/ Dextrose 55 ml @ 110 mls/hr Q24H IVPB 05/09/20 11:00 05/16/20 10:59 05/11/20 11:58 Dexamethasone Sodium Phosphate (Decadron 10mg/ ml Inj) 6 mg DAILY IV 05/10/20 13:30 05/19/20 09:01 05/11/20 09:10 Dextrose (Dextrose 50%) 25 ml Q30M PRN IV Hypoglycemia 05/08/20 18:15 08/06/20 18:14 Dextrose (Dextrose 50%) 50 ml Q30M PRN IV Hypoglycemia 05/08/20 18:15 08/06/20 18:14 Docusate Sodium (Colace) 100 mg THREE TIMES A DAY ORAL 05/10/20 13:00 06/09/20 12:59 05/11/20 17:58 Enoxaparin Sodium (Lovenox) 40 mg Q24H SUBQ 05/08/20 21:00 08/06/20 20:59 05/10/20 21:06 EZETIMIBE (Zetia) 10 mg BEDTIME ORAL 05/08/20 21:00 06/07/20 20:59 05/10/20 21:04 Hydralazine HCl (Apresoline) 50 mg Q8HR ORAL 05/08/20 22:00 08/06/20 21:59 05/11/20 14:04 Lactulose (Cephulac) 30 gm THREE TIMES A DAY ORAL 05/10/20 13:00 06/09/20 12:59 05/11/20 17:58 Lorazepam (Ativan) 1 mg Q4H PRN ORAL For Anxiety 05/08/20 18:15 05/15/20 18:14 Mineral Oil (Fleet's Mineral Oil Enema) 133 ml EVERY OTHER DAY RECTAL 05/12/20 09:00 06/11/20 08:59 Ondansetron HCl (Zofran) 4 mg Q6H PRN IVP Nausea & Vomiting 05/08/20 18:15 06/07/20 18:14 Pantoprazole (Protonix) 40 mg DAILY ORAL 05/09/20 09:00 06/08/20 08:59 05/11/20 09:09 Tamsulosin HCl (Flomax) 0.4 mg BEDTIME ORAL 05/08/20 21:00 06/07/20 20:59 05/10/20 21:05 Vancomycin HCl ([facility] pharmacy to dose) 1 ea DAILY PRN MISC Per rx protocol 05/11/20 12:45 06/10/20 12:44 Vancomycin HCl 1 gm/Dextrose 275 ml @ 183.708 mls/hr Q24H IVPB 05/12/20 14:00 05/17/20 13:59 Zolpidem Tartrate (Ambien) 5 mg HSPRN PRN ORAL Insomnia 05/08/20 18:15 05/15/20 18:14 Allergies: Coded Allergies: PENICILLINS (Verified Allergy, Unknown, 11/16/16) Subjective In [place] [id number] respiratory and isolation room, denies any chest pain or shortness of breath, WBC: 5.5. Objective Last Vital Signs Date Time Temp Pulse Resp B/P (MAP) Pulse Ox O2 Delivery O2 Flow Rate FiO2 05/11/20 16:00 98.4 82 20 130/62 (84) 96 05/11/20 09:00 Room Air Laboratory Tests Test 05/11/20 04:00 White Blood Count 5.5 K/UL (4.8-10.8) Red Blood Count 3.84 M/UL (4.70-6.10) L Hemoglobin 11.7 G/DL (14.2-18.0) L Hematocrit 35.5 % (42.0-52.0) L Mean Corpuscular Volume 93 FL (80-99) Mean Corpuscular Hemoglobin 30.6 PG (27.0-31.0) Mean Corpuscular Hemoglobin Concent 33.1 G/DL (32.0-36.0) Red Cell Distribution Width 14.0 % (11.6-14.8) Platelet Count 234 K/UL (150-450) Mean Platelet Volume 6.8 FL (6.5-10.1) Neutrophils (%) (Auto) 53.3 % (45.0-75.0) Lymphocytes (%) (Auto) 32.8 % (20.0-45.0) Monocytes (%) (Auto) 8.8 % (1.0-10.0) Eosinophils (%) (Auto) 3.8 % (0.0-3.0) H Basophils (%) (Auto) 1.4 % (0.0-2.0) Erythrocyte Sedimentation Rate 67 MM/HR (0-20) H Sodium Level 139 MMOL/L (136-145) Potassium Level 4.0 MMOL/L (3.5-5.1) Chloride Level 105 MMOL/L (98-107) Carbon Dioxide Level 27 MMOL/L (21-32) Anion Gap 7 mmol/L (5-15) Blood Urea Nitrogen 10 mg/dL (7-18) Creatinine 1.1 MG/DL (0.55-1.30) Estimat Glomerular Filtration Rate > 60 mL/min (>60) Glucose Level 113 MG/DL (74-106) H Calcium Level 8.7 MG/DL (8.5-10.1) Phosphorus Level 3.1 MG/DL (2.5-4.9) Magnesium Level 1.9 MG/DL (1.8-2.4) Total Bilirubin 0.4 MG/DL (0.2-1.0) Aspartate Amino Transf (AST/SGOT) 19 U/L (15-37) Alanine Aminotransferase (ALT/SGPT) 10 U/L (12-78) L Alkaline Phosphatase 73 U/L (46-116) C-Reactive Protein, Quantitative 2.0 mg/dL (0.00-0.90) H Total Protein 7.5 G/DL (6.4-8.2) Albumin 2.8 G/DL (3.4-5.0) L Globulin 4.7 g/dL Albumin/Globulin Ratio 0.6 (1.0-2.7) L Microbiology Date/Time Source Procedure Growth Status 05/08/20 21:00 Indwelling Cath Urine Culture - Final Micrococcus Species Complete Intake and Output 05/10/20 05/11/20 19:00 07:00 Intake Total 350 ml Output Total 300 ml 550 ml Balance -300 ml -200 ml Intake Oral 350 ml Output Urine Total 300 ml 550 ml Objective General: No acute distress, awake and alert HEENT: NCAT, sclera anicteric, PERRL, EOMI. Neck: Supple, no significant jugular venous distention, Lungs: Fair inspiratory effort, no accessory muscle use, no Wheeze or Rales. Heart: Regular rate and rhythm, normal S1/S2, no murmurs Abdomen: soft, nontender, nondistended. Normoactive bowel sounds. / Rectal: Refused and deferred. Extremities: No Cyanosis , clubbing or edema. Neuro: A&O x 3, Able to move all extremities Skin: warm, no rashes or lesions Psych: Normal mood and affect Assessment/Plan Assessment/Plan ASSESSMENT: This is an 85-year-old male. 1. COVID-19 pneumonia. 2. Urinary tract infection. 3. Abdominal pain. 4. Benign prostatic hypertrophy. 5. Hypertension. 6. Cerebrovascular disease. 7. Chronic obstructive pulmonary disease. 8. GPC bacteremia, r/o contaminant TREATMENT: 1. Urinary tract infection. 2. COVID-19 pneumonia. ABX=azithromycin and ceftriaxone. start Vanco IV air. Infectious disease = /Yonatan. Pulmonary/critical care= Dr. Elisabet Mendez. 3. Benign prostatic hypertrophy. The patient currently has a Dennison catheter in place. 4. Hypertension. Continue amlodipine and hydralazine as above. 5. History of cerebrovascular disease. 6. Chronic obstructive pulmonary disease. on Decadron IV CODE STATUS: full code DVT prophylaxis: Deborahnox. Fernando Sierra MD May 11, 2020 18:22
[2020-05-11 20:15] VITALS: BP 135/64
[2020-05-11] MEDS: Enoxaparin 40mg Inj SUBQ SCH (20:21)
[2020-05-11] MEDS: Atorvastatin 80mg tab ORAL SCH (20:21)
[2020-05-11] MEDS: Tamsulosin 0.4mg cap ORAL SCH (20:21)
[2020-05-12] VITALS: BP 113/70
[2020-05-12 04:00] VITALS: BP 142/68
[2020-05-12] MEDS: HydrALAZINE 50mg tab ORAL SCH ×3 (06:17→21:12)
[2020-05-12 08:00] VITALS: BP 122/58
[2020-05-12] MEDS: Docusate 100mg cap ORAL SCH ×3 (09:32→17:40)
[2020-05-12] MEDS: dexAMETHasone 10mg/ml Inj IV SCH (09:32)
[2020-05-12] MEDS: Lactulose 20gm/30ml UDC ORAL SCH ×3 (09:32→17:40)
[2020-05-12] MEDS: Fleet's Mineral Oil Enema RECTAL SCH (09:34)
[2020-05-12 12:00] VITALS: BP 122/53
[2020-05-12] MEDS: Azithromycin 500 MG in D5W 275 ML IV SCH (12:30)
[2020-05-12] MEDS: cefTRIAXone 1 GM in D5W 55 ML IVPB SCH (12:30)
--- NOTE | 2020-05-12 13:47 | Pulmonology Progress Note ---
Subjective ROS Limited/Unobtainable: No Constitutional: Reports: no symptoms HEENT: Repors: no symptoms Allergies: Coded Allergies: PENICILLINS (Verified Allergy, Unknown, 11/16/16) Objective Last 24 Hour Vital Signs Date Time Temp Pulse Resp B/P (MAP) Pulse Ox O2 Delivery O2 Flow Rate FiO2 05/12/20 13:10 122/53 05/12/20 09:33 85 122/58 05/12/20 09:00 Room Air 05/12/20 08:00 98.3 85 19 122/58 (79) 98 05/12/20 06:17 142/74 05/12/20 04:00 98.7 79 20 142/68 (92) 97 05/12/20 00:00 97.8 91 20 113/70 (84) 94 05/11/20 22:40 140/70 05/11/20 21:00 Room Air 05/11/20 20:22 82 140/70 05/11/20 20:15 97.3 87 19 135/64 (87) 96 05/11/20 16:00 98.4 82 20 130/62 (84) 96 05/11/20 14:04 143/62 Intake and Output 05/11/20 05/12/20 19:00 07:00 Intake Total 500 ml Output Total 500 ml Balance 0 ml Intake Oral 500 ml Output Urine Total 500 ml General Appearance: WD/WN HEENT: normocephalic, atraumatic, PERRL Respiratory: lungs clear, normal breath sounds Cardiovascular: normal peripheral pulses, normal rate Abdomen: normal bowel sounds, soft, non tender Genitourinary: normal external genitalia Extremities: no cyanosis Skin: no rash Current Medications Medications (Trade) Dose Ordered Sig/Ja Route PRN Reason Start Time Stop Time Status Last Admin Dose Admin Acetaminophen (Tylenol) 650 mg Q4H PRN ORAL Mild Pain (Pain Scale 1-3) 05/08/20 18:15 06/07/20 18:14 05/12/20 13:09 Acetaminophen (Tylenol) 650 mg Q4H PRN ORAL Temp >100.5 05/08/20 18:15 06/07/20 18:14 Albuterol Sulfate (Proventil MDI) 2 puff Q4H PRN INH Shortness of Breath 05/08/20 19:00 08/06/20 18:59 Amlodipine Besylate (Norvasc) 5 mg BID@0900,2100 ORAL 05/08/20 21:00 06/07/20 20:59 05/12/20 09:33 Atorvastatin Calcium (Lipitor) 80 mg BEDTIME ORAL 05/08/20 21:00 08/06/20 20:59 05/11/20 20:21 Azithromycin 500 mg/Dextrose 275 ml @ 275 mls/hr Q24HRS IV 05/09/20 13:00 05/15/20 13:59 05/12/20 12:30 Ceftriaxone Sodium 1 gm/ Dextrose 55 ml @ 110 mls/hr Q24H IVPB 05/09/20 11:00 05/16/20 10:59 05/12/20 12:30 Dexamethasone Sodium Phosphate (Decadron 10mg/ ml Inj) 6 mg DAILY IV 05/10/20 13:30 05/19/20 09:01 05/12/20 09:32 Dextrose (Dextrose 50%) 25 ml Q30M PRN IV Hypoglycemia 05/08/20 18:15 08/06/20 18:14 Dextrose (Dextrose 50%) 50 ml Q30M PRN IV Hypoglycemia 05/08/20 18:15 08/06/20 18:14 Docusate Sodium (Colace) 100 mg THREE TIMES A DAY ORAL 05/10/20 13:00 06/09/20 12:59 05/12/20 13:08 Enoxaparin Sodium (Lovenox) 40 mg Q24H SUBQ 05/08/20 21:00 08/06/20 20:59 05/11/20 20:21 EZETIMIBE (Zetia) 10 mg BEDTIME ORAL 05/08/20 21:00 06/07/20 20:59 05/11/20 20:21 Hydralazine HCl (Apresoline) 50 mg Q8HR ORAL 05/08/20 22:00 08/06/20 21:59 05/12/20 13:10 Lactulose (Cephulac) 30 gm THREE TIMES A DAY ORAL 05/10/20 13:00 06/09/20 12:59 05/12/20 13:08 Lorazepam (Ativan) 1 mg Q4H PRN ORAL For Anxiety 05/08/20 18:15 05/15/20 18:14 Mineral Oil (Fleet's Mineral Oil Enema) 133 ml EVERY OTHER DAY RECTAL 05/12/20 09:00 06/11/20 08:59 05/12/20 09:34 Ondansetron HCl (Zofran) 4 mg Q6H PRN IVP Nausea & Vomiting 05/08/20 18:15 06/07/20 18:14 Pantoprazole (Protonix) 40 mg DAILY ORAL 05/09/20 09:00 06/08/20 08:59 05/12/20 09:33 Tamsulosin HCl (Flomax) 0.4 mg BEDTIME ORAL 05/08/20 21:00 06/07/20 20:59 05/11/20 20:21 Vancomycin HCl (Vanco pharmacy to dose) 1 ea DAILY PRN MISC Per rx protocol 05/11/20 12:45 06/10/20 12:44 Vancomycin HCl 1 gm/Dextrose 275 ml @ 183.708 mls/hr Q24H IVPB 05/12/20 14:00 05/17/20 13:59 05/12/20 13:09 Zolpidem Tartrate (Ambien) 5 mg HSPRN PRN ORAL Insomnia 05/08/20 18:15 05/15/20 18:14 Assessment/Plan Problems: (1) Pneumonia (2) COVID-19 (3) Episode of generalized weakness (4) COPD (chronic obstructive pulmonary disease) (5) Obstructed Dennison catheter (6) History of CVA (cerebrovascular accident) Assessment/Plan all reviewed wbc still high getting better no new complaisn ID consult appreciated ABX for UTI pt/ ptt respiratory treatment titrate fio2 to sat of 92% DVT prohylaxis. Elisabet Mendez MD May 12, 2020 13:47
[2020-05-12] MEDS ORDERED: Vancomycin 1gm/D5W 275ml IVPB SCH ×2 (14:00)
[2020-05-12 16:00] VITALS: BP 121/61
--- NOTE | 2020-05-12 18:21 | Internal Med Progress Note ---
Subjective Date of Service: May 12, 2020 Physician Name SumiDavid Attending Physician Fernando Sierra MD Current Medications Medications (Trade) Dose Ordered Sig/Ja Route PRN Reason Start Time Stop Time Status Last Admin Dose Admin Acetaminophen (Tylenol) 650 mg Q4H PRN ORAL Mild Pain (Pain Scale 1-3) 05/08/20 18:15 06/07/20 18:14 05/12/20 13:09 Acetaminophen (Tylenol) 650 mg Q4H PRN ORAL Temp >100.5 05/08/20 18:15 06/07/20 18:14 Albuterol Sulfate (Proventil MDI) 2 puff Q4H PRN INH Shortness of Breath 05/08/20 19:00 08/06/20 18:59 Amlodipine Besylate (Norvasc) 5 mg BID@0900,2100 ORAL 05/08/20 21:00 06/07/20 20:59 05/12/20 09:33 Atorvastatin Calcium (Lipitor) 80 mg BEDTIME ORAL 05/08/20 21:00 08/06/20 20:59 05/11/20 20:21 Azithromycin 500 mg/Dextrose 275 ml @ 275 mls/hr Q24HRS IV 05/09/20 13:00 05/15/20 13:59 05/12/20 12:30 Ceftriaxone Sodium 1 gm/ Dextrose 55 ml @ 110 mls/hr Q24H IVPB 05/09/20 11:00 05/16/20 10:59 05/12/20 12:30 Dexamethasone Sodium Phosphate (Decadron 10mg/ ml Inj) 6 mg DAILY IV 05/10/20 13:30 05/19/20 09:01 05/12/20 09:32 Dextrose (Dextrose 50%) 25 ml Q30M PRN IV Hypoglycemia 05/08/20 18:15 08/06/20 18:14 Dextrose (Dextrose 50%) 50 ml Q30M PRN IV Hypoglycemia 05/08/20 18:15 08/06/20 18:14 Docusate Sodium (Colace) 100 mg THREE TIMES A DAY ORAL 05/10/20 13:00 06/09/20 12:59 05/12/20 17:40 Enoxaparin Sodium (Lovenox) 40 mg Q24H SUBQ 05/08/20 21:00 3/8/21 20:59 05/11/20 20:21 EZETIMIBE (Zetia) 10 mg BEDTIME ORAL 05/08/20 21:00 06/07/20 20:59 05/11/20 20:21 Hydralazine HCl (Apresoline) 50 mg Q8HR ORAL 05/08/20 22:00 08/06/20 21:59 05/12/20 13:10 Lactulose (Cephulac) 30 gm THREE TIMES A DAY ORAL 05/10/20 13:00 06/09/20 12:59 05/12/20 17:40 Lorazepam (Ativan) 1 mg Q4H PRN ORAL For Anxiety 05/08/20 18:15 05/15/20 18:14 Mineral Oil (Fleet's Mineral Oil Enema) 133 ml EVERY OTHER DAY RECTAL 05/12/20 09:00 06/11/20 08:59 05/12/20 09:34 Ondansetron HCl (Zofran) 4 mg Q6H PRN IVP Nausea & Vomiting 05/08/20 18:15 06/07/20 18:14 Pantoprazole (Protonix) 40 mg DAILY ORAL 05/09/20 09:00 06/08/20 08:59 05/12/20 09:33 Tamsulosin HCl (Flomax) 0.4 mg BEDTIME ORAL 05/08/20 21:00 06/07/20 20:59 05/11/20 20:21 Vancomycin HCl ([facility] pharmacy to dose) 1 ea DAILY PRN MISC Per rx protocol 05/11/20 12:45 06/10/20 12:44 Vancomycin HCl 1 gm/Dextrose 275 ml @ 183.708 mls/hr Q24H IVPB 05/12/20 14:00 05/17/20 13:59 05/12/20 13:09 Zolpidem Tartrate (Ambien) 5 mg HSPRN PRN ORAL Insomnia 05/08/20 18:15 05/15/20 18:14 Allergies: Coded Allergies: PENICILLINS (Verified Allergy, Unknown, 11/16/16) ROS Limited/Unobtainable: Yes Subjective 85 YO M admitted with abdominal pain. Now COVID 19 positive and sepsis. Cover for Int [facility]-Dr Sierra Objective Last Vital Signs Date Time Temp Pulse Resp B/P (MAP) Pulse Ox O2 Delivery O2 Flow Rate FiO2 05/12/20 16:00 97.9 81 19 121/61 (81) 98 05/12/20 09:00 Room Air Intake and Output 05/11/20 05/12/20 19:00 07:00 Intake Total 500 ml Output Total 500 ml Balance 0 ml Intake Oral 500 ml Output Urine Total 500 ml Objective PHYSICAL EXAMINATION: GENERAL: The patient is a well-developed, well-nourished male, in no apparent distress. HEENT: Eyes, pupils equal and responsive to light and accommodation. Extra movements are intact. NECK: Supple without lymphadenopathy. CHEST: Lungs are clear to auscultation bilaterally without wheezes or rales. CARDIOVASCULAR: Regular rhythm and rate. S1, S2 are normal without murmurs, rubs, or gallops. ABDOMEN: Soft, nontender, and nondistended. Positive bowel sounds. No evidence of hepatosplenomegaly. Currently no rebound or guarding noted. EXTREMITIES: Negative for clubbing, cyanosis, or edema. RECTAL/GENITAL: Not performed. NEUROLOGIC: Cranial nerves II through XII are grossly intact without focal deficits. Motor strength is 5/5 bilaterally. Deep tendon reflexes are 2+ plantar. Assessment/Plan Assessment/Plan ASSESSMENT: This is an 85-year-old male. 1. COVID-19 pneumonia. 2. Urinary tract infection. 3. Abdominal pain. 4. Benign prostatic hypertrophy. 5. Hypertension. 6. Cerebrovascular disease. 7. Chronic obstructive pulmonary disease. 8. Bacteremia=gram pos cocci TREATMENT: 1. 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 Urine culture = no growth 2. COVID-19 pneumonia. ABX=azithromycin and ceftriaxone. Vanco added for Gram pos bacteremia. Infectious disease = /[facility]. Pulmonary/critical care= Dr. Elisabet Mendez. 3. Benign prostatic hypertrophy. The patient currently has a Dennison catheter in place. 4. Hypertension. Continue amlodipine and hydralazine as above. 5. History of cerebrovascular disease. 6. Chronic obstructive pulmonary disease. David Jonas MD May 12, 2020 18:21
[2020-05-12 20:00] VITALS: BP 132/69
[2020-05-12] MEDS: Tamsulosin 0.4mg cap ORAL SCH (21:12)
[2020-05-12] MEDS: Atorvastatin 80mg tab ORAL SCH (21:12)
[2020-05-12] MEDS: Enoxaparin 40mg Inj SUBQ SCH (21:13)
[2020-05-13] VITALS: BP 128/74
[2020-05-13 04:00] VITALS: BP 130/66
[2020-05-13] MEDS: HydrALAZINE 50mg tab ORAL SCH ×3 (06:28→23:09)
[2020-05-13 08:00] VITALS: BP 107/64
[2020-05-13] MEDS: Docusate 100mg cap ORAL SCH ×3 (09:17→17:10)
[2020-05-13] MEDS: Lactulose 20gm/30ml UDC ORAL SCH ×3 (09:17→17:10)
[2020-05-13] MEDS: dexAMETHasone 10mg/ml Inj IV SCH (09:17)
[2020-05-13 10:47] LABS: BASOPHILS % (AUTO) 0.9 % (0.0-2.0); EOSINOPHILS % (AUTO) 1.9 % (0.0-3.0); HEMATOCRIT 33.8 % (42.0-52.0); HEMOGLOBIN 11.8 G/DL (14.2-18.0); LYMPHOCYTES % (AUTO) 30.5 % (20.0-45.0); MEAN CORPUSCULAR VOLUME 89 FL (80-99); MONOCYTES % (AUTO) 10.5 % (1.0-10.0); NEUTROPHILS % (AUTO) 56.3 % (45.0-75.0); PLATELET COUNT 251 K/UL (150-450); RED BLOOD COUNT 3.79 M/UL (4.70-6.10); RED CELL DISTRIBUTION WIDTH 14.5 % (11.6-14.8); WHITE BLOOD COUNT 7.4 K/UL (4.8-10.8)
--- NOTE | 2020-05-13 10:57 | Infectious Diseases Prog Note ---
Assessment/Plan 85yo M with: Afebrile Normal WBC COVID+ Weakness Hypoxia on RA GPC bacteremia, m/l contaminant 05/08 COVID rapid test positive BCx 1/2 +CoNS CXR: Hazy bibasilar infiltrates 05/11 BCx ordered Indwelling rossi Lower abd pain 05/08 UA 5-10 WBC, UCx >100k mixed organisms 05/08 UCx 50-60k Micrococcus species BENNETT, improving Cr 1.4 --> 1.2 Plan: Cont dexamethasone 6mg daily #4 given O2 sat on RA of 93% DC CTX/azithro #6 for UTI/pna DC vanco IV # 3 Repeat BCx today given GPCs in prior F/u 05/08 BCx +GPCs, ?contaminant Trend resp status, if worsens will start remdesivir (currently 97-98% on RA) Monitor CBC/CMP Monitor temp curve, hemodynamics Monitor resp status D/w RN Thank you for this consult. [facility] will continue to follow. Subjective Allergies: Coded Allergies: PENICILLINS (Verified Allergy, Unknown, 11/16/16) comfortable Objective Last 24 Hour Vital Signs Date Time Temp Pulse Resp B/P (MAP) Pulse Ox O2 Delivery O2 Flow Rate FiO2 05/13/20 09:17 91 107/64 05/13/20 09:00 Room Air 05/13/20 08:00 98.9 91 18 107/64 (78) 98 05/13/20 06:28 130/66 05/13/20 04:00 97.4 79 19 130/66 (87) 94 05/13/20 00:00 97.7 88 18 128/74 (92) 93 05/12/20 21:12 132/69 05/12/20 21:12 82 132/69 05/12/20 21:00 Room Air 05/12/20 20:00 97.5 82 19 132/69 (90) 93 05/12/20 16:00 97.9 81 19 121/61 (81) 98 05/12/20 13:10 122/53 05/12/20 12:00 98.1 69 18 122/53 (76) 96 Height (Feet): 6 Height (Inches): 1.00 Weight (Pounds): 150 HEENT: atraumatic Respiratory/Chest: lungs clear Cardiovascular: regular rhythm Abdomen: soft, non tender Laboratory Tests Test 12/13/20 10:25 White Blood Count 7.4 K/UL (4.8-10.8) Red Blood Count 3.79 M/UL (4.70-6.10) L Hemoglobin 11.8 G/DL (14.2-18.0) L Hematocrit 33.8 % (42.0-52.0) L Mean Corpuscular Volume 89 FL (80-99) Mean Corpuscular Hemoglobin 31.0 PG (27.0-31.0) Mean Corpuscular Hemoglobin Concent 34.8 G/DL (32.0-36.0) Red Cell Distribution Width 14.5 % (11.6-14.8) Platelet Count 251 K/UL (150-450) Mean Platelet Volume 7.1 FL (6.5-10.1) Neutrophils (%) (Auto) 56.3 % (45.0-75.0) Lymphocytes (%) (Auto) 30.5 % (20.0-45.0) Monocytes (%) (Auto) 10.5 % (1.0-10.0) H Eosinophils (%) (Auto) 1.9 % (0.0-3.0) Basophils (%) (Auto) 0.9 % (0.0-2.0) Sodium Level Pending Potassium Level Pending Chloride Level Pending Carbon Dioxide Level Pending Blood Urea Nitrogen Pending Creatinine Pending Estimat Glomerular Filtration Rate Pending Glucose Level Pending Calcium Level Pending Current Medications Medications (Trade) Dose Ordered Sig/Ja Route PRN Reason Start Time Stop Time Status Last Admin Dose Admin Acetaminophen (Tylenol) 650 mg Q4H PRN ORAL Mild Pain (Pain Scale 1-3) 05/08/20 18:15 06/07/20 18:14 05/12/20 13:09 Acetaminophen (Tylenol) 650 mg Q4H PRN ORAL Temp >100.5 05/08/20 18:15 06/07/20 18:14 Albuterol Sulfate (Proventil MDI) 2 puff Q4H PRN INH Shortness of Breath 05/08/20 19:00 08/06/20 18:59 Amlodipine Besylate (Norvasc) 5 mg BID@0900,2100 ORAL 05/08/20 21:00 1/7/21 20:59 05/13/20 09:17 Atorvastatin Calcium (Lipitor) 80 mg BEDTIME ORAL 05/08/20 21:00 08/06/20 20:59 05/12/20 21:12 Azithromycin 500 mg/Dextrose 275 ml @ 275 mls/hr Q24HRS IV 05/09/20 13:00 05/15/20 13:59 05/12/20 12:30 Ceftriaxone Sodium 1 gm/ Dextrose 55 ml @ 110 mls/hr Q24H IVPB 05/09/20 11:00 05/16/20 10:59 05/12/20 12:30 Dexamethasone Sodium Phosphate (Decadron 10mg/ ml Inj) 6 mg DAILY IV 05/10/20 13:30 05/19/20 09:01 05/13/20 09:17 Dextrose (Dextrose 50%) 25 ml Q30M PRN IV Hypoglycemia 05/08/20 18:15 08/06/20 18:14 Dextrose (Dextrose 50%) 50 ml Q30M PRN IV Hypoglycemia 05/08/20 18:15 08/06/20 18:14 Docusate Sodium (Colace) 100 mg THREE TIMES A DAY ORAL 05/10/20 13:00 06/09/20 12:59 05/13/20 09:17 Enoxaparin Sodium (Lovenox) 40 mg Q24H SUBQ 05/08/20 21:00 08/06/20 20:59 05/12/20 21:13 EZETIMIBE (Zetia) 10 mg BEDTIME ORAL 05/08/20 21:00 06/07/20 20:59 05/12/20 21:14 Hydralazine HCl (Apresoline) 50 mg Q8HR ORAL 05/08/20 22:00 08/06/20 21:59 05/13/20 06:28 Lactulose (Cephulac) 30 gm THREE TIMES A DAY ORAL 05/10/20 13:00 06/09/20 12:59 05/13/20 09:17 Lorazepam (Ativan) 1 mg Q4H PRN ORAL For Anxiety 05/08/20 18:15 05/15/20 18:14 Mineral Oil (Fleet's Mineral Oil Enema) 133 ml EVERY OTHER DAY RECTAL 05/12/20 09:00 06/11/20 08:59 05/12/20 09:34 Ondansetron HCl (Zofran) 4 mg Q6H PRN IVP Nausea & Vomiting 05/08/20 18:15 06/07/20 18:14 Pantoprazole (Protonix) 40 mg DAILY ORAL 05/09/20 09:00 06/08/20 08:59 05/13/20 09:17 Tamsulosin HCl (Flomax) 0.4 mg BEDTIME ORAL 05/08/20 21:00 06/07/20 20:59 05/12/20 21:12 Vancomycin HCl (Vanco pharmacy to dose) 1 ea DAILY PRN MISC Per rx protocol 05/11/20 12:45 06/10/20 12:44 Vancomycin HCl 1 gm/Dextrose 275 ml @ 183.708 mls/hr Q24H IVPB 05/12/20 14:00 05/17/20 13:59 05/12/20 13:09 Zolpidem Tartrate (Ambien) 5 mg HSPRN PRN ORAL Insomnia 05/08/20 18:15 05/15/20 18:14 Eliazar Aguayo MD May 13, 2020 10:57
[2020-05-13 11:00] LABS: ANION GAP 8 mmol/L (5-15); BLOOD UREA NITROGEN 8 mg/dL (7-18); CALCIUM 8.8 MG/DL (8.5-10.1); CARBON DIOXIDE 27 MMOL/L (21-32); CHLORIDE 104 MMOL/L (98-107); CREATININE 1.1 MG/DL (0.55-1.30); POTASSIUM 3.4 MMOL/L (3.5-5.1); SODIUM 139 MMOL/L (136-145)
[2020-05-13 12:00] VITALS: BP 124/65
--- NOTE | 2020-05-13 14:20 | Pulmonology Progress Note ---
Subjective ROS Limited/Unobtainable: No Constitutional: Reports: no symptoms HEENT: Repors: no symptoms Allergies: Coded Allergies: PENICILLINS (Verified Allergy, Unknown, 11/16/16) Objective Last 24 Hour Vital Signs Date Time Temp Pulse Resp B/P (MAP) Pulse Ox O2 Delivery O2 Flow Rate FiO2 05/13/20 13:55 124/65 05/13/20 12:00 97.5 89 18 124/65 (84) 98 05/13/20 10:39 87 16 97 Room Air 21 05/13/20 09:17 91 107/64 05/13/20 09:00 Room Air 05/13/20 08:00 98.9 91 18 107/64 (78) 98 05/13/20 06:28 130/66 05/13/20 04:00 97.4 79 19 130/66 (87) 94 05/13/20 00:00 97.7 88 18 128/74 (92) 93 05/12/20 21:12 132/69 05/12/20 21:12 82 132/69 05/12/20 21:00 Room Air 05/12/20 20:00 97.5 82 19 132/69 (90) 93 05/12/20 16:00 97.9 81 19 121/61 (81) 98 Intake and Output 05/12/20 05/13/20 19:00 07:00 Intake Total 600 ml 200 ml Output Total 450 ml 1000 ml Balance 150 ml -800 ml Intake Oral 600 ml 200 ml Output Urine Total 450 ml 1000 ml General Appearance: WD/WN HEENT: normocephalic, atraumatic, PERRL Respiratory: lungs clear, normal breath sounds Cardiovascular: normal peripheral pulses, normal rate Abdomen: normal bowel sounds, soft, non tender Genitourinary: normal external genitalia Extremities: no cyanosis Skin: no rash Laboratory Tests 05/13/20 10:25: White Blood Count 7.4, Red Blood Count 3.79L, Hemoglobin 11.8L, Hematocrit 33.8L , Mean Corpuscular Volume 89, Mean Corpuscular Hemoglobin 31.0, Mean Corpuscular Hemoglobin Concent 34.8, Red Cell Distribution Width 14.5, Platelet Count 251, Mean Platelet Volume 7.1, Neutrophils (%) (Auto) 56.3, Lymphocytes (%) (Auto) 30.5, Monocytes (%) (Auto) 10.5H, Eosinophils (%) (Auto) 1.9, Basophils (%) (Auto) 0.9, Sodium Level 139, Potassium Level 3.4L, Chloride Level 104, Carbon Dioxide Level 27, Anion Gap 8, Blood Urea Nitrogen 8, Creatinine 1.1, Estimat Glomerular Filtration Rate > 60, Glucose Level 120H, Calcium Level 8.8 Current Medications Medications (Trade) Dose Ordered Sig/Ja Route PRN Reason Start Time Stop Time Status Last Admin Dose Admin Acetaminophen (Tylenol) 650 mg Q4H PRN ORAL Mild Pain (Pain Scale 1-3) 05/08/20 18:15 06/07/20 18:14 05/12/20 13:09 Acetaminophen (Tylenol) 650 mg Q4H PRN ORAL Temp >100.5 05/08/20 18:15 06/07/20 18:14 Albuterol Sulfate (Proventil MDI) 2 puff Q4H PRN INH Shortness of Breath 05/08/20 19:00 08/06/20 18:59 Amlodipine Besylate (Norvasc) 5 mg BID@0900,2100 ORAL 05/08/20 21:00 06/07/20 20:59 05/13/20 09:17 Atorvastatin Calcium (Lipitor) 80 mg BEDTIME ORAL 05/08/20 21:00 08/06/20 20:59 05/12/20 21:12 Dexamethasone Sodium Phosphate (Decadron 10mg/ ml Inj) 6 mg DAILY IV 05/10/20 13:30 05/19/20 09:01 05/13/20 09:17 Dextrose (Dextrose 50%) 25 ml Q30M PRN IV Hypoglycemia 05/08/20 18:15 08/06/20 18:14 Dextrose (Dextrose 50%) 50 ml Q30M PRN IV Hypoglycemia 05/08/20 18:15 08/06/20 18:14 Docusate Sodium (Colace) 100 mg THREE TIMES A DAY ORAL 05/10/20 13:00 06/09/20 12:59 05/13/20 09:17 Enoxaparin Sodium (Lovenox) 40 mg Q24H SUBQ 05/08/20 21:00 08/06/20 20:59 05/12/20 21:13 EZETIMIBE (Zetia) 10 mg BEDTIME ORAL 05/08/20 21:00 06/07/20 20:59 05/12/20 21:14 Hydralazine HCl (Apresoline) 50 mg Q8HR ORAL 05/08/20 22:00 08/06/20 21:59 05/13/20 13:55 Lactulose (Cephulac) 30 gm THREE TIMES A DAY ORAL 05/10/20 13:00 06/09/20 12:59 05/13/20 09:17 Lorazepam (Ativan) 1 mg Q4H PRN ORAL For Anxiety 05/08/20 18:15 05/15/20 18:14 Mineral Oil (Fleet's Mineral Oil Enema) 133 ml EVERY OTHER DAY RECTAL 05/12/20 09:00 06/11/20 08:59 05/12/20 09:34 Ondansetron HCl (Zofran) 4 mg Q6H PRN IVP Nausea & Vomiting 05/08/20 18:15 06/07/20 18:14 Pantoprazole (Protonix) 40 mg DAILY ORAL 05/09/20 09:00 06/08/20 08:59 05/13/20 09:17 Tamsulosin HCl (Flomax) 0.4 mg BEDTIME ORAL 05/08/20 21:00 06/07/20 20:59 05/12/20 21:12 Zolpidem Tartrate (Ambien) 5 mg HSPRN PRN ORAL Insomnia 05/08/20 18:15 05/15/20 18:14 Assessment/Plan Problems: (1) Pneumonia (2) COVID-19 (3) Episode of generalized weakness (4) COPD (chronic obstructive pulmonary disease) (5) Obstructed Dennison catheter (6) History of CVA (cerebrovascular accident) Assessment/Plan all reviewed wbc still high getting better no new complain ID consult appreciated ABX for UTI pt/ ptt respiratory treatment titrate fio2 to sat of 92% DVT prohylaxis. Elisabet Mendez MD May 13, 2020 14:20
--- NOTE | 2020-05-13 14:50 | Internal Med Progress Note ---
Subjective Date of Service: May 13, 2020 Physician Name David Jonas Attending Physician Fernando Sierra MD Current Medications Medications (Trade) Dose Ordered Sig/Ja Route PRN Reason Start Time Stop Time Status Last Admin Dose Admin Acetaminophen (Tylenol) 650 mg Q4H PRN ORAL Mild Pain (Pain Scale 1-3) 05/08/20 18:15 06/07/20 18:14 05/12/20 13:09 Acetaminophen (Tylenol) 650 mg Q4H PRN ORAL Temp >100.5 05/08/20 18:15 06/07/20 18:14 Albuterol Sulfate (Proventil MDI) 2 puff Q4H PRN INH Shortness of Breath 05/08/20 19:00 08/06/20 18:59 Amlodipine Besylate (Norvasc) 5 mg BID@0900,2100 ORAL 05/08/20 21:00 06/07/20 20:59 05/13/20 09:17 Atorvastatin Calcium (Lipitor) 80 mg BEDTIME ORAL 05/08/20 21:00 08/06/20 20:59 05/12/20 21:12 Dexamethasone Sodium Phosphate (Decadron 10mg/ ml Inj) 6 mg DAILY IV 05/10/20 13:30 05/19/20 09:01 05/13/20 09:17 Dextrose (Dextrose 50%) 25 ml Q30M PRN IV Hypoglycemia 05/08/20 18:15 08/06/20 18:14 Dextrose (Dextrose 50%) 50 ml Q30M PRN IV Hypoglycemia 05/08/20 18:15 08/06/20 18:14 Docusate Sodium (Colace) 100 mg THREE TIMES A DAY ORAL 05/10/20 13:00 06/09/20 12:59 05/13/20 09:17 Enoxaparin Sodium (Lovenox) 40 mg Q24H SUBQ 05/08/20 21:00 08/06/20 20:59 05/12/20 21:13 EZETIMIBE (Zetia) 10 mg BEDTIME ORAL 05/08/20 21:00 06/07/20 20:59 05/12/20 21:14 Hydralazine HCl (Apresoline) 50 mg Q8HR ORAL 05/08/20 22:00 08/06/20 21:59 05/13/20 13:55 Lactulose (Cephulac) 30 gm THREE TIMES A DAY ORAL 05/10/20 13:00 06/09/20 12:59 05/13/20 09:17 Lorazepam (Ativan) 1 mg Q4H PRN ORAL For Anxiety 05/08/20 18:15 05/15/20 18:14 Mineral Oil (Fleet's Mineral Oil Enema) 133 ml EVERY OTHER DAY RECTAL 05/12/20 09:00 06/11/20 08:59 05/12/20 09:34 Ondansetron HCl (Zofran) 4 mg Q6H PRN IVP Nausea & Vomiting 05/08/20 18:15 06/07/20 18:14 Pantoprazole (Protonix) 40 mg DAILY ORAL 05/09/20 09:00 06/08/20 08:59 05/13/20 09:17 Tamsulosin HCl (Flomax) 0.4 mg BEDTIME ORAL 05/08/20 21:00 06/07/20 20:59 05/12/20 21:12 Zolpidem Tartrate (Ambien) 5 mg HSPRN PRN ORAL Insomnia 05/08/20 18:15 05/15/20 18:14 Allergies: Coded Allergies: PENICILLINS (Verified Allergy, Unknown, 11/16/16) ROS Limited/Unobtainable: No Constitutional: Reports: no symptoms HEENT: Reports: no symptoms Cardiovascular: Reports: no symptoms Respiratory: Reports: shortness of breath Gastrointestinal/Abdominal: Reports: no symptoms Genitourinary: Reports: no symptoms Neurologic/Psychiatric: Reports: no symptoms Subjective 85 YO M admitted with abdominal pain. Now COVID 19 positive and sepsis. Cover for Int Med-Dr Sierra Objective Last Vital Signs Date Time Temp Pulse Resp B/P (MAP) Pulse Ox O2 Delivery O2 Flow Rate FiO2 05/13/20 13:55 124/65 05/13/20 12:00 97.5 89 18 98 05/13/20 10:39 Room Air 21 Laboratory Tests Test 05/13/20 10:25 White Blood Count 7.4 K/UL (4.8-10.8) Red Blood Count 3.79 M/UL (4.70-6.10) L Hemoglobin 11.8 G/DL (14.2-18.0) L Hematocrit 33.8 % (42.0-52.0) L Mean Corpuscular Volume 89 FL (80-99) Mean Corpuscular Hemoglobin 31.0 PG (27.0-31.0) Mean Corpuscular Hemoglobin Concent 34.8 G/DL (32.0-36.0) Red Cell Distribution Width 14.5 % (11.6-14.8) Platelet Count 251 K/UL (150-450) Mean Platelet Volume 7.1 FL (6.5-10.1) Neutrophils (%) (Auto) 56.3 % (45.0-75.0) Lymphocytes (%) (Auto) 30.5 % (20.0-45.0) Monocytes (%) (Auto) 10.5 % (1.0-10.0) H Eosinophils (%) (Auto) 1.9 % (0.0-3.0) Basophils (%) (Auto) 0.9 % (0.0-2.0) Sodium Level 139 MMOL/L (136-145) Potassium Level 3.4 MMOL/L (3.5-5.1) L Chloride Level 104 MMOL/L (98-107) Carbon Dioxide Level 27 MMOL/L (21-32) Anion Gap 8 mmol/L (5-15) Blood Urea Nitrogen 8 mg/dL (7-18) Creatinine 1.1 MG/DL (0.55-1.30) Estimat Glomerular Filtration Rate > 60 mL/min (>60) Glucose Level 120 MG/DL (74-106) H Calcium Level 8.8 MG/DL (8.5-10.1) Intake and Output 05/12/20 05/13/20 19:00 07:00 Intake Total 600 ml 200 ml Output Total 450 ml 1000 ml Balance 150 ml -800 ml Intake Oral 600 ml 200 ml Output Urine Total 450 ml 1000 ml Objective PHYSICAL EXAMINATION: GENERAL: The patient is a well-developed, well-nourished male, in no apparent distress. HEENT: Eyes, pupils equal and responsive to light and accommodation. Extra movements are intact. NECK: Supple without lymphadenopathy. CHEST: Lungs are clear to auscultation bilaterally without wheezes or rales. CARDIOVASCULAR: Regular rhythm and rate. S1, S2 are normal without murmurs, rubs, or gallops. ABDOMEN: Soft, nontender, and nondistended. Positive bowel sounds. No evidence of hepatosplenomegaly. Currently no rebound or guarding noted. EXTREMITIES: Negative for clubbing, cyanosis, or edema. RECTAL/GENITAL: Not performed. NEUROLOGIC: Cranial nerves II through XII are grossly intact without focal deficits. Motor strength is 5/5 bilaterally. Deep tendon reflexes are 2+ plantar. Assessment/Plan Assessment/Plan ASSESSMENT: This is an 85-year-old male. 1. COVID-19 pneumonia. 2. Urinary tract infection. 3. Abdominal pain. 4. Benign prostatic hypertrophy. 5. Hypertension. 6. Cerebrovascular disease. 7. Chronic obstructive pulmonary disease. 8. Bacteremia=gram pos cocci TREATMENT: 1. 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 Urine culture = no growth 2. COVID-19 pneumonia. ABX=azithromycin and ceftriaxone. Vanco added for Gram pos bacteremia. Infectious disease = /Yonatan. Pulmonary/critical care= Dr. Elisabet Mendez. Continue decadron 3. Benign prostatic hypertrophy. The patient currently has a Dennison catheter in place. 4. Hypertension. Continue amlodipine and hydralazine as above. 5. History of cerebrovascular disease. 6. Chronic obstructive pulmonary disease. David Jonas MD May 13, 2020 14:50
[2020-05-13 16:00] VITALS: BP 134/68
[2020-05-13 20:00] VITALS: BP 119/72
[2020-05-13] MEDS: Enoxaparin 40mg Inj SUBQ SCH (20:49)
[2020-05-13] MEDS: Atorvastatin 80mg tab ORAL SCH (20:50)
[2020-05-13] MEDS: Tamsulosin 0.4mg cap ORAL SCH (20:50)
[2020-05-14] VITALS: BP 124/71
[2020-05-14 04:00] VITALS: BP 131/79
[2020-05-14 05:04] LABS: BASOPHILS % (AUTO) 1.1 % (0.0-2.0); EOSINOPHILS % (AUTO) 0.5 % (0.0-3.0); HEMATOCRIT 34.9 % (42.0-52.0); HEMOGLOBIN 11.9 G/DL (14.2-18.0); MEAN CORPUSCULAR VOLUME 90 FL (80-99); MONOCYTES % (AUTO) 8.6 % (1.0-10.0); NEUTROPHILS % (AUTO) 57.9 % (45.0-75.0); PLATELET COUNT 278 K/UL (150-450); RED BLOOD COUNT 3.87 M/UL (4.70-6.10); RED CELL DISTRIBUTION WIDTH 14.7 % (11.6-14.8); WHITE BLOOD COUNT 7.3 K/UL (4.8-10.8)
[2020-05-14 05:10] LABS: ANION GAP 7 mmol/L (5-15); BLOOD UREA NITROGEN 13 mg/dL (7-18); CALCIUM 9.1 MG/DL (8.5-10.1); CARBON DIOXIDE 28 MMOL/L (21-32); CHLORIDE 106 MMOL/L (98-107); CREATININE 1.1 MG/DL (0.55-1.30); POTASSIUM 3.8 MMOL/L (3.5-5.1); SODIUM 140 MMOL/L (136-145)
[2020-05-14] MEDS: HydrALAZINE 50mg tab ORAL SCH ×3 (05:45→21:11)
[2020-05-14 08:00] VITALS: BP 140/59
--- NOTE | 2020-05-14 08:41 | Infectious Diseases Prog Note ---
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 [facility] will continue to follow. Subjective Allergies: Coded Allergies: PENICILLINS (Verified Allergy, Unknown, 11/16/16) AF NAD on RA WBC 7.3 No resp complaints Objective Last 24 Hour Vital Signs Date Time Temp Pulse Resp B/P (MAP) Pulse Ox O2 Delivery O2 Flow Rate FiO2 05/14/20 05:45 131/79 05/14/20 04:00 97.7 78 20 131/79 (96) 98 05/14/20 00:00 97.9 81 18 124/71 (88) 99 05/13/20 23:09 123/65 05/13/20 21:00 Room Air 05/13/20 20:50 82 115/68 05/13/20 20:00 82 18 98 Room Air 21 05/13/20 20:00 97.6 85 18 119/72 (88) 98 05/13/20 16:00 98.1 82 19 134/68 (90) 94 05/13/20 13:55 124/65 05/13/20 12:00 97.5 89 18 124/65 (84) 98 05/13/20 10:39 87 16 97 Room Air 21 05/13/20 09:17 91 107/64 05/13/20 09:00 Room Air Height (Feet): 6 Height (Inches): 1.00 Weight (Pounds): 150 Gen: NAD HEENT: NCAT Pulm: BL chest rise Abd: Non-distended Ext: No c/c/e Skin: No visible rashes Neuro: Awake Microbiology Date/Time Source Procedure Growth Status 05/11/20 16:25 Blood Blood Culture - Preliminary NO GROWTH AFTER 48 HOURS Resulted 05/11/20 16:15 Blood Blood Culture - Preliminary NO GROWTH AFTER 48 HOURS Resulted Laboratory Tests Test 05/13/20 10:25 05/14/20 04:50 White Blood Count 7.4 K/UL (4.8-10.8) 7.3 K/UL (4.8-10.8) Red Blood Count 3.79 M/UL (4.70-6.10) L 3.87 M/UL (4.70-6.10) L Hemoglobin 11.8 G/DL (14.2-18.0) L 11.9 G/DL (14.2-18.0) L Hematocrit 33.8 % (42.0-52.0) L 34.9 % (42.0-52.0) L Mean Corpuscular Volume 89 FL (80-99) 90 FL (80-99) Mean Corpuscular Hemoglobin 31.0 PG (27.0-31.0) 30.7 PG (27.0-31.0) Mean Corpuscular Hemoglobin Concent 34.8 G/DL (32.0-36.0) 34.0 G/DL (32.0-36.0) Red Cell Distribution Width 14.5 % (11.6-14.8) 14.7 % (11.6-14.8) Platelet Count 251 K/UL (150-450) 278 K/UL (150-450) Mean Platelet Volume 7.1 FL (6.5-10.1) 6.6 FL (6.5-10.1) Neutrophils (%) (Auto) 56.3 % (45.0-75.0) 57.9 % (45.0-75.0) Lymphocytes (%) (Auto) 30.5 % (20.0-45.0) 32.0 % (20.0-45.0) Monocytes (%) (Auto) 10.5 % (1.0-10.0) H 8.6 % (1.0-10.0) Eosinophils (%) (Auto) 1.9 % (0.0-3.0) 0.5 % (0.0-3.0) Basophils (%) (Auto) 0.9 % (0.0-2.0) 1.1 % (0.0-2.0) Sodium Level 139 MMOL/L (136-145) 140 MMOL/L (136-145) Potassium Level 3.4 MMOL/L (3.5-5.1) L 3.8 MMOL/L (3.5-5.1) Chloride Level 104 MMOL/L (98-107) 106 MMOL/L (98-107) Carbon Dioxide Level 27 MMOL/L (21-32) 28 MMOL/L (21-32) Anion Gap 8 mmol/L (5-15) 7 mmol/L (5-15) Blood Urea Nitrogen 8 mg/dL (7-18) 13 mg/dL (7-18) Creatinine 1.1 MG/DL (0.55-1.30) 1.1 MG/DL (0.55-1.30) Estimat Glomerular Filtration Rate > 60 mL/min (>60) > 60 mL/min (>60) Glucose Level 120 MG/DL (74-106) H 113 MG/DL (74-106) H Calcium Level 8.8 MG/DL (8.5-10.1) 9.1 MG/DL (8.5-10.1) Current Medications Medications (Trade) Dose Ordered Sig/Ja Route PRN Reason Start Time Stop Time Status Last Admin Dose Admin Acetaminophen (Tylenol) 650 mg Q4H PRN ORAL Mild Pain (Pain Scale 1-3) 05/08/20 18:15 06/07/20 18:14 05/12/20 13:09 Acetaminophen (Tylenol) 650 mg Q4H PRN ORAL Temp >100.5 05/08/20 18:15 06/07/20 18:14 Albuterol Sulfate (Proventil MDI) 2 puff Q4H PRN INH Shortness of Breath 05/08/20 19:00 08/06/20 18:59 Amlodipine Besylate (Norvasc) 5 mg BID@0900,2100 ORAL 05/08/20 21:00 06/07/20 20:59 05/13/20 20:50 Atorvastatin Calcium (Lipitor) 80 mg BEDTIME ORAL 12/8/20 21:00 08/06/20 20:59 05/13/20 20:50 Dexamethasone Sodium Phosphate (Decadron 10mg/ ml Inj) 6 mg DAILY IV 05/10/20 13:30 05/19/20 09:01 05/13/20 09:17 Dextrose (Dextrose 50%) 25 ml Q30M PRN IV Hypoglycemia 05/08/20 18:15 08/06/20 18:14 Dextrose (Dextrose 50%) 50 ml Q30M PRN IV Hypoglycemia 05/08/20 18:15 08/06/20 18:14 Docusate Sodium (Colace) 100 mg THREE TIMES A DAY ORAL 05/10/20 13:00 06/09/20 12:59 05/13/20 17:10 Enoxaparin Sodium (Lovenox) 40 mg Q24H SUBQ 05/08/20 21:00 08/06/20 20:59 05/13/20 20:49 EZETIMIBE (Zetia) 10 mg BEDTIME ORAL 05/08/20 21:00 06/07/20 20:59 05/13/20 20:49 Hydralazine HCl (Apresoline) 50 mg Q8HR ORAL 05/08/20 22:00 08/06/20 21:59 05/14/20 05:45 Lactulose (Cephulac) 30 gm THREE TIMES A DAY ORAL 05/10/20 13:00 06/09/20 12:59 05/13/20 17:10 Lorazepam (Ativan) 1 mg Q4H PRN ORAL For Anxiety 05/08/20 18:15 05/15/20 18:14 Mineral Oil (Fleet's Mineral Oil Enema) 133 ml EVERY OTHER DAY RECTAL 05/12/20 09:00 06/11/20 08:59 05/12/20 09:34 Ondansetron HCl (Zofran) 4 mg Q6H PRN IVP Nausea & Vomiting 05/08/20 18:15 06/07/20 18:14 Pantoprazole (Protonix) 40 mg DAILY ORAL 05/09/20 09:00 06/08/20 08:59 05/13/20 09:17 Tamsulosin HCl (Flomax) 0.4 mg BEDTIME ORAL 05/08/20 21:00 06/07/20 20:59 05/13/20 20:50 Zolpidem Tartrate (Ambien) 5 mg HSPRN PRN ORAL Insomnia 05/08/20 18:15 05/15/20 18:14 Sofya Tam M.D. May 14, 2020 08:41
[2020-05-14] MEDS: dexAMETHasone 10mg/ml Inj IV SCH (09:00)
[2020-05-14] MEDS: Fleet's Mineral Oil Enema RECTAL SCH (09:00)
[2020-05-14] MEDS: Docusate 100mg cap ORAL SCH ×3 (09:01→18:00)
[2020-05-14] MEDS: Lactulose 20gm/30ml UDC ORAL SCH ×3 (09:01→18:00)
[2020-05-14 11:59] VITALS: BP 138/56
[2020-05-14 16:00] VITALS: BP 141/74
--- NOTE | 2020-05-14 17:37 | Pulmonology Progress Note ---
Subjective ROS Limited/Unobtainable: No Constitutional: Reports: no symptoms HEENT: Repors: no symptoms Allergies: Coded Allergies: PENICILLINS (Verified Allergy, Unknown, 11/16/16) Objective Last 24 Hour Vital Signs Date Time Temp Pulse Resp B/P (MAP) Pulse Ox O2 Delivery O2 Flow Rate FiO2 05/14/20 16:00 97.7 88 20 141/74 (96) 93 05/14/20 13:37 138/56 05/14/20 11:59 99.1 86 18 138/56 (83) 97 05/14/20 09:01 82 140/59 05/14/20 09:00 Room Air 05/14/20 08:00 97.2 82 18 140/59 (86) 97 05/14/20 05:45 131/79 05/14/20 04:00 97.7 78 20 131/79 (96) 98 05/14/20 00:00 97.9 81 18 124/71 (88) 99 05/13/20 23:09 123/65 05/13/20 21:00 Room Air 05/13/20 20:50 82 115/68 05/13/20 20:00 82 18 98 Room Air 21 05/13/20 20:00 97.6 85 18 119/72 (88) 98 Intake and Output 05/13/20 05/14/20 19:00 07:00 Intake Total 480 ml 360 ml Output Total 700 ml 900 ml Balance -220 ml -540 ml Intake Oral 480 ml 360 ml Output Urine Total 700 ml 900 ml # Bowel Movements 1 General Appearance: WD/WN HEENT: normocephalic, atraumatic, PERRL Respiratory: lungs clear, normal breath sounds Cardiovascular: normal peripheral pulses, normal rate Abdomen: normal bowel sounds, soft, non tender Genitourinary: normal external genitalia Extremities: no cyanosis Skin: no rash Laboratory Tests 05/14/20 04:50: White Blood Count 7.3, Red Blood Count 3.87L, Hemoglobin 11.9L, Hematocrit 34.9L , Mean Corpuscular Volume 90, Mean Corpuscular Hemoglobin 30.7, Mean Corpuscular Hemoglobin Concent 34.0, Red Cell Distribution Width 14.7, Platelet Count 278, Mean Platelet Volume 6.6, Neutrophils (%) (Auto) 57.9, Lymphocytes (%) (Auto) 32.0, Monocytes (%) (Auto) 8.6, Eosinophils (%) (Auto) 0.5, Basophils (%) (Auto) 1.1, Sodium Level 140, Potassium Level 3.8, Chloride Level 106, Carbon Dioxide Level 28, Anion Gap 7, Blood Urea Nitrogen 13, Creatinine 1.1, Estimat Glomerular Filtration Rate > 60, Glucose Level 113H, Calcium Level 9.1 Current Medications Medications (Trade) Dose Ordered Sig/Ja Route PRN Reason Start Time Stop Time Status Last Admin Dose Admin Acetaminophen (Tylenol) 650 mg Q4H PRN ORAL Mild Pain (Pain Scale 1-3) 05/08/20 18:15 06/07/20 18:14 05/12/20 13:09 Acetaminophen (Tylenol) 650 mg Q4H PRN ORAL Temp >100.5 05/08/20 18:15 06/07/20 18:14 Albuterol Sulfate (Proventil MDI) 2 puff Q4H PRN INH Shortness of Breath 05/08/20 19:00 08/06/20 18:59 Amlodipine Besylate (Norvasc) 5 mg BID@0900,2100 ORAL 05/08/20 21:00 06/07/20 20:59 05/14/20 09:01 Atorvastatin Calcium (Lipitor) 80 mg BEDTIME ORAL 05/08/20 21:00 08/06/20 20:59 05/13/20 20:50 Dexamethasone Sodium Phosphate (Decadron 10mg/ ml Inj) 6 mg DAILY IV 05/10/20 13:30 05/19/20 09:01 05/14/20 09:00 Dextrose (Dextrose 50%) 25 ml Q30M PRN IV Hypoglycemia 05/08/20 18:15 08/06/20 18:14 Dextrose (Dextrose 50%) 50 ml Q30M PRN IV Hypoglycemia 05/08/20 18:15 08/06/20 18:14 Docusate Sodium (Colace) 100 mg THREE TIMES A DAY ORAL 05/10/20 13:00 06/09/20 12:59 05/14/20 09:01 Enoxaparin Sodium (Lovenox) 40 mg Q24H SUBQ 05/08/20 21:00 08/06/20 20:59 05/13/20 20:49 EZETIMIBE (Zetia) 10 mg BEDTIME ORAL 05/08/20 21:00 06/07/20 20:59 05/13/20 20:49 Hydralazine HCl (Apresoline) 50 mg Q8HR ORAL 05/08/20 22:00 08/06/20 21:59 05/14/20 13:37 Lactulose (Cephulac) 30 gm THREE TIMES A DAY ORAL 05/10/20 13:00 06/09/20 12:59 05/14/20 09:01 Lorazepam (Ativan) 1 mg Q4H PRN ORAL For Anxiety 05/08/20 18:15 05/15/20 18:14 Mineral Oil (Fleet's Mineral Oil Enema) 133 ml EVERY OTHER DAY RECTAL 05/12/20 09:00 06/11/20 08:59 05/12/20 09:34 Ondansetron HCl (Zofran) 4 mg Q6H PRN IVP Nausea & Vomiting 05/08/20 18:15 06/07/20 18:14 Pantoprazole (Protonix) 40 mg DAILY ORAL 05/09/20 09:00 06/08/20 08:59 05/14/20 09:01 Tamsulosin HCl (Flomax) 0.4 mg BEDTIME ORAL 05/08/20 21:00 06/07/20 20:59 05/13/20 20:50 Zolpidem Tartrate (Ambien) 5 mg HSPRN PRN ORAL Insomnia 05/08/20 18:15 05/15/20 18:14 Assessment/Plan Problems: (1) Pneumonia (2) COVID-19 (3) Episode of generalized weakness (4) COPD (chronic obstructive pulmonary disease) (5) Obstructed Dennison catheter (6) History of CVA (cerebrovascular accident) Assessment/Plan all reviewed wbc still high getting better no new complain ID consult appreciated ABX for UTI pt/ ptt respiratory treatment titrate fio2 to sat of 92% DVT prohylaxis. Elisabet Mendez MD May 14, 2020 17:36
--- NOTE | 2020-05-14 19:04 | Internal Med Progress Note ---
Subjective Date of Service: May 14, 2020 Physician Name David Jonas Attending Physician Fernando Sierra MD Current Medications Medications (Trade) Dose Ordered Sig/Aj Route PRN Reason Start Time Stop Time Status Last Admin Dose Admin Acetaminophen (Tylenol) 650 mg Q4H PRN ORAL Mild Pain (Pain Scale 1-3) 05/08/20 18:15 06/07/20 18:14 05/12/20 13:09 Acetaminophen (Tylenol) 650 mg Q4H PRN ORAL Temp >100.5 05/08/20 18:15 06/07/20 18:14 Albuterol Sulfate (Proventil MDI) 2 puff Q4H PRN INH Shortness of Breath 05/08/20 19:00 08/06/20 18:59 Amlodipine Besylate (Norvasc) 5 mg BID@0900,2100 ORAL 05/08/20 21:00 06/07/20 20:59 05/14/20 09:01 Atorvastatin Calcium (Lipitor) 80 mg BEDTIME ORAL 05/08/20 21:00 08/06/20 20:59 05/13/20 20:50 Dexamethasone Sodium Phosphate (Decadron 10mg/ ml Inj) 6 mg DAILY IV 05/10/20 13:30 05/19/20 09:01 05/14/20 09:00 Dextrose (Dextrose 50%) 25 ml Q30M PRN IV Hypoglycemia 05/08/20 18:15 08/06/20 18:14 Dextrose (Dextrose 50%) 50 ml Q30M PRN IV Hypoglycemia 05/08/20 18:15 08/06/20 18:14 Docusate Sodium (Colace) 100 mg THREE TIMES A DAY ORAL 05/10/20 13:00 06/09/20 12:59 05/14/20 09:01 Enoxaparin Sodium (Lovenox) 40 mg Q24H SUBQ 05/08/20 21:00 08/06/20 20:59 05/13/20 20:49 EZETIMIBE (Zetia) 10 mg BEDTIME ORAL 05/08/20 21:00 06/07/20 20:59 05/13/20 20:49 Hydralazine HCl (Apresoline) 50 mg Q8HR ORAL 05/08/20 22:00 08/06/20 21:59 05/14/20 13:37 Lactulose (Cephulac) 30 gm THREE TIMES A DAY ORAL 05/10/20 13:00 06/09/20 12:59 05/14/20 09:01 Lorazepam (Ativan) 1 mg Q4H PRN ORAL For Anxiety 05/08/20 18:15 05/15/20 18:14 Mineral Oil (Fleet's Mineral Oil Enema) 133 ml EVERY OTHER DAY RECTAL 05/12/20 09:00 06/11/20 08:59 05/12/20 09:34 Ondansetron HCl (Zofran) 4 mg Q6H PRN IVP Nausea & Vomiting 05/08/20 18:15 06/07/20 18:14 Pantoprazole (Protonix) 40 mg DAILY ORAL 05/09/20 09:00 06/08/20 08:59 05/14/20 09:01 Tamsulosin HCl (Flomax) 0.4 mg BEDTIME ORAL 05/08/20 21:00 06/07/20 20:59 05/13/20 20:50 Zolpidem Tartrate (Ambien) 5 mg HSPRN PRN ORAL Insomnia 05/08/20 18:15 05/15/20 18:14 Allergies: Coded Allergies: PENICILLINS (Verified Allergy, Unknown, 11/16/16) ROS Limited/Unobtainable: Yes Subjective 85 YO M admitted with abdominal pain. Now COVID 19 positive and sepsis. Cover for Int [facility]-Dr Sierra Objective Last Vital Signs Date Time Temp Pulse Resp B/P (MAP) Pulse Ox O2 Delivery O2 Flow Rate FiO2 05/14/20 16:00 97.7 88 20 141/74 (96) 93 05/14/20 09:00 Room Air 05/13/20 20:00 21 Laboratory Tests Test 05/14/20 04:50 White Blood Count 7.3 K/UL (4.8-10.8) Red Blood Count 3.87 M/UL (4.70-6.10) L Hemoglobin 11.9 G/DL (14.2-18.0) L Hematocrit 34.9 % (42.0-52.0) L Mean Corpuscular Volume 90 FL (80-99) Mean Corpuscular Hemoglobin 30.7 PG (27.0-31.0) Mean Corpuscular Hemoglobin Concent 34.0 G/DL (32.0-36.0) Red Cell Distribution Width 14.7 % (11.6-14.8) Platelet Count 278 K/UL (150-450) Mean Platelet Volume 6.6 FL (6.5-10.1) Neutrophils (%) (Auto) 57.9 % (45.0-75.0) Lymphocytes (%) (Auto) 32.0 % (20.0-45.0) Monocytes (%) (Auto) 8.6 % (1.0-10.0) Eosinophils (%) (Auto) 0.5 % (0.0-3.0) Basophils (%) (Auto) 1.1 % (0.0-2.0) Sodium Level 140 MMOL/L (136-145) Potassium Level 3.8 MMOL/L (3.5-5.1) Chloride Level 106 MMOL/L (98-107) Carbon Dioxide Level 28 MMOL/L (21-32) Anion Gap 7 mmol/L (5-15) Blood Urea Nitrogen 13 mg/dL (7-18) Creatinine 1.1 MG/DL (0.55-1.30) Estimat Glomerular Filtration Rate > 60 mL/min (>60) Glucose Level 113 MG/DL (74-106) H Calcium Level 9.1 MG/DL (8.5-10.1) Intake and Output 05/13/20 05/14/20 19:00 07:00 Intake Total 480 ml 360 ml Output Total 700 ml 900 ml Balance -220 ml -540 ml Intake Oral 480 ml 360 ml Output Urine Total 700 ml 900 ml # Bowel Movements 1 Objective PHYSICAL EXAMINATION: GENERAL: The patient is a well-developed, well-nourished male, in no apparent distress. HEENT: Eyes, pupils equal and responsive to light and accommodation. Extra movements are intact. NECK: Supple without lymphadenopathy. CHEST: Lungs are clear to auscultation bilaterally without wheezes or rales. CARDIOVASCULAR: Regular rhythm and rate. S1, S2 are normal without murmurs, rubs, or gallops. ABDOMEN: Soft, nontender, and nondistended. Positive bowel sounds. No evidence of hepatosplenomegaly. Currently no rebound or guarding noted. EXTREMITIES: Negative for clubbing, cyanosis, or edema. RECTAL/GENITAL: Not performed. NEUROLOGIC: Cranial nerves II through XII are grossly intact without focal deficits. Motor strength is 5/5 bilaterally. Deep tendon reflexes are 2+ plantar. Assessment/Plan Assessment/Plan ASSESSMENT: This is an 85-year-old male. 1. COVID-19 pneumonia. 2. Urinary tract infection. 3. Abdominal pain. 4. Benign prostatic hypertrophy. 5. Hypertension. 6. Cerebrovascular disease. 7. Chronic obstructive pulmonary disease. 8. Bacteremia=staph haemolyticus TREATMENT: 1. 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 Urine culture = no growth 2. COVID-19 pneumonia. ABX= S/P azithromycin, ceftriaxone and Vanco Infectious disease = /[place]. Pulmonary/critical care= Dr. Elisabet Mendez. Continue decadron 3. Benign prostatic hypertrophy. The patient currently has a Dennison catheter in place. 4. Hypertension. Continue amlodipine and hydralazine as above. 5. History of cerebrovascular disease. 6. Chronic obstructive pulmonary disease. David Jonas MD May 14, 2020 19:04
[2020-05-14 20:00] VITALS: BP 133/70
[2020-05-14] MEDS: Enoxaparin 40mg Inj SUBQ SCH (21:10)
[2020-05-14] MEDS: Atorvastatin 80mg tab ORAL SCH (21:11)
[2020-05-14] MEDS: Tamsulosin 0.4mg cap ORAL SCH (21:11)
[2020-05-15] VITALS: BP 131/56
[2020-05-15 04:00] VITALS: BP 139/59
[2020-05-15] MEDS: HydrALAZINE 50mg tab ORAL SCH ×3 (06:01→21:05)
[2020-05-15 06:50] LABS: BASOPHILS % (AUTO) 0.5 % (0.0-2.0); EOSINOPHILS % (AUTO) 0.1 % (0.0-3.0); HEMATOCRIT 32.2 % (42.0-52.0); HEMOGLOBIN 11.1 G/DL (14.2-18.0); LYMPHOCYTES % (AUTO) 24.1 % (20.0-45.0); MEAN CORPUSCULAR VOLUME 91 FL (80-99); MONOCYTES % (AUTO) 9.2 % (1.0-10.0); NEUTROPHILS % (AUTO) 66.1 % (45.0-75.0); PLATELET COUNT 263 K/UL (150-450); RED BLOOD COUNT 3.54 M/UL (4.70-6.10); RED CELL DISTRIBUTION WIDTH 14.2 % (11.6-14.8); WHITE BLOOD COUNT 7.1 K/UL (4.8-10.8)
[2020-05-15 07:09] LABS: ANION GAP 8 mmol/L (5-15); CALCIUM 8.5 MG/DL (8.5-10.1); CARBON DIOXIDE 26 MMOL/L (21-32); CHLORIDE 105 MMOL/L (98-107); POTASSIUM 3.9 MMOL/L (3.5-5.1); SODIUM 139 MMOL/L (136-145)
[2020-05-15 07:32] LABS: BLOOD UREA NITROGEN 11 mg/dL (7-18)
--- NOTE | 2020-05-15 07:46 | Infectious Diseases Prog Note ---
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, m/l skin colonizer CXR: Hazy bibasilar infiltrates 05/11 BCx NTD Indwelling rossi Lower abd pain 05/08 UA 5-10 WBC, UCx >100k mixed organisms 05/08 UCx 50-60k Micrococcus species BENNETT, improving Cr 1.4 --> 1.2 Plan: Stop dexamethasone 6mg daily #6 given pt remaining on RA with good sat Trend resp status, if worsens will start remdesivir (currently 97-98% on RA) 05/13 SP CTX/azithro #6 empiric for UTI/pna 05/13 SP vanco IV #3 empiric CONS in BCx Monitor CBC/CMP Monitor temp curve, hemodynamics Monitor resp status D/w RN Thank you for this consult. [facility] will continue to follow. Subjective Allergies: Coded Allergies: PENICILLINS (Verified Allergy, Unknown, 11/16/16) AF NAD on RA WBC 7.1 No resp complaints Feels overall stable, main complaint is irritation w/ rossi cath Objective Last 24 Hour Vital Signs Date Time Temp Pulse Resp B/P (MAP) Pulse Ox O2 Delivery O2 Flow Rate FiO2 05/15/20 06:01 139/59 05/15/20 04:29 97.3 05/15/20 04:00 97.3 93 20 139/59 (85) 97 05/15/20 00:00 97.9 84 20 131/56 (81) 92 05/14/20 21:37 Room Air 05/14/20 21:11 141/74 05/14/20 21:11 88 141/74 05/14/20 20:00 97.7 85 20 133/70 (91) 92 05/14/20 16:00 97.7 88 20 141/74 (96) 93 05/14/20 13:37 138/56 05/14/20 11:59 99.1 86 18 138/56 (83) 97 05/14/20 09:01 82 140/59 05/14/20 09:00 Room Air 05/14/20 08:00 97.2 82 18 140/59 (86) 97 Height (Feet): 6 Height (Inches): 1.00 Weight (Pounds): 150 Gen: NAD HEENT: NCAT Pulm: BL chest rise Abd: Non-distended Ext: No c/c/e Skin: No visible rashes Neuro: Awake Laboratory Tests Test 05/15/20 04:00 White Blood Count 7.1 K/UL (4.8-10.8) Red Blood Count 3.54 M/UL (4.70-6.10) L Hemoglobin 11.1 G/DL (14.2-18.0) L Hematocrit 32.2 % (42.0-52.0) L Mean Corpuscular Volume 91 FL (80-99) Mean Corpuscular Hemoglobin 31.3 PG (27.0-31.0) H Mean Corpuscular Hemoglobin Concent 34.5 G/DL (32.0-36.0) Red Cell Distribution Width 14.2 % (11.6-14.8) Platelet Count 263 K/UL (150-450) Mean Platelet Volume 6.6 FL (6.5-10.1) Neutrophils (%) (Auto) 66.1 % (45.0-75.0) Lymphocytes (%) (Auto) 24.1 % (20.0-45.0) Monocytes (%) (Auto) 9.2 % (1.0-10.0) Eosinophils (%) (Auto) 0.1 % (0.0-3.0) Basophils (%) (Auto) 0.5 % (0.0-2.0) Sodium Level 139 MMOL/L (136-145) Potassium Level 3.9 MMOL/L (3.5-5.1) Chloride Level 105 MMOL/L (98-107) Carbon Dioxide Level 26 MMOL/L (21-32) Anion Gap 8 mmol/L (5-15) Blood Urea Nitrogen Pending Creatinine 1.0 MG/DL (0.55-1.30) Estimat Glomerular Filtration Rate > 60 mL/min (>60) Glucose Level 90 MG/DL (74-106) Calcium Level 8.5 MG/DL (8.5-10.1) Current Medications Medications (Trade) Dose Ordered Sig/Ja Route PRN Reason Start Time Stop Time Status Last Admin Dose Admin Acetaminophen (Tylenol) 650 mg Q4H PRN ORAL Mild Pain (Pain Scale 1-3) 05/08/20 18:15 06/07/20 18:14 05/15/20 03:59 Acetaminophen (Tylenol) 650 mg Q4H PRN ORAL Temp >100.5 05/08/20 18:15 06/07/20 18:14 Albuterol Sulfate (Proventil MDI) 2 puff Q4H PRN INH Shortness of Breath 05/08/20 19:00 08/06/20 18:59 Amlodipine Besylate (Norvasc) 5 mg BID@0900,2100 ORAL 05/08/20 21:00 06/07/20 20:59 05/14/20 21:11 Atorvastatin Calcium (Lipitor) 80 mg BEDTIME ORAL 05/08/20 21:00 08/06/20 20:59 05/14/20 21:11 Dexamethasone Sodium Phosphate (Decadron 10mg/ ml Inj) 6 mg DAILY IV 05/10/20 13:30 05/19/20 09:01 05/14/20 09:00 Dextrose (Dextrose 50%) 25 ml Q30M PRN IV Hypoglycemia 05/08/20 18:15 08/06/20 18:14 Dextrose (Dextrose 50%) 50 ml Q30M PRN IV Hypoglycemia 05/08/20 18:15 08/06/20 18:14 Docusate Sodium (Colace) 100 mg THREE TIMES A DAY ORAL 05/10/20 13:00 06/09/20 12:59 05/14/20 09:01 Enoxaparin Sodium (Lovenox) 40 mg Q24H SUBQ 05/08/20 21:00 08/06/20 20:59 05/14/20 21:10 EZETIMIBE (Zetia) 10 mg BEDTIME ORAL 05/08/20 21:00 06/07/20 20:59 05/14/20 21:11 Hydralazine HCl (Apresoline) 50 mg Q8HR ORAL 05/08/20 22:00 08/06/20 21:59 05/15/20 06:01 Lactulose (Cephulac) 30 gm THREE TIMES A DAY ORAL 05/10/20 13:00 06/09/20 12:59 05/14/20 09:01 Lorazepam (Ativan) 1 mg Q4H PRN ORAL For Anxiety 05/08/20 18:15 05/15/20 18:14 Mineral Oil (Fleet's Mineral Oil Enema) 133 ml EVERY OTHER DAY RECTAL 05/12/20 09:00 06/11/20 08:59 05/12/20 09:34 Ondansetron HCl (Zofran) 4 mg Q6H PRN IVP Nausea & Vomiting 05/08/20 18:15 06/07/20 18:14 Pantoprazole (Protonix) 40 mg DAILY ORAL 05/09/20 09:00 06/08/20 08:59 05/14/20 09:01 Tamsulosin HCl (Flomax) 0.4 mg BEDTIME ORAL 05/08/20 21:00 06/07/20 20:59 05/14/20 21:11 Zolpidem Tartrate (Ambien) 5 mg HSPRN PRN ORAL Insomnia 05/08/20 18:15 05/15/20 18:14 Sofya Tam M.D. May 15, 2020 07:46
[2020-05-15 08:00] VITALS: BP 159/86
[2020-05-15] MEDS: Lactulose 20gm/30ml UDC ORAL SCH ×3 (09:51→18:36)
[2020-05-15] MEDS: dexAMETHasone 10mg/ml Inj IV SCH (09:51)
[2020-05-15] MEDS: Docusate 100mg cap ORAL SCH ×3 (09:53→18:36)
[2020-05-15 12:00] VITALS: BP 134/80
--- NOTE | 2020-05-15 12:17 | Pulmonology Progress Note ---
Subjective ROS Limited/Unobtainable: Yes Constitutional: Reports: no symptoms HEENT: Repors: no symptoms Allergies: Coded Allergies: PENICILLINS (Verified Allergy, Unknown, 11/16/16) Objective Last 24 Hour Vital Signs Date Time Temp Pulse Resp B/P (MAP) Pulse Ox O2 Delivery O2 Flow Rate FiO2 05/15/20 09:53 86 159/86 05/15/20 08:15 86 18 97 Room Air 21 05/15/20 08:00 97.8 87 19 159/86 (110) 98 05/15/20 06:01 139/59 05/15/20 04:29 97.3 05/15/20 04:00 97.3 93 20 139/59 (85) 97 05/15/20 00:00 97.9 84 20 131/56 (81) 92 05/14/20 21:37 Room Air 05/14/20 21:11 141/74 05/14/20 21:11 88 141/74 05/14/20 20:00 97.7 85 20 133/70 (91) 92 05/14/20 16:00 97.7 88 20 141/74 (96) 93 05/14/20 13:37 138/56 Intake and Output 05/14/20 05/15/20 19:00 07:00 Intake Total 360 ml Output Total 500 ml 1200 ml Balance -500 ml -840 ml Other 360 ml Output Urine Total 500 ml 1200 ml # Bowel Movements 1 General Appearance: WD/WN HEENT: normocephalic, atraumatic, PERRL Respiratory: lungs clear, normal breath sounds Cardiovascular: normal peripheral pulses, normal rate Abdomen: normal bowel sounds, soft, non tender Genitourinary: normal external genitalia Extremities: no cyanosis Skin: no rash Lymphatic: no neck adenopathy Laboratory Tests 05/15/20 04:00: White Blood Count 7.1, Red Blood Count 3.54L, Hemoglobin 11.1L, Hematocrit 32.2L , Mean Corpuscular Volume 91, Mean Corpuscular Hemoglobin 31.3H, Mean Corpuscular Hemoglobin Concent 34.5, Red Cell Distribution Width 14.2, Platelet Count 263, Mean Platelet Volume 6.6, Neutrophils (%) (Auto) 66.1, Lymphocytes (%) (Auto) 24.1, Monocytes (%) (Auto) 9.2, Eosinophils (%) (Auto) 0.1, Basophils (%) (Auto) 0.5, Sodium Level 139, Potassium Level 3.9, Chloride Level 105, Carbon Dioxide Level 26, Anion Gap 8, Blood Urea Nitrogen 11, Creatinine 1.0, Estimat Glomerular Filtration Rate > 60, Glucose Level 90, Calcium Level 8.5 Current Medications Medications (Trade) Dose Ordered Sig/Ja Route PRN Reason Start Time Stop Time Status Last Admin Dose Admin Acetaminophen (Tylenol) 650 mg Q4H PRN ORAL Mild Pain (Pain Scale 1-3) 05/08/20 18:15 06/07/20 18:14 05/15/20 03:59 Acetaminophen (Tylenol) 650 mg Q4H PRN ORAL Temp >100.5 05/08/20 18:15 06/07/20 18:14 Albuterol Sulfate (Proventil MDI) 2 puff Q4H PRN INH Shortness of Breath 05/08/20 19:00 08/06/20 18:59 Amlodipine Besylate (Norvasc) 5 mg BID@0900,2100 ORAL 05/08/20 21:00 06/07/20 20:59 05/15/20 09:53 Atorvastatin Calcium (Lipitor) 80 mg BEDTIME ORAL 05/08/20 21:00 08/06/20 20:59 05/14/20 21:11 Dexamethasone Sodium Phosphate (Decadron 10mg/ ml Inj) 6 mg DAILY IV 05/10/20 13:30 05/19/20 09:01 05/15/20 09:51 Dextrose (Dextrose 50%) 25 ml Q30M PRN IV Hypoglycemia 05/08/20 18:15 08/06/20 18:14 Dextrose (Dextrose 50%) 50 ml Q30M PRN IV Hypoglycemia 05/08/20 18:15 08/06/20 18:14 Docusate Sodium (Colace) 100 mg THREE TIMES A DAY ORAL 05/10/20 13:00 06/09/20 12:59 05/15/20 09:53 Enoxaparin Sodium (Lovenox) 40 mg Q24H SUBQ 05/08/20 21:00 08/06/20 20:59 05/14/20 21:10 EZETIMIBE (Zetia) 10 mg BEDTIME ORAL 05/08/20 21:00 06/07/20 20:59 12/14/20 21:11 Hydralazine HCl (Apresoline) 50 mg Q8HR ORAL 05/08/20 22:00 08/06/20 21:59 05/15/20 06:01 Lactulose (Cephulac) 30 gm THREE TIMES A DAY ORAL 05/10/20 13:00 06/09/20 12:59 05/15/20 09:51 Lorazepam (Ativan) 1 mg Q4H PRN ORAL For Anxiety 05/08/20 18:15 05/15/20 18:14 Mineral Oil (Fleet's Mineral Oil Enema) 133 ml EVERY OTHER DAY RECTAL 05/12/20 09:00 06/11/20 08:59 05/12/20 09:34 Ondansetron HCl (Zofran) 4 mg Q6H PRN IVP Nausea & Vomiting 05/08/20 18:15 06/07/20 18:14 Pantoprazole (Protonix) 40 mg DAILY ORAL 05/09/20 09:00 06/08/20 08:59 05/15/20 09:51 Tamsulosin HCl (Flomax) 0.4 mg BEDTIME ORAL 05/08/20 21:00 06/07/20 20:59 05/14/20 21:11 Zolpidem Tartrate (Ambien) 5 mg HSPRN PRN ORAL Insomnia 05/08/20 18:15 05/15/20 18:14 Assessment/Plan Problems: (1) Pneumonia (2) COVID-19 (3) Episode of generalized weakness (4) COPD (chronic obstructive pulmonary disease) (5) Obstructed Dennison catheter (6) History of CVA (cerebrovascular accident) Assessment/Plan all reviewed getting better no new complain ABX for UTI pt/ ptt respiratory treatment titrate fio2 to sat of 92% DVT prohylaxis. Elisabet Mendez MD May 15, 2020 12:17
[2020-05-15 16:00] VITALS: BP 131/62
--- NOTE | 2020-05-15 17:53 | Internal Med Progress Note ---
Subjective Date of Service: May 15, 2020 Physician Name David Jonas Attending Physician Fernando Sierra MD Current Medications Medications (Trade) Dose Ordered Sig/Ja Route PRN Reason Start Time Stop Time Status Last Admin Dose Admin Acetaminophen (Tylenol) 650 mg Q4H PRN ORAL Mild Pain (Pain Scale 1-3) 05/08/20 18:15 06/07/20 18:14 05/15/20 03:59 Acetaminophen (Tylenol) 650 mg Q4H PRN ORAL Temp >100.5 05/08/20 18:15 06/07/20 18:14 Albuterol Sulfate (Proventil MDI) 2 puff Q4H PRN INH Shortness of Breath 05/08/20 19:00 08/06/20 18:59 Amlodipine Besylate (Norvasc) 5 mg BID@0900,2100 ORAL 05/08/20 21:00 06/07/20 20:59 05/15/20 09:53 Atorvastatin Calcium (Lipitor) 80 mg BEDTIME ORAL 05/08/20 21:00 08/06/20 20:59 05/14/20 21:11 Dextrose (Dextrose 50%) 25 ml Q30M PRN IV Hypoglycemia 05/08/20 18:15 08/06/20 18:14 Dextrose (Dextrose 50%) 50 ml Q30M PRN IV Hypoglycemia 05/08/20 18:15 08/06/20 18:14 Docusate Sodium (Colace) 100 mg THREE TIMES A DAY ORAL 05/10/20 13:00 06/09/20 12:59 05/15/20 14:26 Enoxaparin Sodium (Lovenox) 40 mg Q24H SUBQ 05/08/20 21:00 08/06/20 20:59 05/14/20 21:10 EZETIMIBE (Zetia) 10 mg BEDTIME ORAL 05/08/20 21:00 06/07/20 20:59 05/14/20 21:11 Hydralazine HCl (Apresoline) 50 mg Q8HR ORAL 05/08/20 22:00 08/06/20 21:59 05/15/20 14:26 Lactulose (Cephulac) 30 gm THREE TIMES A DAY ORAL 05/10/20 13:00 06/09/20 12:59 05/15/20 14:26 Lorazepam (Ativan) 1 mg Q4H PRN ORAL For Anxiety 05/08/20 18:15 05/15/20 18:14 Mineral Oil (Fleet's Mineral Oil Enema) 133 ml EVERY OTHER DAY RECTAL 05/12/20 09:00 06/11/20 08:59 05/12/20 09:34 Ondansetron HCl (Zofran) 4 mg Q6H PRN IVP Nausea & Vomiting 05/08/20 18:15 06/07/20 18:14 Pantoprazole (Protonix) 40 mg DAILY ORAL 05/09/20 09:00 06/08/20 08:59 05/15/20 09:51 Tamsulosin HCl (Flomax) 0.4 mg BEDTIME ORAL 05/08/20 21:00 06/07/20 20:59 05/14/20 21:11 Zolpidem Tartrate (Ambien) 5 mg HSPRN PRN ORAL Insomnia 05/08/20 18:15 05/15/20 18:14 Allergies: Coded Allergies: PENICILLINS (Verified Allergy, Unknown, 11/16/16) ROS Limited/Unobtainable: Yes Subjective 85 YO M admitted with abdominal pain. Now COVID 19 positive and sepsis. Cover for Int [facility]-Dr Seirra Objective Last Vital Signs Date Time Temp Pulse Resp B/P (MAP) Pulse Ox O2 Delivery O2 Flow Rate FiO2 05/15/20 14:26 159/86 05/15/20 12:00 98.1 80 18 97 05/15/20 09:00 Room Air 05/15/20 08:15 21 Laboratory Tests Test 05/15/20 04:00 White Blood Count 7.1 K/UL (4.8-10.8) Red Blood Count 3.54 M/UL (4.70-6.10) L Hemoglobin 11.1 G/DL (14.2-18.0) L Hematocrit 32.2 % (42.0-52.0) L Mean Corpuscular Volume 91 FL (80-99) Mean Corpuscular Hemoglobin 31.3 PG (27.0-31.0) H Mean Corpuscular Hemoglobin Concent 34.5 G/DL (32.0-36.0) Red Cell Distribution Width 14.2 % (11.6-14.8) Platelet Count 263 K/UL (150-450) Mean Platelet Volume 6.6 FL (6.5-10.1) Neutrophils (%) (Auto) 66.1 % (45.0-75.0) Lymphocytes (%) (Auto) 24.1 % (20.0-45.0) Monocytes (%) (Auto) 9.2 % (1.0-10.0) Eosinophils (%) (Auto) 0.1 % (0.0-3.0) Basophils (%) (Auto) 0.5 % (0.0-2.0) Sodium Level 139 MMOL/L (136-145) Potassium Level 3.9 MMOL/L (3.5-5.1) Chloride Level 105 MMOL/L (98-107) Carbon Dioxide Level 26 MMOL/L (21-32) Anion Gap 8 mmol/L (5-15) Blood Urea Nitrogen 11 mg/dL (7-18) Creatinine 1.0 MG/DL (0.55-1.30) Estimat Glomerular Filtration Rate > 60 mL/min (>60) Glucose Level 90 MG/DL (74-106) Calcium Level 8.5 MG/DL (8.5-10.1) Intake and Output 05/14/20 05/15/20 19:00 07:00 Intake Total 360 ml Output Total 500 ml 1200 ml Balance -500 ml -840 ml Other 360 ml Output Urine Total 500 ml 1200 ml # Bowel Movements 1 Objective PHYSICAL EXAMINATION: GENERAL: The patient is a well-developed, well-nourished male, in no apparent distress. HEENT: Eyes, pupils equal and responsive to light and accommodation. Extra movements are intact. NECK: Supple without lymphadenopathy. CHEST: Lungs are clear to auscultation bilaterally without wheezes or rales. CARDIOVASCULAR: Regular rhythm and rate. S1, S2 are normal without murmurs, rubs, or gallops. ABDOMEN: Soft, nontender, and nondistended. Positive bowel sounds. No evidence of hepatosplenomegaly. Currently no rebound or guarding noted. EXTREMITIES: Negative for clubbing, cyanosis, or edema. RECTAL/GENITAL: Not performed. NEUROLOGIC: Cranial nerves II through XII are grossly intact without focal deficits. Motor strength is 5/5 bilaterally. Deep tendon reflexes are 2+ plantar. Assessment/Plan Assessment/Plan ASSESSMENT: This is an 85-year-old male. 1. COVID-19 pneumonia. 2. Urinary tract infection. 3. Abdominal pain. 4. Benign prostatic hypertrophy. 5. Hypertension. 6. Cerebrovascular disease. 7. Chronic obstructive pulmonary disease. 8. Bacteremia=staph haemolyticus TREATMENT: 1. 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 Urine culture = no growth 2. COVID-19 pneumonia. ABX= S/P azithromycin, ceftriaxone and Vanco Infectious disease = /Yonatan. Pulmonary/critical care= Dr. Elisabet Mendez. Continue decadron 3. Benign prostatic hypertrophy. The patient currently has a Dennison catheter in place. 4. Hypertension. Continue amlodipine and hydralazine as above. 5. History of cerebrovascular disease. 6. Chronic obstructive pulmonary disease. David Jonas MD May 15, 2020 17:53
[2020-05-15 20:00] VITALS: BP 119/63
[2020-05-15] MEDS: Tamsulosin 0.4mg cap ORAL SCH (21:04)
[2020-05-15] MEDS: Atorvastatin 80mg tab ORAL SCH (21:05)
[2020-05-15] MEDS: Enoxaparin 40mg Inj SUBQ SCH (21:05)
[2020-05-16 04:00] VITALS: BP 117/57
[2020-05-16] MEDS: HydrALAZINE 50mg tab ORAL SCH ×3 (05:34→22:05)
[2020-05-16 07:25] LABS: BASOPHILS % (AUTO) 1.5 % (0.0-2.0); EOSINOPHILS % (AUTO) 2.4 % (0.0-3.0); HEMATOCRIT 34.4 % (42.0-52.0); HEMOGLOBIN 11.9 G/DL (14.2-18.0); LYMPHOCYTES % (AUTO) 37.2 % (20.0-45.0); MEAN CORPUSCULAR VOLUME 91 FL (80-99); MONOCYTES % (AUTO) 8.5 % (1.0-10.0); NEUTROPHILS % (AUTO) 50.5 % (45.0-75.0); PLATELET COUNT 234 K/UL (150-450); RED BLOOD COUNT 3.79 M/UL (4.70-6.10); RED CELL DISTRIBUTION WIDTH 14.5 % (11.6-14.8); WHITE BLOOD COUNT 6.5 K/UL (4.8-10.8)
[2020-05-16 08:00] VITALS: BP 130/52
[2020-05-16 08:03] LABS: ALANINE AMINOTRANSFERASE 16 U/L (12-78); ALBUMIN 2.7 G/DL (3.4-5.0); ALBUMIN/GLOBULIN RATIO 0.7 (1.0-2.7); ALKALINE PHOSPHATASE 63 U/L (46-116); ANION GAP 6 mmol/L (5-15); ASPARTATE AMINO TRANSFERASE 15 U/L (15-37); BILIRUBIN,TOTAL 0.4 MG/DL (0.2-1.0); BLOOD UREA NITROGEN 9 mg/dL (7-18); CALCIUM 8.5 MG/DL (8.5-10.1); CARBON DIOXIDE 29 MMOL/L (21-32); CHLORIDE 106 MMOL/L (98-107); CREATININE 1.2 MG/DL (0.55-1.30); PHOSPHORUS 3.7 MG/DL (2.5-4.9); POTASSIUM 3.5 MMOL/L (3.5-5.1); SODIUM 141 MMOL/L (136-145)
--- NOTE | 2020-05-16 08:27 | Infectious Diseases Prog Note ---
Assessment/Plan 85yo M with: Afebrile Normal WBC COVID+ Weakness Hypoxia on RA GPC bacteremia, m/l contaminant 05/08 COVID rapid test positive BCx 12 +Staph haemolyticus, m/l skin colonizer CXR: Hazy bibasilar infiltrates 05/11 BCx NTD Indwelling rossi Lower abd pain 05/08 UA 5-10 WBC, UCx >100k mixed organisms 05/08 UCx 50-60k Micrococcus species BENNETT, improving Cr 1.4 --> 1.2 Plan: Monitor off abx and steroids given doing well on RA Trend resp status, if worsens will start remdesivir (currently 97-98% on RA) 05/15 SP dexamethasone #6 05/13 SP CTX/azithro #6 empiric for UTI/pna 05/13 SP vanco IV #3 empiric CONS in BCx Monitor CBC/CMP Monitor temp curve, hemodynamics Monitor resp status D/w RN Thank you for this consult. [facility] will continue to follow. Subjective Allergies: Coded Allergies: PENICILLINS (Verified Allergy, Unknown, 11/16/16) AF NAD on RA WBC 6.5 No breathing complaints C/o BL knee pain, worried about getting weaker and not being able to walk Worked w/ PT doing in bed exercises Objective Last 24 Hour Vital Signs Date Time Temp Pulse Resp B/P (MAP) Pulse Ox O2 Delivery O2 Flow Rate FiO2 05/16/20 05:34 117/57 05/16/20 04:00 97.3 76 20 117/57 (77) 98 05/15/20 21:05 131/62 05/15/20 21:04 86 131/62 05/15/20 21:00 Room Air 05/15/20 20:00 97.1 83 19 119/63 (81) 98 05/15/20 16:00 98.2 86 19 131/62 (85) 98 05/15/20 14:26 159/86 05/15/20 12:00 98.1 80 18 134/80 (98) 97 05/15/20 09:53 86 159/86 05/15/20 09:00 Room Air Height (Feet): 6 Height (Inches): 1.00 Weight (Pounds): 150 Gen: NAD HEENT: NCAT Pulm: BL chest rise on RA Abd: Non-distended Ext: No c/c/e Skin: No visible rashes Neuro: Awake, interactive Laboratory Tests Test 05/16/20 06:49 White Blood Count 6.5 K/UL (4.8-10.8) Red Blood Count 3.79 M/UL (4.70-6.10) L Hemoglobin 11.9 G/DL (14.2-18.0) L Hematocrit 34.4 % (42.0-52.0) L Mean Corpuscular Volume 91 FL (80-99) Mean Corpuscular Hemoglobin 31.5 PG (27.0-31.0) H Mean Corpuscular Hemoglobin Concent 34.7 G/DL (32.0-36.0) Red Cell Distribution Width 14.5 % (11.6-14.8) Platelet Count 234 K/UL (150-450) Mean Platelet Volume 6.6 FL (6.5-10.1) Neutrophils (%) (Auto) 50.5 % (45.0-75.0) Lymphocytes (%) (Auto) 37.2 % (20.0-45.0) Monocytes (%) (Auto) 8.5 % (1.0-10.0) Eosinophils (%) (Auto) 2.4 % (0.0-3.0) Basophils (%) (Auto) 1.5 % (0.0-2.0) Erythrocyte Sedimentation Rate Pending Sodium Level 141 MMOL/L (136-145) Potassium Level 3.5 MMOL/L (3.5-5.1) Chloride Level 106 MMOL/L (98-107) Carbon Dioxide Level 29 MMOL/L (21-32) Anion Gap 6 mmol/L (5-15) Blood Urea Nitrogen 9 mg/dL (7-18) Creatinine 1.2 MG/DL (0.55-1.30) Estimat Glomerular Filtration Rate > 60 mL/min (>60) Glucose Level 114 MG/DL (74-106) H Calcium Level 8.5 MG/DL (8.5-10.1) Phosphorus Level 3.7 MG/DL (2.5-4.9) Magnesium Level 1.8 MG/DL (1.8-2.4) Total Bilirubin 0.4 MG/DL (0.2-1.0) Aspartate Amino Transf (AST/SGOT) 15 U/L (15-37) Alanine Aminotransferase (ALT/SGPT) 16 U/L (12-78) Alkaline Phosphatase 63 U/L (46-116) C-Reactive Protein, Quantitative < 0.4 mg/dL (0.00-0.90) Total Protein 6.6 G/DL (6.4-8.2) Albumin 2.7 G/DL (3.4-5.0) L Globulin 3.9 g/dL Albumin/Globulin Ratio 0.7 (1.0-2.7) L Current Medications Medications (Trade) Dose Ordered Sig/Ja Route PRN Reason Start Time Stop Time Status Last Admin Dose Admin Acetaminophen (Tylenol) 650 mg Q4H PRN ORAL Mild Pain (Pain Scale 1-3) 05/08/20 18:15 06/07/20 18:14 05/15/20 03:59 Acetaminophen (Tylenol) 650 mg Q4H PRN ORAL Temp >100.5 05/08/20 18:15 06/07/20 18:14 Albuterol Sulfate (Proventil MDI) 2 puff Q4H PRN INH Shortness of Breath 05/08/20 19:00 08/06/20 18:59 Amlodipine Besylate (Norvasc) 5 mg BID@0900,2100 ORAL 05/08/20 21:00 06/07/20 20:59 05/15/20 21:04 Atorvastatin Calcium (Lipitor) 80 mg BEDTIME ORAL 05/08/20 21:00 08/06/20 20:59 05/15/20 21:05 Dextrose (Dextrose 50%) 25 ml Q30M PRN IV Hypoglycemia 05/08/20 18:15 08/06/20 18:14 Dextrose (Dextrose 50%) 50 ml Q30M PRN IV Hypoglycemia 05/08/20 18:15 08/06/20 18:14 Docusate Sodium (Colace) 100 mg THREE TIMES A DAY ORAL 05/10/20 13:00 06/09/20 12:59 05/15/20 18:36 Enoxaparin Sodium (Lovenox) 40 mg Q24H SUBQ 05/08/20 21:00 08/06/20 20:59 05/15/20 21:05 EZETIMIBE (Zetia) 10 mg BEDTIME ORAL 05/08/20 21:00 06/07/20 20:59 05/15/20 21:05 Hydralazine HCl (Apresoline) 50 mg Q8HR ORAL 05/08/20 22:00 08/06/20 21:59 05/16/20 05:34 Lactulose (Cephulac) 30 gm THREE TIMES A DAY ORAL 05/10/20 13:00 06/09/20 12:59 05/15/20 18:36 Mineral Oil (Fleet's Mineral Oil Enema) 133 ml EVERY OTHER DAY RECTAL 05/12/20 09:00 06/11/20 08:59 05/12/20 09:34 Ondansetron HCl (Zofran) 4 mg Q6H PRN IVP Nausea & Vomiting 05/08/20 18:15 06/07/20 18:14 Pantoprazole (Protonix) 40 mg DAILY ORAL 05/09/20 09:00 06/08/20 08:59 05/15/20 09:51 Tamsulosin HCl (Flomax) 0.4 mg BEDTIME ORAL 05/08/20 21:00 06/07/20 20:59 05/15/20 21:04 Sofya Tam M.D. May 16, 2020 08:27
[2020-05-16] MEDS: Docusate 100mg cap ORAL SCH ×3 (09:08→17:54)
[2020-05-16] MEDS: Lactulose 20gm/30ml UDC ORAL SCH ×3 (09:08→17:54)
[2020-05-16] MEDS: Fleet's Mineral Oil Enema RECTAL SCH (09:11)
[2020-05-16 12:00] VITALS: BP 139/75
--- NOTE | 2020-05-16 12:06 | Internal Med Progress Note ---
Subjective Date of Service: May 16, 2020 Physician Name David Jonas Attending Physician Fernando Sierra MD Current Medications Medications (Trade) Dose Ordered Sig/Ja Route PRN Reason Start Time Stop Time Status Last Admin Dose Admin Acetaminophen (Tylenol) 650 mg Q4H PRN ORAL Mild Pain (Pain Scale 1-3) 05/08/20 18:15 06/07/20 18:14 05/15/20 03:59 Acetaminophen (Tylenol) 650 mg Q4H PRN ORAL Temp >100.5 05/08/20 18:15 06/07/20 18:14 Albuterol Sulfate (Proventil MDI) 2 puff Q4H PRN INH Shortness of Breath 05/08/20 19:00 08/06/20 18:59 Amlodipine Besylate (Norvasc) 5 mg BID@0900,2100 ORAL 05/08/20 21:00 06/07/20 20:59 05/16/20 09:08 Atorvastatin Calcium (Lipitor) 80 mg BEDTIME ORAL 05/08/20 21:00 08/06/20 20:59 05/15/20 21:05 Dextrose (Dextrose 50%) 25 ml Q30M PRN IV Hypoglycemia 05/08/20 18:15 08/06/20 18:14 Dextrose (Dextrose 50%) 50 ml Q30M PRN IV Hypoglycemia 05/08/20 18:15 08/06/20 18:14 Docusate Sodium (Colace) 100 mg THREE TIMES A DAY ORAL 05/10/20 13:00 06/09/20 12:59 05/16/20 09:08 Enoxaparin Sodium (Lovenox) 40 mg Q24H SUBQ 05/08/20 21:00 08/06/20 20:59 05/15/20 21:05 EZETIMIBE (Zetia) 10 mg BEDTIME ORAL 05/08/20 21:00 06/07/20 20:59 05/15/20 21:05 Hydralazine HCl (Apresoline) 50 mg Q8HR ORAL 05/08/20 22:00 08/06/20 21:59 05/16/20 05:34 Lactulose (Cephulac) 30 gm THREE TIMES A DAY ORAL 05/10/20 13:00 06/09/20 12:59 05/16/20 09:08 Mineral Oil (Fleet's Mineral Oil Enema) 133 ml EVERY OTHER DAY RECTAL 05/12/20 09:00 06/11/20 08:59 05/16/20 09:11 Ondansetron HCl (Zofran) 4 mg Q6H PRN IVP Nausea & Vomiting 05/08/20 18:15 06/07/20 18:14 Pantoprazole (Protonix) 40 mg DAILY ORAL 05/09/20 09:00 06/08/20 08:59 05/16/20 09:08 Tamsulosin HCl (Flomax) 0.4 mg BEDTIME ORAL 05/08/20 21:00 06/07/20 20:59 05/15/20 21:04 Allergies: Coded Allergies: PENICILLINS (Verified Allergy, Unknown, 11/16/16) ROS Limited/Unobtainable: No Constitutional: Reports: no symptoms HEENT: Reports: no symptoms Cardiovascular: Reports: no symptoms Respiratory: Reports: no symptoms Gastrointestinal/Abdominal: Reports: no symptoms Genitourinary: Reports: no symptoms Subjective 85 YO M admitted with abdominal pain. Now COVID 19 positive and sepsis. Cover for Int Med-Dr Sierra Objective Last Vital Signs Date Time Temp Pulse Resp B/P (MAP) Pulse Ox O2 Delivery O2 Flow Rate FiO2 05/16/20 09:08 88 130/52 05/16/20 09:00 Room Air 05/16/20 08:00 97.5 18 98 05/15/20 08:15 21 Laboratory Tests Test 05/16/20 06:49 White Blood Count 6.5 K/UL (4.8-10.8) Red Blood Count 3.79 M/UL (4.70-6.10) L Hemoglobin 11.9 G/DL (14.2-18.0) L Hematocrit 34.4 % (42.0-52.0) L Mean Corpuscular Volume 91 FL (80-99) Mean Corpuscular Hemoglobin 31.5 PG (27.0-31.0) H Mean Corpuscular Hemoglobin Concent 34.7 G/DL (32.0-36.0) Red Cell Distribution Width 14.5 % (11.6-14.8) Platelet Count 234 K/UL (150-450) Mean Platelet Volume 6.6 FL (6.5-10.1) Neutrophils (%) (Auto) 50.5 % (45.0-75.0) Lymphocytes (%) (Auto) 37.2 % (20.0-45.0) Monocytes (%) (Auto) 8.5 % (1.0-10.0) Eosinophils (%) (Auto) 2.4 % (0.0-3.0) Basophils (%) (Auto) 1.5 % (0.0-2.0) Erythrocyte Sedimentation Rate 50 MM/HR (0-20) H Sodium Level 141 MMOL/L (136-145) Potassium Level 3.5 MMOL/L (3.5-5.1) Chloride Level 106 MMOL/L (98-107) Carbon Dioxide Level 29 MMOL/L (21-32) Anion Gap 6 mmol/L (5-15) Blood Urea Nitrogen 9 mg/dL (7-18) Creatinine 1.2 MG/DL (0.55-1.30) Estimat Glomerular Filtration Rate > 60 mL/min (>60) Glucose Level 114 MG/DL (74-106) H Calcium Level 8.5 MG/DL (8.5-10.1) Phosphorus Level 3.7 MG/DL (2.5-4.9) Magnesium Level 1.8 MG/DL (1.8-2.4) Total Bilirubin 0.4 MG/DL (0.2-1.0) Aspartate Amino Transf (AST/SGOT) 15 U/L (15-37) Alanine Aminotransferase (ALT/SGPT) 16 U/L (12-78) Alkaline Phosphatase 63 U/L (46-116) C-Reactive Protein, Quantitative < 0.4 mg/dL (0.00-0.90) Total Protein 6.6 G/DL (6.4-8.2) Albumin 2.7 G/DL (3.4-5.0) L Globulin 3.9 g/dL Albumin/Globulin Ratio 0.7 (1.0-2.7) L Intake and Output 05/15/20 05/16/20 19:00 07:00 Intake Total 420 ml 150 ml Output Total 650 ml 1400 ml Balance -230 ml -1250 ml Intake Oral 420 ml 150 ml Output Urine Total 650 ml 1400 ml Objective PHYSICAL EXAMINATION: GENERAL: The patient is a well-developed, well-nourished male, in no apparent distress. HEENT: Eyes, pupils equal and responsive to light and accommodation. Extra movements are intact. NECK: Supple without lymphadenopathy. CHEST: Lungs are clear to auscultation bilaterally without wheezes or rales. CARDIOVASCULAR: Regular rhythm and rate. S1, S2 are normal without murmurs, rubs, or gallops. ABDOMEN: Soft, nontender, and nondistended. Positive bowel sounds. No evidence of hepatosplenomegaly. Currently no rebound or guarding noted. EXTREMITIES: Negative for clubbing, cyanosis, or edema. RECTAL/GENITAL: Not performed. NEUROLOGIC: Cranial nerves II through XII are grossly intact without focal deficits. Motor strength is 5/5 bilaterally. Deep tendon reflexes are 2+ plantar. Assessment/Plan Assessment/Plan ASSESSMENT: This is an 85-year-old male. 1. COVID-19 pneumonia. 2. Urinary tract infection. 3. Abdominal pain. 4. Benign prostatic hypertrophy. 5. Hypertension. 6. Cerebrovascular disease. 7. Chronic obstructive pulmonary disease. 8. Bacteremia=staph haemolyticus TREATMENT: 1. 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 Urine culture = no growth 2. COVID-19 pneumonia. ABX= S/P azithromycin, ceftriaxone and Vanco Infectious disease = /Yonatan. Pulmonary/critical care= Dr. Elisabet Mendez. Continue decadron 3. Benign prostatic hypertrophy. The patient currently has a Dennison catheter in place. 4. Hypertension. Continue amlodipine and hydralazine as above. 5. History of cerebrovascular disease. 6. Chronic obstructive pulmonary disease. David Jonas MD May 16, 2020 12:06
--- NOTE | 2020-05-16 12:12 | Pulmonology Progress Note ---
Subjective ROS Limited/Unobtainable: No Constitutional: Reports: no symptoms HEENT: Repors: no symptoms Respiratory: Reports: no symptoms Allergies: Coded Allergies: PENICILLINS (Verified Allergy, Unknown, 11/16/16) Objective Last 24 Hour Vital Signs Date Time Temp Pulse Resp B/P (MAP) Pulse Ox O2 Delivery O2 Flow Rate FiO2 05/16/20 09:08 88 130/52 05/16/20 09:00 Room Air 05/16/20 08:00 97.5 88 18 130/52 (78) 98 05/16/20 05:34 117/57 05/16/20 04:00 97.3 76 20 117/57 (77) 98 05/15/20 21:05 131/62 05/15/20 21:04 86 131/62 05/15/20 21:00 Room Air 05/15/20 20:00 97.1 83 19 119/63 (81) 98 05/15/20 16:00 98.2 86 19 131/62 (85) 98 05/15/20 14:26 159/86 Intake and Output 05/15/20 05/16/20 19:00 07:00 Intake Total 420 ml 150 ml Output Total 650 ml 1400 ml Balance -230 ml -1250 ml Intake Oral 420 ml 150 ml Output Urine Total 650 ml 1400 ml General Appearance: WD/WN HEENT: normocephalic, atraumatic, PERRL Respiratory: lungs clear, normal breath sounds Cardiovascular: normal peripheral pulses, normal rate Abdomen: normal bowel sounds, soft, non tender Genitourinary: normal external genitalia Extremities: no cyanosis Skin: no rash Lymphatic: no neck adenopathy Laboratory Tests 05/16/20 06:49: White Blood Count 6.5, Red Blood Count 3.79L, Hemoglobin 11.9L, Hematocrit 34.4L , Mean Corpuscular Volume 91, Mean Corpuscular Hemoglobin 31.5H, Mean Corpuscular Hemoglobin Concent 34.7, Red Cell Distribution Width 14.5, Platelet Count 234, Mean Platelet Volume 6.6, Neutrophils (%) (Auto) 50.5, Lymphocytes (%) (Auto) 37.2, Monocytes (%) (Auto) 8.5, Eosinophils (%) (Auto) 2.4, Basophils (%) (Auto) 1.5, Erythrocyte Sedimentation Rate 50H, Sodium Level 141, Potassium Level 3.5, Chloride Level 106, Carbon Dioxide Level 29, Anion Gap 6, Blood Urea Nitrogen 9, Creatinine 1.2, Estimat Glomerular Filtration Rate > 60, Glucose Level 114H, Calcium Level 8.5, Phosphorus Level 3.7, Magnesium Level 1.8, Total Bilirubin 0.4, Aspartate Amino Transf (AST/SGOT) 15, Alanine Aminotransferase (ALT/SGPT) 16, Alkaline Phosphatase 63, C-Reactive Protein, Quantitative < 0.4, Total Protein 6.6, Albumin 2.7L, Globulin 3.9, Albumin/Globulin Ratio 0.7L Current Medications Medications (Trade) Dose Ordered Sig/Ja Route PRN Reason Start Time Stop Time Status Last Admin Dose Admin Acetaminophen (Tylenol) 650 mg Q4H PRN ORAL Mild Pain (Pain Scale 1-3) 05/08/20 18:15 06/07/20 18:14 05/15/20 03:59 Acetaminophen (Tylenol) 650 mg Q4H PRN ORAL Temp >100.5 05/08/20 18:15 06/07/20 18:14 Albuterol Sulfate (Proventil MDI) 2 puff Q4H PRN INH Shortness of Breath 05/08/20 19:00 08/06/20 18:59 Amlodipine Besylate (Norvasc) 5 mg BID@0900,2100 ORAL 05/08/20 21:00 06/07/20 20:59 05/16/20 09:08 Atorvastatin Calcium (Lipitor) 80 mg BEDTIME ORAL 05/08/20 21:00 08/06/20 20:59 05/15/20 21:05 Dextrose (Dextrose 50%) 25 ml Q30M PRN IV Hypoglycemia 05/08/20 18:15 08/06/20 18:14 Dextrose (Dextrose 50%) 50 ml Q30M PRN IV Hypoglycemia 05/08/20 18:15 08/06/20 18:14 Docusate Sodium (Colace) 100 mg THREE TIMES A DAY ORAL 05/10/20 13:00 06/09/20 12:59 05/16/20 09:08 Enoxaparin Sodium (Lovenox) 40 mg Q24H SUBQ 05/08/20 21:00 08/06/20 20:59 05/15/20 21:05 EZETIMIBE (Zetia) 10 mg BEDTIME ORAL 05/08/20 21:00 06/07/20 20:59 05/15/20 21:05 Hydralazine HCl (Apresoline) 50 mg Q8HR ORAL 05/08/20 22:00 08/06/20 21:59 05/16/20 05:34 Lactulose (Cephulac) 30 gm THREE TIMES A DAY ORAL 05/10/20 13:00 06/09/20 12:59 05/16/20 09:08 Mineral Oil (Fleet's Mineral Oil Enema) 133 ml EVERY OTHER DAY RECTAL 05/12/20 09:00 06/11/20 08:59 05/16/20 09:11 Ondansetron HCl (Zofran) 4 mg Q6H PRN IVP Nausea & Vomiting 05/08/20 18:15 06/07/20 18:14 Pantoprazole (Protonix) 40 mg DAILY ORAL 05/09/20 09:00 06/08/20 08:59 05/16/20 09:08 Tamsulosin HCl (Flomax) 0.4 mg BEDTIME ORAL 05/08/20 21:00 06/07/20 20:59 05/15/20 21:04 Assessment/Plan Problems: (1) Pneumonia (2) COVID-19 (3) Episode of generalized weakness (4) COPD (chronic obstructive pulmonary disease) (5) Obstructed Dennison catheter (6) History of CVA (cerebrovascular accident) Assessment/Plan still on venturi justin all reviewed getting better no new complain ABX for UTI pt/ ptt respiratory treatment titrate fio2 to sat of 92% DVT prohylaxis. Elisabet Mendez MD May 16, 2020 12:12
[2020-05-16] MEDS ORDERED: HYDROcodone/Acetamin 10/325 tab ORAL PRN (12:30)
[2020-05-16] MEDS ORDERED: HYDROcodone/Acetamin 5/325 tab ORAL PRN (12:30)
[2020-05-16 16:00] VITALS: BP 132/70
[2020-05-16 20:00] VITALS: BP 128/67
[2020-05-16] MEDS: Atorvastatin 80mg tab ORAL SCH (22:05)
[2020-05-16] MEDS: Tamsulosin 0.4mg cap ORAL SCH (22:05)
[2020-05-16] MEDS: Enoxaparin 40mg Inj SUBQ SCH (22:06)
[2020-05-17] VITALS (7 sets, daily range): BP systolic 103–147; BP diastolic 58–71
[2020-05-17] MEDS: HydrALAZINE 50mg tab ORAL SCH ×3 (05:54→21:21)
--- NOTE | 2020-05-17 08:09 | Infectious Diseases Prog Note ---
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, m/l skin colonizer CXR: Hazy bibasilar infiltrates 05/11 BCx NTD Indwelling rossi Lower abd pain 05/08 UA 5-10 WBC, UCx >100k mixed organisms 05/08 UCx 50-60k Micrococcus species BENNETT, improving Cr 1.4 --> 1.2 Plan: Cont to monitor off abx and steroids given doing well on RA OK to d/c from ID standpoint Needs to remain in COVID isolation for 10 days from positive test: 05/08 - 05/18, can go off isolation on 05/19 05/15 SP dexamethasone #6 05/13 SP CTX/azithro #6 empiric for UTI/pna 05/13 SP vanco IV #3 empiric CONS in BCx Monitor CBC/CMP Monitor temp curve, hemodynamics Monitor resp status D/w RN Thank you for this consult. [facility] will continue to follow. Subjective Allergies: Coded Allergies: PENICILLINS (Verified Allergy, Unknown, 11/16/16) AF NAD on RA breathing stable WBC 7.8 Pending d/c today Objective Last 24 Hour Vital Signs Date Time Temp Pulse Resp B/P (MAP) Pulse Ox O2 Delivery O2 Flow Rate FiO2 05/17/20 05:54 103/60 05/17/20 04:00 97.5 87 22 103/60 (74) 96 05/17/20 00:00 97.3 85 22 121/64 (83) 96 05/16/20 22:45 Room Air 05/16/20 22:05 132/70 05/16/20 21:00 86 132/70 05/16/20 20:00 97.9 80 18 128/67 (87) 93 05/16/20 16:00 97.7 86 18 132/70 (90) 95 05/16/20 13:43 139/75 05/16/20 12:00 97.7 84 18 139/75 (96) 98 05/16/20 09:08 88 130/52 05/16/20 09:00 Room Air Height (Feet): 6 Height (Inches): 1.00 Weight (Pounds): 150 Gen: NAD HEENT: NCAT Pulm: BL chest rise on RA Abd: Non-distended Ext: No c/c/e Skin: No visible rashes Neuro: Awake, interactive Current Medications Medications (Trade) Dose Ordered Sig/Ja Route PRN Reason Start Time Stop Time Status Last Admin Dose Admin Acetaminophen (Tylenol) 650 mg Q4H PRN ORAL Mild Pain (Pain Scale 1-3) 05/08/20 18:15 06/07/20 18:14 05/15/20 03:59 Acetaminophen (Tylenol) 650 mg Q4H PRN ORAL Temp >100.5 05/08/20 18:15 06/07/20 18:14 Acetaminophen/ Hydrocodone Bitart ([place] 10/325) 1 tab Q4H PRN ORAL Severe Pain (Pain Scale 7-10) 05/16/20 12:30 05/23/20 12:29 Acetaminophen/ Hydrocodone Bitart ([place] 5/325) 1 tab Q4H PRN ORAL Moderate Pain (Pain Scale 4-6) 05/16/20 12:30 05/23/20 12:29 Albuterol Sulfate (Proventil MDI) 2 puff Q4H PRN INH Shortness of Breath 05/08/20 19:00 08/06/20 18:59 Amlodipine Besylate (Norvasc) 5 mg BID@0900,2100 ORAL 05/08/20 21:00 06/07/20 20:59 05/16/20 21:00 Atorvastatin Calcium (Lipitor) 80 mg BEDTIME ORAL 05/08/20 21:00 08/06/20 20:59 05/16/20 22:05 Dextrose (Dextrose 50%) 25 ml Q30M PRN IV Hypoglycemia 05/08/20 18:15 08/06/20 18:14 Dextrose (Dextrose 50%) 50 ml Q30M PRN IV Hypoglycemia 05/08/20 18:15 08/06/20 18:14 Docusate Sodium (Colace) 100 mg THREE TIMES A DAY ORAL 05/10/20 13:00 06/09/20 12:59 05/16/20 17:54 Enoxaparin Sodium (Lovenox) 40 mg Q24H SUBQ 05/08/20 21:00 08/06/20 20:59 05/16/20 22:06 EZETIMIBE (Zetia) 10 mg BEDTIME ORAL 05/08/20 21:00 06/07/20 20:59 05/16/20 22:05 Hydralazine HCl (Apresoline) 50 mg Q8HR ORAL 05/08/20 22:00 08/06/20 21:59 05/16/20 22:05 Lactulose (Cephulac) 30 gm THREE TIMES A DAY ORAL 05/10/20 13:00 06/09/20 12:59 05/16/20 17:54 Mineral Oil (Fleet's Mineral Oil Enema) 133 ml EVERY OTHER DAY RECTAL 05/12/20 09:00 06/11/20 08:59 05/16/20 09:11 Ondansetron HCl (Zofran) 4 mg Q6H PRN IVP Nausea & Vomiting 05/08/20 18:15 06/07/20 18:14 Pantoprazole (Protonix) 40 mg DAILY ORAL 05/09/20 09:00 06/08/20 08:59 05/16/20 09:08 Tamsulosin HCl (Flomax) 0.4 mg BEDTIME ORAL 05/08/20 21:00 06/07/20 20:59 05/16/20 22:05 Sofya Tam M.D. May 17, 2020 08:09
[2020-05-17] MEDS: Docusate 100mg cap ORAL SCH ×3 (08:13→18:35)
[2020-05-17] MEDS: Lactulose 20gm/30ml UDC ORAL SCH ×3 (08:13→18:35)
[2020-05-17 09:15] LABS: BASOPHILS % (AUTO) 0.6 % (0.0-2.0); EOSINOPHILS % (AUTO) 1.8 % (0.0-3.0); HEMATOCRIT 32.5 % (42.0-52.0); HEMOGLOBIN 11.1 G/DL (14.2-18.0); LYMPHOCYTES % (AUTO) 27.6 % (20.0-45.0); MEAN CORPUSCULAR VOLUME 92 FL (80-99); MONOCYTES % (AUTO) 7.9 % (1.0-10.0); NEUTROPHILS % (AUTO) 62.1 % (45.0-75.0); PLATELET COUNT 211 K/UL (150-450); RED BLOOD COUNT 3.54 M/UL (4.70-6.10); RED CELL DISTRIBUTION WIDTH 14.8 % (11.6-14.8); WHITE BLOOD COUNT 7.8 K/UL (4.8-10.8)
--- NOTE | 2020-05-17 10:36 | Pulmonology Progress Note ---
Subjective ROS Limited/Unobtainable: No Constitutional: Reports: no symptoms HEENT: Repors: no symptoms Respiratory: Reports: no symptoms Allergies: Coded Allergies: PENICILLINS (Verified Allergy, Unknown, 11/16/16) Objective Last 24 Hour Vital Signs Date Time Temp Pulse Resp B/P (MAP) Pulse Ox O2 Delivery O2 Flow Rate FiO2 05/17/20 09:00 Room Air 05/17/20 08:13 84 147/70 05/17/20 08:00 98.4 84 18 147/70 (95) 98 05/17/20 05:54 103/60 05/17/20 04:00 97.5 87 22 103/60 (74) 96 05/17/20 00:00 97.3 85 22 121/64 (83) 96 05/16/20 22:45 Room Air 05/16/20 22:05 132/70 05/16/20 21:00 86 132/70 05/16/20 20:00 97.9 80 18 128/67 (87) 93 05/16/20 16:00 97.7 86 18 132/70 (90) 95 05/16/20 13:43 139/75 05/16/20 12:00 97.7 84 18 139/75 (96) 98 Intake and Output 05/16/20 05/17/20 19:00 07:00 Intake Total 720 ml 250 ml Output Total 500 ml Balance 720 ml -250 ml Intake Oral 720 ml 250 ml Output Urine Total 500 ml # Voids 1 # Bowel Movements 1 2 General Appearance: WD/WN HEENT: normocephalic, atraumatic, PERRL Respiratory: lungs clear, normal breath sounds Cardiovascular: normal peripheral pulses, normal rate Abdomen: normal bowel sounds, soft, non tender Genitourinary: normal external genitalia Extremities: no cyanosis Skin: no rash Lymphatic: no neck adenopathy Laboratory Tests 05/17/20 09:00: White Blood Count 7.8, Red Blood Count 3.54L, Hemoglobin 11.1L, Hematocrit 32.5L , Mean Corpuscular Volume 92, Mean Corpuscular Hemoglobin 31.5H, Mean Corpuscular Hemoglobin Concent 34.3, Red Cell Distribution Width 14.8, Platelet Count 211, Mean Platelet Volume 6.6, Neutrophils (%) (Auto) 62.1, Lymphocytes (%) (Auto) 27.6, Monocytes (%) (Auto) 7.9, Eosinophils (%) (Auto) 1.8, Basophils (%) (Auto) 0.6 Current Medications Medications (Trade) Dose Ordered Sig/Ja Route PRN Reason Start Time Stop Time Status Last Admin Dose Admin Acetaminophen (Tylenol) 650 mg Q4H PRN ORAL Mild Pain (Pain Scale 1-3) 05/08/20 18:15 06/07/20 18:14 05/15/20 03:59 Acetaminophen (Tylenol) 650 mg Q4H PRN ORAL Temp >100.5 05/08/20 18:15 06/07/20 18:14 Acetaminophen/ Hydrocodone Bitart ([place] 10/325) 1 tab Q4H PRN ORAL Severe Pain (Pain Scale 7-10) 05/16/20 12:30 05/23/20 12:29 Acetaminophen/ Hydrocodone Bitart ([place] 5/325) 1 tab Q4H PRN ORAL Moderate Pain (Pain Scale 4-6) 05/16/20 12:30 05/23/20 12:29 Albuterol Sulfate (Proventil MDI) 2 puff Q4H PRN INH Shortness of Breath 05/08/20 19:00 08/06/20 18:59 Amlodipine Besylate (Norvasc) 5 mg BID@0900,2100 ORAL 05/08/20 21:00 06/07/20 20:59 05/17/20 08:13 Atorvastatin Calcium (Lipitor) 80 mg BEDTIME ORAL 05/08/20 21:00 08/06/20 20:59 05/16/20 22:05 Dextrose (Dextrose 50%) 25 ml Q30M PRN IV Hypoglycemia 05/08/20 18:15 08/06/20 18:14 Dextrose (Dextrose 50%) 50 ml Q30M PRN IV Hypoglycemia 05/08/20 18:15 08/06/20 18:14 Docusate Sodium (Colace) 100 mg THREE TIMES A DAY ORAL 05/10/20 13:00 06/09/20 12:59 05/17/20 08:13 Enoxaparin Sodium (Lovenox) 40 mg Q24H SUBQ 05/08/20 21:00 08/06/20 20:59 05/16/20 22:06 EZETIMIBE (Zetia) 10 mg BEDTIME ORAL 12/8/20 21:00 06/07/20 20:59 05/16/20 22:05 Hydralazine HCl (Apresoline) 50 mg Q8HR ORAL 05/08/20 22:00 08/06/20 21:59 05/16/20 22:05 Lactulose (Cephulac) 30 gm THREE TIMES A DAY ORAL 05/10/20 13:00 06/09/20 12:59 05/17/20 08:13 Mineral Oil (Fleet's Mineral Oil Enema) 133 ml EVERY OTHER DAY RECTAL 05/12/20 09:00 06/11/20 08:59 05/16/20 09:11 Ondansetron HCl (Zofran) 4 mg Q6H PRN IVP Nausea & Vomiting 05/08/20 18:15 06/07/20 18:14 Pantoprazole (Protonix) 40 mg DAILY ORAL 05/09/20 09:00 06/08/20 08:59 05/17/20 08:12 Tamsulosin HCl (Flomax) 0.4 mg BEDTIME ORAL 05/08/20 21:00 06/07/20 20:59 05/16/20 22:05 Assessment/Plan Problems: (1) Pneumonia (2) COVID-19 (3) Episode of generalized weakness (4) COPD (chronic obstructive pulmonary disease) (5) Obstructed Dennison catheter (6) History of CVA (cerebrovascular accident) Assessment/Plan on room air doing physical therapy all reviewed getting better no new complain off ABX pt/ ptt respiratory treatment titrate fio2 to sat of 92% DVT prohylaxis. dc planning to snif in progress Elsiabet Mendez MD May 17, 2020 10:36
--- NOTE | 2020-05-17 14:45 | Internal Med Progress Note ---
Subjective Physician Name Fernando Sierra Attending Physician Fernando Sierra MD Current Medications Medications (Trade) Dose Ordered Sig/Ja Route PRN Reason Start Time Stop Time Status Last Admin Dose Admin Acetaminophen (Tylenol) 650 mg Q4H PRN ORAL Mild Pain (Pain Scale 1-3) 05/08/20 18:15 06/07/20 18:14 05/15/20 03:59 Acetaminophen (Tylenol) 650 mg Q4H PRN ORAL Temp >100.5 05/08/20 18:15 06/07/20 18:14 Acetaminophen/ Hydrocodone Bitart ([place] 10/325) 1 tab Q4H PRN ORAL Severe Pain (Pain Scale 7-10) 05/16/20 12:30 05/23/20 12:29 Acetaminophen/ Hydrocodone Bitart ([place] 5/325) 1 tab Q4H PRN ORAL Moderate Pain (Pain Scale 4-6) 05/16/20 12:30 05/23/20 12:29 Albuterol Sulfate (Proventil MDI) 2 puff Q4H PRN INH Shortness of Breath 05/08/20 19:00 08/06/20 18:59 Amlodipine Besylate (Norvasc) 5 mg BID@0900,2100 ORAL 05/08/20 21:00 06/07/20 20:59 05/17/20 08:13 Atorvastatin Calcium (Lipitor) 80 mg BEDTIME ORAL 05/08/20 21:00 08/06/20 20:59 05/16/20 22:05 Dextrose (Dextrose 50%) 25 ml Q30M PRN IV Hypoglycemia 05/08/20 18:15 08/06/20 18:14 Dextrose (Dextrose 50%) 50 ml Q30M PRN IV Hypoglycemia 05/08/20 18:15 08/06/20 18:14 Docusate Sodium (Colace) 100 mg THREE TIMES A DAY ORAL 05/10/20 13:00 06/09/20 12:59 05/17/20 13:42 Enoxaparin Sodium (Lovenox) 40 mg Q24H SUBQ 05/08/20 21:00 08/06/20 20:59 05/16/20 22:06 EZETIMIBE (Zetia) 10 mg BEDTIME ORAL 05/08/20 21:00 06/07/20 20:59 05/16/20 22:05 Hydralazine HCl (Apresoline) 50 mg Q8HR ORAL 05/08/20 22:00 08/06/20 21:59 05/17/20 13:43 Lactulose (Cephulac) 30 gm THREE TIMES A DAY ORAL 05/10/20 13:00 06/09/20 12:59 05/17/20 13:42 Mineral Oil (Fleet's Mineral Oil Enema) 133 ml EVERY OTHER DAY RECTAL 05/12/20 09:00 06/11/20 08:59 05/16/20 09:11 Ondansetron HCl (Zofran) 4 mg Q6H PRN IVP Nausea & Vomiting 05/08/20 18:15 06/07/20 18:14 Pantoprazole (Protonix) 40 mg DAILY ORAL 05/09/20 09:00 06/08/20 08:59 05/17/20 08:12 Tamsulosin HCl (Flomax) 0.4 mg BEDTIME ORAL 05/08/20 21:00 06/07/20 20:59 05/16/20 22:05 Allergies: Coded Allergies: PENICILLINS (Verified Allergy, Unknown, 11/16/16) Subjective In [place] [address] respiratory and isolation room, denies any chest pain or shortness of breath, WBC: 7.8. Objective Last Vital Signs Date Time Temp Pulse Resp B/P (MAP) Pulse Ox O2 Delivery O2 Flow Rate FiO2 05/17/20 13:43 126/58 05/17/20 12:00 98.0 84 18 96 05/17/20 09:00 Room Air 05/15/20 08:15 21 Laboratory Tests Test 05/17/20 09:00 White Blood Count 7.8 K/UL (4.8-10.8) Red Blood Count 3.54 M/UL (4.70-6.10) L Hemoglobin 11.1 G/DL (14.2-18.0) L Hematocrit 32.5 % (42.0-52.0) L Mean Corpuscular Volume 92 FL (80-99) Mean Corpuscular Hemoglobin 31.5 PG (27.0-31.0) H Mean Corpuscular Hemoglobin Concent 34.3 G/DL (32.0-36.0) Red Cell Distribution Width 14.8 % (11.6-14.8) Platelet Count 211 K/UL (150-450) Mean Platelet Volume 6.6 FL (6.5-10.1) Neutrophils (%) (Auto) 62.1 % (45.0-75.0) Lymphocytes (%) (Auto) 27.6 % (20.0-45.0) Monocytes (%) (Auto) 7.9 % (1.0-10.0) Eosinophils (%) (Auto) 1.8 % (0.0-3.0) Basophils (%) (Auto) 0.6 % (0.0-2.0) Intake and Output 05/16/20 05/17/20 19:00 07:00 Intake Total 720 ml 250 ml Output Total 500 ml Balance 720 ml -250 ml Intake Oral 720 ml 250 ml Output Urine Total 500 ml # Voids 1 # Bowel Movements 1 2 Objective General: No acute distress, awake and alert HEENT: NCAT, sclera anicteric, PERRL, EOMI.poor dentition. Neck: Supple, no significant jugular venous distention, Lungs: Fair inspiratory effort, no accessory muscle use, no Wheeze or Rales. Heart: Regular rate and rhythm, normal S1/S2, no murmurs Abdomen: soft, nontender, nondistended. Normoactive bowel sounds. : Dennison cath. Extremities: No Cyanosis , clubbing or edema. Neuro: A&O x 3, Able to move all extremities Skin: warm, no rashes or lesions Psych: Normal mood and affect Assessment/Plan Assessment/Plan ASSESSMENT: This is an 85-year-old male. 1. COVID-19 pneumonia. 2. Urinary tract infection. 3. Abdominal pain. 4. Benign prostatic hypertrophy. 5. Hypertension. 6. Cerebrovascular disease. 7. Chronic obstructive pulmonary disease. 8. GPC bacteremia, r/o contaminant TREATMENT: 1. Urinary tract infection. 2. COVID-19 pneumonia. ABX=Off air. Infectious disease = /[place]. Pulmonary/critical care= Dr. Elisabet Mendez. 3. Benign prostatic hypertrophy. The patient currently has a Dennison catheter in place. 4. Hypertension. Continue amlodipine and hydralazine as above. 5. History of cerebrovascular disease. 6. Chronic obstructive pulmonary disease. CODE STATUS: full code DVT prophylaxis: Lovenox. Fernando Sierra MD May 17, 2020 14:45
[2020-05-17] MEDS: Enoxaparin 40mg Inj SUBQ SCH (21:21)
[2020-05-17] MEDS: Tamsulosin 0.4mg cap ORAL SCH (21:21)
[2020-05-17] MEDS: Atorvastatin 80mg tab ORAL SCH (21:22)
[2020-05-18 04:00] VITALS: BP 114/52
[2020-05-18] MEDS: HydrALAZINE 50mg tab ORAL SCH ×2 (06:22→13:09)
[2020-05-18 08:00] VITALS: BP 127/65
--- NOTE | 2020-05-18 08:39 | Infectious Diseases Prog Note ---
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, m/l skin colonizer CXR: Hazy bibasilar infiltrates 05/11 BCx NTD Indwelling rossi Lower abd pain 05/08 UA 5-10 WBC, UCx >100k mixed organisms 05/08 UCx 50-60k Micrococcus species BENNETT, improving Cr 1.4 --> 1.2 Plan: Cont to monitor off abx and steroids given doing well on RA OK to d/c from ID standpoint Needs to remain in COVID isolation for 10 days from positive test: 05/08 - 05/18, can go off isolation on 05/19 05/15 SP dexamethasone #6 05/13 SP CTX/azithro #6 empiric for UTI/pna 05/13 SP vanco IV #3 empiric CONS in BCx Monitor CBC/CMP Monitor temp curve, hemodynamics Monitor resp status D/w RN Thank you for this consult. [facility] will continue to follow. Subjective Allergies: Coded Allergies: PENICILLINS (Verified Allergy, Unknown, 11/16/16) AF NAD on RA satting 97% Objective Last 24 Hour Vital Signs Date Time Temp Pulse Resp B/P (MAP) Pulse Ox O2 Delivery O2 Flow Rate FiO2 05/18/20 06:22 114/52 05/18/20 04:00 97.9 84 18 114/52 (72) 97 05/17/20 23:36 98.2 92 20 131/63 (85) 95 05/17/20 21:22 83 128/59 05/17/20 21:21 128/59 05/17/20 21:00 Room Air 05/17/20 20:00 97.9 83 20 128/59 (82) 99 05/17/20 16:00 98.5 86 20 147/71 (96) 96 05/17/20 13:43 126/58 05/17/20 12:00 98.0 84 18 126/58 (80) 96 05/17/20 09:00 Room Air Height (Feet): 6 Height (Inches): 1.00 Weight (Pounds): 150 Gen: NAD HEENT: NCAT Pulm: BL chest rise on RA Abd: Non-distended Ext: No c/c/e Skin: No visible rashes Neuro: Awake, interactive Laboratory Tests Test 05/17/20 09:00 White Blood Count 7.8 K/UL (4.8-10.8) Red Blood Count 3.54 M/UL (4.70-6.10) L Hemoglobin 11.1 G/DL (14.2-18.0) L Hematocrit 32.5 % (42.0-52.0) L Mean Corpuscular Volume 92 FL (80-99) Mean Corpuscular Hemoglobin 31.5 PG (27.0-31.0) H Mean Corpuscular Hemoglobin Concent 34.3 G/DL (32.0-36.0) Red Cell Distribution Width 14.8 % (11.6-14.8) Platelet Count 211 K/UL (150-450) Mean Platelet Volume 6.6 FL (6.5-10.1) Neutrophils (%) (Auto) 62.1 % (45.0-75.0) Lymphocytes (%) (Auto) 27.6 % (20.0-45.0) Monocytes (%) (Auto) 7.9 % (1.0-10.0) Eosinophils (%) (Auto) 1.8 % (0.0-3.0) Basophils (%) (Auto) 0.6 % (0.0-2.0) Current Medications Medications (Trade) Dose Ordered Sig/Ja Route PRN Reason Start Time Stop Time Status Last Admin Dose Admin Acetaminophen (Tylenol) 650 mg Q4H PRN ORAL Mild Pain (Pain Scale 1-3) 05/08/20 18:15 06/07/20 18:14 05/15/20 03:59 Acetaminophen (Tylenol) 650 mg Q4H PRN ORAL Temp >100.5 05/08/20 18:15 06/07/20 18:14 Acetaminophen/ Hydrocodone Bitart ([place] 10/325) 1 tab Q4H PRN ORAL Severe Pain (Pain Scale 7-10) 05/16/20 12:30 05/23/20 12:29 Acetaminophen/ Hydrocodone Bitart ([place] 5/325) 1 tab Q4H PRN ORAL Moderate Pain (Pain Scale 4-6) 05/16/20 12:30 05/23/20 12:29 Albuterol Sulfate (Proventil MDI) 2 puff Q4H PRN INH Shortness of Breath 05/08/20 19:00 08/06/20 18:59 Amlodipine Besylate (Norvasc) 5 mg BID@0900,2100 ORAL 05/08/20 21:00 06/07/20 20:59 05/17/20 21:22 Atorvastatin Calcium (Lipitor) 80 mg BEDTIME ORAL 05/08/20 21:00 08/06/20 20:59 05/17/20 21:22 Dextrose (Dextrose 50%) 25 ml Q30M PRN IV Hypoglycemia 05/08/20 18:15 08/06/20 18:14 Dextrose (Dextrose 50%) 50 ml Q30M PRN IV Hypoglycemia 05/08/20 18:15 08/06/20 18:14 Docusate Sodium (Colace) 100 mg THREE TIMES A DAY ORAL 05/10/20 13:00 06/09/20 12:59 05/17/20 18:35 Enoxaparin Sodium (Lovenox) 40 mg Q24H SUBQ 05/08/20 21:00 08/06/20 20:59 05/17/20 21:21 EZETIMIBE (Zetia) 10 mg BEDTIME ORAL 05/08/20 21:00 06/07/20 20:59 05/17/20 21:22 Hydralazine HCl (Apresoline) 50 mg Q8HR ORAL 05/08/20 22:00 08/06/20 21:59 05/18/20 06:22 Lactulose (Cephulac) 30 gm THREE TIMES A DAY ORAL 05/10/20 13:00 06/09/20 12:59 05/17/20 18:35 Mineral Oil (Fleet's Mineral Oil Enema) 133 ml EVERY OTHER DAY RECTAL 05/12/20 09:00 06/11/20 08:59 05/16/20 09:11 Ondansetron HCl (Zofran) 4 mg Q6H PRN IVP Nausea & Vomiting 05/08/20 18:15 06/07/20 18:14 Pantoprazole (Protonix) 40 mg DAILY ORAL 05/09/20 09:00 06/08/20 08:59 05/17/20 08:12 Tamsulosin HCl (Flomax) 0.4 mg BEDTIME ORAL 05/08/20 21:00 06/07/20 20:59 05/17/20 21:21 Sofya Tam M.D. May 18, 2020 08:39
[2020-05-18] MEDS: Docusate 100mg cap ORAL SCH ×2 (08:51→13:09)
[2020-05-18] MEDS: Lactulose 20gm/30ml UDC ORAL SCH ×2 (08:51→13:09)
[2020-05-18] MEDS: Fleet's Mineral Oil Enema RECTAL SCH (08:51)
[2020-05-18 12:00] VITALS: BP 130/64
--- NOTE | 2020-05-18 12:30 | Pulmonology Progress Note ---
Subjective ROS Limited/Unobtainable: No Constitutional: Reports: no symptoms HEENT: Repors: no symptoms Respiratory: Reports: no symptoms Allergies: Coded Allergies: PENICILLINS (Verified Allergy, Unknown, 11/16/16) Objective Last 24 Hour Vital Signs Date Time Temp Pulse Resp B/P (MAP) Pulse Ox O2 Delivery O2 Flow Rate FiO2 05/18/20 12:00 98.1 95 18 130/64 (86) 94 05/18/20 08:51 90 127/65 05/18/20 08:00 97.9 90 18 127/65 (85) 93 05/18/20 06:22 114/52 05/18/20 04:00 97.9 84 18 114/52 (72) 97 05/17/20 23:36 98.2 92 20 131/63 (85) 95 05/17/20 21:22 83 128/59 05/17/20 21:21 128/59 05/17/20 21:00 Room Air 05/17/20 20:00 97.9 83 20 128/59 (82) 99 05/17/20 16:00 98.5 86 20 147/71 (96) 96 05/17/20 13:43 126/58 Intake and Output 05/17/20 05/18/20 19:00 07:00 Intake Total 960 ml 500 ml Output Total 600 ml 1100 ml Balance 360 ml -600 ml Intake Oral 960 ml 500 ml Output Urine Total 600 ml 1100 ml General Appearance: WD/WN HEENT: normocephalic, atraumatic, PERRL Respiratory: lungs clear, normal breath sounds Cardiovascular: normal peripheral pulses, normal rate Abdomen: normal bowel sounds, soft, non tender Genitourinary: normal external genitalia Extremities: no cyanosis Skin: no rash Lymphatic: no neck adenopathy Current Medications Medications (Trade) Dose Ordered Sig/Ja Route PRN Reason Start Time Stop Time Status Last Admin Dose Admin Acetaminophen (Tylenol) 650 mg Q4H PRN ORAL Mild Pain (Pain Scale 1-3) 05/08/20 18:15 06/07/20 18:14 05/15/20 03:59 Acetaminophen (Tylenol) 650 mg Q4H PRN ORAL Temp >100.5 05/08/20 18:15 06/07/20 18:14 Acetaminophen/ Hydrocodone Bitart ([place] 10/325) 1 tab Q4H PRN ORAL Severe Pain (Pain Scale 7-10) 05/16/20 12:30 05/23/20 12:29 Acetaminophen/ Hydrocodone Bitart ([place] 5/325) 1 tab Q4H PRN ORAL Moderate Pain (Pain Scale 4-6) 05/16/20 12:30 05/23/20 12:29 Albuterol Sulfate (Proventil MDI) 2 puff Q4H PRN INH Shortness of Breath 05/08/20 19:00 08/06/20 18:59 Amlodipine Besylate (Norvasc) 5 mg BID@0900,2100 ORAL 05/08/20 21:00 06/07/20 20:59 05/18/20 08:51 Atorvastatin Calcium (Lipitor) 80 mg BEDTIME ORAL 05/08/20 21:00 08/06/20 20:59 05/17/20 21:22 Dextrose (Dextrose 50%) 25 ml Q30M PRN IV Hypoglycemia 05/08/20 18:15 08/06/20 18:14 Dextrose (Dextrose 50%) 50 ml Q30M PRN IV Hypoglycemia 05/08/20 18:15 08/06/20 18:14 Docusate Sodium (Colace) 100 mg THREE TIMES A DAY ORAL 05/10/20 13:00 06/09/20 12:59 05/18/20 08:51 Enoxaparin Sodium (Lovenox) 40 mg Q24H SUBQ 05/08/20 21:00 08/06/20 20:59 05/17/20 21:21 EZETIMIBE (Zetia) 10 mg BEDTIME ORAL 05/08/20 21:00 06/07/20 20:59 05/17/20 21:22 Hydralazine HCl (Apresoline) 50 mg Q8HR ORAL 05/08/20 22:00 08/06/20 21:59 05/18/20 06:22 Lactulose (Cephulac) 30 gm THREE TIMES A DAY ORAL 05/10/20 13:00 06/09/20 12:59 05/18/20 08:51 Mineral Oil (Fleet's Mineral Oil Enema) 133 ml EVERY OTHER DAY RECTAL 05/12/20 09:00 06/11/20 08:59 05/16/20 09:11 Ondansetron HCl (Zofran) 4 mg Q6H PRN IVP Nausea & Vomiting 05/08/20 18:15 06/07/20 18:14 Pantoprazole (Protonix) 40 mg DAILY ORAL 05/09/20 09:00 06/08/20 08:59 05/18/20 08:51 Tamsulosin HCl (Flomax) 0.4 mg BEDTIME ORAL 05/08/20 21:00 06/07/20 20:59 05/17/20 21:21 Assessment/Plan Problems: (1) Pneumonia (2) COVID-19 (3) Episode of generalized weakness (4) COPD (chronic obstructive pulmonary disease) (5) Obstructed Dennison catheter (6) History of CVA (cerebrovascular accident) Assessment/Plan pt refused to go home yesterday doing physical therapy all reviewed getting better no new complain off ABX pt/ ptt respiratory treatment titrate fio2 to sat of 92% DVT prohylaxis. dc planning to snif in progress Elisabet Mendez MD May 18, 2020 12:30
[2020-05-18 13:09] VITALS: BP 130/64
--- NOTE | 2020-05-18 14:09 | Internal Med Progress Note ---
Subjective Physician Name Fernando Sierra Attending Physician Fernando Sierra MD Current Medications Medications (Trade) Dose Ordered Sig/Ja Route PRN Reason Start Time Stop Time Status Last Admin Dose Admin Acetaminophen (Tylenol) 650 mg Q4H PRN ORAL Mild Pain (Pain Scale 1-3) 05/08/20 18:15 06/07/20 18:14 05/15/20 03:59 Acetaminophen (Tylenol) 650 mg Q4H PRN ORAL Temp >100.5 05/08/20 18:15 06/07/20 18:14 Acetaminophen/ Hydrocodone Bitart ([place] 10/325) 1 tab Q4H PRN ORAL Severe Pain (Pain Scale 7-10) 05/16/20 12:30 05/23/20 12:29 Acetaminophen/ Hydrocodone Bitart ([place] 5/325) 1 tab Q4H PRN ORAL Moderate Pain (Pain Scale 4-6) 05/16/20 12:30 05/23/20 12:29 Albuterol Sulfate (Proventil MDI) 2 puff Q4H PRN INH Shortness of Breath 05/08/20 19:00 08/06/20 18:59 Amlodipine Besylate (Norvasc) 5 mg BID@0900,2100 ORAL 05/08/20 21:00 06/07/20 20:59 05/18/20 08:51 Atorvastatin Calcium (Lipitor) 80 mg BEDTIME ORAL 05/08/20 21:00 08/06/20 20:59 05/17/20 21:22 Dextrose (Dextrose 50%) 25 ml Q30M PRN IV Hypoglycemia 05/08/20 18:15 08/06/20 18:14 Dextrose (Dextrose 50%) 50 ml Q30M PRN IV Hypoglycemia 05/08/20 18:15 08/06/20 18:14 Docusate Sodium (Colace) 100 mg THREE TIMES A DAY ORAL 05/10/20 13:00 06/09/20 12:59 05/18/20 13:09 Enoxaparin Sodium (Lovenox) 40 mg Q24H SUBQ 05/08/20 21:00 08/06/20 20:59 05/17/20 21:21 EZETIMIBE (Zetia) 10 mg BEDTIME ORAL 05/08/20 21:00 06/07/20 20:59 05/17/20 21:22 Hydralazine HCl (Apresoline) 50 mg Q8HR ORAL 05/08/20 22:00 08/06/20 21:59 05/18/20 13:09 Lactulose (Cephulac) 30 gm THREE TIMES A DAY ORAL 05/10/20 13:00 06/09/20 12:59 05/18/20 13:09 Mineral Oil (Fleet's Mineral Oil Enema) 133 ml EVERY OTHER DAY RECTAL 05/12/20 09:00 06/11/20 08:59 05/16/20 09:11 Ondansetron HCl (Zofran) 4 mg Q6H PRN IVP Nausea & Vomiting 05/08/20 18:15 06/07/20 18:14 Pantoprazole (Protonix) 40 mg DAILY ORAL 05/09/20 09:00 06/08/20 08:59 05/18/20 08:51 Tamsulosin HCl (Flomax) 0.4 mg BEDTIME ORAL 05/08/20 21:00 06/07/20 20:59 05/17/20 21:21 Allergies: Coded Allergies: PENICILLINS (Verified Allergy, Unknown, 11/16/16) Subjective In [place] [address] respiratory and isolation room, denies any chest pain or shortness of breath, feeling okay. Objective Last Vital Signs Date Time Temp Pulse Resp B/P (MAP) Pulse Ox O2 Delivery O2 Flow Rate FiO2 05/18/20 13:09 130/64 05/18/20 12:00 98.1 95 18 94 05/18/20 09:00 Room Air 05/15/20 08:15 21 Intake and Output 05/17/20 05/18/20 19:00 07:00 Intake Total 960 ml 500 ml Output Total 600 ml 1100 ml Balance 360 ml -600 ml Intake Oral 960 ml 500 ml Output Urine Total 600 ml 1100 ml Objective General: No acute distress, awake and alert HEENT: NCAT, sclera anicteric, PERRL, EOMI.poor dentition. Neck: Supple, no significant jugular venous distention, Lungs: Fair inspiratory effort, no accessory muscle use, no Wheeze or Rales. Heart: Regular rate and rhythm, normal S1/S2, no murmurs Abdomen: soft, nontender, nondistended. Normoactive bowel sounds. : Dennison cath. Extremities: No Cyanosis , clubbing or edema. Neuro: A&O x 3, Able to move all extremities Skin: warm, no rashes or lesions Psych: Normal mood and affect Assessment/Plan Assessment/Plan ASSESSMENT: This is an 85-year-old male. 1. COVID-19 pneumonia. 2. Urinary tract infection. 3. Abdominal pain. 4. Benign prostatic hypertrophy. 5. Hypertension. 6. Cerebrovascular disease. 7. Chronic obstructive pulmonary disease. 8. GPC bacteremia, r/o contaminant TREATMENT: 1. Urinary tract infection. 2. COVID-19 pneumonia. ABX=Off air. Infectious disease = /[place]. Pulmonary/critical care= Dr. Elisabet Mendez. 3. Benign prostatic hypertrophy. The patient currently has a Dennison catheter in place. 4. Hypertension. Continue amlodipine and hydralazine as above. 5. History of cerebrovascular disease. 6. Chronic obstructive pulmonary disease. CODE STATUS: full code DVT prophylaxis: Lovenox. discharge planning to SNF today. Fernando Sierra MD May 18, 2020 14:09
--- NOTE | 2020-05-20 10:35 | Discharge Summary ---
Discharge Summary Discharge Summary _ DATE OF ADMISSION: 05/08/2020 DATE OF DISCHARGE: 05/18/2020 ADMITTING MD: Dr. Fernando Sierra CONSULTANTS: Dr. Isha Mendez BRIEF HOSPITAL COURSE: Patient is an 85-year-old -[place] male who presented with chief complaint of abdominal pain. Patient was [facility] to [facility] on March 2020. Patient has an indwelling Dennison catheter. Patient began to experience lower abdominal pain on May 07, 2020. He stated that the Dennison catheter was not draining properly. He also complained of becoming weak. He was unable to walk. He presented to [place] [facility] and was found to be COVID-19 positive. Chest x-ray showed bilateral basal infiltrates. He was then admitted for COVID-19 pneumonia and UTI. Patient was treated empirically with ceftriaxone and azithromycin. Respiratory status was monitored. Patient was doing well on room air. There was no indication for steroids nor remdesivir. He was given respiratory treatment. He was placed on Lovenox for DVT prophylaxis. O2 saturation went down to 93% on room air. He was started on dexamethasone. Blood culture showed gram-positive cocci from admission. He was started on IV vancomycin. Repeat blood culture done. Repeat blood culture did not isolate any growth. Bacteremia most likely skin colonizer. IV vancomycin was discontinued. Urine culture showed growth of micrococcus. O2 saturation remained good on room air. Dexamethasone was eventually discontinued after 6 days of treatment. He was cleared for discharge. Patient was off antibiotics and steroids and was doing well on room air. Advised need to remain in Covid isolation for 10 days from positive test day 05/08/2012 /. Patient can be taken off isolation on 05/19/20. FINAL DIAGNOSES: COVID-19 pneumonia Urinary tract infection Gram-positive cocci bacteremia, most likely contaminant Acute kidney injury Indwelling Dennison catheter BPH Hypertension History of CVA COPD DISPOSITION: [place] home with home health. DISCHARGE MEDICATIONS: Refer to Discharge Medication List. DISCHARGE INSTRUCTIONS: Follow-up in a week. I have been assigned to complete a discharge summary on this account, I was not involved with the patient's management.--NICHOLAS Chacon Jacqueline Robles NP May 20, 2020 10:35
== END 2020-05-18 16:00 | disposition home health service (06) | DRG 177 ==
LOC: EDBD 09:17 → EMR 09:40 → EDBEDREQ 10:06 → 4E 14:40 → OBSVTOIN 14:40 → EDBEDREQ 15:30 → 4E 17:04
DX: U07.1 COVID-19 (principal); J12.89 Other viral pneumonia; N39.0 Urinary tract infection, site not specified; N17.9 Acute kidney failure, unspecified; Z88.0 Allergy status to penicillin; N40.0 Benign prostatic hyperplasia without lower urinary tract symptoms; I10 Essential (primary) hypertension; J44.9 Chronic obstructive pulmonary disease, unspecified; Z86.73 Personal history of transient ischemic attack (TIA), and cerebral infarction without residual deficits
CPT/HCPCS: 36415; 71045; 80048; 80053; 81003; 83605; 83690; 83735; 84100; 85025; 85651; 86140; 87040; 87081; 87086; 87181; 96365; 96375; 99285; J8499; U0002